=== PATIENT | male | born 1950 | race Caucasian/White ===

== ENCOUNTER 2018-10-23 19:45 | Inpatient (IN) | payer MEDICARE ==
[~2018-10-23] VITALS: Ht 188 cm; Wt 133.7 kg
[2018-10-23] MEDS ORDERED: CA CHLORIDE 10% 10 ML SYRINGE ONE (19:56)
[2018-10-23] MEDS ORDERED: EPINEPHrine 0.1 MG/ML SYG ONE ×2 (20:08→20:09)
[2018-10-23] MEDS ORDERED: SODIUM CHLORIDE 0.9% 1L BAG IV* STA (20:15)
[2018-10-23] MEDS ORDERED: VANCOMYCIN 1 GM (PMX) 250 ML IVPB STA (20:15)
[2018-10-23] MEDS ORDERED: AMIODARONE 900 MG in DEXTROSE 5% 482 ML IV STA (20:15)
[2018-10-23] MEDS ORDERED: CEFEPIME 2GM/50 ML (PMX) 50 ML IVPB STA (20:15)
[2018-10-23] MEDS ORDERED: VECURONIUM 100 MG in DEXTROSE 5% 100 ML IV ONE (20:18)
[2018-10-23] MEDS ORDERED: SODIUM CHLORIDE 0.9% 500 ML BAG IV* STA (20:18)
[2018-10-23] MEDS ORDERED: MIDAZOLAM (DRIP) 50 mg/50 mL 50 ML IV ONE (20:30)
[2018-10-23] MEDS ORDERED: VASOPRESSIN 100 UNIT in SOD CHLORIDE 0.9% 95 ML IV ONE (20:30)
[2018-10-23] MEDS ORDERED: NORepinephrine 8MG/250 ML (PMX 250 ML IV ONE (20:30)
[2018-10-23] MEDS ORDERED: FENTAnyl (DRIP) 1000 mcg/100mL 100 ML IV ONE (20:30)
[2018-10-23] MEDS ORDERED: DOPamine-D5W 1.6 MG/ML 250 ML IV ONE (20:30)
[2018-10-23] MEDS ORDERED: HYDROCORTISONE 100 MG INJ IV ONE (20:30)
[2018-10-23] MEDS ORDERED: ASPI-817 PO (20:54)
[2018-10-23] MEDS ORDERED: ACYC800T PO (20:54)
[2018-10-23] MEDS ORDERED: MULTI PO (20:55)
[2018-10-23] MEDS ORDERED: GARL1TAB2 PO (20:55)
[2018-10-23] MEDS ORDERED: CYAN-23 PO (20:56)
[2018-10-23] MEDS ORDERED: AMLO-147 PO (20:59)
--- NOTE | 2018-10-23 21:04 | ERD ---
ER Documentation Chief Complaint Chief Complaint BIB RA39 s/p cardiac arrest w/ ROSC HPI 68-year-old gentleman fairly recent diagnosis of West Nile virus status post resolution who presents to the emergency room with cardiac arrest. EMS reports the patient had a V. fib cardiac arrest in the field. Initially there was some concern for possible choking. The patient had bystander CPR. Further history provided reveals that the patient's was having dinner with him and he had sudden arrest. The patient was unable to be intubated in the field. ACLS and chest compressions were being done upon arrival. Total downtime in the field approximately 10 minutes. ROS Critical patient unable to obtain Medications Home Meds Reported Medications Amlodipine Besylate* (Amlodipine Besylate*) 10 Mg Tablet, 10 MG PO DAILY, #30 TAB 10/23/18 Cyanocobalamin (Vitamin B-12) (Vitamin B-12) Unknown Strength Capsule, 1 CAP PO DAILY, CAP 10/23/18 Garlic (Garlic) 1 Each Tablet, 1 EACH PO DAILY, TAB 10/23/18 Multivitamins* (Theragran*) 1 Tab Tab, 1 TAB PO DAILY, TAB 10/23/18 Acyclovir* (Acyclovir*) 800 Mg Tablet, 800 MG PO DAILY, TAB 10/23/18 Aspirin* (Aspirin* EC) 81 Mg Tablet.dr, 81 MG PO DAILY, TAB 10/23/18 Allergies Allergies: Coded Allergies: No Known Allergy (Unverified , 10/23/18) PMhx/Soc Medical and Surgical Hx: Unable to obtain Hx Cardiac Disorders: Yes (htn) Hx Miscellaneous Medical Probl: Yes (west nile virus) Smoking Status: Unknown if ever smoked FmHx Critical patient unable to obtain Physical Exam Physical Exam General: Unresponsive, cyanotic Head: Normocephalic, atraumatic Eyes: Limited exam ENT: Moist mucous membranes Neck: Supple, no lymphadenopathy Respiratory: No spontaneous respiratory activity Cardiovascular: No spontaneous cardiac activity Abdominal: Soft, non-protuberant, no pulsatile mass : Deferred MSK: No spontaneous motor activity Neurologic: No spontaneous neurologic activity Skin: No evidence of trauma Result Diagram: 10/23/18201110/23/182011 Results 24 hrs Laboratory Tests Test 10/23/18 20:12 10/23/18 20:28 White Blood Count 6.9 10^3/ul Red Blood Count 4.53 10^6/ul Hemoglobin 13.6 g/dl Hematocrit 43.0 % Mean Corpuscular Volume 94.9 fl Mean Corpuscular Hemoglobin 30.0 pg Mean Corpuscular Hemoglobin Concent 31.6 g/dl Red Cell Distribution Width 12.8 % Platelet Count 195 10^3/UL Mean Platelet Volume 10.0 fl Immature Granulocytes % 4.800 % Neutrophils % % Lymphocytes % % Monocytes % % Eosinophils % % Basophils % % Nucleated Red Blood Cells % 1.0 /100WBC Immature Granulocytes # 0.330 10^3/ul Neutrophils # 10^3/ul Lymphocytes # 10^3/ul Monocytes # 10^3/ul Eosinophils # 10^3/ul Basophils # 10^3/ul Nucleated Red Blood Cells # 10^3/ul Prothrombin Time 16.2 Sec Prothrombin Time Ratio 1.3 INR International Normalized Ratio 1.29 Activated Partial Thromboplast Time 35.9 Sec Sodium Level 139 mmol/L Potassium Level 3.1 mmol/L Chloride Level 98 mmol/L Carbon Dioxide Level 18 mmol/L Anion Gap 23 Blood Urea Nitrogen 24 mg/dl Creatinine 1.22 mg/dl Est Glomerular Filtrat Rate mL/min 59 mL/min Glucose Level 468 mg/dl Lactic Acid Level 17.4 mmol/L Calcium Level 10.4 mg/dl Phosphorus Level 10.5 mg/dl Magnesium Level 3.4 mg/dl Total Bilirubin 0.3 mg/dl Direct Bilirubin 0.00 mg/dl Indirect Bilirubin 0.3 mg/dl Aspartate Amino Transf (AST/SGOT) 193 IU/L Alanine Aminotransferase (ALT/SGPT) 239 IU/L Alkaline Phosphatase 87 IU/L Troponin I 0.061 ng/ml Total Protein 6.2 g/dl Albumin 3.6 g/dl Globulin 2.60 g/dl Albumin/Globulin Ratio 1.38 Lipase 70 U/L Ethyl Alcohol Level < 10.0 mg/dl Urine Color YELLOW Urine Clarity CLEAR Urine pH 6.0 Urine Specific [place] 1.018 Urine Ketones NEGATIVE mg/dL Urine Nitrite NEGATIVE mg/dL Urine Bilirubin NEGATIVE mg/dL Urine Urobilinogen NEGATIVE mg/dL Urine Leukocyte Esterase NEGATIVE Kathy/ul Urine Hemoglobin NEGATIVE mg/dL Urine Glucose NEGATIVE mg/dL Urine Total Protein NEGATIVE mg/dl Current Medications Medications Dose Sig/Adolfo Start Time Status Last (Trade) Ordered Route PRN Stop Time Admin Dose Reason Admin Sodium 3,600 ml BOLUS OVER 2 3/25/19 DC 10/23/18 Chloride HOURS STAT 20:15 20:04 (NS) IV* 10/23/18 20:18 Cefepime HCl 50 ml @ ONCE STAT 10/23/18 DC 10/23/18 100 mls/hr IVPB 20:15 20:44 10/23/18 20:44 Vancomycin 250 ml @ ONCE STAT 10/23/18 HCl 125 mls/hr IVPB 20:15 10/23/18 22:14 250 ml @ PER PROTOCOL 10/23/18 10/23/18 Norepinephrin 7.5 mls/hr ONCE IV 20:30 20:16 e 10/25/18 05:49 Dopamine 250 ml @ PER PROTOCOL 10/23/18 HCl/ 22.5 mls/hr ONCE IV 20:30 Dextrose 10/24/18 07:36 Vasopressin 100 ml @ PER PROTOCOL 10/23/18 100 2.4 mls/hr ONCE IV 20:30 unit/Sodium 10/25/18 14:09 Chloride Amiodarone 500 ml @ 0 ONCE STAT 10/23/18 DC HCl 900 mls/hr IV 20:15 mg/Dextrose 10/23/18 20:18 Midazolam 50 ml @ 3 PER PROTOCOL 10/23/18 HCl mls/hr ONCE IV 20:30 10/24/18 13:09 Fentanyl 100 ml @ PER PROTOCOL 10/23/18 2.5 mls/hr ONCE IV 20:30 10/25/18 12:29 Sodium 500 ml ONCE STAT 10/23/18 DC 10/23/18 Chloride IV* 20:18 20:04 (NS) 10/23/18 20:21 Vecuronium 100 ml @ [id number] 10/23/18 [place] 100 7.2 mls/hr ONCE IV 20:18 mg/ Dextrose 10/24/18 10:11 100 mg ONCE ONCE 10/23/18 DC 10/23/18 Hydrocortison IV 20:30 20:43 e 10/23/18 20:31 (Solu-Cortef) Procedures/MDM EKG, MONITORS, & DIAGNOSTIC IMAGING: EKG: I reviewed and interpreted a 12-lead EKG. Rhythm: Normal sinus rhythm ST Changes: Deep ST depressions in the precordial leads T waves: No contiguous T wave inversions Impression: Concern for active ischemia versus posterior CT Chest x-ray: I reviewed and interpreted a 1 view of the chest Mediastinum: Abnormal, consider positioning Cardiac silhouette: cardiomegaly Airspace: Interstitial process bilaterally, ET tube in good position Bones: No evidence of fracture CT brain: Formal read pending. PROCEDURES: Intubation Note: Indication: Airway protection Consent: This was an emergent situation, implied consent was observed RSI Medications: None required Tube size: 7-1/2 Secured at: 25 of the mouth Procedure: Endotracheal intubation was performed. The patient was preoxygenated with supplemental oxygen, the room was set up with emergency airway equipment including [id number], suction, and adjunct airways. Direct visualization of the cords was performed with direct laryngoscopy using [video laryngoscope] , insertion of the endotracheal tube through the cords was visualized. Bilateral breath sounds were auscultated, color change was observed. The tube was then secured in a postintubation chest x-ray was ordered. The patient tolerated the procedure well there were no complications. Central Line Note: Consent: [Critical patient, unable to obtain informed consent] Indication: Critically ill patient requiring specialized vascular access for fluid or pressor management Location: Right femoral vein Indication: Critical patient, coding patient Procedure: Sterile procedure was observed throughout insertion of the central line. The insertion site was prepped with sterile solution. Landmarks identified. insertion of a needle into the vein was obtained with return of dark, nonpulsatile blood. The wire was then threaded through the needle without complication. small skin incision was made, the needle was removed intact, dilation of the vein was performed and insertion of a triple lumen catheter was completed. The catheter was then sutured to the skin. All 3 ports jaswinder back and flushed without difficulty. A sterile dressing was applied. The patient tolerated the procedure well there were no complications. LAB INTERPRETATION: I reviewed the laboratory testing and it shows no leukocytosis, hyperglycemia though the patient received dextrose during code. Troponin pending. Lactic acid elevation. MEDICAL DECISION MAKING: The patient arrives with cardiac arrest. The initial report was possible choking episode. However, further history provided by the was that the patient is sudden arrest. This is consistent with ventricular fibrillation cardiac arrest with return of spontaneous circulation. ER COURSE: * Upon arrival the patient was undergoing chest compressions. I continued ACLS per protocol. The patient was placed on the rn cardiac and defibrillator * The patient was given multiple rounds of medications that included epinephrine, calcium, bicarbonate, amiodarone, magnesium. Please see nursing documentation. The patient continued to be in and out of PEA arrest and a systole. * The patient was intubated. * We had temporary return of spontaneous circulation and a central line was placed. * Patient again lost pulses despite dose of atropine. ACLS was continued. Mitali ent was given again dosing of epinephrine and other medications including bicarbonate. Return of spontaneous circulation occurred. * Sedation was continue with fentanyl and Versed. Targeted temperature management was initiated. * Broad-spectrum antibiotics provided. Blood cultures taken. * Given that the provided the history of V. fib arrest and EKG showing ST depressions, on-call interventionalist was notified. Dr. Monaco and I discussed the case. We discussed resuscitation features. The patient had a witnessed arrest with initial V. fib rhythm. The patient had bystander CPR. Total minutes of return to spontaneous circulation were less than 30. The patient had ongoing CPR. Age is less than 85. No history of end-stage renal disease. Given the very good possibility of cardiac etiology we both felt that activation of the Figure Skater was appropriate. * Cardiac Figure Skater activated at 8:40 PM * The patient's was updated multiple times and allowed to come to the bedside. * Patient was taken to CT for CT brain with no evidence of obvious intracranial hemorrhage. Formal read pending. CONSULTATION: [employer] Operations Specialist: Dr. Monaco the bedside DISPOSITION PLAN: Accepting care team and consultations: I discussed the current laboratory data, diagnostic imaging and emergency care provided. Admitting team: Dr. Jacques Admitting team indication: Insurance directed Critical Care Note: Total time: 50 minutes Indication/Organ System Threat: Cardiac arrest with return of spontaneous cir culation I spent the above amount of critical care time with the patient, not including billable procedures. This included chart review, consultations, repeat bedside evaluations, and titration of appropriate medications to prevent cardiopulmonary or respiratory collapse. Departure Diagnosis: Primary Impression: Cardiac arrest Additional Impressions: Ventricular fibrillation Acute respiratory failure Respiratory failure complication: hypoxia Qualified Codes: J96.01 - Acute respiratory failure with hypoxia Hyperglycemia Shock liver High anion gap metabolic acidosis Condition: Critical ILSSY SMITH MD Oct 23, 2018 21:04
[2018-10-23] MEDS ORDERED: LIDOCAINE 1% (MDV) 20 ML INJ ONE (21:17)
[2018-10-23] MEDS ORDERED: VERAPAMIL 5 MG INJ ONE (21:17)
[2018-10-23] MEDS ORDERED: IOHEXOL 350MG/ML 50 ML BTL ONE (21:17)
[2018-10-23] MEDS ORDERED: MIDAZOLAM 1 MG/ML 2 ML INJ ONE (21:17)
[2018-10-23] MEDS ORDERED: FENTAnyl 50 MCG/ML VIAL ONE (21:17)
[2018-10-23] MEDS ORDERED: IODIXANOL LOCM 100 ML BTL ONE (21:17)
[2018-10-23] MEDS ORDERED: NITROGLYCERIN (IC) 100 MCG/ML INJ ONE (21:17)
--- NOTE | 2018-10-23 21:17 | CONS ---
Assessment/Plan Assessment/Plan Hospital Course (Demo Recall) Ventricular fibrillation cardiac arrest V. fib Inferolateral ST elevation [place] Status post emergent PCI of left circumflex artery Multivessel coronary artery disease with 90% right coronary artery stenosis Severe lactic acidosis Severe hyperglycemia Respiratory failure this was intubation underwent Electrolyte abnormality and severe metabolic acidosis encephalopathy likely anoxic brain injury History of hypertension currently in shock Recommendations: Aspirin and Brilinta needs to be continued given PCI We will keep an angiogram in the next 12 hours if a no active bleeding is noted Intra-aortic balloon pump will be continued We have been so for able to wean off the vasopressin completely and currently only on low-dose of dopamine. Levophed is almost off as well. Blood pressure remained stable with supportive balloon pump Vent support will be continued. Hypothermia to be started ICU care will be done Magnesium potassium to be replaced Prognosis is guarded at best More than 48 minutes of critical care time was for management treatment is critically patient excluding any procedures Thank you for his referral. We will continue to follow along with you DRU PONCE MD [facility] Consultation Date/Type/Reason Admit Date/Time Date of Consultation: Oct 23, 2018 Type of Consult Cardiology Reason for Consultation VF cardiac arrest Requesting Provider: LISSY SMITH MD Date/Time of Note DATE: 10/23/18 TIME: 21:16 Hx of Present Illness Emergent Interventional cardiology consultation note/ Critical care note Chief complaint: syncope Reason for consult: VF arrest History of present illness: Thank you for this referral. History was obtained from the patient will discussion with the ER physician multiple staff. This is an unfortunate 68-year-old gentleman with history of West Nile virus which apparently has recovered from, hypertension who was having dinner and suddenly passed out. Paramedics was called CPR by bystanders was done. Initial rhythm was reportedly V. fib and patient was shocked. Patient was emergency room was intubated. Patient has been unresponsive though. Initial EKG post showed slight ST elevation in inferolateral leads consistent with a STEMI. Code STEMI was activated and patient was seen by myself in the emergency room. He was noted to be unresponsive with pupils fixed and dilated. Patient was also hypotensive on vasopressin, dopamine, Levophed drip. Discussed with and ER physician decided to take the patient for emergent cardiac cath. Risks and alternative procedure discussed with the patient and in detail risks include but limited to high risk of infection vascular complication bleeding complication TX stroke arrhythmia I said that S are discussed with her. Cardiac cath was done patient was noted to 100% occlusion of his left circumflex artery which was successfully stented using a 2.75 x 24 mm Synergy drug-eluting stent. Intra-artery balloon was also placed for pressures support. Patient is to be transferred to intensive care unit Allergies: No known drug allergies Medications Norvasc aspirin Family history: No history of early coronary artery disease Social history: Non-smoker and lives with his Past medical history: Hypertension West Nile virus infection obesity Review of system: Patient denies all others except for above-mentioned Past Medical History Home Meds Reported Medications Amlodipine Besylate* (Amlodipine Besylate*) 10 Mg Tablet, 10 MG PO DAILY, #30 TAB 10/23/18 Cyanocobalamin (Vitamin B-12) (Vitamin B-12) Unknown Strength Capsule, 1 CAP PO DAILY, CAP 10/23/18 Garlic (Garlic) 1 Each Tablet, 1 EACH PO DAILY, TAB 10/23/18 Multivitamins* (Theragran*) 1 Tab Tab, 1 TAB PO DAILY, TAB 10/23/18 Acyclovir* (Acyclovir*) 800 Mg Tablet, 800 MG PO DAILY, TAB 10/23/18 Aspirin* (Aspirin* EC) 81 Mg Tablet.dr, 81 MG PO DAILY, TAB 10/23/18 Medications Current Medications Vancomycin HCl 250 ml @ 125 mls/hr ONCE STAT IVPB Last administered on 10/23/18at 21:00; Admin Dose 125 MLS/HR; Start 10/23/18 at 20:15; Stop 10/23/18 at 22:14 Norepinephrine 250 ml @ 7.5 mls/hr PER PROTOCOL ONCE IV Last administered on 10/23/18at 20:16; Admin Dose 7.5 MLS/HR; Start 10/23/18 at 20:30; Stop 10/25/18 at 05:49 Dopamine HCl/ Dextrose 250 ml @ 22.5 mls/hr PER PROTOCOL ONCE IV ; Start 10/23/18 at 20:30; Stop 10/24/18 at 07:36 Vasopressin 100 unit/Sodium Chloride 100 ml @ 2.4 mls/hr PER PROTOCOL ONCE IV Last administered on 10/23/18at 21:13; Admin Dose 2.4 MLS/HR; Start 10/23/18 at 20:30; Stop 10/25/18 at 14:09 Midazolam HCl 50 ml @ 3 mls/hr PER PROTOCOL ONCE IV ; Start 10/23/18 at 20:30; Stop 10/24/18 at 13:09 Fentanyl 100 ml @ 2.5 mls/hr PER PROTOCOL ONCE IV ; Start 10/23/18 at 20:30; Stop 10/25/18 at 12:29 Vecuronium [place] 100 mg/ Dextrose 100 ml @ 7.2 mls/hr [id number] ONCE IV ; Start 10/23/18 at 20:18; Stop 10/24/18 at 10:11 Allergies: Coded Allergies: No Known Allergy (Unverified , 10/23/18) Social History Smoking Status: Unknown if ever smoked Exam/Review of Systems Exam Exam General: Obese gentleman status post intubation on the vent nonverbal HEENT: NC/AT. pupils are extend dilated NECK: no stridor. CV: RRR. systolic murmur; no gallop or rubs. PULM: no wheezing +rhonchi. GI: SOFT, NT, ND, no rebound or guarding Extremity: trace B/L LE edema. no clubbing. neuro: No response to verbal stimuli Psych: calm rectal: deferred : normal male EKG was personally showed normal sinus rhythm with ST elevation inferolaterally consistent with inferolateral ST elevation TX with reciprocal changes anteriorly Head CT done in the emergency room shows: No mass effect or acute intracranial bleed. Mild intracranial vascular calcification.. Chest x-ray done in the ER shows: 1. Endotracheal tube in place. 2. Atelectasis at the right lung base. 3. Mild cardiomegaly. 4. Exam limited by low lung volumes and multiple overlying external appearing wires Multiple ABG that was reviewed personally Labs Result Diagram: 10/23/18201110/23/182011 Results 24hrs Laboratory Tests Test 10/23/18 20:12 10/23/18 20:15 10/23/18 20:28 White Blood Count 6.9 Red Blood Count 4.53 L Hemoglobin 13.6 L Hematocrit 43.0 Mean Corpuscular Volume 94.9 Mean Corpuscular Hemoglobin 30.0 Mean Corpuscular 31.6 L Hemoglobin Concent Red Cell Distribution Width 12.8 Platelet Count 195 Mean Platelet Volume 10.0 Immature Granulocytes % 4.800 H Neutrophils % Lymphocytes % Monocytes % Eosinophils % Basophils % Nucleated Red Blood Cells % 1.0 H Immature Granulocytes # 0.330 H Neutrophils # Lymphocytes # Monocytes # Eosinophils # Basophils # Nucleated Red Blood Cells # Prothrombin Time 16.2 H Prothrombin Time Ratio 1.3 INR International 1.29 Normalized Ratio Activated 35.9 H Partial Thromboplast Time Sodium Level 139 Potassium Level 3.1 L Chloride Level 98 Carbon Dioxide Level 18 L Anion Gap 23 H Blood Urea Nitrogen 24 H Creatinine 1.22 Est Glomerular Filtrat 59 L Rate mL/min Glucose Level 468 *H Lactic Acid Level 17.4 *H Calcium Level 10.4 H Phosphorus Level 10.5 H Magnesium Level 3.4 H Total Bilirubin 0.3 Direct Bilirubin 0.00 Indirect Bilirubin 0.3 Aspartate Amino 193 H Transf (AST/SGOT) Alanine 239 H Aminotransferase (ALT/SGPT) Alkaline Phosphatase 87 Troponin I 0.061 Total Protein 6.2 Albumin 3.6 Globulin 2.60 Albumin/Globulin Ratio 1.38 Lipase 70 Ethyl Alcohol Level < 10.0 H Blood Gas Specimen Source Blood arterial Arterial Blood Date Drawn 10/23/2018 9:00:31 PM Arterial Blood pH 7.064 *L (Temp corrected) Arterial Blood pCO2 66.6 H (Temp correct) Arterial Blood pO2 81.1 (Temp corrected) Arterial Blood HCO3 18.6 L Arterial Blood Base Excess -12.7 L Arterial Blood 89.6 L Oxygen Saturation Nicolas Test ACCEPTAB Arterial Blood Gas Right Radial Puncture Site Arterial 0.3 Blood Carboxyhemoglobin Arterial Blood Methemoglobin 0.4 Blood Gas A-a O2 565.3 H Differential Oxyhemoglobin Percent 89.0 L Blood Gas Temperature 37.0 Blood Gas Respiration Rate 15.0 Blood Gas Actual 15 Respiration Rate Blood Gas Modality VENT - AC FiO2 100.0 Blood Gas Tidal Volume 550.0 Blood Gas Low PEEP Setting 5.0 Blood Gas Critical Value Ashley SMITH MD Read Back Blood Gas Notified Whom UP Blood Gas Notified Time 10/23/2018 9:11:27 PM Urine Color YELLOW Urine Clarity CLEAR Urine pH 6.0 Urine Specific [place] 1.018 Urine Ketones NEGATIVE Urine Nitrite NEGATIVE Urine Bilirubin NEGATIVE Urine Urobilinogen NEGATIVE Urine Leukocyte Esterase NEGATIVE Urine Hemoglobin NEGATIVE Urine Glucose NEGATIVE Urine Total Protein NEGATIVE Medications Medications Current Medications Vancomycin HCl 250 ml @ 125 mls/hr ONCE STAT IVPB Last administered on 10/23/18at 21:00; Admin Dose 125 MLS/HR; Start 10/23/18 at 20:15; Stop 10/23/18 at 22:14 Norepinephrine 250 ml @ 7.5 mls/hr PER PROTOCOL ONCE IV Last administered on 10/23/18at 20:16; Admin Dose 7.5 MLS/HR; Start 10/23/18 at 20:30; Stop 10/25/18 at 05:49 Dopamine HCl/ Dextrose 250 ml @ 22.5 mls/hr PER PROTOCOL ONCE IV ; Start 10/23/18 at 20:30; Stop 10/24/18 at 07:36 Vasopressin 100 unit/Sodium Chloride 100 ml @ 2.4 mls/hr PER PROTOCOL ONCE IV Last administered on 10/23/18at 21:13; Admin Dose 2.4 MLS/HR; Start 10/23/18 at 20:30; Stop 10/25/18 at 14:09 Midazolam HCl 50 ml @ 3 mls/hr PER PROTOCOL ONCE IV ; Start 10/23/18 at 20:30; Stop 10/24/18 at 13:09 Fentanyl 100 ml @ 2.5 mls/hr PER PROTOCOL ONCE IV ; Start 10/23/18 at 20:30; Stop 10/25/18 at 12:29 Vecuronium [place] 100 mg/ Dextrose 100 ml @ 7.2 mls/hr [id number] ONCE IV ; Start 10/23/18 at 20:18; Stop 10/24/18 at 10:11 DRU PONCE MD Oct 23, 2018 21:17
[2018-10-23] MEDS ORDERED: ASPIRIN 325 MG TAB ONE ×2 (21:25→22:43)
[2018-10-23] MEDS ORDERED: NA BICARBONATE 8.4% 50 ML SYG ONE (21:45)
[2018-10-23] MEDS ORDERED: TICAGRELOR 90 MG TABLET ONE (22:19)
[2018-10-23] MEDS ORDERED: EPTIFIBATIDE 10 ML ONE (22:44)
[2018-10-23] MEDS ORDERED: EPTIFIBATIDE 100 ML IV ONE (22:44)
[2018-10-23] MEDS ORDERED: EPTIFIBATIDE 100 ML IV SCH (22:51)
[2018-10-23] MEDS: SOD CHLORIDE 0.9% 1,000 ML IV SCH (22:51)
[2018-10-23] MEDS ORDERED: TICAGRELOR 90 MG TABLET PO ONE (23:00)
[2018-10-23] MEDS ORDERED: ASPIRIN 300 MG SUPP PR ONE (23:00)
--- NOTE | 2018-10-23 23:43 | OPR ---
Date/Time of Note Date/Time of Note DATE: 10/23/18 TIME: 23:33 Operative Report Procedure Date: Oct 23, 2018 Preoperative Diagnosis VF cardiac arrest Postoperative Diagnosis same Operation/Procedure Performed PCI LCX. IABP Surgeon see signature line [place] Strip Gauger MAURILIO Anesthesia Type: general, other Estimated Blood Loss: minimal Transfusion none Specimen none Grafts/Implants none Complications none Procedure Description Bacteriologist Medical: Dru Monaco MD Indication: 68-year-old gentleman who presented with V. fib cardiac arrest. EKG is also shown inferolateral ST elevations Procure performed: #1 Emergent left heart catheterization and selective right and left coronary angiogram #2 Right and left femoral angiogram 3. Intra-aortic balloon pump placement under direct fluoroscopy 4. Thrombectomy of the distal left circumflex artery 5. Successful PTCA and stenting of distal left circumflex artery using a 2.75 x 24 mm Synergy drug-eluting stent Findings: 1. Left main: is normal and birfurcates to LAD & LCX. 2. LAD: has 20 % stenosis at proximal LAD, and 20 % stenosis at mid LAD. 3. Left circumflex artery: is large but nondominant. it has 100 % occluded distally. Successful PCI of this lesion no significant residual stenosis left. 4. RCA: is large and dominant. it has 40 % stenosis proximally and 80-90% stenosis at the mid RCA. MALENA-3 flow was noted to 5. LV: 141/30 aortic pressure by pull back: 148/60 Procedure in detail: Written informed consent with obtained after risks benefits and alternatives discussed with the patient's in detail. risks including but not limited to risk of infection vascular complications, bleeding complications, OH stroke arrhythmia renal failure at even were discussed with the patient's in detail. Patient was brought into the cardiac director of labor relations and placed in supine position. Right and left groin area was prepped and draped in regular sterile fashion and then he was in anesthetized using 1% lidocaine. Right femoral artery was cannulated and using modified seldinger technique a 6 Irish sheath was placed in the femoral artery. Femoral angiogram was performed. Left femoral artery was cannulated using modified tension technique a 5 Irish sheath placed left femoral artery.Femoral angiogram was performed I changed the right femoral sheath to an 8 Irish sheath and left femoral sheath to a 6 Irish sheath. Intra-aortic balloon pump was advanced to the right femoral sheath placed into the descending aorta and started for support. JL4 guiding catheter was advanced to engage the left main coronary artery felicia ographic view was obtained. JR4 catheter was advanced and engaged into the right coronary artery and angiographic view was obtained. At this time we decided to perform PCI of the circumflex artery. A Voda 3-/2 guiding catheter was advanced to engage the left main coronary artery. BMW wire was used and could not cross into the distal left circumflex artery. Continuous Improvement Specialist wire was used and advanced and the support of the balloon was able to cross the lesion and placed distal to the lesion. I used a 2.5 x 8 mm balloon which was placed across the lesion and predilated the vessel. Then a Pronto was used thrombectomy was done. Then it 2.5 x 15 mm balloon was used and inflated the lesion. Then I used a 2.75 x 24 mm Synergy drug-eluting stent which was placed across the lesion and deployed at 14 Joaquín. Final angiographic view was obtained which showed MALENA-3 flow no evidence of dissection and no significant residual stenosis at the site of the stent. Then a pigtail was advanced to engage the left ventricle hemodynamics as recorded by pullback aortic pressure was measured. Intra-aortic balloon pump was sutured in. At this point was noted at the pressures were not recording well at the balloon pump. Different setting was changed however it could not be recording well. Decided to change intra-aortic balloon pump. It was deflated and removed. Another new balloon pump was put under direct fluoroscopy. A good waveform was noted Patient tolerated the procedure well with no complication. Patient is to be transferred to ICU contrast used: 120 cc Visipaque Conclusions: Successful PTCA thrombectomy stenting of the distal left circumflex artery from 100% occlusion to no significant residual stenosis using a 2.75 x 24 mm Synergy drug-eluting stent. Placement of intra-aortic balloon pump Recommendations: Aggressive medical therapy. dual antiplatlet therapy with aspirin and Brilinta ICU care Integrilin drip over the next 12 hours stable. DRU MONACO MD [facility] DRU MONACO MD Oct 23, 2018 23:43
[2018-10-24] VITALS (102 sets, daily range): BP systolic 68–178; BP diastolic 40–94; PULSE 58–97; RESP 13–29
[2018-10-24] MEDS ORDERED: AMIODARONE 900 MG in DEXTROSE 5% 482 ML IV SCH (00:08)
[2018-10-24] MEDS ORDERED: IODIXANOL LOCM 100 ML BTL ONE ×2 (00:13)
[2018-10-24] MEDS ORDERED: IPRATROPIUM (HFA) 12.9 GM INHALER INH PRN (00:30)
[2018-10-24] MEDS ORDERED: ALBUTEROL HFA 8 GM INHALER INH PRN (00:30)
[2018-10-24] MEDS ORDERED: INSULIN HUMAN REGULAR 100 UNIT in SOD CHLORIDE 0.9% 99 ML IV SCH ×2 (00:30→02:30)
[2018-10-24] MEDS ORDERED: ONDANSETRON 4 MG INJ IV PRN (00:30)
[2018-10-24] MEDS ORDERED: ACCU-CHEK XX SCH ×2 (00:30→02:30)
[2018-10-24] MEDS ORDERED: ACETAMINOPHEN 650MG/20.3ML CUP PO PRN (00:30)
[2018-10-24] MEDS ORDERED: DEXTROSE 50% 50 ML SYRINGE IV PRN ×6 (00:30→02:30)
[2018-10-24] MEDS ORDERED: LORAZEPAM 2 MG INJ IV ONE (01:00)
[2018-10-24] MEDS: POTASSIUM CHLORIDE 50 ML IVPB SCH ×4 (01:03→17:06)
[2018-10-24] MEDS: ACCU-CHEK XX SCH ×24 (01:16→23:06)
[2018-10-24] MEDS ORDERED: DIAZEPAM 5 MG/ML SYG IV ONE (02:00)
[2018-10-24] MEDS: PROPOFOL 100 ML IV SCH ×6 (02:00→20:56)
[2018-10-24] MEDS: OCULAR LUBRICANT 3.5 GM OPH OINT BOTH EYES SCH ×4 (02:00→18:07)
[2018-10-24] MEDS: ACETAMINOPHEN 650MG/20.3ML CUP NGT SCH ×4 (02:00→21:52)
[2018-10-24] MEDS ORDERED: LEVETIRACETAM 1000 MG (PMX) 100 ML IVPB ONE (02:00)
[2018-10-24] MEDS ORDERED: MEPERIDINE 25 MG INJ IM PRN (02:00)
[2018-10-24] MEDS ORDERED: D5W ONE (02:54)
[2018-10-24] MEDS ORDERED: MAGNESIUM SULFATE ONE (02:54)
[2018-10-24] MEDS ORDERED: MAGNESIUM SULFATE 3 GM in DEXTROSE 5% 100 ML IV ONE (03:13)
[2018-10-24] MEDS ORDERED: MEPERIDINE 25 MG INJ IV PRN (03:30)
[2018-10-24] MEDS: VASOPRESSIN 60 UNIT in DEXTROSE 5% 57 ML IV SCH ×3 (04:00→16:06)
[2018-10-24] MEDS: INSULIN HUMAN REGULAR 100 UNIT in SOD CHLORIDE 0.9% 99 ML IV SCH ×3 (04:13→20:14)
[2018-10-24] MEDS: NORepinephrine 32 MG in DEXTROSE 5% 218 ML IV SCH (04:46)
[2018-10-24] MEDS: SOD CHLORIDE 0.9% 1,000 ML IV SCH (05:50)
--- NOTE | 2018-10-24 06:05 | HP ---
Date/Time of Note Date/Time of Note DATE: 10/24/18 TIME: 05:56 Assessment/Plan VTE Prophylaxis Pharmacological prophylaxis: heparin Lines/Catheters IV Catheter Type (from Nrsg): A Line Urinary Cath still in place: Yes Reason Cath still needed: terminal illness/intractable pain Assessment/Plan Assessment/Plan 1. V-fib cardiac arrest: s/p ROSC. Secondary to STEMI Patient is status post intra-aortic balloon pump placement under direct fluoroscopy, thrombectomy of the distal left circumflex artery and successful PTCA and stenting of distal left circumflex artery. -Currently on Brilinta, aspirin, statin -Management per cardiology -Follow-up 2D echo result -Trend troponin -Hypothermia protocol 2. Hypoxic and hypercapnic respiratory failure, secondary to above: Status post intubation -Continue vent support -ABG -Pulmonary to manage 3. STEMI: See #1 4. Hyperglycemia: A1c 5.3 -Insulin drip 5. Hypokalemia: Replete 6. Seizure -Currently on Versed -Status post Ativan, Valium and Keppra -Pupils are dilated and fixed -Neurology consult -Head CT without acute findings. Will order MRI of the brain when more stable Result Diagram: 10/23/18211410/23/182114 Results 24hrs Laboratory Tests Test 10/23/18 20:12 10/23/18 20:15 10/23/18 20:28 10/23/18 21:15 White Blood 6.9 20.9 #H Count Red Blood Count 4.53 L 5.23 Hemoglobin 13.6 L 15.6 Hematocrit 43.0 45.7 Mean 94.9 87.4 Corpuscular Volume Mean 30.0 29.8 Corpuscular Hemoglobin Mean 31.6 L 34.1 Corpuscular Hemoglobin Conc ent Red Cell 12.8 12.7 Distribution Width Platelet Count 195 319 # Mean Platelet 10.0 9.5 Volume Immature 4.800 H 1.600 H Granulocytes % Neutrophils % 81.0 H Segmented 3 L Neutrophils % (Manual) Band 5 H Neutrophils % (Manual) Lymphocytes % 11.3 L Lymphocytes % 77 H (Manual) Monocytes % 5.4 Monocytes % 7 (Manual) Eosinophils % 0.4 Eosinophils % 3 (Manual) Basophils % 0.3 Basophils % 1 (Manual) Metamyelocytes 1 H % (manual) Myelocytes % 1 H (Manual) Plasma Cells % 2 (manual) Nucleated Red 1.0 H 0.0 Blood Cells % Immature 0.330 H 0.340 H Granulocytes # Neutrophils # 17.0 H Neutrophils # 0.2 L (Manual) Band 0.3 Neutrophils # Lymphocytes 5.3 H (Manual) Lymphocytes # 2.4 Monocytes # 1.1 H Monocytes # 0.4 (Manual) Eosinophils # 0.1 Basophils # 0.1 Basophils # 0.0 (Manual) Metamyelocytes 0.0 # Myelocytes # 0.0 Plasma Cells # 0.1 H (manual) Nucleated Red 0.0 Blood Cells # Platelet NORMAL Estimate Poikilocytosis 1+ Prothrombin 16.2 H Time Prothrombin 1.3 Time Ratio INR 1.29 International Normalized Rati o Activated 35.9 H Partial Thrombo plast Time Sodium Level 139 142 Potassium Level 3.1 L 3.2 L Chloride Level 98 99 Carbon Dioxide 18 L 23 Level Anion Gap 23 H 20 H Blood Urea 24 H 30 H Nitrogen Creatinine 1.22 1.36 H Est Glomerular 59 L 52 L Filtrat Rate mL/min Glucose Level 468 *H 380 H Lactic Acid 17.4 *H Level Calcium Level 10.4 H 8.9 Phosphorus 10.5 H Level Magnesium Level 3.4 H 2.5 Total Bilirubin 0.3 Direct 0.00 Bilirubin Indirect 0.3 Bilirubin Aspartate Amino 193 H Transf (AST/SGO T) Alanine 239 H Aminotransferas e (ALT/SGPT) Alkaline 87 Phosphatase Troponin I 0.061 11.200 *H Total Protein 6.2 Albumin 3.6 Globulin 2.60 Albumin/Globuli 1.38 n Ratio Lipase 70 Ethyl Alcohol < 10.0 H Level Blood Gas Blood arterial Specimen Source Arterial Blood 10/23/2018 9:00: Date Drawn 31 PM Arterial Blood 7.064 *L pH (Temp corrected ) Arterial Blood 66.6 H pCO2 (Temp correct) Arterial Blood 81.1 pO2 (Temp corrected ) Arterial Blood 18.6 L HCO3 Arterial Blood -12.7 L Base Excess Arterial Blood 89.6 L Oxygen Saturati on Nicolas Test ACCEPTAB Arterial Blood Right Radial Gas Puncture Site Arterial 0.3 Blood Carboxyhe moglobin Arterial Blood 0.4 Methemoglobin Blood Gas A-a 565.3 H O2 Differential Oxyhemoglobin 89.0 L Percent Blood Gas 37.0 Temperature Blood Gas 15.0 Respiration Rate Blood Gas 15 Actual Respiration Rat e Blood Gas VENT - AC Modality FiO2 100.0 Blood Gas Tidal 550.0 Volume Blood Gas Low 5.0 PEEP Setting Blood Gas Ashley SMITH MD Critical Value Read Back Blood Gas UP Notified Whom Blood Gas 10/23/2018 9:11: Notified Time 27 PM Urine Color YELLOW Urine Clarity CLEAR Urine pH 6.0 Urine Specific 1.018 [place] Urine Ketones NEGATIVE Urine Nitrite NEGATIVE Urine Bilirubin NEGATIVE Urine NEGATIVE Urobilinogen Urine Leukocyte NEGATIVE Esterase Urine NEGATIVE Hemoglobin Urine Glucose NEGATIVE Urine Total NEGATIVE Protein Urine Opiates Negative Screen Urine Negative Barbiturates Urine Negative Amphetamines Screen Urine Negative Benzodiazepines Screen Urine Cocaine Negative Screen Urine Negative Cannabinoids Test 10/23/18 22:36 10/23/18 23:15 10/24/18 00:29 10/24/18 00:42 Blood Gas Blood arterial Specimen Source Arterial Blood 10/23/2018 10:35 Date Drawn :32 PM Arterial Blood 7.198 *L pH (Temp corrected ) Arterial Blood 60.9 H pCO2 (Temp correct) Arterial Blood 83.7 pO2 (Temp corrected ) Arterial Blood 23.2 HCO3 Arterial Blood -6.1 L Base Excess Arterial Blood 93.5 L Oxygen Saturati on Nicolas Test N/A Arterial Blood A-Line Gas Puncture Site Arterial 0.3 Blood Carboxyhe moglobin Arterial Blood 0.4 Methemoglobin Blood Gas A-a 568.4 H O2 Differential Oxyhemoglobin 92.8 L Percent Blood Gas 37.0 Temperature Blood Gas 20.0 Respiration Rate Blood Gas 20 Actual Respiration Rat e Blood Gas VENT - AC Modality FiO2 100.0 Blood Gas Tidal 550.0 Volume Blood Gas Low 5.0 PEEP Setting Blood Gas Emiliano SINGH MD Critical Value Read Back Blood Gas UP Notified Whom Blood Gas 10/23/2018 10:40 Notified Time :47 PM Lactic Acid 7.8 *H 11.4 *H Level Hemoglobin A1c 5.3 Bedside Glucose 373 H Test 10/24/18 04:03 10/24/18 04:55 10/24/18 05:00 10/24/18 05:02 Bedside Glucose 329 H 353 H White Blood Pending Count Red Blood Count Pending Hemoglobin Pending Hematocrit Pending Mean Pending Corpuscular Volume Mean Pending Corpuscular Hemoglobin Mean Pending Corpuscular Hemoglobin Conc ent Red Cell Pending Distribution Width Platelet Count Pending Mean Platelet Pending Volume Blood Gas Blood Specimen arterial Source Arterial Blood 10/24/2018 5:10 Date Drawn :08 AM Arterial Blood 7.344 L pH (Temp corrected ) Arterial Blood 24.3 L pCO2 (Temp correct) Arterial Blood 419.1 H pO2 (Temp corrected ) Arterial Blood 13.6 L HCO3 Arterial Blood -11.4 L Base Excess Arterial Blood 99.4 H Oxygen Saturati on Nicolas Test N/A Arterial Blood A-Line Gas Puncture Site Arterial 0.3 Blood Carboxyhe moglobin Arterial Blood 0.4 Methemoglobin Blood Gas A-a 278.9 H O2 Differential Oxyhemoglobin 98.7 Percent Blood Gas 33.0 Temperature Blood Gas 20.0 Respiration Rate Blood Gas 28 Actual Respiration Rat e Blood Gas VENT - AC Modality FiO2 100.0 Blood Gas Tidal 550.0 Volume Blood Gas Low 5.0 PEEP Setting Blood Gas C Critical Value ANTHONY Woodward Read Back N Blood Gas Notified Whom Blood Gas 10/24/2018 5:17 Notified Time :16 AM HPI/ROS Admit Date/Time Admit Date/Time Hx of Present Illness This is a 68-year-old male with a history of hypertension who was brought to the ER after he had a cardiac arrest. Reportedly, patient was having dinner when he collapsed. CPR was initiated prior to EMS arrival. When EMS arrived, he was found to be in V-fib. EKG shows STEMI. When he initially presented to ER, he was hypoxic with a documented O2 sat of 66%. Initial troponin 17. Blood glucose in the 400s range. A1c 5.3. Patient was intubated and was taken to the OR emergently. ABG on 100% FiO2 showed a pH of 7.06, PCO2 66, PO2 81, bicarb almost 19. He is now status post Intra-aortic balloon pump placement under direct fluoroscopy, thrombectomy of the distal left circumflex artery and successful PTCA and stenting of distal left circumflex artery using a 2.75 x 24 mm Synergy drug-eluting stent. See cardiology report for more info. Once patient was admitted to ICU, he has been noted to be having seizures. He is on Versed and so far has been given Ativan, Valium and Keppra. PMH/Family/Social Past Medical History Medications Current Medications Dopamine HCl/ Dextrose 250 ml @ 22.5 mls/hr PER PROTOCOL ONCE IV Last administered on 10/23/18at 20:12; Admin Dose 45 MLS/HR; Start 10/23/18 at 20:30; Stop 10/24/18 at 07:36 Vasopressin 100 unit/Sodium Chloride 100 ml @ 2.4 mls/hr PER PROTOCOL ONCE IV Last administered on 10/23/18at 21:13; Admin Dose 2.4 MLS/HR; Start 10/23/18 at 20:30; Stop 10/25/18 at 14:09 Midazolam HCl 50 ml @ 3 mls/hr PER PROTOCOL ONCE IV Last administered on 10/24/18at 00:45; Admin Dose 10 MLS/HR; Start 10/23/18 at 20:30; Stop 10/24/18 at 13:09 Fentanyl 100 ml @ 2.5 mls/hr PER PROTOCOL ONCE IV Last administered on 10/24/18at 00:46; Admin Dose 10 MLS/HR; Start 10/23/18 at 20:30; Stop 10/25/18 at 12:29 Vecuronium Lindrith 100 mg/ Dextrose 100 ml @ 7.2 mls/hr [id number] ONCE IV ; Start 10/23/18 at 20:18; Stop 10/24/18 at 10:11 Miscellaneous Information (* Miscellaneous Pharmacy Order) Hold all Metformin ... ONCE XX ; Start 10/23/18 at 23:00; Stop 10/25/18 at 22:59 Ticagrelor (Brilinta) 90 mg BID PO ; Start 10/24/18 at 09:00 Eptifibatide 100 ml @ 7.2 mls/hr [id number] IV Last administered on 10/23/18at 22:51; Admin Dose 7.2 MLS/HR; Start 10/23/18 at 22:51; Stop 10/24/18 at 10:50 Atorvastatin Calcium (Lipitor) 40 mg DAILY@21 PO ; Start 10/24/18 at 21:00 Sodium Chloride 1,000 ml @ 100 mls/hr Q10H IV Last administered on 10/24/18at 05:50; Admin Dose 100 MLS/HR; Start 10/23/18 at 22:51; Stop 10/24/18 at 18:50 Aspirin (Aspirin) 81 mg DAILY PO ; Start 10/24/18 at 09:00 Amiodarone HCl 900 mg/Dextrose 500 ml @ 0 mls/hr Q0M IV ; Start 10/24/18 at 00:08 Ondansetron HCl (Zofran Inj) 4 mg Q6H PRN IV NAUSEA AND/OR VOMITING; Start 10/24/18 at 00:30 Albuterol (Ventolin Hfa) 4 puff Q2H RESP THERAPY PRN INH SHORTNESS OF BREATH; Start 10/24/18 at 00:30 Ipratropium Lindrith (Atrovent Hfa) 4 puff Q2H RESP THERAPY PRN INH SHORTNESS OF BREATH; Start 10/24/18 at 00:30 Acetaminophen (Tylenol Liquid) 650 mg Q6H PRN PO PAIN LEVEL 1-3 OR FEVER; Start 10/24/18 at 00:30 Pantoprazole (Protonix Iv) 40 mg DAILY@06 IV ; Start 10/24/18 at 06:00 Miscellaneous Information (* Miscellaneous Pharmacy Order) Treatment of Hypoglycemia: 1.BG 51... Per protocol XX ; Start 10/24/18 at 00:30 Propofol 100 ml @ 3.6 mls/hr PER PROTOCOL IV Last administered on 10/24/18at 02:00; Admin Dose 18 MLS/HR; Start 10/24/18 at 00:30 Diagnostic Test (Pha) (Accu-Chek) 1 ea Q1H XX Last administered on 10/24/18at 05:49; Admin Dose 1 EA; Start 10/24/18 at 00:30 Insulin Human Regular 100 unit/ Sodium Chloride 100 ml @ 0 mls/hr PER PROTOCOL IV Last administered on 10/24/18at 04:13; Admin Dose 4 MLS/HR; Start 10/24/18 at 00:30 Miscellaneous Information (* Miscellaneous Pharmacy Order) Treatment of Hypoglycemia: 1.BG 51... Per protocol XX ; Start 10/24/18 at 00:30 Dextrose (D50w Syringe) 25 ml Q15M PRN IV .DECREASED GLUCOSE; Start 10/24/18 at 00:30 Dextrose (D50w Syringe) 50 ml Q15M PRN IV .DECREASED GLUCOSE; Start 10/24/18 at 00:30 Eye Lubricant (Akwa Oint) 1 applic Q6 BOTH EYES ; Start 10/24/18 at 02:00 Eye Lubricant (Artificial Tears Oph) 2 drop Q6H PRN BOTH EYES DRY EYES; Start 10/24/18 at 02:00 Acetaminophen (Tylenol Liquid) 650 mg Q8 NGT ; Start 10/24/18 at 02:00 Norepinephrine 32 mg/Dextrose 250 ml @ 0.47 mls/hr TITRATE IV Last administered on 10/24/18at 04:46; Admin Dose 7.03 MLS/HR; Start 10/24/18 at 02:30 Vasopressin 60 unit/Dextrose 60 ml @ 0 mls/hr Q12H IV Last administered on 10/24/18at 04:00; Admin Dose 2.4 MLS/HR; Start 10/24/18 at 02:30 Magnesium Sulfate 3 gm/Dextrose 106 ml @ 35.333 mls/ hr ONCE ONCE IV Last administered on 10/24/18at 03:28; Admin Dose 35.333 MLS/HR; Start 10/24/18 at 03:13; Stop 10/24/18 at 06:12 Meperidine HCl (Demerol) 12.5 mg Q2 PRN IV SHIVERING; Start 10/24/18 at 03:30 Dopamine HCl/ Dextrose 250 ml @ 9 mls/hr TITRATE IV ; Start 10/24/18 at 04:30 Coded Allergies: No Known Allergy (Unverified , 10/23/18) Social History Smoking Status: Unknown if ever smoked Exam/Review of Systems Vital Signs Vitals Vital Signs Date Temp Pulse Resp B/P (MAP) Pulse Ox O2 O2 Flow FiO2 Time Delivery Rate 10/24/18 91.7 71 19 117/56 100 05:00 (76) 10/24/18 100 04:00 10/23/18 Mechanical 21:15 Ventilator Intake and Output 10/23/18 10/23/18 10/24/18 1515:00 23:00 07:00 IntakeIntake Total 4 ml BalanceBalance 4 ml Exam Exam Past Surgical History Past Surgical Hx: other (see hpi) Family History Significant Family History: other Social History Smoking Status: Unknown if ever smoked Drug Use: other Exam Constitutional: unresponsive Eyes: no rective to light Neck: supple Respiratory: normal air movement Cardiovascular: rrr Gastrointestinal: soft Extremities: normal pulses CHANG WILKS MD Oct 24, 2018 06:05
[2018-10-24] MEDS: ARTIFICIAL TEARS 15 ML OPH BOTH EYES PRN (06:19)
[2018-10-24] MEDS: PANTOPRAZOLE 40 MG INJ IV SCH (06:20)
[2018-10-24] MEDS ORDERED: POTASSIUM CHLORIDE 150 ML ONE (06:44)
[2018-10-24] MEDS ORDERED: NA BICARBONATE 8.4% 50 ML SYG ONE (07:26)
[2018-10-24] MEDS ORDERED: NA BICARBONATE 8.4% 50 ML SYG IV ONE (07:30)
[2018-10-24] MEDS: POTASSIUM CHLORIDE 50 ML IVPB PRN ×5 (07:41→20:36)
--- NOTE | 2018-10-24 08:43 | RADRPT ---
Echocardiogram Report Patient Name: ELANA HUYNHPatient ID: [id number] : 1950 (68y 9m)Study Date: 10/24/2018 7:06:30 AM Gender: MAccession #: [id number] Tech: Shawn Cabral RDCS Location: [id number] Ref.Physician: DRU MONACO Height(Cm): BSA: Weight(Kg): Quality: Technically Difficult StudyAccount #: Procedures: Echocardiographic Report: Transthoracic echocardiogram with complete 2D, M-Mode, and doppler examination. Indications: Myocardial Infarction. Measurements: 2D/M Mode Doppler Measurement Value Normal Range Measurement Value Normal Range LVIDd 2D 4.1 [ 4.2 - 5.8 ] cm AV Peak Emil 1.6 [ 100.0 - 170.0 ] cm/sec LVIDs 2D 2.6 [ 2.5 - 4.0 ] cm AV Peak PG 10.0 [ 2.0 - 9.0 ] mmHg LVPWd 2D 1.6 [ 0.6 - 1.0 ] cm LVOT Peak Emil 1.2 [ 70.0 - 110.0 ] cm/sec IVSd 2D 1.6 [ 0.6 - 1.0 ] cm LVOT Peak PG 5.0 [ 2.0 - 6.0 ] mmHg AoR Diam 2D 3.2 [ 2.6 - 3.4 ] cm MV E Peak Emil 0.7 [ 60.0 - 130.0 ] cm/sec EDV 2D 74.7 [ 62.0 - 150.0 ] ml MV A Peak Emil 0.8 [ 100.0 - 120.0 ] cm/sec ESV 2D 25.1 [ 21.0 - 61.0 ] ml MV E/A 0.9 [ 0.8 - 1.5 ] ratio EF 2D 66.4 [ 52.0 - 72.0 ] percent MV Decel Time 317 [ 104 - 258 ] msec LA Dimen 2D 2.9 [ 3.0 - 4.0 ] cm Lat E` Emil 0.1 [ 10.0 - 15.0 ] cm/sec Lateral E/E` 11.6 [ 1.0 - 2.0 ] ratio MV E/A 0.9 [ 0.8 - 1.5 ] ratio Findings: Left Ventricle: Normal left ventricular systolic function. Normal left ventricular cavity size. Moderate concentric left ventricular hypertrophy. Ejection fraction is visually estimated at 65 %. Tissue Doppler/Mitral Doppler indices are consistent with impaired relaxation (Stage I diastolic dysfunction). Right Ventricle: Normal right ventricular size. Normal right ventricular systolic function. Left Atrium: The left atrium is normal in size. Right Atrium: The right atrium is normal in size. Mitral Valve: Normal appearance and function of the mitral valve with trace physiologic regurgitation. Aortic Valve: Normal appearance of the aortic valve. No significant aortic stenosis or insufficiency. Tricuspid Valve: Normal appearance of the tricuspid valve. Unable to obtain RVSP due to minimal presence of tricuspid regurgitation. Pulmonic Valve: Normal pulmonic valve appearance. Pericardium: Normal pericardium with no significant pericardial effusion. Aorta: Normal aortic root. IVC: Normal IVC with respiratory collapse, however patient on ventilator. Conclusions: Normal left ventricular systolic function. Normal left ventricular cavity size. Moderate concentric left ventricular hypertrophy. Ejection fraction is visually estimated at 65 %. Tissue Doppler/Mitral Doppler indices are consistent with impaired relaxation (Stage I diastolic dysfunction). Normal appearance and function of the mitral valve with trace physiologic regurgitation. Normal appearance of the aortic valve. No significant aortic stenosis or insufficiency. Normal appearance of the tricuspid valve. Unable to obtain RVSP due to minimal presence of tricuspid regurgitation. Normal IVC with respiratory collapse, however patient on ventilator. Normal pericardium with no significant pericardial effusion. Electronically Signed By: Dru Monaco 2018-10-24 08:42:50 PDT
--- NOTE | 2018-10-24 09:27 | CONS ---
Consult Date/Type/Reason Admit Date/Time Oct 23, 2018 at 20:58 Initial Consult Date 10/23/18 Type of Consultation: CV Requesting Provider: LISSY SMITH MD Date/Time of Note DATE: 10/24/18 TIME: 09:23 Subjective Interventional cardiology follow-up progress note/critical care note Subjective: Discussed multiple staff and physicians. Discussed with Dr. Martinez Telemetry was reviewed. Patient with frequent PVCs but no more V. tach Patient remained intubated and on the vent currently on multiple pressors in the ICU on hypothermia protocol Slight amount of oozing noted on the right femoral sheath Objective: General: Obese gentleman status post intubation on the vent nonverbal HEENT: NC/AT. pupils are extend dilated NECK: no stridor. CV: RRR. systolic murmur; no gallop or rubs. PULM: no wheezing +rhonchi. GI: SOFT, NT, ND, no rebound or guarding Extremity: trace B/L LE edema. no clubbing. neuro: No response to verbal stimuli Psych: calm rectal: deferred : normal male Right femoral intra-aortic balloon pump in place Left femoral arterial sheath in place EKG was personally showed normal sinus rhythm with ST elevation inferolaterally consistent with inferolateral ST elevation DE with reciprocal changes anteriorly Head CT done in the emergency room shows: No mass effect or acute intracranial bleed. Mild intracranial vascular calcification.. Chest x-ray done in the ER shows: 1. Endotracheal tube in place. 2. Atelectasis at the right lung base. 3. Mild cardiomegaly. 4. Exam limited by low lung volumes and multiple overlying external appearing wires Multiple ABG that was reviewed personally Echocardiogram done October 24, 2018 was personally reviewed which shows Normal left ventricular systolic function. Normal left ventricular cavity size. Moderate concentric left ventricular hypertrophy. Ejection fraction is visually estimated at 65 %. Tissue Doppler/Mitral Doppler indices are consistent with impaired relaxation (Stage I diastolic dysfunction). Normal appearance and function of the mitral valve with trace physiologic regurgitation. Normal appearance of the aortic valve. No significant aortic stenosis or insufficiency. Normal appearance of the tricuspid valve. Unable to obtain RVSP due to minimal presence of tricuspid regurgitation. Normal IVC with respiratory collapse, however patient on ventilator. Normal pericardium with no significant pericardial effusion. Objective Vitals Vital Signs Date Temp Pulse Resp B/P (MAP) Pulse Ox O2 O2 Flow FiO2 Time Delivery Rate 10/24/18 92.0 07:05 10/24/18 78 18 103/51 100 Mechanical 07:00 (68) Ventilator 10/24/18 60 05:30 Intake and Output 10/23/18 10/23/18 10/24/18 1515:00 23:00 07:00 IntakeIntake Total 2459.132 ml OutputOutput Total 1050 ml BalanceBalance 1409.132 ml Results/Medications Result Diagram: 10/24/18 0455 10/24/18 0455 Results 24 hrs Laboratory Tests Test 10/23/18 20:12 10/23/18 20:15 10/23/18 20:28 10/23/18 21:15 White Blood 6.9 20.9 #H Count Red Blood Count 4.53 L 5.23 Hemoglobin 13.6 L 15.6 Hematocrit 43.0 45.7 Mean 94.9 87.4 Corpuscular Volume Mean 30.0 29.8 Corpuscular Hemoglobin Mean 31.6 L 34.1 Corpuscular Hemoglobin Conc ent Red Cell 12.8 12.7 Distribution Width Platelet Count 195 319 # Mean Platelet 10.0 9.5 Volume Immature 4.800 H 1.600 H Granulocytes % Neutrophils % 81.0 H Segmented 3 L Neutrophils % (Manual) Band 5 H Neutrophils % (Manual) Lymphocytes % 11.3 L Lymphocytes % 77 H (Manual) Monocytes % 5.4 Monocytes % 7 (Manual) Eosinophils % 0.4 Eosinophils % 3 (Manual) Basophils % 0.3 Basophils % 1 (Manual) Metamyelocytes 1 H % (manual) Myelocytes % 1 H (Manual) Plasma Cells % 2 (manual) Nucleated Red 1.0 H 0.0 Blood Cells % Immature 0.330 H 0.340 H Granulocytes # Neutrophils # 17.0 H Neutrophils # 0.2 L (Manual) Band 0.3 Neutrophils # Lymphocytes 5.3 H (Manual) Lymphocytes # 2.4 Monocytes # 1.1 H Monocytes # 0.4 (Manual) Eosinophils # 0.1 Basophils # 0.1 Basophils # 0.0 (Manual) Metamyelocytes 0.0 # Myelocytes # 0.0 Plasma Cells # 0.1 H (manual) Nucleated Red 0.0 Blood Cells # Platelet NORMAL Estimate Poikilocytosis 1+ Prothrombin 16.2 H Time Prothrombin 1.3 Time Ratio INR 1.29 International Normalized Rati o Activated 35.9 H Partial Thrombo plast Time Sodium Level 139 142 Potassium Level 3.1 L 3.2 L Chloride Level 98 99 Carbon Dioxide 18 L 23 Level Anion Gap 23 H 20 H Blood Urea 24 H 30 H Nitrogen Creatinine 1.22 1.36 H Est Glomerular 59 L 52 L Filtrat Rate mL/min Glucose Level 468 *H 380 H Lactic Acid 17.4 *H Level Calcium Level 10.4 H 8.9 Phosphorus 10.5 H Level Magnesium Level 3.4 H 2.5 Total Bilirubin 0.3 Direct 0.00 Bilirubin Indirect 0.3 Bilirubin Aspartate Amino 193 H Transf (AST/SGO T) Alanine 239 H Aminotransferas e (ALT/SGPT) Alkaline 87 Phosphatase Troponin I 0.061 11.200 *H Total Protein 6.2 Albumin 3.6 Globulin 2.60 Albumin/Globuli 1.38 n Ratio Lipase 70 Ethyl Alcohol < 10.0 H Level Blood Gas Blood arterial Specimen Source Arterial Blood 10/23/2018 9:00: Date Drawn 31 PM Arterial Blood 7.064 *L pH (Temp corrected ) Arterial Blood 66.6 H pCO2 (Temp correct) Arterial Blood 81.1 pO2 (Temp corrected ) Arterial Blood 18.6 L HCO3 Arterial Blood -12.7 L Base Excess Arterial Blood 89.6 L Oxygen Saturati on Nicolas Test ACCEPTAB Arterial Blood Right Radial Gas Puncture Site Arterial 0.3 Blood Carboxyhe moglobin Arterial Blood 0.4 Methemoglobin Blood Gas A-a 565.3 H O2 Differential Oxyhemoglobin 89.0 L Percent Blood Gas 37.0 Temperature Blood Gas 15.0 Respiration Rate Blood Gas 15 Actual Respiration Rat e Blood Gas VENT - AC Modality FiO2 100.0 Blood Gas Tidal 550.0 Volume Blood Gas Low 5.0 PEEP Setting Blood Gas N SARAH SIMONS Critical Value Read Back Blood Gas UP Notified Whom Blood Gas 10/23/2018 9:11: Notified Time 27 PM Urine Color YELLOW Urine Clarity CLEAR Urine pH 6.0 Urine Specific 1.018 [place] Urine Ketones NEGATIVE Urine Nitrite NEGATIVE Urine Bilirubin NEGATIVE Urine NEGATIVE Urobilinogen Urine Leukocyte NEGATIVE Esterase Urine NEGATIVE Hemoglobin Urine Glucose NEGATIVE Urine Total NEGATIVE Protein Urine Opiates Negative Screen Urine Negative Barbiturates Urine Negative Amphetamines Screen Urine Negative Benzodiazepines Screen Urine Cocaine Negative Screen Urine Negative Cannabinoids Test 10/23/18 22:36 10/23/18 23:15 10/24/18 00:29 10/24/18 00:42 Blood Gas Blood arterial Specimen Source Arterial Blood 10/23/2018 10:35 Date Drawn :32 PM Arterial Blood 7.198 *L pH (Temp corrected ) Arterial Blood 60.9 H pCO2 (Temp correct) Arterial Blood 83.7 pO2 (Temp corrected ) Arterial Blood 23.2 HCO3 Arterial Blood -6.1 L Base Excess Arterial Blood 93.5 L Oxygen Saturati on Nicolas Test N/A Arterial Blood A-Line Gas Puncture Site Arterial 0.3 Blood Carboxyhe moglobin Arterial Blood 0.4 Methemoglobin Blood Gas A-a 568.4 H O2 Differential Oxyhemoglobin 92.8 L Percent Blood Gas 37.0 Temperature Blood Gas 20.0 Respiration Rate Blood Gas 20 Actual Respiration Rat e Blood Gas VENT - AC Modality FiO2 100.0 Blood Gas Tidal 550.0 Volume Blood Gas Low 5.0 PEEP Setting Blood Gas Emiliano SINGH MD Critical Value Read Back Blood Gas UP Notified Whom Blood Gas 10/23/2018 10:40 Notified Time :47 PM Lactic Acid 7.8 *H 11.4 *H Level Hemoglobin A1c 5.3 Bedside Glucose 373 H Test 10/24/18 04:03 10/24/18 04:55 10/24/18 04:56 10/24/18 05:00 Bedside Glucose 329 H White Blood 28.9 #H Count Red Blood Count 4.93 Hemoglobin 15.0 Hematocrit 42.8 Mean 86.8 Corpuscular Volume Mean 30.4 Corpuscular Hemoglobin Mean 35.0 Corpuscular Hemoglobin Conc ent Red Cell 12.9 Distribution Width Platelet Count 330 Mean Platelet 9.6 Volume Immature 0.800 H Granulocytes % Neutrophils % Segmented 67 Neutrophils % (Manual) Band 14 H Neutrophils % (Manual) Lymphocytes % Lymphocytes % 8 L (Manual) Reactive 3 H Lymphocytes % (Manual) Monocytes % Monocytes % 6 (Manual) Eosinophils % Eosinophils % 1 (Manual) Basophils % Myelocytes % 1 H (Manual) Nucleated Red 0.0 Blood Cells % Immature 0.220 H Granulocytes # Neutrophils # Neutrophils # 20.5 H (Manual) Band 4.0 H Neutrophils # Lymphocytes 2.3 (Manual) Lymphocytes # Reactive 0.8 H Lymphocytes # Monocytes # Monocytes # 1.7 H (Manual) Eosinophils # Basophils # Myelocytes # 0.2 H Nucleated Red Blood Cells # Platelet NORMAL Estimate Poikilocytosis 3+ Anisocytosis 2+ Microcytosis 1+ Macrocytosis 1+ Prothrombin 15.0 H Time Prothrombin 1.2 Time Ratio INR 1.17 International Normalized Rati o Activated 29.8 Partial Thrombo plast Time Sodium Level 143 Potassium Level 2.4 *L Chloride Level 106 Carbon Dioxide 14 L Level Anion Gap 23 H Blood Urea 31 H Nitrogen Creatinine 1.87 H Est Glomerular 36 L Filtrat Rate mL/min Glucose Level 321 H Lactic Acid 13.4 *H Level Calcium Level 8.8 Phosphorus 1.3 #L Level Magnesium Level 2.4 Total Bilirubin 0.6 Direct 0.00 Bilirubin Indirect 0.6 Bilirubin Aspartate Amino 552 #H Transf (AST/SGO T) Alanine 353 H Aminotransferas e (ALT/SGPT) Alkaline 92 Phosphatase B-Type 199 H Natriuretic Peptide Total Protein 6.6 Albumin 3.8 Globulin 2.80 Albumin/Globuli 1.35 n Ratio Thyroid 2.800 Stimulating Hormone (TSH) Creatine Kinase Creatine Kinase 9.5 Index Creatinine 566.00 H Kinase MB (Mass) Troponin I 125.000 *H Triglycerides 291 H Level Cholesterol 173 Level LDL 76 Cholesterol, Calculated HDL Cholesterol 39 Cholesterol/HDL 4.4 Ratio Blood Gas Blood Specimen arterial Source Arterial Blood 10/24/2018 5:10 Date Drawn :08 AM Arterial Blood 7.344 L pH (Temp corrected ) Arterial Blood 24.3 L pCO2 (Temp correct) Arterial Blood 419.1 H pO2 (Temp corrected ) Arterial Blood 13.6 L HCO3 Arterial Blood -11.4 L Base Excess Arterial Blood 99.4 H Oxygen Saturati on Nicolas Test N/A Arterial Blood A-Line Gas Puncture Site Arterial 0.3 Blood Carboxyhe moglobin Arterial Blood 0.4 Methemoglobin Blood Gas A-a 278.9 H O2 Differential Oxyhemoglobin 98.7 Percent Blood Gas 33.0 Temperature Blood Gas 20.0 Respiration Rate Blood Gas 28 Actual Respiration Rat e Blood Gas VENT - AC Modality FiO2 100.0 Blood Gas Tidal 550.0 Volume Blood Gas Low 5.0 PEEP Setting Blood Gas C Critical Value ANTHONY Woodward Read Back N Blood Gas Notified Whom Blood Gas 10/24/2018 5:17 Notified Time :16 AM Test 10/24/18 05:02 10/24/18 06:01 10/24/18 08:26 10/24/18 09:12 Bedside Glucose 353 H 325 H 267 H 280 H Home Meds Reported Medications Amlodipine Besylate* (Amlodipine Besylate*) 10 Mg Tablet, 10 MG PO DAILY, #30 TAB 10/23/18 Cyanocobalamin (Vitamin B-12) (Vitamin B-12) Unknown Strength Capsule, 1 CAP PO DAILY, CAP 10/23/18 Garlic (Garlic) 1 Each Tablet, 1 EACH PO DAILY, TAB 10/23/18 Multivitamins* (Theragran*) 1 Tab Tab, 1 TAB PO DAILY, TAB 10/23/18 Acyclovir* (Acyclovir*) 800 Mg Tablet, 800 MG PO DAILY, TAB 10/23/18 Aspirin* (Aspirin* EC) 81 Mg Tablet.dr, 81 MG PO DAILY, TAB 10/23/18 Medications Current Medications Vasopressin 100 unit/Sodium Chloride 100 ml @ 2.4 mls/hr PER PROTOCOL ONCE IV Last administered on 10/23/18at 21:13; Admin Dose 2.4 MLS/HR; Start 10/23/18 at 20:30; Stop 10/25/18 at 14:09 Midazolam HCl 50 ml @ 3 mls/hr PER PROTOCOL ONCE IV Last administered on 10/24/18at 00:45; Admin Dose 10 MLS/HR; Start 10/23/18 at 20:30; Stop 10/24/18 at 13:09 Fentanyl 100 ml @ 2.5 mls/hr PER PROTOCOL ONCE IV Last administered on 10/24/18at 00:46; Admin Dose 10 MLS/HR; Start 10/23/18 at 20:30; Stop 10/25/18 at 12:29 Vecuronium [place] 100 mg/ Dextrose 100 ml @ 7.2 mls/hr [id number] ONCE IV ; Start 10/23/18 at 20:18; Stop 10/24/18 at 10:11 Miscellaneous Information (* Miscellaneous Pharmacy Order) Hold all Metformin ... ONCE XX ; Start 10/23/18 at 23:00; Stop 10/25/18 at 22:59 Ticagrelor (Brilinta) 90 mg BID PO ; Start 10/24/18 at 09:00 Eptifibatide 100 ml @ 7.2 mls/hr [id number] IV Last administered on 10/23/18at 22:51; Admin Dose 7.2 MLS/HR; Start 10/23/18 at 22:51; Stop 10/24/18 at 10:50 Atorvastatin Calcium (Lipitor) 40 mg DAILY@21 PO ; Start 10/24/18 at 21:00 Sodium Chloride 1,000 ml @ 100 mls/hr Q10H IV Last administered on 10/24/18at 05:50; Admin Dose 100 MLS/HR; Start 10/23/18 at 22:51; Stop 10/24/18 at 18:50 Aspirin (Aspirin) 81 mg DAILY PO ; Start 10/24/18 at 09:00 Amiodarone HCl 900 mg/Dextrose 500 ml @ 0 mls/hr Q0M IV ; Start 10/24/18 at 00:08 Ondansetron HCl (Zofran Inj) 4 mg Q6H PRN IV NAUSEA AND/OR VOMITING; Start 10/24/18 at 00:30 Albuterol (Ventolin Hfa) 4 puff Q2H RESP THERAPY PRN INH SHORTNESS OF BREATH; Start 10/24/18 at 00:30 Ipratropium [place] (Atrovent Hfa) 4 puff Q2H RESP THERAPY PRN INH SHORTNESS OF BREATH; Start 10/24/18 at 00:30 Acetaminophen (Tylenol Liquid) 650 mg Q6H PRN PO PAIN LEVEL 1-3 OR FEVER; Start 10/24/18 at 00:30 Pantoprazole (Protonix Iv) 40 mg DAILY@06 IV Last administered on 10/24/18at 06:20; Admin Dose 40 MG; Start 10/24/18 at 06:00 Miscellaneous Information (* Miscellaneous Pharmacy Order) Treatment of Hypoglycemia: 1.BG 51... Per protocol XX ; Start 10/24/18 at 00:30 Propofol 100 ml @ 3.6 mls/hr PER PROTOCOL IV Last administered on 10/24/18at 07:40; Admin Dose 32.4 MLS/HR; Start 10/24/18 at 00:30 Diagnostic Test (Pha) (Accu-Chek) 1 ea Q1H XX Last administered on 10/24/18at 08:51; Admin Dose 1 EA; Start 10/24/18 at 00:30 Insulin Human Regular 100 unit/ Sodium Chloride 100 ml @ 0 mls/hr PER PROTOCOL IV Last administered on 10/24/18at 04:13; Admin Dose 4 MLS/HR; Start 10/24/18 at 00:30 Miscellaneous Information (* Miscellaneous Pharmacy Order) Treatment of Hypoglycemia: 1.BG 51... Per protocol XX ; Start 10/24/18 at 00:30 Dextrose (D50w Syringe) 25 ml Q15M PRN IV .DECREASED GLUCOSE; Start 10/24/18 at 00:30 Dextrose (D50w Syringe) 50 ml Q15M PRN IV .DECREASED GLUCOSE; Start 10/24/18 at 00:30 Eye Lubricant (Akwa Oint) 1 applic Q6 BOTH EYES Last administered on 10/24/18at 06:20; Admin Dose 1 APPLIC; Start 10/24/18 at 02:00 Eye Lubricant (Artificial Tears Oph) 2 drop Q6H PRN BOTH EYES DRY EYES Last administered on 10/24/18at 06:19; Admin Dose 2 DROP; Start 10/24/18 at 02:00 Acetaminophen (Tylenol Liquid) 650 mg Q8 NGT Last administered on 10/24/18at 06:20; Admin Dose 650 MG; Start 10/24/18 at 02:00 Norepinephrine 32 mg/Dextrose 250 ml @ 0.47 mls/hr TITRATE IV Last administered on 10/24/18at 04:46; Admin Dose 7.03 MLS/HR; Start 10/24/18 at 02:30 Vasopressin 60 unit/Dextrose 60 ml @ 0 mls/hr Q12H IV Last administered on 10/24/18at 04:00; Admin Dose 2.4 MLS/HR; Start 10/24/18 at 02:30 Meperidine HCl (Demerol) 12.5 mg Q2 PRN IV SHIVERING; Start 10/24/18 at 03:30 Dopamine HCl/ Dextrose 250 ml @ 9 mls/hr TITRATE IV ; Start 10/24/18 at 04:30 Potassium Chloride 50 ml @ 50 mls/hr K PROTOCOL PRN IVPB PENDING LAB VALUE Last administered on 10/24/18at 08:50; Admin Dose 50 MLS/HR; Start 10/24/18 at 07:00 Influenza Virus Vaccine Quadrival (Fluzone) 0.5 ml ONCE ONCE IM* ; Start 10/28/18 at 10:00; Stop 10/28/18 at 10:01 Assessment/Plan Hospital Course (Demo Recall) Ventricular fibrillation cardiac arrest V. fib Inferolateral ST elevation DE: Fortunately ejection fraction has remained stable Status post emergent PCI of left circumflex artery Multivessel coronary artery disease with 90% right coronary artery stenosis Severe lactic acidosis Severe hyperglycemia and possible DKA Respiratory failure s/p intubation underwent Electrolyte abnormality and severe metabolic acidosis encephalopathy, likely anoxic brain injury History of hypertension currently in shock Likely sepsis Recommendations: Aspirin and Brilinta needs to be continued given PCI done on October 23 stop integrillin after 12 hour of infusion Intra-aortic balloon pump will be continued to remove it tomorrow if remains stable Continue with multiple pressors and titrate down as needed Vent support will be continued. Hypothermia to be pleaded Magnesium potassium to be replaced as needed Prognosis is guarded at best More than 38 minutes of critical care time was for management treatment is critically patient excluding any procedures Thank you for his referral. We will continue to follow along with you DRU PONCE MD [facility] DRU PONCE MD Oct 24, 2018 09:27
[2018-10-24] MEDS: TICAGRELOR 90 MG TABLET PO SCH ×2 (10:15→21:19)
[2018-10-24] MEDS: ASPIRIN 81 MG TAB PO SCH (10:15)
[2018-10-24] MEDS: DOPamine-D5W 1.6 MG/ML 250 ML IV SCH ×2 (10:16→21:01)
[2018-10-24] MEDS: FENTAnyl (DRIP) 1000 mcg/100mL 100 ML IV SCH ×2 (10:47→21:44)
[2018-10-24] MEDS: MIDAZOLAM (DRIP) 50 mg/50 mL 50 ML IV SCH ×3 (10:47→21:59)
--- NOTE | 2018-10-24 10:50 | PN ---
Date/Time of Note Date/Time of Note DATE: 10/24/18 TIME: 10:00 Assessment/Plan VTE Prophylaxis SCD applied (from Nsg): Yes Pharmacological prophylaxis: other Pharm contraindication: other Lines/Catheters IV Catheter Type (from Nrsg): A Line Urinary Cath still in place: Yes Reason Cath still needed: other (indicate) Assessment/Plan Hospital Course S: remains in ICU on hypothermia protocol Objective : GENERAL: Intubated and comfortably sedated / paralyzed HEENT: Intubated, Vent settings noted LUNGS: diffusely diminished and coarse BS HEART: S1, S2. ?m ABDOMEN: Soft, obese Normoactive bowel sounds. GENITOURINARY: Normal male external genitalia, East to bedside drainage EXTREMITIES: Mild 1+ nonpitting edema bilaterally, also some hand edema bilaterally NEUROLOGIC: The patient is currently sedated. SKIN: Otherwise, unremarkable. assessment and plan: 1. V-fib cardiac arrest: s/p ROSC. Secondary to STEMI -Patient is status post successful PTCA thrombectomy stenting of the distal left circumflex artery from 100% occlusion to no significant residual stenosis using a 2.75 x 24 mm Synergy drug-eluting stent. Placement of intra-aortic balloon pump -Currently on Brilinta, aspirin, statin -Management per cardiology -Follow-up 2D echo result -Trend troponin -Continue / complete Hypothermia protocol 2. Hypoxic and hypercapnic respiratory failure, secondary to above: Status post intubation -Continue vent support -Pulmonary managing, appreciate input 3. STEMI: See #1 4. Hyperglycemia: A1c 5.3 -Insulin drip 5. Hypokalemia: Replete 6. Seizure -Currently on Versed -Status post Ativan, Valium and Keppra -Neurology consult -Head CT without acute findings. Will order MRI of the brain when more stable 7. SIRS with bandemia and systemic Shock (Cardiogenic) -pancultures -patient high risk for aspiration PNA, abx ? -continue pressor support / balloon pump 8. Constipation noted on CT -no management for now 9. Hypertriglyceridemia -continue statin Dispo: -continue hypothermia protocol, continue antiepileptics -close monitoring, serial labs, micromanagement -CC care tiome >40mins Prognosis : poor / guarded, will update family Result Diagram: 10/24/18 0455 10/24/18 0455 Results 24hrs Laboratory Tests Test 10/23/18 20:12 10/23/18 20:15 10/23/18 20:28 10/23/18 21:15 White Blood 6.9 20.9 #H Count Red Blood Count 4.53 L 5.23 Hemoglobin 13.6 L 15.6 Hematocrit 43.0 45.7 Mean 94.9 87.4 Corpuscular Volume Mean 30.0 29.8 Corpuscular Hemoglobin Mean 31.6 L 34.1 Corpuscular Hemoglobin Conc ent Red Cell 12.8 12.7 Distribution Width Platelet Count 195 319 # Mean Platelet 10.0 9.5 Volume Immature 4.800 H 1.600 H Granulocytes % Neutrophils % 81.0 H Segmented 3 L Neutrophils % (Manual) Band 5 H Neutrophils % (Manual) Lymphocytes % 11.3 L Lymphocytes % 77 H (Manual) Monocytes % 5.4 Monocytes % 7 (Manual) Eosinophils % 0.4 Eosinophils % 3 (Manual) Basophils % 0.3 Basophils % 1 (Manual) Metamyelocytes 1 H % (manual) Myelocytes % 1 H (Manual) Plasma Cells % 2 (manual) Nucleated Red 1.0 H 0.0 Blood Cells % Immature 0.330 H 0.340 H Granulocytes # Neutrophils # 17.0 H Neutrophils # 0.2 L (Manual) Band 0.3 Neutrophils # Lymphocytes 5.3 H (Manual) Lymphocytes # 2.4 Monocytes # 1.1 H Monocytes # 0.4 (Manual) Eosinophils # 0.1 Basophils # 0.1 Basophils # 0.0 (Manual) Metamyelocytes 0.0 # Myelocytes # 0.0 Plasma Cells # 0.1 H (manual) Nucleated Red 0.0 Blood Cells # Platelet NORMAL Estimate Poikilocytosis 1+ Prothrombin 16.2 H Time Prothrombin 1.3 Time Ratio INR 1.29 International Normalized Rati o Activated 35.9 H Partial Thrombo plast Time Sodium Level 139 142 Potassium Level 3.1 L 3.2 L Chloride Level 98 99 Carbon Dioxide 18 L 23 Level Anion Gap 23 H 20 H Blood Urea 24 H 30 H Nitrogen Creatinine 1.22 1.36 H Est Glomerular 59 L 52 L Filtrat Rate mL/min Glucose Level 468 *H 380 H Lactic Acid 17.4 *H Level Calcium Level 10.4 H 8.9 Phosphorus 10.5 H Level Magnesium Level 3.4 H 2.5 Total Bilirubin 0.3 Direct 0.00 Bilirubin Indirect 0.3 Bilirubin Aspartate Amino 193 H Transf (AST/SGO T) Alanine 239 H Aminotransferas e (ALT/SGPT) Alkaline 87 Phosphatase Troponin I 0.061 11.200 *H Total Protein 6.2 Albumin 3.6 Globulin 2.60 Albumin/Globuli 1.38 n Ratio Lipase 70 Ethyl Alcohol < 10.0 H Level Blood Gas Blood arterial Specimen Source Arterial Blood 10/23/2018 9:00: Date Drawn 31 PM Arterial Blood 7.064 *L pH (Temp corrected ) Arterial Blood 66.6 H pCO2 (Temp correct) Arterial Blood 81.1 pO2 (Temp corrected ) Arterial Blood 18.6 L HCO3 Arterial Blood -12.7 L Base Excess Arterial Blood 89.6 L Oxygen Saturati on Nicolas Test ACCEPTAB Arterial Blood Right Radial Gas Puncture Site Arterial 0.3 Blood Carboxyhe moglobin Arterial Blood 0.4 Methemoglobin Blood Gas A-a 565.3 H O2 Differential Oxyhemoglobin 89.0 L Percent Blood Gas 37.0 Temperature Blood Gas 15.0 Respiration Rate Blood Gas 15 Actual Respiration Rat e Blood Gas VENT - AC Modality FiO2 100.0 Blood Gas Tidal 550.0 Volume Blood Gas Low 5.0 PEEP Setting Blood Gas N SARAH SIMONS Critical Value Read Back Blood Gas UP Notified Whom Blood Gas 10/23/2018 9:11: Notified Time 27 PM Urine Color YELLOW Urine Clarity CLEAR Urine pH 6.0 Urine Specific 1.018 [place] Urine Ketones NEGATIVE Urine Nitrite NEGATIVE Urine Bilirubin NEGATIVE Urine NEGATIVE Urobilinogen Urine Leukocyte NEGATIVE Esterase Urine NEGATIVE Hemoglobin Urine Glucose NEGATIVE Urine Total NEGATIVE Protein Urine Opiates Negative Screen Urine Negative Barbiturates Urine Negative Amphetamines Screen Urine Negative Benzodiazepines Screen Urine Cocaine Negative Screen Urine Negative Cannabinoids Test 10/23/18 22:36 10/23/18 23:15 10/24/18 00:29 10/24/18 00:42 Blood Gas Blood arterial Specimen Source Arterial Blood 10/23/2018 10:35 Date Drawn :32 PM Arterial Blood 7.198 *L pH (Temp corrected ) Arterial Blood 60.9 H pCO2 (Temp correct) Arterial Blood 83.7 pO2 (Temp corrected ) Arterial Blood 23.2 HCO3 Arterial Blood -6.1 L Base Excess Arterial Blood 93.5 L Oxygen Saturati on Nicolas Test N/A Arterial Blood A-Line Gas Puncture Site Arterial 0.3 Blood Carboxyhe moglobin Arterial Blood 0.4 Methemoglobin Blood Gas A-a 568.4 H O2 Differential Oxyhemoglobin 92.8 L Percent Blood Gas 37.0 Temperature Blood Gas 20.0 Respiration Rate Blood Gas 20 Actual Respiration Rat e Blood Gas VENT - AC Modality FiO2 100.0 Blood Gas Tidal 550.0 Volume Blood Gas Low 5.0 PEEP Setting Blood Gas Emiliano SINGH MD Critical Value Read Back Blood Gas UP Notified Whom Blood Gas 10/23/2018 10:40 Notified Time :47 PM Lactic Acid 7.8 *H 11.4 *H Level Hemoglobin A1c 5.3 Bedside Glucose 373 H Test 10/24/18 04:03 10/24/18 04:55 10/24/18 04:56 10/24/18 05:00 Bedside Glucose 329 H White Blood 28.9 #H Count Red Blood Count 4.93 Hemoglobin 15.0 Hematocrit 42.8 Mean 86.8 Corpuscular Volume Mean 30.4 Corpuscular Hemoglobin Mean 35.0 Corpuscular Hemoglobin Conc ent Red Cell 12.9 Distribution Width Platelet Count 330 Mean Platelet 9.6 Volume Immature 0.800 H Granulocytes % Neutrophils % Segmented 67 Neutrophils % (Manual) Band 14 H Neutrophils % (Manual) Lymphocytes % Lymphocytes % 8 L (Manual) Reactive 3 H Lymphocytes % (Manual) Monocytes % Monocytes % 6 (Manual) Eosinophils % Eosinophils % 1 (Manual) Basophils % Myelocytes % 1 H (Manual) Nucleated Red 0.0 Blood Cells % Immature 0.220 H Granulocytes # Neutrophils # Neutrophils # 20.5 H (Manual) Band 4.0 H Neutrophils # Lymphocytes 2.3 (Manual) Lymphocytes # Reactive 0.8 H Lymphocytes # Monocytes # Monocytes # 1.7 H (Manual) Eosinophils # Basophils # Myelocytes # 0.2 H Nucleated Red Blood Cells # Platelet NORMAL Estimate Poikilocytosis 3+ Anisocytosis 2+ Microcytosis 1+ Macrocytosis 1+ Prothrombin 15.0 H Time Prothrombin 1.2 Time Ratio INR 1.17 International Normalized Rati o Activated 29.8 Partial Thrombo plast Time Sodium Level 143 Potassium Level 2.4 *L Chloride Level 106 Carbon Dioxide 14 L Level Anion Gap 23 H Blood Urea 31 H Nitrogen Creatinine 1.87 H Est Glomerular 36 L Filtrat Rate mL/min Glucose Level 321 H Lactic Acid 13.4 *H Level Calcium Level 8.8 Phosphorus 1.3 #L Level Magnesium Level 2.4 Total Bilirubin 0.6 Direct 0.00 Bilirubin Indirect 0.6 Bilirubin Aspartate Amino 552 #H Transf (AST/SGO T) Alanine 353 H Aminotransferas e (ALT/SGPT) Alkaline 92 Phosphatase B-Type 199 H Natriuretic Peptide Total Protein 6.6 Albumin 3.8 Globulin 2.80 Albumin/Globuli 1.35 n Ratio Thyroid 2.800 Stimulating Hormone (TSH) Creatine Kinase Creatine Kinase 9.5 Index Creatinine 566.00 H Kinase MB (Mass) Troponin I 125.000 *H Triglycerides 291 H Level Cholesterol 173 Level LDL 76 Cholesterol, Calculated HDL Cholesterol 39 Cholesterol/HDL 4.4 Ratio Blood Gas Blood Specimen arterial Source Arterial Blood 10/24/2018 5:10 Date Drawn :08 AM Arterial Blood 7.344 L pH (Temp corrected ) Arterial Blood 24.3 L pCO2 (Temp correct) Arterial Blood 419.1 H pO2 (Temp corrected ) Arterial Blood 13.6 L HCO3 Arterial Blood -11.4 L Base Excess Arterial Blood 99.4 H Oxygen Saturati on Nicolas Test N/A Arterial Blood A-Line Gas Puncture Site Arterial 0.3 Blood Carboxyhe moglobin Arterial Blood 0.4 Methemoglobin Blood Gas A-a 278.9 H O2 Differential Oxyhemoglobin 98.7 Percent Blood Gas 33.0 Temperature Blood Gas 20.0 Respiration Rate Blood Gas 28 Actual Respiration Rat e Blood Gas VENT - AC Modality FiO2 100.0 Blood Gas Tidal 550.0 Volume Blood Gas Low 5.0 PEEP Setting Blood Gas C Critical Value ANTHONY Woodward Read Back N Blood Gas Notified Whom Blood Gas 10/24/2018 5:17 Notified Time :16 AM Test 10/24/18 05:02 10/24/18 06:01 10/24/18 08:26 10/24/18 09:12 Bedside Glucose 353 H 325 H 267 H 280 H Test 10/24/18 09:24 Lab Scanned LAB Report Exam/Review of Systems Exam Vitals Vital Signs Date Temp Pulse Resp B/P (MAP) Pulse Ox O2 O2 Flow FiO2 Time Delivery Rate 10/24/18 77 16 108/60 100 09:30 (76) 10/24/18 90.6 09:00 10/24/18 Mechanical 07:00 Ventilator 10/24/18 60 05:30 Intake and Output 10/23/18 10/23/18 10/24/18 1515:00 23:00 07:00 IntakeIntake Total 2459.132 ml OutputOutput Total 1050 ml BalanceBalance 1409.132 ml Results Results 24hrs Laboratory Tests Test 10/23/18 20:12 10/23/18 20:15 10/23/18 20:28 10/23/18 21:15 White Blood 6.9 20.9 #H Count Red Blood Count 4.53 L 5.23 Hemoglobin 13.6 L 15.6 Hematocrit 43.0 45.7 Mean 94.9 87.4 Corpuscular Volume Mean 30.0 29.8 Corpuscular Hemoglobin Mean 31.6 L 34.1 Corpuscular Hemoglobin Conc ent Red Cell 12.8 12.7 Distribution Width Platelet Count 195 319 # Mean Platelet 10.0 9.5 Volume Immature 4.800 H 1.600 H Granulocytes % Neutrophils % 81.0 H Segmented 3 L Neutrophils % (Manual) Band 5 H Neutrophils % (Manual) Lymphocytes % 11.3 L Lymphocytes % 77 H (Manual) Monocytes % 5.4 Monocytes % 7 (Manual) Eosinophils % 0.4 Eosinophils % 3 (Manual) Basophils % 0.3 Basophils % 1 (Manual) Metamyelocytes 1 H % (manual) Myelocytes % 1 H (Manual) Plasma Cells % 2 (manual) Nucleated Red 1.0 H 0.0 Blood Cells % Immature 0.330 H 0.340 H Granulocytes # Neutrophils # 17.0 H Neutrophils # 0.2 L (Manual) Band 0.3 Neutrophils # Lymphocytes 5.3 H (Manual) Lymphocytes # 2.4 Monocytes # 1.1 H Monocytes # 0.4 (Manual) Eosinophils # 0.1 Basophils # 0.1 Basophils # 0.0 (Manual) Metamyelocytes 0.0 # Myelocytes # 0.0 Plasma Cells # 0.1 H (manual) Nucleated Red 0.0 Blood Cells # Platelet NORMAL Estimate Poikilocytosis 1+ Prothrombin 16.2 H Time Prothrombin 1.3 Time Ratio INR 1.29 International Normalized Rati o Activated 35.9 H Partial Thrombo plast Time Sodium Level 139 142 Potassium Level 3.1 L 3.2 L Chloride Level 98 99 Carbon Dioxide 18 L 23 Level Anion Gap 23 H 20 H Blood Urea 24 H 30 H Nitrogen Creatinine 1.22 1.36 H Est Glomerular 59 L 52 L Filtrat Rate mL/min Glucose Level 468 *H 380 H Lactic Acid 17.4 *H Level Calcium Level 10.4 H 8.9 Phosphorus 10.5 H Level Magnesium Level 3.4 H 2.5 Total Bilirubin 0.3 Direct 0.00 Bilirubin Indirect 0.3 Bilirubin Aspartate Amino 193 H Transf (AST/SGO T) Alanine 239 H Aminotransferas e (ALT/SGPT) Alkaline 87 Phosphatase Troponin I 0.061 11.200 *H Total Protein 6.2 Albumin 3.6 Globulin 2.60 Albumin/Globuli 1.38 n Ratio Lipase 70 Ethyl Alcohol < 10.0 H Level Blood Gas Blood arterial Specimen Source Arterial Blood 10/23/2018 9:00: Date Drawn 31 PM Arterial Blood 7.064 *L pH (Temp corrected ) Arterial Blood 66.6 H pCO2 (Temp correct) Arterial Blood 81.1 pO2 (Temp corrected ) Arterial Blood 18.6 L HCO3 Arterial Blood -12.7 L Base Excess Arterial Blood 89.6 L Oxygen Saturati on Nicolas Test ACCEPTAB Arterial Blood Right Radial Gas Puncture Site Arterial 0.3 Blood Carboxyhe moglobin Arterial Blood 0.4 Methemoglobin Blood Gas A-a 565.3 H O2 Differential Oxyhemoglobin 89.0 L Percent Blood Gas 37.0 Temperature Blood Gas 15.0 Respiration Rate Blood Gas 15 Actual Respiration Rat e Blood Gas VENT - AC Modality FiO2 100.0 Blood Gas Tidal 550.0 Volume Blood Gas Low 5.0 PEEP Setting Blood Gas N SARAH SIMONS Critical Value Read Back Blood Gas UP Notified Whom Blood Gas 10/23/2018 9:11: Notified Time 27 PM Urine Color YELLOW Urine Clarity CLEAR Urine pH 6.0 Urine Specific 1.018 [place] Urine Ketones NEGATIVE Urine Nitrite NEGATIVE Urine Bilirubin NEGATIVE Urine NEGATIVE Urobilinogen Urine Leukocyte NEGATIVE Esterase Urine NEGATIVE Hemoglobin Urine Glucose NEGATIVE Urine Total NEGATIVE Protein Urine Opiates Negative Screen Urine Negative Barbiturates Urine Negative Amphetamines Screen Urine Negative Benzodiazepines Screen Urine Cocaine Negative Screen Urine Negative Cannabinoids Test 10/23/18 22:36 10/23/18 23:15 10/24/18 00:29 10/24/18 00:42 Blood Gas Blood arterial Specimen Source Arterial Blood 10/23/2018 10:35 Date Drawn :32 PM Arterial Blood 7.198 *L pH (Temp corrected ) Arterial Blood 60.9 H pCO2 (Temp correct) Arterial Blood 83.7 pO2 (Temp corrected ) Arterial Blood 23.2 HCO3 Arterial Blood -6.1 L Base Excess Arterial Blood 93.5 L Oxygen Saturati on Nicolas Test N/A Arterial Blood A-Line Gas Puncture Site Arterial 0.3 Blood Carboxyhe moglobin Arterial Blood 0.4 Methemoglobin Blood Gas A-a 568.4 H O2 Differential Oxyhemoglobin 92.8 L Percent Blood Gas 37.0 Temperature Blood Gas 20.0 Respiration Rate Blood Gas 20 Actual Respiration Rat e Blood Gas VENT - AC Modality FiO2 100.0 Blood Gas Tidal 550.0 Volume Blood Gas Low 5.0 PEEP Setting Blood Gas Emiliano SINGH MD Critical Value Read Back Blood Gas UP Notified Whom Blood Gas 10/23/2018 10:40 Notified Time :47 PM Lactic Acid 7.8 *H 11.4 *H Level Hemoglobin A1c 5.3 Bedside Glucose 373 H Test 10/24/18 04:03 10/24/18 04:55 10/24/18 04:56 10/24/18 05:00 Bedside Glucose 329 H White Blood 28.9 #H Count Red Blood Count 4.93 Hemoglobin 15.0 Hematocrit 42.8 Mean 86.8 Corpuscular Volume Mean 30.4 Corpuscular Hemoglobin Mean 35.0 Corpuscular Hemoglobin Conc ent Red Cell 12.9 Distribution Width Platelet Count 330 Mean Platelet 9.6 Volume Immature 0.800 H Granulocytes % Neutrophils % Segmented 67 Neutrophils % (Manual) Band 14 H Neutrophils % (Manual) Lymphocytes % Lymphocytes % 8 L (Manual) Reactive 3 H Lymphocytes % (Manual) Monocytes % Monocytes % 6 (Manual) Eosinophils % Eosinophils % 1 (Manual) Basophils % Myelocytes % 1 H (Manual) Nucleated Red 0.0 Blood Cells % Immature 0.220 H Granulocytes # Neutrophils # Neutrophils # 20.5 H (Manual) Band 4.0 H Neutrophils # Lymphocytes 2.3 (Manual) Lymphocytes # Reactive 0.8 H Lymphocytes # Monocytes # Monocytes # 1.7 H (Manual) Eosinophils # Basophils # Myelocytes # 0.2 H Nucleated Red Blood Cells # Platelet NORMAL Estimate Poikilocytosis 3+ Anisocytosis 2+ Microcytosis 1+ Macrocytosis 1+ Prothrombin 15.0 H Time Prothrombin 1.2 Time Ratio INR 1.17 International Normalized Rati o Activated 29.8 Partial Thrombo plast Time Sodium Level 143 Potassium Level 2.4 *L Chloride Level 106 Carbon Dioxide 14 L Level Anion Gap 23 H Blood Urea 31 H Nitrogen Creatinine 1.87 H Est Glomerular 36 L Filtrat Rate mL/min Glucose Level 321 H Lactic Acid 13.4 *H Level Calcium Level 8.8 Phosphorus 1.3 #L Level Magnesium Level 2.4 Total Bilirubin 0.6 Direct 0.00 Bilirubin Indirect 0.6 Bilirubin Aspartate Amino 552 #H Transf (AST/SGO T) Alanine 353 H Aminotransferas e (ALT/SGPT) Alkaline 92 Phosphatase B-Type 199 H Natriuretic Peptide Total Protein 6.6 Albumin 3.8 Globulin 2.80 Albumin/Globuli 1.35 n Ratio Thyroid 2.800 Stimulating Hormone (TSH) Creatine Kinase Creatine Kinase 9.5 Index Creatinine 566.00 H Kinase MB (Mass) Troponin I 125.000 *H Triglycerides 291 H Level Cholesterol 173 Level LDL 76 Cholesterol, Calculated HDL Cholesterol 39 Cholesterol/HDL 4.4 Ratio Blood Gas Blood Specimen arterial Source Arterial Blood 10/24/2018 5:10 Date Drawn :08 AM Arterial Blood 7.344 L pH (Temp corrected ) Arterial Blood 24.3 L pCO2 (Temp correct) Arterial Blood 419.1 H pO2 (Temp corrected ) Arterial Blood 13.6 L HCO3 Arterial Blood -11.4 L Base Excess Arterial Blood 99.4 H Oxygen Saturati on Nicolas Test N/A Arterial Blood A-Line Gas Puncture Site Arterial 0.3 Blood Carboxyhe moglobin Arterial Blood 0.4 Methemoglobin Blood Gas A-a 278.9 H O2 Differential Oxyhemoglobin 98.7 Percent Blood Gas 33.0 Temperature Blood Gas 20.0 Respiration Rate Blood Gas 28 Actual Respiration Rat e Blood Gas VENT - AC Modality FiO2 100.0 Blood Gas Tidal 550.0 Volume Blood Gas Low 5.0 PEEP Setting Blood Gas C Critical Value ANTHONY Woodward Read Back N Blood Gas Notified Whom Blood Gas 10/24/2018 5:17 Notified Time :16 AM Test 10/24/18 05:02 10/24/18 06:01 10/24/18 08:26 10/24/18 09:12 Bedside Glucose 353 H 325 H 267 H 280 H Test 10/24/18 09:24 Lab Scanned LAB Report Imaging Imaging PROCEDURE: XR Chest. CLINICAL INDICATION: Endotracheal tube placement. TECHNIQUE: AP view of the chest. COMPARISON: Chest x-ray 10/23/2018 FINDINGS: The endotracheal tube is 5.1 cm above the mary jo. The feeding tube is coursing below left hemidiaphragm with its tip not visualized. There is an intra-aortic balloon pump in the proximal descending thoracic aorta. The heart is enlarged. There is pulmonary vascular congestion. There is no pneumothorax. IMPRESSION: Tubes and lines as described above. Mild pulmonary vascular congestion. RPTAT: HAP Admit-r Pal, Physician Date Time Electronically viewed and signed by Admit-r Pal, Physician on 10/24/2018 02:47 AP/ CC: DRU PONCE MD [id number] Medications Medication Current Medications Vasopressin 100 unit/Sodium Chloride 100 ml @ 2.4 mls/hr PER PROTOCOL ONCE IV Last administered on 10/23/18at 21:13; Admin Dose 2.4 MLS/HR; Start 10/23/18 at 20:30; Stop 10/25/18 at 14:09 Midazolam HCl 50 ml @ 3 mls/hr PER PROTOCOL ONCE IV Last administered on 10/24/18at 00:45; Admin Dose 10 MLS/HR; Start 10/23/18 at 20:30; Stop 10/24/18 at 13:09 Fentanyl 100 ml @ 2.5 mls/hr PER PROTOCOL ONCE IV Last administered on 10/24/18at 00:46; Admin Dose 10 MLS/HR; Start 10/23/18 at 20:30; Stop 10/25/18 at 12:29 Vecuronium [place] 100 mg/ Dextrose 100 ml @ 7.2 mls/hr [id number] ONCE IV ; Start 10/23/18 at 20:18; Stop 10/24/18 at 10:11 Miscellaneous Information (* Miscellaneous Pharmacy Order) Hold all Metformin ... ONCE XX ; Start 10/23/18 at 23:00; Stop 10/25/18 at 22:59 Ticagrelor (Brilinta) 90 mg BID PO ; Start 10/24/18 at 09:00 Eptifibatide 100 ml @ 7.2 mls/hr [id number] IV Last administered on 10/23/18at 22:51; Admin Dose 7.2 MLS/HR; Start 10/23/18 at 22:51; Stop 10/24/18 at 10:50 Atorvastatin Calcium (Lipitor) 40 mg DAILY@21 PO ; Start 10/24/18 at 21:00 Sodium Chloride 1,000 ml @ 100 mls/hr Q10H IV Last administered on 10/24/18at 05:50; Admin Dose 100 MLS/HR; Start 10/23/18 at 22:51; Stop 10/24/18 at 18:50 Aspirin (Aspirin) 81 mg DAILY PO ; Start 10/24/18 at 09:00 Amiodarone HCl 900 mg/Dextrose 500 ml @ 0 mls/hr Q0M IV ; Start 10/24/18 at 00:08 Ondansetron HCl (Zofran Inj) 4 mg Q6H PRN IV NAUSEA AND/OR VOMITING; Start 10/24/18 at 00:30 Albuterol (Ventolin Hfa) 4 puff Q2H RESP THERAPY PRN INH SHORTNESS OF BREATH; Start 10/24/18 at 00:30 Ipratropium [place] (Atrovent Hfa) 4 puff Q2H RESP THERAPY PRN INH SHORTNESS OF BREATH; Start 10/24/18 at 00:30 Acetaminophen (Tylenol Liquid) 650 mg Q6H PRN PO PAIN LEVEL 1-3 OR FEVER; Start 10/24/18 at 00:30 Pantoprazole (Protonix Iv) 40 mg DAILY@06 IV Last administered on 10/24/18at 06:20; Admin Dose 40 MG; Start 10/24/18 at 06:00 Miscellaneous Information (* Miscellaneous Pharmacy Order) Treatment of Hypo glycemia: 1.BG 51... Per protocol XX ; Start 10/24/18 at 00:30 Propofol 100 ml @ 3.6 mls/hr PER PROTOCOL IV Last administered on 10/24/18at 07:40; Admin Dose 32.4 MLS/HR; Start 10/24/18 at 00:30 Diagnostic Test (Pha) (Accu-Chek) 1 ea Q1H XX Last administered on 10/24/18at 09:53; Admin Dose 1 EA; Start 10/24/18 at 00:30 Insulin Human Regular 100 unit/ Sodium Chloride 100 ml @ 0 mls/hr PER PROTOCOL IV Last administered on 10/24/18at 04:13; Admin Dose 4 MLS/HR; Start 10/24/18 at 00:30 Miscellaneous Information (* Miscellaneous Pharmacy Order) Treatment of Hypoglycemia: 1.BG 51... Per protocol XX ; Start 10/24/18 at 00:30 Dextrose (D50w Syringe) 25 ml Q15M PRN IV .DECREASED GLUCOSE; Start 10/24/18 at 00:30 Dextrose (D50w Syringe) 50 ml Q15M PRN IV .DECREASED GLUCOSE; Start 10/24/18 at 00:30 Eye Lubricant (Akwa Oint) 1 applic Q6 BOTH EYES Last administered on 10/24/18at 06:20; Admin Dose 1 APPLIC; Start 10/24/18 at 02:00 Eye Lubricant (Artificial Tears Oph) 2 drop Q6H PRN BOTH EYES DRY EYES Last administered on 10/24/18at 06:19; Admin Dose 2 DROP; Start 10/24/18 at 02:00 Acetaminophen (Tylenol Liquid) 650 mg Q8 NGT Last administered on 10/24/18at 06:20; Admin Dose 650 MG; Start 10/24/18 at 02:00 Norepinephrine 32 mg/Dextrose 250 ml @ 0.47 mls/hr TITRATE IV Last administered on 10/24/18at 04:46; Admin Dose 7.03 MLS/HR; Start 10/24/18 at 02:30 Vasopressin 60 unit/Dextrose 60 ml @ 0 mls/hr Q12H IV Last administered on 10/24/18at 04:00; Admin Dose 2.4 MLS/HR; Start 10/24/18 at 02:30 Meperidine HCl (Demerol) 12.5 mg Q2 PRN IV SHIVERING; Start 10/24/18 at 03:30 Dopamine HCl/ Dextrose 250 ml @ 9 mls/hr TITRATE IV ; Start 10/24/18 at 04:30 Potassium Chloride 50 ml @ 50 mls/hr K PROTOCOL PRN IVPB PENDING LAB VALUE Last administered on 10/24/18at 08:50; Admin Dose 50 MLS/HR; Start 10/24/18 at 07:00 Influenza Virus Vaccine Quadrival (Fluzone) 0.5 ml ONCE ONCE IM* ; Start 10/28/18 at 10:00; Stop 10/28/18 at 10:01 Fentanyl 100 ml @ 2.5 mls/hr TITRATE IV ; Start 10/24/18 at 10:00; Status UNV Midazolam HCl 50 ml @ 1 mls/hr TITRATE IV ; Start 10/24/18 at 10:00; Status UNV Sodium Bicarbonate 100 meq/Dextrose/ Sodium Chloride 1,100 ml @ 100 mls/hr Q11H IV ; Start 10/24/18 at 10:00; Status UNV MICHOACANO JUAREZ Oct 24, 2018 10:10
[2018-10-24] MEDS ORDERED: SODIUM BICARBONATE (IV ADD) 100 MEQ in DEXTROSE 5%-0.45% NACL 1,000 ML IV SCH (11:00)
--- NOTE | 2018-10-24 11:31 | CONS ---
Assessment/Plan Assessment/Plan Hospital Course 68 yo M with multiple comorbidities who is admitted to the [facility] ICU for management following vfib arrest. STEMI noted, now s/p L circ thrombectomy and stent.. On hypothermia protocol as of .. He was noted to have generalized convulsions (no prior Hx of seizures noted)... for which neurology is consulted. New seizures suggest some degree of acute cerebral injury... CTH brain is unrevealing. P: Add EEG to evaluate for subclinical seizures OK to cont Keppra for now pending the above (max dose 500 mg bid) Ativan IV PRN seizure > 5 min or for cluster MRI brain without contrast for further characterization when medically able Other medical management per primary Will follow clinically Consultation Date/Type/Reason Admit Date/Time Oct 23, 2018 at 20:58 Type of Consult Neurology Reason for Consultation seizure, coma Requesting Provider: LISSY SMITH MD Date/Time of Note DATE: 10/24/18 TIME: 11:31 Hx of Present Illness The pt is currently unable to contribute a hx. It is additionally elsewhere noted: Hx of Present Illness This is a 68-year-old male with a history of hypertension who was brought to the ER after he had a cardiac arrest. Reportedly, patient was having dinner when he collapsed. CPR was initiated prior to EMS arrival. When EMS arrived, he was found to be in V-fib. EKG shows STEMI. When he initially presented to ER, he was hypoxic with a documented O2 sat of 66%. Initial troponin 17. Blood g lucose in the 400s range. A1c 5.3. Patient was intubated and was taken to the OR emergently. ABG on 100% FiO2 showed a pH of 7.06, PCO2 66, PO2 81, bicarb almost 19. He is now status post Intra-aortic balloon pump placement under direct fluoroscopy, thrombectomy of the distal left circumflex artery and successful PTCA and stenting of distal left circumflex artery using a 2.75 x 24 mm Synergy drug-eluting stent. See cardiology report for more info. Once patient was admitted to ICU, he has been noted to be having seizures. He is on Versed and so far has been given Ativan, Valium and Keppra. Subjective hx not possible: pt non-verbal, pt critical, pt critical status Exam/Review of Systems Exam Vitals Vital Signs Date Temp Pulse Resp B/P (MAP) Pulse Ox O2 O2 Flow FiO2 Time Delivery Rate 10/24/18 77 16 108/60 100 09:30 (76) 10/24/18 90.6 09:00 10/24/18 Mechanical 07:00 Ventilator 10/24/18 60 05:30 Intake and Output 10/23/18 10/23/18 10/24/18 1515:00 23:00 07:00 IntakeIntake Total 2459.132 ml OutputOutput Total 1050 ml BalanceBalance 1409.132 ml Exam PE: Gen Appearance: No Apparent Distress HEENT: Intubated Cardiovascular: Regular rate; on IABP, multiple pressors Abdomen: Soft Extremities: Dry NE: The patient was sedated and nonverbal. Cranial nerve examination was limited by mental status. Pupils were equal and unreactive to light. There was no afferent pupillary defect. Funduscopic examination was limited. Face was grossly symmetric, w/ out present corneal and cough reflexes. Tone was normal. Muscle bulk was normal. I did not see fasciculations. The patient did not withdrew to noxious stimulation x 4. Coordination and gait testing was limited by mental status. Arm and leg reflexes were symmetric. Fuller's sign was absent. Plantar responses were mute. Results Result Diagram: 10/24/185 10/24/185 Results 24hrs Laboratory Tests Test 10/23/18 20:12 10/23/18 20:15 10/23/18 20:28 10/23/18 21:15 White Blood 6.9 20.9 #H Count Red Blood Count 4.53 L 5.23 Hemoglobin 13.6 L 15.6 Hematocrit 43.0 45.7 Mean Corpuscular 94.9 87.4 Volume Mean Corpuscular 30.0 29.8 Hemoglobin Mean Corpuscular 31.6 L 34.1 Hemoglobin Anyi nt Red Cell 12.8 12.7 Distribution Width Platelet Count 195 319 # Mean Platelet 10.0 9.5 Volume Immature 4.800 H 1.600 H Granulocytes % Neutrophils % 81.0 H Segmented 3 L Neutrophils % (Manual) Band Neutrophils 5 H % (Manual) Lymphocytes % 11.3 L Lymphocytes % 77 H (Manual) Monocytes % 5.4 Monocytes % 7 (Manual) Eosinophils % 0.4 Eosinophils % 3 (Manual) Basophils % 0.3 Basophils % 1 (Manual) Metamyelocytes % 1 H (manual) Myelocytes % 1 H (Manual) Plasma Cells % 2 (manual) Nucleated Red 1.0 H 0.0 Blood Cells % Immature 0.330 H 0.340 H Granulocytes # Neutrophils # 17.0 H Neutrophils # 0.2 L (Manual) Band Neutrophils 0.3 # Lymphocytes 5.3 H (Manual) Lymphocytes # 2.4 Monocytes # 1.1 H Monocytes # 0.4 (Manual) Eosinophils # 0.1 Basophils # 0.1 Basophils # 0.0 (Manual) Metamyelocytes # 0.0 Myelocytes # 0.0 Plasma Cells # 0.1 H (manual) Nucleated Red 0.0 Blood Cells # Platelet NORMAL Estimate Poikilocytosis 1+ Prothrombin Time 16.2 H Prothrombin Time 1.3 Ratio INR 1.29 International Normalized Ratio Activated 35.9 H Partial Thrombop last Time Sodium Level 139 142 Potassium Level 3.1 L 3.2 L Chloride Level 98 99 Carbon Dioxide 18 L 23 Level Anion Gap 23 H 20 H Blood Urea 24 H 30 H Nitrogen Creatinine 1.22 1.36 H Est Glomerular 59 L 52 L Filtrat Rate mL/min Glucose Level 468 *H 380 H Lactic Acid 17.4 *H Level Calcium Level 10.4 H 8.9 Phosphorus Level 10.5 H Magnesium Level 3.4 H 2.5 Total Bilirubin 0.3 Direct Bilirubin 0.00 Indirect 0.3 Bilirubin Aspartate Amino 193 H Transf (AST/SGOT ) Alanine 239 H Aminotransferase (ALT/SGPT) Alkaline 87 Phosphatase Troponin I 0.061 11.200 *H Total Protein 6.2 Albumin 3.6 Globulin 2.60 Albumin/Globulin 1.38 Ratio Lipase 70 Ethyl Alcohol < 10.0 H Level Blood Gas Blood arterial Specimen Source Arterial Blood 10/23/2018 9:00: Date Drawn 31 PM Arterial Blood 7.064 *L pH (Temp corrected) Arterial Blood 66.6 H pCO2 (Temp correct) Arterial Blood 81.1 pO2 (Temp corrected) Arterial Blood 18.6 L HCO3 Arterial Blood -12.7 L Base Excess Arterial Blood 89.6 L Oxygen Saturatio n Nicolas Test ACCEPTAB Arterial Blood Right Radial Gas Puncture Site Arterial 0.3 Blood Carboxyhem oglobin Arterial Blood 0.4 Methemoglobin Blood Gas A-a O2 565.3 H Differential Oxyhemoglobin 89.0 L Percent Blood Gas 37.0 Temperature Blood Gas 15.0 Respiration Rate Blood Gas Actual 15 Respiration Rate Blood Gas VENT - AC Modality FiO2 100.0 Blood Gas Tidal 550.0 Volume Blood Gas Low 5.0 PEEP Setting Blood Gas Ashley SMITH MD Critical Value Read Back Blood Gas UP Notified Whom Blood Gas 10/23/2018 9:11: Notified Time 27 PM Urine Color YELLOW Urine Clarity CLEAR Urine pH 6.0 Urine Specific 1.018 [place] Urine Ketones NEGATIVE Urine Nitrite NEGATIVE Urine Bilirubin NEGATIVE Urine NEGATIVE Urobilinogen Urine Leukocyte NEGATIVE Esterase Urine Hemoglobin NEGATIVE Urine Glucose NEGATIVE Urine Total NEGATIVE Protein Urine Opiates Negative Screen Urine Negative Barbiturates Urine Negative Amphetamines Screen Urine Negative Benzodiazepines Screen Urine Cocaine Negative Screen Urine Negative Cannabinoids Test 10/23/18 22:36 10/23/18 23:15 10/24/18 00:29 10/24/18 00:42 Blood Gas Blood arterial Specimen Source Arterial Blood 10/23/2018 10:35 Date Drawn :32 PM Arterial Blood 7.198 *L pH (Temp corrected) Arterial Blood 60.9 H pCO2 (Temp correct) Arterial Blood 83.7 pO2 (Temp corrected) Arterial Blood 23.2 HCO3 Arterial Blood -6.1 L Base Excess Arterial Blood 93.5 L Oxygen Saturatio n Nicolas Test N/A Arterial Blood A-Line Gas Puncture Site Arterial 0.3 Blood Carboxyhem oglobin Arterial Blood 0.4 Methemoglobin Blood Gas A-a O2 568.4 H Differential Oxyhemoglobin 92.8 L Percent Blood Gas 37.0 Temperature Blood Gas 20.0 Respiration Rate Blood Gas Actual 20 Respiration Rate Blood Gas VENT - AC Modality FiO2 100.0 Blood Gas Tidal 550.0 Volume Blood Gas Low 5.0 PEEP Setting Blood Gas Emiliano SINGH MD Critical Value Read Back Blood Gas UP Notified Whom Blood Gas 10/23/2018 10:40 Notified Time :47 PM Lactic Acid 7.8 *H 11.4 *H Level Hemoglobin A1c 5.3 Bedside Glucose 373 H Test 10/24/18 04:03 10/24/18 04:53 10/24/18 04:55 10/24/18 04:56 Bedside Glucose 329 H Fibrinogen 249.0 Amylase Level 1036 H Lipase 112 White Blood 28.9 #H Count Red Blood Count 4.93 Hemoglobin 15.0 Hematocrit 42.8 Mean Corpuscular 86.8 Volume Mean Corpuscular 30.4 Hemoglobin Mean Corpuscular 35.0 Hemoglobin Anyi nt Red Cell 12.9 Distribution Width Platelet Count 330 Mean Platelet 9.6 Volume Immature 0.800 H Granulocytes % Neutrophils % Segmented 67 Neutrophils % (Manual) Band Neutrophils 14 H % (Manual) Lymphocytes % Lymphocytes % 8 L (Manual) Reactive 3 H Lymphocytes % (Manual) Monocytes % Monocytes % 6 (Manual) Eosinophils % Eosinophils % 1 (Manual) Basophils % Myelocytes % 1 H (Manual) Nucleated Red 0.0 Blood Cells % Immature 0.220 H Granulocytes # Neutrophils # Neutrophils # 20.5 H (Manual) Band Neutrophils 4.0 H # Lymphocytes 2.3 (Manual) Lymphocytes # Reactive 0.8 H Lymphocytes # Monocytes # Monocytes # 1.7 H (Manual) Eosinophils # Basophils # Myelocytes # 0.2 H Nucleated Red Blood Cells # Platelet NORMAL Estimate Poikilocytosis 3+ Anisocytosis 2+ Microcytosis 1+ Macrocytosis 1+ Prothrombin Time 15.0 H Prothrombin Time 1.2 Ratio INR 1.17 International Normalized Ratio Activated 29.8 Partial Thrombop last Time Sodium Level 143 Potassium Level 2.4 *L Chloride Level 106 Carbon Dioxide 14 L Level Anion Gap 23 H Blood Urea 31 H Nitrogen Creatinine 1.87 H Est Glomerular 36 L Filtrat Rate mL/min Glucose Level 321 H Lactic Acid 13.4 *H Level Calcium Level 8.8 Phosphorus Level 1.3 #L Magnesium Level 2.4 Total Bilirubin 0.6 Direct Bilirubin 0.00 Indirect 0.6 Bilirubin Aspartate Amino 552 #H Transf (AST/SGOT ) Alanine 353 H Aminotransferase (ALT/SGPT) Alkaline 92 Phosphatase B-Type 199 H Natriuretic Peptide Total Protein 6.6 Albumin 3.8 Globulin 2.80 Albumin/Globulin 1.35 Ratio Thyroid 2.800 Stimulating Hormone (TSH) Creatine Kinase Creatine Kinase 9.5 Index Creatinine 566.00 H Kinase MB (Mass) Troponin I 125.000 *H Triglycerides 291 H Level Cholesterol 173 Level LDL Cholesterol, 76 Calculated HDL Cholesterol 39 Cholesterol/HDL 4.4 Ratio Test 10/24/18 05:00 10/24/18 05:02 10/24/18 06:01 10/24/18 08:26 Blood Gas Blood arterial Specimen Source Arterial Blood 10/24/2018 5:10: Date Drawn 08 AM Arterial Blood 7.344 L pH (Temp corrected) Arterial Blood 24.3 L pCO2 (Temp correct) Arterial Blood 419.1 H pO2 (Temp corrected) Arterial Blood 13.6 L HCO3 Arterial Blood -11.4 L Base Excess Arterial Blood 99.4 H Oxygen Saturatio n Nicolas Test N/A Arterial Blood A-Line Gas Puncture Site Arterial 0.3 Blood Carboxyhem oglobin Arterial Blood 0.4 Methemoglobin Blood Gas A-a O2 278.9 H Differential Oxyhemoglobin 98.7 Percent Blood Gas 33.0 Temperature Blood Gas 20.0 Respiration Rate Blood Gas Actual 28 Respiration Rate Blood Gas VENT - AC Modality FiO2 100.0 Blood Gas Tidal 550.0 Volume Blood Gas Low 5.0 PEEP Setting Blood Gas C Critical Value ANTHONY HA Read Back Blood Gas Notified Whom Blood Gas 10/24/2018 5:17: Notified Time 16 AM Bedside Glucose 353 H 325 H 267 H Test 10/24/18 09:12 10/24/18 09:24 10/24/18 10:20 10/24/18 11:06 Bedside Glucose 280 H 244 H 254 H Lab Scanned LAB Report Medications Medication Current Medications Vasopressin 100 unit/Sodium Chloride 100 ml @ 2.4 mls/hr PER PROTOCOL ONCE IV Last administered on 10/23/18at 21:13; Admin Dose 2.4 MLS/HR; Start 10/23/18 at 20:30; Stop 10/25/18 at 14:09 Miscellaneous Information (* Miscellaneous Pharmacy Order) Hold all Metformin ... ONCE XX ; Start 10/23/18 at 23:00; Stop 10/25/18 at 22:59 Ticagrelor (Brilinta) 90 mg BID PO Last administered on 10/24/18at 10:15; Admin Dose 90 MG; Start 10/24/18 at 09:00 Atorvastatin Calcium (Lipitor) 40 mg DAILY@21 PO ; Start 10/24/18 at 21:00 Sodium Chloride 1,000 ml @ 100 mls/hr Q10H IV Last administered on 10/24/18at 05:50; Admin Dose 100 MLS/HR; Start 10/23/18 at 22:51; Stop 10/24/18 at 18:50 Aspirin (Aspirin) 81 mg DAILY PO Last administered on 10/24/18at 10:15; Admin Dose 81 MG; Start 10/24/18 at 09:00 Amiodarone HCl 900 mg/Dextrose 500 ml @ 0 mls/hr Q0M IV ; Start 10/24/18 at 00:08 Ondansetron HCl (Zofran Inj) 4 mg Q6H PRN IV NAUSEA AND/OR VOMITING; Start 10/24/18 at 00:30 Albuterol (Ventolin Hfa) 4 puff Q2H RESP THERAPY PRN INH SHORTNESS OF BREATH; Start 10/24/18 at 00:30 Ipratropium [place] (Atrovent Hfa) 4 puff Q2H RESP THERAPY PRN INH SHORTNESS OF BREATH; Start 10/24/18 at 00:30 Acetaminophen (Tylenol Liquid) 650 mg Q6H PRN PO PAIN LEVEL 1-3 OR FEVER; Start 10/24/18 at 00:30 Pantoprazole (Protonix Iv) 40 mg DAILY@06 IV Last administered on 10/24/18at 06:20; Admin Dose 40 MG; Start 10/24/18 at 06:00 Miscellaneous Information (* Miscellaneous Pharmacy Order) Treatment of Hypoglycemia: 1.BG 51... Per protocol XX ; Start 10/24/18 at 00:30 Propofol 100 ml @ 3.6 mls/hr PER PROTOCOL IV Last administered on 10/24/18at 10:48; Admin Dose 32.4 MLS/HR; Start 10/24/18 at 00:30 Diagnostic Test (Pha) (Accu-Chek) 1 ea Q1H XX Last administered on 10/24/18at 10:27; Admin Dose 1 EA; Start 10/24/18 at 00:30 Insulin Human Regular 100 unit/ Sodium Chloride 100 ml @ 0 mls/hr PER PROTOCOL IV Last administered on 10/24/18at 10:55; Admin Dose 16 MLS/HR; Start 10/24/18 at 00:30 Miscellaneous Information (* Miscellaneous Pharmacy Order) Treatment of Hypoglycemia: 1.BG 51... Per protocol XX ; Start 10/24/18 at 00:30 Dextrose (D50w Syringe) 25 ml Q15M PRN IV .DECREASED GLUCOSE; Start 10/24/18 at 00:30 Dextrose (D50w Syringe) 50 ml Q15M PRN IV .DECREASED GLUCOSE; Start 10/24/18 at 00:30 Eye Lubricant (Akwa Oint) 1 applic Q6 BOTH EYES Last administered on 10/24/18 06:20; Admin Dose 1 APPLIC; Start 10/24/18 at 02:00 Eye Lubricant (Artificial Tears Oph) 2 drop Q6H PRN BOTH EYES DRY EYES Last administered on 10/24/18 06:19; Admin Dose 2 DROP; Start 10/24/18 at 02:00 Acetaminophen (Tylenol Liquid) 650 mg Q8 NGT Last administered on 10/24/18 06:20; Admin Dose 650 MG; Start 10/24/18 at 02:00 Norepinephrine 32 mg/Dextrose 250 ml @ 0.47 mls/hr TITRATE IV Last administered on 10/24/18 04:46; Admin Dose 7.03 MLS/HR; Start 10/24/18 at 02:30 Vasopressin 60 unit/Dextrose 60 ml @ 0 mls/hr Q12H IV Last administered on 10/24/18 04:00; Admin Dose 2.4 MLS/HR; Start 10/24/18 at 02:30 Meperidine HCl (Demerol) 12.5 mg Q2 PRN IV SHIVERING; Start 10/24/18 at 03:30 Dopamine HCl/ Dextrose 250 ml @ 9 mls/hr TITRATE IV Last administered on 10/24/18 10:16; Admin Dose 36 MLS/HR; Start 10/24/18 at 04:30 Potassium Chloride 50 ml @ 50 mls/hr K PROTOCOL PRN IVPB PENDING LAB VALUE Last administered on 10/24/18 08:50; Admin Dose 50 MLS/HR; Start 10/24/18 at 07:00 Influenza Virus Vaccine Quadrival (Fluzone) 0.5 ml ONCE ONCE IM* ; Start 10/28/18 at 10:00; Stop 10/28/18 at 10:01 Fentanyl 100 ml @ 2.5 mls/hr TITRATE IV Last administered on 10/24/18 10:47; Admin Dose 10 MLS/HR; Start 10/24/18 at 10:00 Midazolam HCl 50 ml @ 1 mls/hr TITRATE IV Last administered on 10/24/18 10:47; Admin Dose 10 MLS/HR; Start 10/24/18 at 10:00 Sodium Bicarbonate 100 meq/Dextrose/ Sodium Chloride 1,100 ml @ 100 mls/hr Q11H IV ; Start 10/24/18 at 11:00 Past Medical History reviewed Home Meds Reported Medications Amlodipine Besylate* (Amlodipine Besylate*) 10 Mg Tablet, 10 MG PO DAILY, #30 TAB 10/23/18 Cyanocobalamin (Vitamin B-12) (Vitamin B-12) Unknown Strength Capsule, 1 CAP PO DAILY, CAP 10/23/18 Garlic (Garlic) 1 Each Tablet, 1 EACH PO DAILY, TAB 10/23/18 Multivitamins* (Theragran*) 1 Tab Tab, 1 TAB PO DAILY, TAB 10/23/18 Acyclovir* (Acyclovir*) 800 Mg Tablet, 800 MG PO DAILY, TAB 10/23/18 Aspirin* (Aspirin* EC) 81 Mg Tablet.dr, 81 MG PO DAILY, TAB 10/23/18 Medications Current Medications Vasopressin 100 unit/Sodium Chloride 100 ml @ 2.4 mls/hr PER PROTOCOL ONCE IV Last administered on 10/23/18at 21:13; Admin Dose 2.4 MLS/HR; Start 10/23/18 at 20:30; Stop 10/25/18 at 14:09 Miscellaneous Information (* Miscellaneous Pharmacy Order) Hold all Metformin ... ONCE XX ; Start 10/23/18 at 23:00; Stop 10/25/18 at 22:59 Ticagrelor (Brilinta) 90 mg BID PO Last administered on 10/24/18at 10:15; Admin Dose 90 MG; Start 10/24/18 at 09:00 Atorvastatin Calcium (Lipitor) 40 mg DAILY@21 PO ; Start 10/24/18 at 21:00 Sodium Chloride 1,000 ml @ 100 mls/hr Q10H IV Last administered on 10/24/18at 05:50; Admin Dose 100 MLS/HR; Start 10/23/18 at 22:51; Stop 10/24/18 at 18:50 Aspirin (Aspirin) 81 mg DAILY PO Last administered on 10/24/18at 10:15; Admin Dose 81 MG; Start 10/24/18 at 09:00 Amiodarone HCl 900 mg/Dextrose 500 ml @ 0 mls/hr Q0M IV ; Start 10/24/18 at 00:08 Ondansetron HCl (Zofran Inj) 4 mg Q6H PRN IV NAUSEA AND/OR VOMITING; Start 10/24/18 at 00:30 Albuterol (Ventolin Hfa) 4 puff Q2H RESP THERAPY PRN INH SHORTNESS OF BREATH; Start 10/24/18 at 00:30 Ipratropium [place] (Atrovent Hfa) 4 puff Q2H RESP THERAPY PRN INH SHORTNESS OF BREATH; Start 10/24/18 at 00:30 Acetaminophen (Tylenol Liquid) 650 mg Q6H PRN PO PAIN LEVEL 1-3 OR FEVER; Start 10/24/18 at 00:30 Pantoprazole (Protonix Iv) 40 mg DAILY@06 IV Last administered on 10/24/18at 06:20; Admin Dose 40 MG; Start 10/24/18 at 06:00 Miscellaneous Information (* Miscellaneous Pharmacy Order) Treatment of Hypoglycemia: 1.BG 51... Per protocol XX ; Start 10/24/18 at 00:30 Propofol 100 ml @ 3.6 mls/hr PER PROTOCOL IV Last administered on 10/24/18at 10:48; Admin Dose 32.4 MLS/HR; Start 10/24/18 at 00:30 Diagnostic Test (Pha) (Accu-Chek) 1 ea Q1H XX Last administered on 10/24/18at 10:27; Admin Dose 1 EA; Start 10/24/18 at 00:30 Insulin Human Regular 100 unit/ Sodium Chloride 100 ml @ 0 mls/hr PER PROTOCOL IV Last administered on 10/24/18at 10:55; Admin Dose 16 MLS/HR; Start 10/24/18 at 00:30 Miscellaneous Information (* Miscellaneous Pharmacy Order) Treatment of Hypoglycemia: 1.BG 51... Per protocol XX ; Start 10/24/18 at 00:30 Dextrose (D50w Syringe) 25 ml Q15M PRN IV .DECREASED GLUCOSE; Start 10/24/18 at 00:30 Dextrose (D50w Syringe) 50 ml Q15M PRN IV .DECREASED GLUCOSE; Start 10/24/18 at 00:30 Eye Lubricant (Akwa Oint) 1 applic Q6 BOTH EYES Last administered on 10/24/18at 06:20; Admin Dose 1 APPLIC; Start 10/24/18 at 02:00 Eye Lubricant (Artificial Tears Oph) 2 drop Q6H PRN BOTH EYES DRY EYES Last administered on 10/24/18at 06:19; Admin Dose 2 DROP; Start 10/24/18 at 02:00 Acetaminophen (Tylenol Liquid) 650 mg Q8 NGT Last administered on 10/24/18at 06:20; Admin Dose 650 MG; Start 10/24/18 at 02:00 Norepinephrine 32 mg/Dextrose 250 ml @ 0.47 mls/hr TITRATE IV Last administered on 10/24/18at 04:46; Admin Dose 7.03 MLS/HR; Start 10/24/18 at 02:30 Vasopressin 60 unit/Dextrose 60 ml @ 0 mls/hr Q12H IV Last administered on 10/24/18at 04:00; Admin Dose 2.4 MLS/HR; Start 10/24/18 at 02:30 Meperidine HCl (Demerol) 12.5 mg Q2 PRN IV SHIVERING; Start 10/24/18 at 03:30 Dopamine HCl/ Dextrose 250 ml @ 9 mls/hr TITRATE IV Last administered on 10/24/18at 10:16; Admin Dose 36 MLS/HR; Start 10/24/18 at 04:30 Potassium Chloride 50 ml @ 50 mls/hr K PROTOCOL PRN IVPB PENDING LAB VALUE Last administered on 10/24/18at 08:50; Admin Dose 50 MLS/HR; Start 10/24/18 at 07:00 Influenza Virus Vaccine Quadrival (Fluzone) 0.5 ml ONCE ONCE IM* ; Start 10/28/18 at 10:00; Stop 10/28/18 at 10:01 Fentanyl 100 ml @ 2.5 mls/hr TITRATE IV Last administered on 10/24/18at 10:47; Admin Dose 10 MLS/HR; Start 10/24/18 at 10:00 Midazolam HCl 50 ml @ 1 mls/hr TITRATE IV Last administered on 10/24/18at 10:47; Admin Dose 10 MLS/HR; Start 10/24/18 at 10:00 Sodium Bicarbonate 100 meq/Dextrose/ Sodium Chloride 1,100 ml @ 100 mls/hr Q11H IV ; Start 10/24/18 at 11:00 Allergies: Coded Allergies: No Known Allergy (Unverified , 10/23/18) Past Surgical History reviewed Social History reviewed Smoking Status: Unknown if ever smoked ИРИНА LANCASTER NP Oct 24, 2018 11:31 JACKY LEWIS Oct 24, 2018 13:58
--- NOTE | 2018-10-24 11:33 | CONS ---
DATE OF ADMISSION: 10/23/2018 DATE OF CONSULTATION: 10/24/2018 TYPE OF CONSULTATION: Pulmonary. REASON FOR CONSULTATION: Ventilator management and critical care management. Thank you, Dr. Jacques, for this consultation. HISTORY OF PRESENT ILLNESS: This is a 68-year-old gentleman with history of hypertension, brought to the Emergency Room following cardiopulmonary arrest. Per chart, patient collapsed at home during me al, received CPR by his and on arrival of EMS was found to be in ventricular fibrillation. Rece ived ACLS protocol, was brought to the Emergency Room where further cardiopulmonary arrest was noted. The patient taken to clinical lab scientist emergently and initial evaluation, the patient had fixed pupils per c ardiology, prior to cardiac catheterization. Was found to have distal circumflex lesion requiring PT CA and then subsequent initiation of intraaortic balloon pump and multiple vasopressors. Upon arriva l to the Emergency Room, the patient had persistent seizures requiring initiation of sedation and ant iepileptic medication. Since that time, he continues mechanical ventilation with mild metabolic acid osis, multiple vasopressors. PAST MEDICAL HISTORY: As above. MEDICATIONS: Per chart. ALLERGIES: NONE. SOCIAL HISTORY: Nonsmoker, no alcohol, no history of drug use. FAMILY HISTORY: Noncontributory. SYSTEMS REVIEW: A 12-point review of systems currently unable to perform. PHYSICAL EXAMINATION: GENERAL: Well-nourished, well-developed gentleman, intubated on mechanical ventilation, currently se dated but no paralytic on hypothermia protocol. VITAL SIGNS: T-max is 90.6. Pulse is 77, blood pressure 108/60 on multiple vasopressors and intraao rtic balloon pump, 1:1. HEENT: Pupils are fixed and dilated. CARDIAC: S1, S2, no added sounds or murmurs. CHEST: Diminished air entry bilaterally. ABDOMEN: Soft, nontender. No guarding or rebound. EXTREMITIES: No cyanosis, clubbing or edema. NEUROLOGIC: Generalized weakness. LABORATORY DATA: White count 28.9, hemoglobin 15, platelets of 330, BUN 31, creatinine 1.87. Lactic acid was 13.4. Troponin 125. Most recent ABG: pH 7.34, pCO2 of 24, pO2 of 419. U-tox unremarkabl e. INR 1.17. DIAGNOSTIC DATA: Chest x-ray was reviewed, showed mild vascular congestion. IMPRESSION AND PLAN: 1. Cardiopulmonary arrest. 2. Possible aspiration pneumonia. 3. Cardiogenic and septic shock. 4. Likely significant anoxic brain injury given clinical exam and post-cardiac catheterization seizu res. 5. Acute renal injury, probable acute tubular necrosis. 6. Likely early shock liver. The patient will require: 1. Continued vasopressors. 2. Broad-spectrum antibiotics. 3. Bicarbonate drip for metabolic acidosis. 4. Continue post-stent Brilinta and aspirin. 5. Sedation as needed. 6. Hypothermia protocol. 7. Deep vein thrombosis and gastrointestinal prophylaxis. Overall prognosis is extremely poor. Dictated By: BRANDON HOLGUIN MD SV/NTS Conf#: [id number] DID#: [id number] CC: CHANG JACQUES MD;*End*
[2018-10-24] MEDS ORDERED: LORAZEPAM 2 MG INJ IV PRN (14:00)
[2018-10-24] MEDS ORDERED: SODIUM BICARBONATE (IV ADD) 100 MEQ in SOD CHLORIDE 0.45% 1,000 ML IV SCH (14:00)
[2018-10-24] MEDS: LEVETIRACETAM 500 MG (PMX) 100 ML IVPB SCH ×2 (16:07→20:56)
[2018-10-24] MEDS: SODIUM BICARBONATE (IV ADD) 100 MEQ in SOD CHLORIDE 0.45% 900 ML IV SCH (18:34)
[2018-10-24] MEDS: ATORVASTATIN 40 MG TAB PO SCH (21:05)
[2018-10-24] MEDS ORDERED: PHENYLephrine 40 MG in DEXTROSE 5% 246 ML IV SCH (23:30)
[2018-10-25] VITALS (104 sets, daily range): BP systolic 79–147; BP diastolic 50–82; PULSE 64–90; RESP 0–26; Ht 188 cm; Wt 133.7 kg
[2018-10-25] MEDS ORDERED: MAGNESIUM SULFATE 3 GM in DEXTROSE 5% 100 ML IVPB ONE ×2
[2018-10-25] MEDS: ACCU-CHEK XX SCH ×23 (00:06→22:30)
[2018-10-25] MEDS: OCULAR LUBRICANT 3.5 GM OPH OINT BOTH EYES SCH ×4 (00:08→18:42)
[2018-10-25] MEDS: NORepinephrine 32 MG in DEXTROSE 5% 218 ML IV SCH (02:24)
[2018-10-25] MEDS: VASOPRESSIN 60 UNIT in DEXTROSE 5% 57 ML IV SCH ×2 (02:30→14:30)
[2018-10-25] MEDS: MIDAZOLAM (DRIP) 50 mg/50 mL 50 ML IV SCH ×4 (03:11→20:48)
[2018-10-25] MEDS: SODIUM BICARBONATE (IV ADD) 100 MEQ in SOD CHLORIDE 0.45% 900 ML IV SCH ×3 (04:00→16:16)
[2018-10-25] MEDS ORDERED: SOD CHLORIDE 0.9% 1,000 ML IV ONE (05:30)
[2018-10-25] MEDS: PANTOPRAZOLE 40 MG INJ IV SCH (05:34)
[2018-10-25] MEDS: ACETAMINOPHEN 650MG/20.3ML CUP NGT SCH ×3 (05:55→21:08)
[2018-10-25] MEDS: FENTAnyl (DRIP) 1000 mcg/100mL 100 ML IV SCH ×2 (06:46→18:02)
--- NOTE | 2018-10-25 07:14 | EEG ---
EEG NOTE Report Details DATE OF TEST: 10/24/18 HISTORY: The patient is a 68-year-old M who presents with seizure and altered mental status s/p cardiac arrest. This EEG is requested to evaluate for subclinical seizures. SEDATION: None. CONDITIONS OF RECORDING: This EEG was recorded digitally on the [employer] Goomeo machine, using the International 10-20 System of electrodes plus anterior temporals and [place]. STATES SAMPLED: Comatose. FINDINGS: The background is grossly symmetric, with low voltage activity and electromyographic artifact throughout. The normal [id number] frequency-amplitude gradient was absent. Photic stimulation does not elicit any definite driving responses or epileptiform discharges. Hyperventilation was not performed. No asymmetries, focal abnormalities or epileptiform discharges were seen. IMPRESSION: Abnormal electroencephalogram due to: diffuse slowing. COMMENT: The slowing of the background indicates diffuse cortical dysfunction of nonspe cific etiology. JACKY LEWIS Oct 25, 2018 07:14
--- NOTE | 2018-10-25 07:54 | CONS ---
Consult Date/Type/Reason Admit Date/Time Oct 23, 2018 at 20:58 Initial Consult Date 10/23/18 Type of Consultation: CV Requesting Provider: LISSY SMITH MD Date/Time of Note DATE: 10/25/18 TIME: 07:48 Subjective Interventional cardiology follow-up progress note/critical care note Subjective: Discussed multiple staff and physicians. Telemetry was reviewed. Patient with frequent PVCs and only very short runs of nonsustained V. tach Patient remained intubated and on the vent currently on multiple pressors in the ICU on hypothermia protocol (rewarming now) no more bleeding right femoral sheath Objective: General: Obese gentleman status post intubation on the vent nonverbal HEENT: NC/AT. pupils are extend dilated NECK: no stridor. CV: RRR. systolic murmur; no gallop or rubs. PULM: no wheezing +rhonchi. GI: SOFT, NT, ND, no rebound or guarding Extremity: trace B/L LE edema. no clubbing. neuro: No response to verbal stimuli Psych: calm rectal: deferred : normal male Right femoral intra-aortic balloon pump in place Left femoral arterial sheath removed and no hematoma EKG was personally showed normal sinus rhythm with ST elevation inferolaterally consistent with inferolateral ST elevation MA with reciprocal changes anteriorly Head CT done in the emergency room shows: No mass effect or acute intracranial bleed. Mild intracranial vascular calcification.. Chest x-ray done in the ER shows: 1. Endotracheal tube in place. 2. Atelectasis at the right lung base. 3. Mild cardiomegaly. 4. Exam limited by low lung volumes and multiple overlying external appearing wires Multiple ABG that was reviewed personally Echocardiogram done October 24, 2018 was personally reviewed which shows Normal left ventricular systolic function. Normal left ventricular cavity size. Moderate concentric left ventricular hypertrophy. Ejection fraction is visually estimated at 65 %. Tissue Doppler/Mitral Doppler indices are consistent with impaired relaxation (Stage I diastolic dysfunction). Normal appearance and function of the mitral valve with trace physiologic regurgitation. Normal appearance of the aortic valve. No significant aortic stenosis or insufficiency. Normal appearance of the tricuspid valve. Unable to obtain RVSP due to minimal presence of tricuspid regurgitation. Normal IVC with respiratory collapse, however patient on ventilator. Normal pericardium with no significant pericardial effusion. Objective Vitals Vital Signs Date Temp Pulse Resp B/P (MAP) Pulse Ox O2 O2 Flow FiO2 Time Delivery Rate 10/25/18 92.0 67 18 113/65 93 07:00 (81) 10/25/18 Mechanical 06:30 Ventilator 10/25/18 50 04:45 Intake and Output 10/24/18 10/24/18 10/25/18 1515:00 23:00 07:00 IntakeIntake Total 1732.40 ml 2226.18 ml 2248.80 ml OutputOutput Total 298 ml 156 ml 90 ml BalanceBalance 1434.40 ml 2070.18 ml 2158.80 ml Results/Medications Result Diagram: 10/25/18 0445 10/25/18 0445 Results 24 hrs Laboratory Tests Test 10/24/18 08:26 10/24/18 09:12 10/24/18 09:24 10/24/18 10:20 Bedside Glucose 267 H 280 H 244 H Lab Scanned LAB Report Test 10/24/18 11:06 10/24/18 11:49 10/24/18 11:51 10/24/18 12:00 Bedside Glucose 254 H 265 H White Blood 30.1 H Count Red Blood Count 4.98 Hemoglobin 14.9 Hematocrit 43.1 Mean Corpuscular 86.5 Volume Mean Corpuscular 29.9 Hemoglobin Mean Corpuscular 34.6 Hemoglobin Anyi nt Red Cell 12.7 Distribution Width Platelet Count 288 Mean Platelet 9.5 Volume Immature 1.500 H Granulocytes % Neutrophils % 85.7 H Lymphocytes % 5.5 L Monocytes % 6.9 Eosinophils % 0.0 Basophils % 0.4 Nucleated Red 0.0 Blood Cells % Immature 0.440 H Granulocytes # Neutrophils # 25.8 H Lymphocytes # 1.7 Monocytes # 2.1 H Eosinophils # 0.0 Basophils # 0.1 Nucleated Red 0.0 Blood Cells # Prothrombin Time 14.7 Prothrombin Time 1.1 Ratio INR 1.14 International Normalized Ratio Activated 28.6 Partial Thrombop last Time Sodium Level 142 Potassium Level 2.4 *L Chloride Level 103 Carbon Dioxide 19 L Level Anion Gap 20 H Blood Urea 34 H Nitrogen Creatinine 2.21 H Est Glomerular 30 L Filtrat Rate mL/min Glucose Level 245 H Lactic Acid 10.7 *H Level Calcium Level 9.1 Phosphorus Level 0.6 L Magnesium Level 2.6 H Total Bilirubin 0.6 Direct Bilirubin 0.00 Indirect 0.6 Bilirubin Aspartate Amino 510 H Transf (AST/SGOT ) Alanine 330 H Aminotransferase (ALT/SGPT) Alkaline 76 Phosphatase Ammonia < 9 L Troponin I 100.000 *H Total Protein 6.8 Albumin 3.8 Globulin 3.00 Albumin/Globulin 1.26 Ratio Blood Gas Blood arterial Specimen Source Arterial Blood 10/24/2018 11:25 Date Drawn :55 AM Arterial Blood 7.363 pH (Temp corrected) Arterial Blood 29.7 L pCO2 (Temp correct) Arterial Blood 90.0 pO2 (Temp corrected) Arterial Blood 17.3 L HCO3 Arterial Blood -8.0 L Base Excess Arterial Blood 97.7 Oxygen Saturatio n Nicolas Test N/A Arterial Blood A-Line Gas Puncture Site Arterial 0.3 Blood Carboxyhem oglobin Arterial Blood 0.4 Methemoglobin Blood Gas A-a O2 237.7 H Differential Oxyhemoglobin 97.0 Percent Blood Gas 33.0 Temperature Blood Gas 18.0 Respiration Rate Blood Gas Actual 27 Respiration Rate Blood Gas VENT - AC Modality FiO2 50.0 Blood Gas Tidal 550.0 Volume Blood Gas Low 5.0 PEEP Setting Blood Gas TM Notified Whom Blood Gas 10/24/2018 11:46 Notified Time :32 AM Test 10/24/18 13:10 10/24/18 14:30 10/24/18 15:18 10/24/18 15:56 Bedside Glucose 236 H 226 H 234 H 199 Test 10/24/18 17:15 10/24/18 17:51 10/24/18 18:00 10/24/18 18:18 Bedside Glucose 193 220 Blood Gas Blood arterial Specimen Source Arterial Blood 10/24/2018 6:10: Date Drawn 50 PM Arterial Blood 7.306 L pH (Temp corrected) Arterial Blood 39.0 pCO2 (Temp correct) Arterial Blood 72.6 L pO2 (Temp corrected) Arterial Blood 19.0 L HCO3 Arterial Blood -6.7 L Base Excess Arterial Blood 93.5 L Oxygen Saturatio n Nicolas Test N/A Arterial Blood A-Line Gas Puncture Site Arterial 0.3 Blood Carboxyhem oglobin Arterial Blood 0.2 Methemoglobin Blood Gas A-a O2 167.8 H Differential Oxyhemoglobin 93.0 Percent Blood Gas 37.0 Temperature Blood Gas 18.0 Respiration Rate Blood Gas Actual 26 Respiration Rate Blood Gas VENT - AC Modality FiO2 40.0 Blood Gas 0.90 Inspiratory Time Blood Gas Tidal 550.0 Volume Blood Gas Low 5.0 PEEP Setting Blood Gas [facility] Notified Whom Blood Gas 10/24/2018 6:19: Notified Time 00 PM White Blood 30.6 H Count Red Blood Count 4.83 Hemoglobin 14.6 Hematocrit 40.8 L Mean Corpuscular 84.5 Volume Mean Corpuscular 30.2 Hemoglobin Mean Corpuscular 35.8 Hemoglobin Anyi nt Red Cell 12.6 Distribution Width Platelet Count 253 Mean Platelet 9.3 Volume Immature 1.400 H Granulocytes % Neutrophils % 82.6 H Lymphocytes % 8.6 L Monocytes % 7.0 Eosinophils % 0.1 Basophils % 0.3 Nucleated Red 0.0 Blood Cells % Immature 0.420 H Granulocytes # Neutrophils # 25.3 H Lymphocytes # 2.6 Monocytes # 2.2 H Eosinophils # 0.0 Basophils # 0.1 Nucleated Red 0.0 Blood Cells # Prothrombin Time 14.4 Prothrombin Time 1.1 Ratio INR 1.11 International Normalized Ratio Activated 30.2 Partial Thrombop last Time Sodium Level 141 Potassium Level 3.0 L Chloride Level 106 Carbon Dioxide 20 L Level Anion Gap 15 H Blood Urea 36 H Nitrogen Creatinine 2.37 H Est Glomerular 27 L Filtrat Rate mL/min Glucose Level 206 Lactic Acid 6.4 *H Level Calcium Level 8.8 Phosphorus Level 1.5 L Magnesium Level 2.4 Total Bilirubin 0.4 Direct Bilirubin 0.00 Indirect 0.4 Bilirubin Aspartate Amino 446 H Transf (AST/SGOT ) Alanine 297 H Aminotransferase (ALT/SGPT) Alkaline 71 Phosphatase Troponin I 61.700 *H Total Protein 6.2 Albumin 3.4 Globulin 2.80 Albumin/Globulin 1.21 Ratio Test 10/24/18 18:58 10/24/18 20:05 10/24/18 21:10 10/24/18 21:15 Bedside Glucose 189 178 164 Fibrinogen 421.0 # Amylase Level 1580 #H Lipase 2528 H Test 10/24/18 22:02 10/24/18 23:06 10/25/18 00:00 10/25/18 00:06 Bedside Glucose 153 131 116 Blood Gas Blood arterial Specimen Source Arterial Blood 10/24/2018 11:49 Date Drawn :00 PM Arterial Blood 7.358 pH (Temp corrected) Arterial Blood 41.3 pCO2 (Temp correct) Arterial Blood 64.7 L pO2 (Temp corrected) Arterial Blood 22.7 HCO3 Arterial Blood -2.6 Base Excess Arterial Blood 92.8 L Oxygen Saturatio n Nicolas Test N/A Arterial Blood A-Line Gas Puncture Site Arterial 0 Blood Carboxyhem oglobin Arterial Blood 0.3 Methemoglobin Blood Gas A-a O2 173.0 H Differential Oxyhemoglobin 92.5 L Percent Blood Gas 37.0 Temperature Blood Gas 18.0 Respiration Rate Blood Gas Actual 21 Respiration Rate Blood Gas VENT - AC Modality FiO2 40.0 Blood Gas Tidal 550.0 Volume Blood Gas Low 5.0 PEEP Setting Blood Gas 22.0 Inspiratory Pressure Blood Gas Notified Whom Blood Gas 10/25/2018 12:03 Notified Time :00 AM Test 10/25/18 00:16 10/25/18 01:03 10/25/18 02:00 10/25/18 02:59 White Blood 30.3 H Count Red Blood Count 4.92 Hemoglobin 14.8 Hematocrit 41.5 L Mean Corpuscular 84.3 Volume Mean Corpuscular 30.1 Hemoglobin Mean Corpuscular 35.7 Hemoglobin Anyi nt Red Cell 12.8 Distribution Width Platelet Count 232 Mean Platelet 9.7 Volume Immature 1.900 H Granulocytes % Neutrophils % 80.6 H Lymphocytes % 8.7 L Monocytes % 8.4 Eosinophils % 0.3 Basophils % 0.1 Nucleated Red 0.0 Blood Cells % Immature 0.580 H Granulocytes # Neutrophils # 24.4 H Lymphocytes # 2.7 Monocytes # 2.6 H Eosinophils # 0.1 Basophils # 0.0 Nucleated Red 0.0 Blood Cells # Prothrombin Time 13.4 Prothrombin Time 1.0 Ratio INR 1.01 International Normalized Ratio Activated 31.7 Partial Thrombop last Time Sodium Level 142 Potassium Level 3.2 L Chloride Level 103 Carbon Dioxide 23 Level Anion Gap 16 H Blood Urea 38 H Nitrogen Creatinine 2.56 H Est Glomerular 25 L Filtrat Rate mL/min Glucose Level 111 # Lactic Acid 4.9 *H Level Calcium Level 9.0 Phosphorus Level 2.9 Magnesium Level 2.3 Total Bilirubin 0.5 Direct Bilirubin 0.00 Indirect 0.5 Bilirubin Aspartate Amino 420 H Transf (AST/SGOT ) Alanine 279 H Aminotransferase (ALT/SGPT) Alkaline 74 Phosphatase Troponin I 68.900 *H Total Protein 6.3 Albumin 3.4 Globulin 2.90 Albumin/Globulin 1.17 Ratio Bedside Glucose 105 112 107 Test 10/25/18 04:00 10/25/18 04:45 10/25/18 05:00 10/25/18 06:00 Bedside Glucose 109 106 White Blood 26.3 H Count Red Blood Count 4.85 Hemoglobin 14.7 Hematocrit 40.6 L Mean Corpuscular 83.7 Volume Mean Corpuscular 30.3 Hemoglobin Mean Corpuscular 36.2 Hemoglobin Anyi nt Red Cell 12.7 Distribution Width Platelet Count 208 Mean Platelet 9.5 Volume Immature 1.000 H Granulocytes % Neutrophils % 81.8 H Lymphocytes % 9.7 L Monocytes % 6.6 Eosinophils % 0.5 Basophils % 0.4 Nucleated Red 0.0 Blood Cells % Immature 0.270 H Granulocytes # Neutrophils # 21.5 H Lymphocytes # 2.6 Monocytes # 1.8 H Eosinophils # 0.1 Basophils # 0.1 Nucleated Red 0.0 Blood Cells # Prothrombin Time 14.1 Prothrombin Time 1.1 Ratio INR 1.08 International Normalized Ratio Activated 31.5 Partial Thrombop last Time Fibrinogen 414.0 Sodium Level 143 Potassium Level 3.6 Chloride Level 102 Carbon Dioxide 25 Level Anion Gap 16 H Blood Urea 39 H Nitrogen Creatinine 2.72 H Est Glomerular 23 L Filtrat Rate mL/min Glucose Level 110 Lactic Acid 3.6 *H Level Calcium Level 8.6 Phosphorus Level 5.5 #H Magnesium Level 2.3 Total Bilirubin 0.5 Direct Bilirubin 0.00 Indirect 0.5 Bilirubin Aspartate Amino 351 H Transf (AST/SGOT ) Alanine 255 H Aminotransferase (ALT/SGPT) Alkaline 74 Phosphatase Troponin I 60.700 *H Total Protein 5.9 L Albumin 3.2 L Globulin 2.70 Albumin/Globulin 1.18 Ratio Amylase Level 1573 H Lipase 2915 H Blood Gas Blood arterial Specimen Source Arterial Blood 10/25/2018 4:50: Date Drawn 13 AM Arterial Blood 7.376 pH (Temp corrected) Arterial Blood 38.1 pCO2 (Temp correct) Arterial Blood 77.8 L pO2 (Temp corrected) Arterial Blood 21.8 L HCO3 Arterial Blood -2.9 Base Excess Arterial Blood 95.0 Oxygen Saturatio n Nicolas Test N/A Arterial Blood A-Line Gas Puncture Site Arterial 0.3 Blood Carboxyhem oglobin Arterial Blood 0.2 Methemoglobin Blood Gas A-a O2 235.8 H Differential Oxyhemoglobin 94.5 Percent Blood Gas 37.0 Temperature Blood Gas 18.0 Respiration Rate Blood Gas Actual 18 Respiration Rate Blood Gas VENT - AC Modality FiO2 50.0 Blood Gas Tidal 550.0 Volume Blood Gas Low 5.0 PEEP Setting Blood Gas 20.0 Inspiratory Pressure Blood Gas KM Notified Whom Blood Gas 10/25/2018 5:03: Notified Time 20 AM Test 10/25/18 06:03 10/25/18 06:59 Bedside Glucose 123 116 Home Meds Reported Medications Amlodipine Besylate* (Amlodipine Besylate*) 10 Mg Tablet, 10 MG PO DAILY, #30 TAB 10/23/18 Cyanocobalamin (Vitamin B-12) (Vitamin B-12) Unknown Strength Capsule, 1 CAP PO DAILY, CAP 10/23/18 Garlic (Garlic) 1 Each Tablet, 1 EACH PO DAILY, TAB 10/23/18 Multivitamins* (Theragran*) 1 Tab Tab, 1 TAB PO DAILY, TAB 10/23/18 Acyclovir* (Acyclovir*) 800 Mg Tablet, 800 MG PO DAILY, TAB 10/23/18 Aspirin* (Aspirin* EC) 81 Mg Tablet.dr, 81 MG PO DAILY, TAB 10/23/18 Medications Current Medications Vasopressin 100 unit/Sodium Chloride 100 ml @ 2.4 mls/hr PER PROTOCOL ONCE IV Last administered on 10/23/18at 21:13; Admin Dose 2.4 MLS/HR; Start 10/23/18 at 20:30; Stop 10/25/18 at 14:09 Miscellaneous Information (* Miscellaneous Pharmacy Order) Hold all Metformin ... ONCE XX ; Start 10/23/18 at 23:00; Stop 10/25/18 at 22:59 Ticagrelor (Brilinta) 90 mg BID PO Last administered on 10/24/18at 21:19; Admin Dose 90 MG; Start 10/24/18 at 09:00 Atorvastatin Calcium (Lipitor) 40 mg DAILY@21 PO Last administered on 10/24/18at 21:05; Admin Dose 40 MG; Start 10/24/18 at 21:00 Aspirin (Aspirin) 81 mg DAILY PO Last administered on 10/24/18at 10:15; Admin Dose 81 MG; Start 10/24/18 at 09:00 Amiodarone HCl 900 mg/Dextrose 500 ml @ 0 mls/hr Q0M IV ; Start 10/24/18 at 00:08 Ondansetron HCl (Zofran Inj) 4 mg Q6H PRN IV NAUSEA AND/OR VOMITING; Start 10/24/18 at 00:30 Albuterol (Ventolin Hfa) 4 puff Q2H RESP THERAPY PRN INH SHORTNESS OF BREATH; Start 10/24/18 at 00:30 Ipratropium [place] (Atrovent Hfa) 4 puff Q2H RESP THERAPY PRN INH SHORTNESS OF BREATH; Start 10/24/18 at 00:30 Acetaminophen (Tylenol Liquid) 650 mg Q6H PRN PO PAIN LEVEL 1-3 OR FEVER; Start 10/24/18 at 00:30 Pantoprazole (Protonix Iv) 40 mg DAILY@06 IV Last administered on 10/25/18at 05:34; Admin Dose 40 MG; Start 10/24/18 at 06:00 Miscellaneous Information (* Miscellaneous Pharmacy Order) Treatment of Hypoglycemia: 1.BG 51... Per protocol XX ; Start 10/24/18 at 00:30 Propofol 100 ml @ 3.6 mls/hr PER PROTOCOL IV Last administered on 10/24/18at 20:56; Admin Dose 18 MLS/HR; Start 10/24/18 at 00:30 Diagnostic Test (Pha) (Accu-Chek) 1 ea Q1H XX Last administered on 10/25/18at 06:59; Admin Dose 1 EA; Start 10/24/18 at 00:30 Insulin Human Regular 100 unit/ Sodium Chloride 100 ml @ 0 mls/hr PER PROTOCOL IV Last administered on 10/24/18at 20:14; Admin Dose 7 MLS/HR; Start 10/24/18 at 00:30 Miscellaneous Information (* Miscellaneous Pharmacy Order) Treatment of Hypoglycemia: 1.BG 51... Per protocol XX ; Start 10/24/18 at 00:30 Dextrose (D50w Syringe) 25 ml Q15M PRN IV .DECREASED GLUCOSE; Start 10/24/18 at 00:30 Dextrose (D50w Syringe) 50 ml Q15M PRN IV .DECREASED GLUCOSE; Start 10/24/18 at 00:30 Eye Lubricant (Akwa Oint) 1 applic Q6 BOTH EYES Last administered on 10/25/18at 05:35; Admin Dose 1 APPLIC; Start 10/24/18 at 02:00 Eye Lubricant (Artificial Tears Oph) 2 drop Q6H PRN BOTH EYES DRY EYES Last administered on 10/24/18 06:19; Admin Dose 2 DROP; Start 10/24/18 at 02:00 Acetaminophen (Tylenol Liquid) 650 mg Q8 NGT Last administered on 10/24/18 21:52; Admin Dose 650 MG; Start 10/24/18 at 02:00 Norepinephrine 32 mg/Dextrose 250 ml @ 0.47 mls/hr TITRATE IV Last administered on 10/25/18 02:24; Admin Dose 14.06 MLS/HR; Start 10/24/18 at 02:30 Vasopressin 60 unit/Dextrose 60 ml @ 0 mls/hr Q12H IV Last administered on 10/24/18 16:06; Admin Dose 2.4 MLS/HR; Start 10/24/18 at 02:30 Meperidine HCl (Demerol) 12.5 mg Q2 PRN IV SHIVERING; Start 10/24/18 at 03:30 Dopamine HCl/ Dextrose 250 ml @ 9 mls/hr TITRATE IV Last administered on 10/24/18 21:01; Admin Dose 22.5 MLS/HR; Start 10/24/18 at 04:30 Potassium Chloride 50 ml @ 50 mls/hr K PROTOCOL PRN IVPB PENDING LAB VALUE Last administered on 10/24/18 20:36; Admin Dose 50 MLS/HR; Start 10/24/18 at 07:00 Influenza Virus Vaccine Quadrival (Fluzone) 0.5 ml ONCE ONCE IM* ; Start 10/28/18 at 10:00; Stop 10/28/18 at 10:01 Fentanyl 100 ml @ 2.5 mls/hr TITRATE IV Last administered on 10/25/18 06:46; Admin Dose 10 MLS/HR; Start 10/24/18 at 10:00 Midazolam HCl 50 ml @ 1 mls/hr TITRATE IV Last administered on 10/25/18 03:11; Admin Dose 10 MLS/HR; Start 10/24/18 at 10:00 Levetiracetam 100 ml @ 400 mls/hr Q12 IVPB Last administered on 10/24/18 20: 56; Admin Dose 400 MLS/HR; Start 10/24/18 at 14:00 Lorazepam (Ativan) 1 mg Q2H PRN IV seizures; Start 10/24/18 at 14:00 Sodium Bicarbonate 100 meq/Sodium Chloride 1,000 ml @ 100 mls/hr Q10H IV Last administered on 10/25/18at 05:25; Admin Dose 100 MLS/HR; Start 10/24/18 at 18:00 Phenylephrine HCl 40 mg/Dextrose 250 ml @ 37.5 mls/hr TITRATE IV Last administered on 10/25/18at 00:06; Admin Dose 3.75 MLS/HR; Start 10/24/18 at 23:30 Assessment/Plan Hospital Course (Demo Recall) Ventricular fibrillation cardiac arrest V. 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 Continue with pressors and titrate down as needed Vent support will be continued. Hypothermia to be completed Magnesium potassium to be replaced as needed WILL ASK DR CHANDLER for RENAL consult Prognosis is guarded at best More than 32 minutes of critical care time was for management treatment is critically patient excluding any procedures Thank you for his referral. We will continue to follow along with you DRU PONCE MD [facility] DRU PONCE MD Oct 25, 2018 07:54
[2018-10-25] MEDS: ASPIRIN 81 MG TAB PO SCH (08:43)
[2018-10-25] MEDS: LEVETIRACETAM 500 MG (PMX) 100 ML IVPB SCH ×2 (08:43→20:52)
[2018-10-25] MEDS: TICAGRELOR 90 MG TABLET PO SCH ×2 (08:45→20:46)
--- NOTE | 2018-10-25 09:11 | CONS ---
Assessment/Plan Assessment/Plan Assessment/Plan (Daily) Status post V. fib cardiac arrest Status post placement of intra-aortic balloon Hypoxic respiratory failure Status post STEMI Seizures now controlled on iron Versed and Keppra but she did a wonderful job Multivessel coronary artery disease Transaminitis shock liver When patient's arise I will introduced myself but will not overemphasize any findings related to his neurological examination. Will continue to follow while in the intensive care unit especially his neurological findings as workup is being done. Consultation Date/Type/Reason Admit Date/Time Oct 23, 2018 at 20:58 Date/Time of Note DATE: 10/25/18 TIME: 09:08 Hx of Present Illness Dictating a palliative care consultation early in patient's hospital course, I appreciate the consultation during patient's acute admission to the intensive care unit. All information is taken from patient's medical records he is intubated and his is not at the bedside yet. According to history from medical records patient was brought into the emergency room after cardiac arrest CPR was started by his who is a nurse EMS called patient found to be in V. fib in the emergency room he was intubated secondary to hypoxia blood sugar was noted to be 400. Patient was urgently taken to the [facility] and intra-aortic balloon was placed thrombectomy was done of his distal left circumflex artery and a successful PTCA was done with stenting of the distal left circumflex artery. Noted in medical records once he was admitted to the intensive care unit he began to have seizures. Patient was thereafter placed on Ativan and Keppra. I am asked to see patient early as he displays physical findings consistent with possible anoxic injury. Cannot obtain patient is intubated and sedated Past Medical History Medical History: other (Unknown at this time) Home Meds Reported Medications Amlodipine Besylate* (Amlodipine Besylate*) 10 Mg Tablet, 10 MG PO DAILY, #30 TAB 10/23/18 Cyanocobalamin (Vitamin B-12) (Vitamin B-12) Unknown Strength Capsule, 1 CAP PO DAILY, CAP 10/23/18 Garlic (Garlic) 1 Each Tablet, 1 EACH PO DAILY, TAB 10/23/18 Multivitamins* (Theragran*) 1 Tab Tab, 1 TAB PO DAILY, TAB 10/23/18 Acyclovir* (Acyclovir*) 800 Mg Tablet, 800 MG PO DAILY, TAB 10/23/18 Aspirin* (Aspirin* EC) 81 Mg Tablet.dr, 81 MG PO DAILY, TAB 10/23/18 Medications Current Medications Miscellaneous Information (* Miscellaneous Pharmacy Order) Hold all Metformin ... ONCE XX ; Start 10/23/18 at 23:00; Stop 10/25/18 at 22:59 Ticagrelor (Brilinta) 90 mg BID PO Last administered on 10/25/18at 08:45; Admin Dose 90 MG; Start 10/24/18 at 09:00 Atorvastatin Calcium (Lipitor) 40 mg DAILY@21 PO Last administered on 10/24/18at 21:05; Admin Dose 40 MG; Start 10/24/18 at 21:00 Aspirin (Aspirin) 81 mg DAILY PO Last administered on 10/25/18at 08:43; Admin Dose 81 MG; Start 10/24/18 at 09:00 Amiodarone HCl 900 mg/Dextrose 500 ml @ 0 mls/hr Q0M IV ; Start 10/24/18 at 00 :08 Ondansetron HCl (Zofran Inj) 4 mg Q6H PRN IV NAUSEA AND/OR VOMITING; Start 10/24/18 at 00:30 Albuterol (Ventolin Hfa) 4 puff Q2H RESP THERAPY PRN INH SHORTNESS OF BREATH; Start 10/24/18 at 00:30 Ipratropium Maple (Atrovent Hfa) 4 puff Q2H RESP THERAPY PRN INH SHORTNESS OF BREATH; Start 10/24/18 at 00:30 Acetaminophen (Tylenol Liquid) 650 mg Q6H PRN PO PAIN LEVEL 1-3 OR FEVER; Start 10/24/18 at 00:30 Pantoprazole (Protonix Iv) 40 mg DAILY@06 IV Last administered on 10/25/18at 05:34; Admin Dose 40 MG; Start 10/24/18 at 06:00 Miscellaneous Information (* Miscellaneous Pharmacy Order) Treatment of Hypoglycemia: 1.BG 51... Per protocol XX ; Start 10/24/18 at 00:30 Propofol 100 ml @ 3.6 mls/hr PER PROTOCOL IV Last administered on 10/24/18at 20:56; Admin Dose 18 MLS/HR; Start 10/24/18 at 00:30 Diagnostic Test (Pha) (Accu-Chek) 1 ea Q1H XX Last administered on 10/25/18 08:37; Admin Dose 1 EA; Start 10/24/18 at 00:30 Insulin Human Regular 100 unit/ Sodium Chloride 100 ml @ 0 mls/hr PER PROTOCOL IV Last administered on 10/24/18at 20:14; Admin Dose 7 MLS/HR; Start 10/24/18 at 00:30 Miscellaneous Information (* Miscellaneous Pharmacy Order) Treatment of Hypoglycemia: 1.BG 51... Per protocol XX ; Start 10/24/18 at 00:30 Dextrose (D50w Syringe) 25 ml Q15M PRN IV .DECREASED GLUCOSE; Start 10/24/18 at 00:30 Dextrose (D50w Syringe) 50 ml Q15M PRN IV .DECREASED GLUCOSE; Start 10/24/18 at 00:30 Eye Lubricant (Akwa Oint) 1 applic Q6 BOTH EYES Last administered on 10/25/18 05:35; Admin Dose 1 APPLIC; Start 10/24/18 at 02:00 Eye Lubricant (Artificial Tears Oph) 2 drop Q6H PRN BOTH EYES DRY EYES Last administered on 10/24/18 06:19; Admin Dose 2 DROP; Start 10/24/18 at 02:00 Acetaminophen (Tylenol Liquid) 650 mg Q8 NGT Last administered on 10/24/18 21:52; Admin Dose 650 MG; Start 10/24/18 at 02:00 Norepinephrine 32 mg/Dextrose 250 ml @ 0.47 mls/hr TITRATE IV Last admin istered on 10/25/18 02:24; Admin Dose 14.06 MLS/HR; Start 10/24/18 at 02:30 Vasopressin 60 unit/Dextrose 60 ml @ 0 mls/hr Q12H IV Last administered on 10/24/18 16:06; Admin Dose 2.4 MLS/HR; Start 10/24/18 at 02:30 Meperidine HCl (Demerol) 12.5 mg Q2 PRN IV SHIVERING; Start 10/24/18 at 03:30 Dopamine HCl/ Dextrose 250 ml @ 9 mls/hr TITRATE IV Last administered on 10/24/18 21:01; Admin Dose 22.5 MLS/HR; Start 10/24/18 at 04:30 Potassium Chloride 50 ml @ 50 mls/hr K PROTOCOL PRN IVPB PENDING LAB VALUE Last administered on 10/24/18at 20:36; Admin Dose 50 MLS/HR; Start 10/24/18 at 07:00 Influenza Virus Vaccine Quadrival (Fluzone) 0.5 ml ONCE ONCE IM* ; Start 10/28/18 at 10:00; Stop 10/28/18 at 10:01 Fentanyl 100 ml @ 2.5 mls/hr TITRATE IV Last administered on 10/25/18at 06:46; Admin Dose 10 MLS/HR; Start 10/24/18 at 10:00 Midazolam HCl 50 ml @ 1 mls/hr TITRATE IV Last administered on 10/25/18at 03:11; Admin Dose 10 MLS/HR; Start 10/24/18 at 10:00 Levetiracetam 100 ml @ 400 mls/hr Q12 IVPB Last administered on 10/25/18at 08:43; Admin Dose 400 MLS/HR; Start 10/24/18 at 14:00 Lorazepam (Ativan) 1 mg Q2H PRN IV seizures; Start 10/24/18 at 14:00 Sodium Bicarbonate 100 meq/Sodium Chloride 1,000 ml @ 100 mls/hr Q10H IV Last administered on 10/25/18at 05:25; Admin Dose 100 MLS/HR; Start 10/24/18 at 18:00 Phenylephrine HCl 40 mg/Dextrose 250 ml @ 37.5 mls/hr TITRATE IV Last admini stered on 10/25/18at 00:06; Admin Dose 3.75 MLS/HR; Start 10/24/18 at 23:30 Allergies: Coded Allergies: No Known Allergy (Unverified , 10/23/18) Past Surgical History Past Surgical Hx: other (Unknown) Family History Significant Family History: other (Unknown) Social History Smoking Status: Unknown if ever smoked Exam/Review of Systems Exam Vitals Vital Signs Date Temp Pulse Resp B/P (MAP) Pulse Ox O2 O2 Flow FiO2 Time Delivery Rate 10/25/18 92.0 67 18 113/65 93 07:00 (81) 10/25/18 Mechanical 06:30 Ventilator 10/25/18 50 04:45 Intake and Output 10/24/18 10/24/18 10/25/18 1515:00 23:00 07:00 IntakeIntake Total 1732.40 ml 2226.18 ml 2248.80 ml OutputOutput Total 298 ml 156 ml 90 ml BalanceBalance 1434.40 ml 2070.18 ml 2158.80 ml Constitutional: other (Sedated and intubated, obese) ENMT: nl external ears & nose, nl lips & teeth, nl nasal mucosa & septum Neck: supple, non-tender Respiratory: clear to auscultation, normal air movement Cardiovascular: regular rate and rhythm, nl pulses; No bruits, No diastolic murmur, No edema, No gallop, No irregular rhythm, No jugular venous distention (JVD), No murmurs/extra sounds, No rub, No systolic murmur, No S3, No S4, No other Gastrointestinal: No soft, No nl liver, spleen, No non-tender, No ascites, No bowel sounds, No distended, No firm, No hepatomegaly, No mass, No rebound or guarding, No splenomegaly, No surgical scars, No tender, No other Neurological: other (Sedated intubated no pupillary light reflex bilateral pupils measuring 6-7 mm no corneals, no doll's eyes no gag patient is occasionally overbreathing the ventilator. No spontaneous movements) Results Result Diagram: 10/25/18 0445 10/25/18 0445 Results 24hrs Laboratory Tests Test 10/24/18 09:12 10/24/18 09:24 10/24/18 10:20 10/24/18 11:06 Bedside Glucose 280 H 244 H 254 H Lab Scanned LAB Report Test 10/24/18 11:49 10/24/18 11:51 10/24/18 12:00 10/24/18 13:10 Bedside Glucose 265 H 236 H White Blood 30.1 H Count Red Blood Count 4.98 Hemoglobin 14.9 Hematocrit 43.1 Mean Corpuscular 86.5 Volume Mean Corpuscular 29.9 Hemoglobin Mean Corpuscular 34.6 Hemoglobin Anyi nt Red Cell 12.7 Distribution Width Platelet Count 288 Mean Platelet 9.5 Volume Immature 1.500 H Granulocytes % Neutrophils % 85.7 H Lymphocytes % 5.5 L Monocytes % 6.9 Eosinophils % 0.0 Basophils % 0.4 Nucleated Red 0.0 Blood Cells % Immature 0.440 H Granulocytes # Neutrophils # 25.8 H Lymphocytes # 1.7 Monocytes # 2.1 H Eosinophils # 0.0 Basophils # 0.1 Nucleated Red 0.0 Blood Cells # Prothrombin Time 14.7 Prothrombin Time 1.1 Ratio INR 1.14 International Normalized Ratio Activated 28.6 Partial Thrombop last Time Sodium Level 142 Potassium Level 2.4 *L Chloride Level 103 Carbon Dioxide 19 L Level Anion Gap 20 H Blood Urea 34 H Nitrogen Creatinine 2.21 H Est Glomerular 30 L Filtrat Rate mL/min Glucose Level 245 H Lactic Acid 10.7 *H Level Calcium Level 9.1 Phosphorus Level 0.6 L Magnesium Level 2.6 H Total Bilirubin 0.6 Direct Bilirubin 0.00 Indirect 0.6 Bilirubin Aspartate Amino 510 H Transf (AST/SGOT ) Alanine 330 H Aminotransferase (ALT/SGPT) Alkaline 76 Phosphatase Ammonia < 9 L Troponin I 100.000 *H Total Protein 6.8 Albumin 3.8 Globulin 3.00 Albumin/Globulin 1.26 Ratio Blood Gas Blood arterial Specimen Source Arterial Blood 10/24/2018 11:25 Date Drawn :55 AM Arterial Blood 7.363 pH (Temp corrected) Arterial Blood 29.7 L pCO2 (Temp correct) Arterial Blood 90.0 pO2 (Temp corrected) Arterial Blood 17.3 L HCO3 Arterial Blood -8.0 L Base Excess Arterial Blood 97.7 Oxygen Saturatio n Nicolas Test N/A Arterial Blood A-Line Gas Puncture Site Arterial 0.3 Blood Carboxyhem oglobin Arterial Blood 0.4 Methemoglobin Blood Gas A-a O2 237.7 H Differential Oxyhemoglobin 97.0 Percent Blood Gas 33.0 Temperature Blood Gas 18.0 Respiration Rate Blood Gas Actual 27 Respiration Rate Blood Gas VENT - AC Modality FiO2 50.0 Blood Gas Tidal 550.0 Volume Blood Gas Low 5.0 PEEP Setting Blood Gas TM Notified Whom Blood Gas 10/24/2018 11:46 Notified Time :32 AM Test 10/24/18 14:30 10/24/18 15:18 10/24/18 15:56 10/24/18 17:15 Bedside Glucose 226 H 234 H 199 193 Test 10/24/18 17:51 10/24/18 18:00 10/24/18 18:18 10/24/18 18:58 Bedside Glucose 220 189 Blood Gas Blood arterial Specimen Source Arterial Blood 10/24/2018 6:10: Date Drawn 50 PM Arterial Blood 7.306 L pH (Temp corrected) Arterial Blood 39.0 pCO2 (Temp correct) Arterial Blood 72.6 L pO2 (Temp corrected) Arterial Blood 19.0 L HCO3 Arterial Blood -6.7 L Base Excess Arterial Blood 93.5 L Oxygen Saturatio n Nicolas Test N/A Arterial Blood A-Line Gas Puncture Site Arterial 0.3 Blood Carboxyhem oglobin Arterial Blood 0.2 Methemoglobin Blood Gas A-a O2 167.8 H Differential Oxyhemoglobin 93.0 Percent Blood Gas 37.0 Temperature Blood Gas 18.0 Respiration Rate Blood Gas Actual 26 Respiration Rate Blood Gas VENT - AC Modality FiO2 40.0 Blood Gas 0.90 Inspiratory Time Blood Gas Tidal 550.0 Volume Blood Gas Low 5.0 PEEP Setting Blood Gas Shawn [facility] Notified Whom Blood Gas 10/24/2018 6:19: Notified Time 00 PM White Blood 30.6 H Count Red Blood Count 4.83 Hemoglobin 14.6 Hematocrit 40.8 L Mean Corpuscular 84.5 Volume Mean Corpuscular 30.2 Hemoglobin Mean Corpuscular 35.8 Hemoglobin Anyi nt Red Cell 12.6 Distribution Width Platelet Count 253 Mean Platelet 9.3 Volume Immature 1.400 H Granulocytes % Neutrophils % 82.6 H Lymphocytes % 8.6 L Monocytes % 7.0 Eosinophils % 0.1 Basophils % 0.3 Nucleated Red 0.0 Blood Cells % Immature 0.420 H Granulocytes # Neutrophils # 25.3 H Lymphocytes # 2.6 Monocytes # 2.2 H Eosinophils # 0.0 Basophils # 0.1 Nucleated Red 0.0 Blood Cells # Prothrombin Time 14.4 Prothrombin Time 1.1 Ratio INR 1.11 International Normalized Ratio Activated 30.2 Partial Thrombop last Time Sodium Level 141 Potassium Level 3.0 L Chloride Level 106 Carbon Dioxide 20 L Level Anion Gap 15 H Blood Urea 36 H Nitrogen Creatinine 2.37 H Est Glomerular 27 L Filtrat Rate mL/min Glucose Level 206 Lactic Acid 6.4 *H Level Calcium Level 8.8 Phosphorus Level 1.5 L Magnesium Level 2.4 Total Bilirubin 0.4 Direct Bilirubin 0.00 Indirect 0.4 Bilirubin Aspartate Amino 446 H Transf (AST/SGOT ) Alanine 297 H Aminotransferase (ALT/SGPT) Alkaline 71 Phosphatase Troponin I 61.700 *H Total Protein 6.2 Albumin 3.4 Globulin 2.80 Albumin/Globulin 1.21 Ratio Test 10/24/18 20:05 10/24/18 21:10 10/24/18 21:15 10/24/18 22:02 Bedside Glucose 178 164 153 Fibrinogen 421.0 # Amylase Level 1580 #H Lipase 2528 H Test 10/24/18 23:06 10/25/18 00:00 10/25/18 00:06 10/25/18 00:16 Bedside Glucose 131 116 Blood Gas Blood arterial Specimen Source Arterial Blood 10/24/2018 11:49 Date Drawn :00 PM Arterial Blood 7.358 pH (Temp corrected) Arterial Blood 41.3 pCO2 (Temp correct) Arterial Blood 64.7 L pO2 (Temp corrected) Arterial Blood 22.7 HCO3 Arterial Blood -2.6 Base Excess Arterial Blood 92.8 L Oxygen Saturatio n Nicolas Test N/A Arterial Blood A-Line Gas Puncture Site Arterial 0 Blood Carboxyhem oglobin Arterial Blood 0.3 Methemoglobin Blood Gas A-a O2 173.0 H Differential Oxyhemoglobin 92.5 L Percent Blood Gas 37.0 Temperature Blood Gas 18.0 Respiration Rate Blood Gas Actual 21 Respiration Rate Blood Gas VENT - AC Modality FiO2 40.0 Blood Gas Tidal 550.0 Volume Blood Gas Low 5.0 PEEP Setting Blood Gas 22.0 Inspiratory Pressure Blood Gas KM Notified Whom Blood Gas 10/25/2018 12:03 Notified Time :00 AM White Blood 30.3 H Count Red Blood Count 4.92 Hemoglobin 14.8 Hematocrit 41.5 L Mean Corpuscular 84.3 Volume Mean Corpuscular 30.1 Hemoglobin Mean Corpuscular 35.7 Hemoglobin Anyi nt Red Cell 12.8 Distribution Width Platelet Count 232 Mean Platelet 9.7 Volume Immature 1.900 H Granulocytes % Neutrophils % 80.6 H Lymphocytes % 8.7 L Monocytes % 8.4 Eosinophils % 0.3 Basophils % 0.1 Nucleated Red 0.0 Blood Cells % Immature 0.580 H Granulocytes # Neutrophils # 24.4 H Lymphocytes # 2.7 Monocytes # 2.6 H Eosinophils # 0.1 Basophils # 0.0 Nucleated Red 0.0 Blood Cells # Prothrombin Time 13.4 Prothrombin Time 1.0 Ratio INR 1.01 International Normalized Ratio Activated 31.7 Partial Thrombop last Time Sodium Level 142 Potassium Level 3.2 L Chloride Level 103 Carbon Dioxide 23 Level Anion Gap 16 H Blood Urea 38 H Nitrogen Creatinine 2.56 H Est Glomerular 25 L Filtrat Rate mL/min Glucose Level 111 # Lactic Acid 4.9 *H Level Calcium Level 9.0 Phosphorus Level 2.9 Magnesium Level 2.3 Total Bilirubin 0.5 Direct Bilirubin 0.00 Indirect 0.5 Bilirubin Aspartate Amino 420 H Transf (AST/SGOT ) Alanine 279 H Aminotransferase (ALT/SGPT) Alkaline 74 Phosphatase Troponin I 68.900 *H Total Protein 6.3 Albumin 3.4 Globulin 2.90 Albumin/Globulin 1.17 Ratio Test 10/25/18 01:03 10/25/18 02:00 10/25/18 02:59 10/25/18 04:00 Bedside Glucose 105 112 107 109 Test 10/25/18 04:45 10/25/18 05:00 10/25/18 06:00 10/25/18 06:03 White Blood 26.3 H Count Red Blood Count 4.85 Hemoglobin 14.7 Hematocrit 40.6 L Mean Corpuscular 83.7 Volume Mean Corpuscular 30.3 Hemoglobin Mean Corpuscular 36.2 Hemoglobin Anyi nt Red Cell 12.7 Distribution Width Platelet Count 208 Mean Platelet 9.5 Volume Immature 1.000 H Granulocytes % Neutrophils % 81.8 H Lymphocytes % 9.7 L Monocytes % 6.6 Eosinophils % 0.5 Basophils % 0.4 Nucleated Red 0.0 Blood Cells % Immature 0.270 H Granulocytes # Neutrophils # 21.5 H Lymphocytes # 2.6 Monocytes # 1.8 H Eosinophils # 0.1 Basophils # 0.1 Nucleated Red 0.0 Blood Cells # Prothrombin Time 14.1 Prothrombin Time 1.1 Ratio INR 1.08 International Normalized Ratio Activated 31.5 Partial Thrombop last Time Fibrinogen 414.0 Sodium Level 143 Potassium Level 3.6 Chloride Level 102 Carbon Dioxide 25 Level Anion Gap 16 H Blood Urea 39 H Nitrogen Creatinine 2.72 H Est Glomerular 23 L Filtrat Rate mL/min Glucose Level 110 Lactic Acid 3.6 *H Level Calcium Level 8.6 Phosphorus Level 5.5 #H Magnesium Level 2.3 Total Bilirubin 0.5 Direct Bilirubin 0.00 Indirect 0.5 Bilirubin Aspartate Amino 351 H Transf (AST/SGOT ) Alanine 255 H Aminotransferase (ALT/SGPT) Alkaline 74 Phosphatase Troponin I 60.700 *H Total Protein 5.9 L Albumin 3.2 L Globulin 2.70 Albumin/Globulin 1.18 Ratio Amylase Level 1573 H Lipase 2915 H Bedside Glucose 106 123 Blood Gas Blood arterial Specimen Source Arterial Blood 10/25/2018 4:50: Date Drawn 13 AM Arterial Blood 7.376 pH (Temp corrected) Arterial Blood 38.1 pCO2 (Temp correct) Arterial Blood 77.8 L pO2 (Temp corrected) Arterial Blood 21.8 L HCO3 Arterial Blood -2.9 Base Excess Arterial Blood 95.0 Oxygen Saturatio n Nicolas Test N/A Arterial Blood A-Line Gas Puncture Site Arterial 0.3 Blood Carboxyhem oglobin Arterial Blood 0.2 Methemoglobin Blood Gas A-a O2 235.8 H Differential Oxyhemoglobin 94.5 Percent Blood Gas 37.0 Temperature Blood Gas 18.0 Respiration Rate Blood Gas Actual 18 Respiration Rate Blood Gas VENT - AC Modality FiO2 50.0 Blood Gas Tidal 550.0 Volume Blood Gas Low 5.0 PEEP Setting Blood Gas 20.0 Inspiratory Pressure Blood Gas KM Notified Whom Blood Gas 10/25/2018 5:03: Notified Time 20 AM Test 10/25/18 06:59 10/25/18 08:26 Bedside Glucose 116 106 Medications Medication Current Medications Miscellaneous Information (* Miscellaneous Pharmacy Order) Hold all Metformin ... ONCE XX ; Start 10/23/18 at 23:00; Stop 10/25/18 at 22:59 Ticagrelor (Brilinta) 90 mg BID PO Last administered on 10/25/18at 08:45; Admin Dose 90 MG; Start 10/24/18 at 09:00 Atorvastatin Calcium (Lipitor) 40 mg DAILY@21 PO Last administered on 10/24/18at 21:05; Admin Dose 40 MG; Start 10/24/18 at 21:00 Aspirin (Aspirin) 81 mg DAILY PO Last administered on 10/25/18at 08:43; Admin Dose 81 MG; Start 10/24/18 at 09:00 Amiodarone HCl 900 mg/Dextrose 500 ml @ 0 mls/hr Q0M IV ; Start 10/24/18 at 00:08 Ondansetron HCl (Zofran Inj) 4 mg Q6H PRN IV NAUSEA AND/OR VOMITING; Start 10/24/18 at 00:30 Albuterol (Ventolin Hfa) 4 puff Q2H RESP THERAPY PRN INH SHORTNESS OF BREATH; Start 10/24/18 at 00:30 Ipratropium Maple (Atrovent Hfa) 4 puff Q2H RESP THERAPY PRN INH SHORTNESS OF BREATH; Start 10/24/18 at 00:30 Acetaminophen (Tylenol Liquid) 650 mg Q6H PRN PO PAIN LEVEL 1-3 OR FEVER; Start 10/24/18 at 00:30 Pantoprazole (Protonix Iv) 40 mg DAILY@06 IV Last administered on 10/25/18at 05:34; Admin Dose 40 MG; Start 10/24/18 at 06:00 Miscellaneous Information (* Miscellaneous Pharmacy Order) Treatment of Hypoglycemia: 1.BG 51... Per protocol XX ; Start 10/24/18 at 00:30 Propofol 100 ml @ 3.6 mls/hr PER PROTOCOL IV Last administered on 10/24/18at 20:56; Admin Dose 18 MLS/HR; Start 10/24/18 at 00:30 Diagnostic Test (Pha) (Accu-Chek) 1 ea Q1H XX Last administered on 10/25/18 08:37; Admin Dose 1 EA; Start 10/24/18 at 00:30 Insulin Human Regular 100 unit/ Sodium Chloride 100 ml @ 0 mls/hr PER PROTOCOL IV Last administered on 10/24/18at 20:14; Admin Dose 7 MLS/HR; Start 10/24/18 at 00:30 Miscellaneous Information (* Miscellaneous Pharmacy Order) Treatment of Hypoglycemia: 1.BG 51... Per protocol XX ; Start 10/24/18 at 00:30 Dextrose (D50w Syringe) 25 ml Q15M PRN IV .DECREASED GLUCOSE; Start 10/24/18 at 00:30 Dextrose (D50w Syringe) 50 ml Q15M PRN IV .DECREASED GLUCOSE; Start 10/24/18 at 00:30 Eye Lubricant (Akwa Oint) 1 applic Q6 BOTH EYES Last administered on 10/25/18 05:35; Admin Dose 1 APPLIC; Start 10/24/18 at 02:00 Eye Lubricant (Artificial Tears Oph) 2 drop Q6H PRN BOTH EYES DRY EYES Last administered on 10/24/18 06:19; Admin Dose 2 DROP; Start 10/24/18 at 02:00 Acetaminophen (Tylenol Liquid) 650 mg Q8 NGT Last administered on 10/24/18at 21:52; Admin Dose 650 MG; Start 10/24/18 at 02:00 Norepinephrine 32 mg/Dextrose 250 ml @ 0.47 mls/hr TITRATE IV Last administered on 10/25/18 02:24; Admin Dose 14.06 MLS/HR; Start 10/24/18 at 02:30 Vasopressin 60 unit/Dextrose 60 ml @ 0 mls/hr Q12H IV Last administered on 10/24/18 16:06; Admin Dose 2.4 MLS/HR; Start 10/24/18 at 02:30 Meperidine HCl (Demerol) 12.5 mg Q2 PRN IV SHIVERING; Start 10/24/18 at 03:30 Dopamine HCl/ Dextrose 250 ml @ 9 mls/hr TITRATE IV Last administered on 10/24/18at 21:01; Admin Dose 22.5 MLS/HR; Start 10/24/18 at 04:30 Potassium Chloride 50 ml @ 50 mls/hr K PROTOCOL PRN IVPB PENDING LAB VALUE Last administered on 10/24/18at 20:36; Admin Dose 50 MLS/HR; Start 10/24/18 at 07:00 Influenza Virus Vaccine Quadrival (Fluzone) 0.5 ml ONCE ONCE IM* ; Start 10/28/18 at 10:00; Stop 10/28/18 at 10:01 Fentanyl 100 ml @ 2.5 mls/hr TITRATE IV Last administered on 10/25/18 06:46; Admin Dose 10 MLS/HR; Start 10/24/18 at 10:00 Midazolam HCl 50 ml @ 1 mls/hr TITRATE IV Last administered on 10/25/18 03:11; Admin Dose 10 MLS/HR; Start 10/24/18 at 10:00 Levetiracetam 100 ml @ 400 mls/hr Q12 IVPB Last administered on 10/25/18at 08:43; Admin Dose 400 MLS/HR; Start 10/24/18 at 14:00 Lorazepam (Ativan) 1 mg Q2H PRN IV seizures; Start 10/24/18 at 14:00 Sodium Bicarbonate 100 meq/Sodium Chloride 1,000 ml @ 100 mls/hr Q10H IV Last administered on 10/25/18 05:25; Admin Dose 100 MLS/HR; Start 10/24/18 at 18:00 Phenylephrine HCl 40 mg/Dextrose 250 ml @ 37.5 mls/hr TITRATE IV Last administered on 3/27/19at 00:06; Admin Dose 3.75 MLS/HR; Start 10/24/18 at 23:30 MARGARETH HODGES Oct 25, 2018 09:11
--- NOTE | 2018-10-25 09:27 | CONS ---
Assessment/Plan Assessment/Plan Assessment/Plan (Daily) Ventilator setting; AC of 18, tidal volume 550, PEEP of 5, 50% FiO2. Patient is currently on Versed 10 mg/h, fentanyl 100 mics per hour, Levophed 24 mics per minute, dopamine 4 mics per kilogram per minute, insulin drip 0.6 units/h, sodium bicarbonate 75 mL/h. Assessment recommendations; 1. Patient admitted with cardiac arrest due to acute LA status post emergent stenting of left circumflex lesion. 2. Severe persistent hypotension, on multiple pressor agents. 3. Likely underlying baseline renal insufficiency with acute worsening. Patient however maintaining adequate urine output. 4. Possibly aspiration pneumonia 5. History of diabetes. Continue current supportive care. Mental status to be assessed once the patient is rewarmed. Meanwhile add Zosyn 2.25 g every 8 hours. Obtain follow-up chest x-ray 24 hours. Prognosis very guarded. 35 minutes of critical care time was spent evaluating the patient. Consultation Date/Type/Reason Admit Date/Time Oct 23, 2018 at 20:58 Initial Consult Date 10/23/18 Type of Consult Pulmonary/critical care Reason for Consultation Patient's condition remains critical. Currently on rewarming phase of hypothermia protocol. Patient remains hypotensive on multiple respirations. General exam; elderly male, appears overweight, orally intubated, sedated, currently in no distress. Requesting Provider: LISSY SMITH MD Date/Time of Note DATE: 10/25/18 TIME: 09:24 Exam/Review of Systems Exam Vitals Vital Signs Date Temp Pulse Resp B/P (MAP) Pulse Ox O2 O2 Flow FiO2 Time Delivery Rate 10/25/18 92.0 67 18 113/65 93 07:00 (81) 10/25/18 Mechanical 06:30 Ventilator 10/25/18 50 04:45 Intake and Output 10/24/18 10/24/18 10/25/18 1515:00 23:00 07:00 IntakeIntake Total 1732.40 ml 2226.18 ml 2248.80 ml OutputOutput Total 298 ml 156 ml 90 ml BalanceBalance 1434.40 ml 2070.18 ml 2158.80 ml Exam H EENT exam; supple neck, no JVD. No lymphadenopathy. Midline trachea. No thyromegaly. Orally intubated. Patient has fair dentition. Pupils are midsize and nonreactive to light. Chest exam; diminished but clear breath sounds. S1-S2 audible, no murmurs. Regular rhythm. Abdomen exam; soft, protuberant. Bowel sounds are sluggish. Organomegaly difficult to assess. Extremity exam; trace generalized edema. Pulses 1+. 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 Results Result Diagram: 10/25/18 0445 10/25/18 0445 Results 24hrs Laboratory Tests Test 10/24/18 10:20 10/24/18 11:06 10/24/18 11:49 10/24/18 11:51 Bedside Glucose 244 H 254 H 265 H White Blood 30.1 H Count Red Blood Count 4.98 Hemoglobin 14.9 Hematocrit 43.1 Mean Corpuscular 86.5 Volume Mean Corpuscular 29.9 Hemoglobin Mean Corpuscular 34.6 Hemoglobin Anyi nt Red Cell 12.7 Distribution Width Platelet Count 288 Mean Platelet 9.5 Volume Immature 1.500 H Granulocytes % Neutrophils % 85.7 H Lymphocytes % 5.5 L Monocytes % 6.9 Eosinophils % 0.0 Basophils % 0.4 Nucleated Red 0.0 Blood Cells % Immature 0.440 H Granulocytes # Neutrophils # 25.8 H Lymphocytes # 1.7 Monocytes # 2.1 H Eosinophils # 0.0 Basophils # 0.1 Nucleated Red 0.0 Blood Cells # Prothrombin Time 14.7 Prothrombin Time 1.1 Ratio INR 1.14 International Normalized Ratio Activated 28.6 Partial Thrombop last Time Sodium Level 142 Potassium Level 2.4 *L Chloride Level 103 Carbon Dioxide 19 L Level Anion Gap 20 H Blood Urea 34 H Nitrogen Creatinine 2.21 H Est Glomerular 30 L Filtrat Rate mL/min Glucose Level 245 H Lactic Acid 10.7 *H Level Calcium Level 9.1 Phosphorus Level 0.6 L Magnesium Level 2.6 H Total Bilirubin 0.6 Direct Bilirubin 0.00 Indirect 0.6 Bilirubin Aspartate Amino 510 H Transf (AST/SGOT ) Alanine 330 H Aminotransferase (ALT/SGPT) Alkaline 76 Phosphatase Ammonia < 9 L Troponin I 100.000 *H Total Protein 6.8 Albumin 3.8 Globulin 3.00 Albumin/Globulin 1.26 Ratio Test 10/24/18 12:00 10/24/18 13:10 10/24/18 14:30 10/24/18 15:18 Blood Gas Blood arterial Specimen Source Arterial Blood 10/24/2018 11:25 Date Drawn :55 AM Arterial Blood 7.363 pH (Temp corrected) Arterial Blood 29.7 L pCO2 (Temp correct) Arterial Blood 90.0 pO2 (Temp corrected) Arterial Blood 17.3 L HCO3 Arterial Blood -8.0 L Base Excess Arterial Blood 97.7 Oxygen Saturatio n Nicolas Test N/A Arterial Blood A-Line Gas Puncture Site Arterial 0.3 Blood Carboxyhem oglobin Arterial Blood 0.4 Methemoglobin Blood Gas A-a O2 237.7 H Differential Oxyhemoglobin 97.0 Percent Blood Gas 33.0 Temperature Blood Gas 18.0 Respiration Rate Blood Gas Actual 27 Respiration Rate Blood Gas VENT - AC Modality FiO2 50.0 Blood Gas Tidal 550.0 Volume Blood Gas Low 5.0 PEEP Setting Blood Gas TM Notified Whom Blood Gas 10/24/2018 11:46 Notified Time :32 AM Bedside Glucose 236 H 226 H 234 H Test 10/24/18 15:56 10/24/18 17:15 10/24/18 17:51 10/24/18 18:00 Bedside Glucose 199 193 220 Blood Gas Blood arterial Specimen Source Arterial Blood 10/24/2018 6:10: Date Drawn 50 PM Arterial Blood 7.306 L pH (Temp corrected) Arterial Blood 39.0 pCO2 (Temp correct) Arterial Blood 72.6 L pO2 (Temp corrected) Arterial Blood 19.0 L HCO3 Arterial Blood -6.7 L Base Excess Arterial Blood 93.5 L Oxygen Saturatio n Nicolas Test N/A Arterial Blood A-Line Gas Puncture Site Arterial 0.3 Blood Carboxyhem oglobin Arterial Blood 0.2 Methemoglobin Blood Gas A-a O2 167.8 H Differential Oxyhemoglobin 93.0 Percent Blood Gas 37.0 Temperature Blood Gas 18.0 Respiration Rate Blood Gas Actual 26 Respiration Rate Blood Gas VENT - AC Modality FiO2 40.0 Blood Gas 0.90 Inspiratory Time Blood Gas Tidal 550.0 Volume Blood Gas Low 5.0 PEEP Setting Blood Gas 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 Blood Gas 10/24/2018 6:19: Notified Time 00 PM Test 10/24/18 18:18 10/24/18 18:58 10/24/18 20:05 10/24/18 21:10 White Blood 30.6 H Count Red Blood Count 4.83 Hemoglobin 14.6 Hematocrit 40.8 L Mean Corpuscular 84.5 Volume Mean Corpuscular 30.2 Hemoglobin Mean Corpuscular 35.8 Hemoglobin Anyi nt Red Cell 12.6 Distribution Width Platelet Count 253 Mean Platelet 9.3 Volume Immature 1.400 H Granulocytes % Neutrophils % 82.6 H Lymphocytes % 8.6 L Monocytes % 7.0 Eosinophils % 0.1 Basophils % 0.3 Nucleated Red 0.0 Blood Cells % Immature 0.420 H Granulocytes # Neutrophils # 25.3 H Lymphocytes # 2.6 Monocytes # 2.2 H Eosinophils # 0.0 Basophils # 0.1 Nucleated Red 0.0 Blood Cells # Prothrombin Time 14.4 Prothrombin Time 1.1 Ratio INR 1.11 International Normalized Ratio Activated 30.2 Partial Thrombop last Time Sodium Level 141 Potassium Level 3.0 L Chloride Level 106 Carbon Dioxide 20 L Level Anion Gap 15 H Blood Urea 36 H Nitrogen Creatinine 2.37 H Est Glomerular 27 L Filtrat Rate mL/min Glucose Level 206 Lactic Acid 6.4 *H Level Calcium Level 8.8 Phosphorus Level 1.5 L Magnesium Level 2.4 Total Bilirubin 0.4 Direct Bilirubin 0.00 Indirect 0.4 Bilirubin Aspartate Amino 446 H Transf (AST/SGOT ) Alanine 297 H Aminotransferase (ALT/SGPT) Alkaline 71 Phosphatase Troponin I 61.700 *H Total Protein 6.2 Albumin 3.4 Globulin 2.80 Albumin/Globulin 1.21 Ratio Bedside Glucose 189 178 164 Test 10/24/18 21:15 10/24/18 22:02 10/24/18 23:06 10/25/18 00:00 Fibrinogen 421.0 # Amylase Level 1580 #H Lipase 2528 H Bedside Glucose 153 131 Blood Gas Blood arterial Specimen Source Arterial Blood 10/24/2018 11:49 Date Drawn :00 PM Arterial Blood 7.358 pH (Temp corrected) Arterial Blood 41.3 pCO2 (Temp correct) Arterial Blood 64.7 L pO2 (Temp corrected) Arterial Blood 22.7 HCO3 Arterial Blood -2.6 Base Excess Arterial Blood 92.8 L Oxygen Saturatio n Nicolas Test N/A Arterial Blood A-Line Gas Puncture Site Arterial 0 Blood Carboxyhem oglobin Arterial Blood 0.3 Methemoglobin Blood Gas A-a O2 173.0 H Differential Oxyhemoglobin 92.5 L Percent Blood Gas 37.0 Temperature Blood Gas 18.0 Respiration Rate Blood Gas Actual 21 Respiration Rate Blood Gas VENT - AC Modality FiO2 40.0 Blood Gas Tidal 550.0 Volume Blood Gas Low 5.0 PEEP Setting Blood Gas 22.0 Inspiratory Pressure Blood Gas KM Notified Whom Blood Gas 10/25/2018 12:03 Notified Time :00 AM Test 10/25/18 00:06 10/25/18 00:16 10/25/18 01:03 10/25/18 02:00 Bedside Glucose 116 105 112 White Blood 30.3 H Count Red Blood Count 4.92 Hemoglobin 14.8 Hematocrit 41.5 L Mean Corpuscular 84.3 Volume Mean Corpuscular 30.1 Hemoglobin Mean Corpuscular 35.7 Hemoglobin Anyi nt Red Cell 12.8 Distribution Width Platelet Count 232 Mean Platelet 9.7 Volume Immature 1.900 H Granulocytes % Neutrophils % 80.6 H Lymphocytes % 8.7 L Monocytes % 8.4 Eosinophils % 0.3 Basophils % 0.1 Nucleated Red 0.0 Blood Cells % Immature 0.580 H Granulocytes # Neutrophils # 24.4 H Lymphocytes # 2.7 Monocytes # 2.6 H Eosinophils # 0.1 Basophils # 0.0 Nucleated Red 0.0 Blood Cells # Prothrombin Time 13.4 Prothrombin Time 1.0 Ratio INR 1.01 International Normalized Ratio Activated 31.7 Partial Thrombop last Time Sodium Level 142 Potassium Level 3.2 L Chloride Level 103 Carbon Dioxide 23 Level Anion Gap 16 H Blood Urea 38 H Nitrogen Creatinine 2.56 H Est Glomerular 25 L Filtrat Rate mL/min Glucose Level 111 # Lactic Acid 4.9 *H Level Calcium Level 9.0 Phosphorus Level 2.9 Magnesium Level 2.3 Total Bilirubin 0.5 Direct Bilirubin 0.00 Indirect 0.5 Bilirubin Aspartate Amino 420 H Transf (AST/SGOT ) Alanine 279 H Aminotransferase (ALT/SGPT) Alkaline 74 Phosphatase Troponin I 68.900 *H Total Protein 6.3 Albumin 3.4 Globulin 2.90 Albumin/Globulin 1.17 Ratio Test 10/25/18 02:59 10/25/18 04:00 10/25/18 04:45 10/25/18 05:00 Bedside Glucose 107 109 106 White Blood 26.3 H Count Red Blood Count 4.85 Hemoglobin 14.7 Hematocrit 40.6 L Mean Corpuscular 83.7 Volume Mean Corpuscular 30.3 Hemoglobin Mean Corpuscular 36.2 Hemoglobin Anyi nt Red Cell 12.7 Distribution Width Platelet Count 208 Mean Platelet 9.5 Volume Immature 1.000 H Granulocytes % Neutrophils % 81.8 H Lymphocytes % 9.7 L Monocytes % 6.6 Eosinophils % 0.5 Basophils % 0.4 Nucleated Red 0.0 Blood Cells % Immature 0.270 H Granulocytes # Neutrophils # 21.5 H Lymphocytes # 2.6 Monocytes # 1.8 H Eosinophils # 0.1 Basophils # 0.1 Nucleated Red 0.0 Blood Cells # Prothrombin Time 14.1 Prothrombin Time 1.1 Ratio INR 1.08 International Normalized Ratio Activated 31.5 Partial Thrombop last Time Fibrinogen 414.0 Sodium Level 143 Potassium Level 3.6 Chloride Level 102 Carbon Dioxide 25 Level Anion Gap 16 H Blood Urea 39 H Nitrogen Creatinine 2.72 H Est Glomerular 23 L Filtrat Rate mL/min Glucose Level 110 Lactic Acid 3.6 *H Level Calcium Level 8.6 Phosphorus Level 5.5 #H Magnesium Level 2.3 Total Bilirubin 0.5 Direct Bilirubin 0.00 Indirect 0.5 Bilirubin Aspartate Amino 351 H Transf (AST/SGOT ) Alanine 255 H Aminotransferase (ALT/SGPT) Alkaline 74 Phosphatase Troponin I 60.700 *H Total Protein 5.9 L Albumin 3.2 L Globulin 2.70 Albumin/Globulin 1.18 Ratio Amylase Level 1573 H Lipase 2915 H Test 10/25/18 06:00 10/25/18 06:03 10/25/18 06:59 10/25/18 08:26 Blood Gas Blood arterial Specimen Source Arterial Blood 10/25/2018 4:50: Date Drawn 13 AM Arterial Blood 7.376 pH (Temp corrected) Arterial Blood 38.1 pCO2 (Temp correct) Arterial Blood 77.8 L pO2 (Temp corrected) Arterial Blood 21.8 L HCO3 Arterial Blood -2.9 Base Excess Arterial Blood 95.0 Oxygen Saturatio n Nicolas Test N/A Arterial Blood A-Line Gas Puncture Site Arterial 0.3 Blood Carboxyhem oglobin Arterial Blood 0.2 Methemoglobin Blood Gas A-a O2 235.8 H Differential Oxyhemoglobin 94.5 Percent Blood Gas 37.0 Temperature Blood Gas 18.0 Respiration Rate Blood Gas Actual 18 Respiration Rate Blood Gas VENT - AC Modality FiO2 50.0 Blood Gas Tidal 550.0 Volume Blood Gas Low 5.0 PEEP Setting Blood Gas 20.0 Inspiratory Pressure Blood Gas KM Notified Whom Blood Gas 10/25/2018 5:03: Notified Time 20 AM Bedside Glucose 123 116 106 Test 10/25/18 09:17 Bedside Glucose 116 Medications Medication Current Medications Miscellaneous Information (* Miscellaneous Pharmacy Order) Hold all Metformin ... ONCE XX ; Start 10/23/18 at 23:00; Stop 10/25/18 at 22:59 Ticagrelor (Brilinta) 90 mg BID PO Last administered on 10/25/18at 08:45; Admin Dose 90 MG; Start 10/24/18 at 09:00 Atorvastatin Calcium (Lipitor) 40 mg DAILY@21 PO Last administered on 10/24/18at 21:05; Admin Dose 40 MG; Start 10/24/18 at 21:00 Aspirin (Aspirin) 81 mg DAILY PO Last administered on 10/25/18at 08:43; Admin Dose 81 MG; Start 10/24/18 at 09:00 Amiodarone HCl 900 mg/Dextrose 500 ml @ 0 mls/hr Q0M IV ; Start 10/24/18 at 00:08 Ondansetron HCl (Zofran Inj) 4 mg Q6H PRN IV NAUSEA AND/OR VOMITING; Start 10/24/18 at 00:30 Albuterol (Ventolin Hfa) 4 puff Q2H RESP THERAPY PRN INH SHORTNESS OF BREATH; Start 10/24/18 at 00:30 Ipratropium [place] (Atrovent Hfa) 4 puff Q2H RESP THERAPY PRN INH SHORTNESS OF BREATH; Start 10/24/18 at 00:30 Acetaminophen (Tylenol Liquid) 650 mg Q6H PRN PO PAIN LEVEL 1-3 OR FEVER; Start 10/24/18 at 00:30 Pantoprazole (Protonix Iv) 40 mg DAILY@06 IV Last administered on 10/25/18at 05:34; Admin Dose 40 MG; Start 10/24/18 at 06:00 Miscellaneous Information (* Miscellaneous Pharmacy Order) Treatment of Hypog lycemia: 1.BG 51... Per protocol XX ; Start 10/24/18 at 00:30 Propofol 100 ml @ 3.6 mls/hr PER PROTOCOL IV Last administered on 10/24/18at 20:56; Admin Dose 18 MLS/HR; Start 10/24/18 at 00:30 Diagnostic Test (Pha) (Accu-Chek) 1 ea Q1H XX Last administered on 10/25/18at 09:15; Admin Dose 1 EA; Start 10/24/18 at 00:30 Insulin Human Regular 100 unit/ Sodium Chloride 100 ml @ 0 mls/hr PER PROTOCOL IV Last administered on 10/24/18 20:14; Admin Dose 7 MLS/HR; Start 10/24/18 at 00:30 Miscellaneous Information (* Miscellaneous Pharmacy Order) Treatment of Hypoglycemia: 1.BG 51... Per protocol XX ; Start 10/24/18 at 00:30 Dextrose (D50w Syringe) 25 ml Q15M PRN IV .DECREASED GLUCOSE; Start 10/24/18 at 00:30 Dextrose (D50w Syringe) 50 ml Q15M PRN IV .DECREASED GLUCOSE; Start 10/24/18 at 00:30 Eye Lubricant (Akwa Oint) 1 applic Q6 BOTH EYES Last administered on 10/25/18 05:35; Admin Dose 1 APPLIC; Start 10/24/18 at 02:00 Eye Lubricant (Artificial Tears Oph) 2 drop Q6H PRN BOTH EYES DRY EYES Last administered on 10/24/18 06:19; Admin Dose 2 DROP; Start 10/24/18 at 02:00 Acetaminophen (Tylenol Liquid) 650 mg Q8 NGT Last administered on 10/24/18 21:52; Admin Dose 650 MG; Start 10/24/18 at 02:00 Norepinephrine 32 mg/Dextrose 250 ml @ 0.47 mls/hr TITRATE IV Last administered on 10/25/18 02:24; Admin Dose 14.06 MLS/HR; Start 10/24/18 at 02:30 Vasopressin 60 unit/Dextrose 60 ml @ 0 mls/hr Q12H IV Last administered on 10/24/18 16:06; Admin Dose 2.4 MLS/HR; Start 10/24/18 at 02:30 Meperidine HCl (Demerol) 12.5 mg Q2 PRN IV SHIVERING; Start 10/24/18 at 03:30 Dopamine HCl/ Dextrose 250 ml @ 9 mls/hr TITRATE IV Last administered on 10/24/18 21:01; Admin Dose 22.5 MLS/HR; Start 10/24/18 at 04:30 Potassium Chloride 50 ml @ 50 mls/hr K PROTOCOL PRN IVPB PENDING LAB VALUE Last administered on 3/26/19at 20:36; Admin Dose 50 MLS/HR; Start 10/24/18 at 07:00 Influenza Virus Vaccine Quadrival (Fluzone) 0.5 ml ONCE ONCE IM* ; Start 10/28/18 at 10:00; Stop 10/28/18 at 10:01 Fentanyl 100 ml @ 2.5 mls/hr TITRATE IV Last administered on 10/25/18at 06:46; Admin Dose 10 MLS/HR; Start 10/24/18 at 10:00 Midazolam HCl 50 ml @ 1 mls/hr TITRATE IV Last administered on 10/25/18 09:05; Admin Dose 10 MLS/HR; Start 10/24/18 at 10:00 Levetiracetam 100 ml @ 400 mls/hr Q12 IVPB Last administered on 10/25/18at 08:43; Admin Dose 400 MLS/HR; Start 10/24/18 at 14:00 Lorazepam (Ativan) 1 mg Q2H PRN IV seizures; Start 10/24/18 at 14:00 Sodium Bicarbonate 100 meq/Sodium Chloride 1,000 ml @ 100 mls/hr Q10H IV Last administered on 10/25/18 05:25; Admin Dose 100 MLS/HR; Start 10/24/18 at 18:00 Phenylephrine HCl 40 mg/Dextrose 250 ml @ 37.5 mls/hr TITRATE IV Last administered on 10/25/18 00:06; Admin Dose 3.75 MLS/HR; Start 10/24/18 at 23:30 FREDERICK BOUDREAUX 27, 2019 09:27
[2018-10-25] MEDS: PIPER-TAZO 2.25 GM (PMX) 50 ML IVPB SCH ×3 (10:12→21:07)
[2018-10-25] MEDS: DOPamine-D5W 1.6 MG/ML 250 ML IV SCH (11:35)
--- NOTE | 2018-10-25 11:38 | CONS ---
Assessment/Plan Assessment/Plan Hospital Course 68 yo M with multiple comorbidities who [facility] for management following vfib arrest. STEMI noted, now s/p L circ thrombectomy and stent.. On hypothermia protocol as of .. He was noted to have generalized convulsions (no prior Hx of seizures noted)... for which neurology is consulted. New seizures suggest some degree of acute cerebral injury... CTH brain is unrevealing. EEG is without epileptiform activity. P: OK to cont Keppra for now (max dose 500 mg bid) Ativan IV PRN seizure > 5 min or for cluster MRI brain without contrast for further characterization when medically able Other medical management per primary Will follow clinically Consultation Date/Type/Reason Admit Date/Time Oct 23, 2018 at 20:58 Type of Consult Neurology Reason for Consultation seizure Requesting Provider: LISSY SMITH MD Date/Time of Note DATE: 10/25/18 TIME: 11:38 24 HR Interval Summary Free Text/Dictation Continues critical care. S/p IABP. Started rewarming at ~0400. On multiple pressors/sedation Subjective hx not possible: pt non-verbal, pt critical, pt critical status Exam Vital Signs Vitals Vital Signs Date Temp Pulse Resp B/P (MAP) Pulse Ox O2 O2 Flow FiO2 Time Delivery Rate 10/25/18 71 18 95 50 11:00 10/25/18 93.7 115/68 10:00 (84) 10/25/18 Mechanical 09:30 Ventilator Intake and Output 10/24/18 10/24/18 10/25/18 1414:59 22:59 06:59 IntakeIntake Total 1728.043 ml 2323.88 ml 2260.74 ml OutputOutput Total 316 ml 163 ml 114 ml BalanceBalance 1412.043 ml 2160.88 ml 2146.74 ml Exam PE: Gen Appearance: No Apparent Distress HEENT: Intubated; has epistaxis Cardiovascular: Regular rate; multiple pressors Abdomen: Soft Extremities: Dry NE: The patient was comatose Cranial nerve examination was limited by mental status. Pupils were equal and unreactive to light. There was no afferent pupillary defect. Funduscopic examination was limited. Face was grossly symmetric, w/ out present corneal and cough reflexes. Tone was normal. Muscle bulk was normal. I did not see fasciculations. The patient did not withdrew to noxious stimulation x 4. Coordination and gait testing was limited by mental status. Arm and leg reflexes were symmetric. Fuller's sign was absent. Plantar responses were mute. ИРИНА LANCASTER NP Oct 25, 2018 11:38 JACKY LEWIS Oct 25, 2018 13:37
[2018-10-25] MEDS: ARTIFICIAL TEARS 15 ML OPH BOTH EYES PRN ×2 (12:12→23:59)
--- NOTE | 2018-10-25 16:14 | CONS ---
DATE OF ADMISSION: 10/23/2018 DATE OF CONSULTATION: 10/25/2018 TYPE OF CONSULTATION: Nephrology. REASON FOR CONSULTATION: Acute kidney injury. PHYSICIAN REQUESTING CONSULT: Jesus Monaco MD and Michoacano Juarez MD HISTORY OF PRESENT ILLNESS: This is a 68-year-old male with a past medical history of hypertension, was brought into [facility] Emergency Room after a cardiac arrest. The patient recalled carl t he was having dinner when he collapsed. The patient had CPR initiated prior to EMS arrival. When EMS arrived, the patient was found to be in V-fib. EKG showed ST elevated NV. The patient was broug ht into the emergency room. He was hypoxemic. The patient had initial troponin in 10/15/2018 in the emergency room. The patient was taken to OR emergently. He was intubated. He had intraaortic ball oon pump placement. The patient underwent cardiac catheterization with successful PCI to left circum flex artery with drug-eluting stent. The patient was then subsequently admitted to intensive care un it. While in intensive care unit, the patient was initially on pressor support and IV fluids. The p atient was initiated on hypothermic protocol. In terms of patient's renal history, per family, the patient had no prior history of acute kidney inj ury. On admission, the patient has creatinine of 1.22 mg/dL which is increased to 2.97 mg/dL. The p atient had marginal urinary output. There were no reports of any hemoptysis, hematemesis or hematoch ezia. PAST MEDICAL HISTORY: As stated above, history of hypertension. PAST SURGICAL HISTORY: Reviewed. ALLERGIES: NO KNOWN DRUG ALLERGIES. FAMILY HISTORY: No family history of kidney disease. SOCIAL HISTORY: Does not drink, smoke or do drugs. MEDICATIONS: Have been reviewed. REVIEW OF SYSTEMS: Unable to do review of systems as the patient is obtunded. Pertinent positives a s obtained by reviewing medical records, speaking to hospital staff, stated in HPI, otherwise negativ e. PHYSICAL EXAMINATION: VITAL SIGNS: Blood pressure is 122/72, respiration 19, pulse 72, temperature 94.8. HEENT: Head is normocephalic. Pupils are reactive to light. NECK: Supple. HEART: Regular rate. LUNGS: Show diminished breath sounds at the base. ABDOMEN: Soft, obese, nontender to palpation. EXTREMITIES: Negative for clubbing, cyanosis. Trace edema. DERMATOLOGIC: No rashes. MUSCULOSKELETAL: No joint effusion. NEUROLOGIC: Limited exam. The patient is obtunded, sedated. LABORATORY DATA: Show sodium 140, potassium 4.3, BUN 39, creatinine 2.97. White count 20.6, hemoglo bin 13.8, platelet count is 179. The patient's lactic acid is 3.1. Calcium 7.8, phosphorus 6.9. T, ALT were reviewed. The patient's ABG was reviewed. Urinalysis was reviewed. IMAGING STUDIES: Reviewed. MICROBIOLOGY: Cultures have been reviewed. ASSESSMENT AND PLAN: This is a 68-year-old male who presents with: 1. Oligouric acute kidney injury with previously baseline normal creatinine. Etiology of acute kidn ey injury is likely secondary to acute tubular necrosis due to ischemic hypoperfusion, shock. The isiah rainey's initial urinalysis reviewed was bland. The patient's urinary output has been declining in th e last 24 hours. Plan at this point is to continue current medical management. We will continue pre ssor support to maintain MAP of 65. Continue supportive care, renally dose all meds, avoid nephrotox ins. There is no immediate need for renal replacement therapy at this time; however if patient's rosario al function should continue to decline and urinary output should decline, we would consider initiatin g renal replacement therapy. 2. Volume overload. The patient has lower extremity edema, pulmonary vascular congestion and is not ed to be positive approximately 10 liters since admission. At this point, we will continue to monito r. We would consider diuretic therapy if the patient could wean off pressor support. We will attemp t to minimize IV fluids if possible. 3. Cardiac arrest secondary to ST elevated myocardial infarction. The patient is status post PCI. Continue current medical management. Follow up with cardiology for recommendations. 4. Shock. Etiology is presumed to be cardiogenic, questionable sepsis. At this point, we would con tinue medical management. Continue present support. Continue volume expansion. We will consider em piric antibiotics. We will follow up cultures closely. 5. Lactic acidosis. Etiology is secondary to shock. Continue to monitor closely. 6. Ventilator-dependent respiratory failure. Vent settings and ABG was reviewed. Continue to monit or. Follow up with pulmonary. 7. Dysphagia. Continue to monitor. 8. Cardiac arrest. The patient is completing hypothermic protocol. As stated above, the patient is status post PCI to left circumflex. Continue medical management. Follow up with cardiology. 9. Acute encephalopathy. Etiology is toxic metabolic, possible anoxic injury. Continue to monitor. Follow up with neurology. 10. Mineral bone disorder. Monitor calcium and phosphatase levels. 11. Transaminitis, likely secondary to shock. Continue to monitor. 12. Gastrointestinal and deep venous thrombosis prophylaxis. Thank you, Dr. Juarez, for this interesting consult. It will be a pleasure to follow patient with you t hroughout the hospital course. Please note I spent over 30 minutes of critical care time with this patient. Dictated By: NADIA CHANDLER DO NR/NTS Conf#: [id number] DID#: [id number] CC: MICHOACANO JUAREZ MD; CHANG WILKS MD; BRANDON HOLGUIN MD;*EndCC*
[2018-10-25] MEDS: ATORVASTATIN 40 MG TAB PO SCH (20:45)
[2018-10-26] VITALS (104 sets, daily range): BP systolic 75–173; BP diastolic 52–94; PULSE 73–92; RESP 13–21
[2018-10-26] MEDS: ACCU-CHEK XX SCH ×15 (00:01→14:27)
[2018-10-26] MEDS: OCULAR LUBRICANT 3.5 GM OPH OINT BOTH EYES SCH ×4 (00:01→17:38)
[2018-10-26] MEDS: SODIUM BICARBONATE (IV ADD) 100 MEQ in SOD CHLORIDE 0.45% 900 ML IV SCH (02:15)
[2018-10-26] MEDS: VASOPRESSIN 60 UNIT in DEXTROSE 5% 57 ML IV SCH ×2 (02:30→14:28)
[2018-10-26] MEDS: DOPamine-D5W 1.6 MG/ML 250 ML IV SCH ×2 (02:35→20:57)
[2018-10-26] MEDS: ACETAMINOPHEN 650MG/20.3ML CUP NGT SCH ×2 (06:07→14:36)
[2018-10-26] MEDS: PIPER-TAZO 2.25 GM (PMX) 50 ML IVPB SCH ×3 (06:07→22:14)
--- NOTE | 2018-10-26 07:58 | CONS ---
Consult Date/Type/Reason Admit Date/Time Oct 23, 2018 at 20:58 Initial Consult Date 10/23/18 Type of Consultation: CV Requesting Provider: LISSY SMITH MD Date/Time of Note DATE: 10/26/18 TIME: 07:54 Subjective Interventional cardiology follow-up progress note/critical care note Subjective: Discussed multiple staff and physicians. Telemetry was reviewed. Patient with occasinoal PVCs Patient with episode of hypoxemia and has required more oxygen supplement Patient remained intubated and on the vent currently on multiple pressors in the ICU on hypothermia protocol (rewarming now) no bleeding Intra-aortic balloon pump has been removed on October 25, 2018 Objective: General: Obese gentleman status post intubation on the vent nonverbal HEENT: NC/AT. pupils are extend dilated NECK: no stridor. CV: RRR. systolic murmur; no gallop or rubs. PULM: no wheezing +rhonchi. GI: SOFT, NT, ND, no rebound or guarding Extremity: trace B/L LE edema. no clubbing. neuro: No response to verbal stimuli Psych: calm rectal: deferred : normal male Right femoral no bleeding or hematoma bruit noted Left femoral arterial sheath removed and no hematoma EKG emergency room was personally showed normal sinus rhythm with ST elevation inferolaterally consistent with inferolateral ST elevation PR with reciprocal changes anteriorly Head CT done in the emergency room shows: No mass effect or acute intracranial bleed. Mild intracranial vascular calcification.. Chest x-ray done in the ER shows: 1. Endotracheal tube in place. 2. Atelectasis at the right lung base. 3. Mild cardiomegaly. 4. Exam limited by low lung volumes and multiple overlying external appearing wires . Chest x-ray done October 25, 2018 shows:Cardiomegaly. No significant change in mild central pulmonary vascular congestion. Multiple ABG that was reviewed personally Echocardiogram done October 24, 2018 was personally reviewed which shows Normal left ventricular systolic function. Normal left ventricular cavity size. Moderate concentric left ventricular hypertrophy. Ejection fraction is visually estimated at 65 %. Tissue Doppler/Mitral Doppler indices are consistent with impaired relaxation (Stage I diastolic dysfunction). Normal appearance and function of the mitral valve with trace physiologic regurgitation. Normal appearance of the aortic valve. No significant aortic stenosis or insufficiency. Normal appearance of the tricuspid valve. Unable to obtain RVSP due to minimal presence of tricuspid regurgitation. Normal IVC with respiratory collapse, however patient on ventilator. Normal pericardium with no significant pericardial effusion. Objective Vitals Vital Signs Date Temp Pulse Resp B/P (MAP) Pulse Ox O2 O2 Flow FiO2 Time Delivery Rate 10/26/18 84 18 116/66 95 07:15 (83) 10/26/18 100 04:50 10/26/18 98.1 04:00 10/26/18 Mechanical 01:00 Ventilator Intake and Output 10/25/18 10/25/18 10/26/18 1414:59 22:59 06:59 IntakeIntake Total 1300.10 ml 1216.69 ml 1139.82 ml OutputOutput Total 71 ml 102 ml 135 ml BalanceBalance 1229.10 ml 1114.69 ml 1004.82 ml Results/Medications Result Diagram: 10/26/18 0423 10/26/18 0434 Results 24 hrs Laboratory Tests Test 10/25/18 08:26 10/25/18 09:17 10/25/18 10:06 10/25/18 11:05 Bedside Glucose 106 116 123 119 Test 10/25/18 12:00 10/25/18 12:19 10/25/18 12:22 10/25/18 13:02 Blood Gas Blood arterial Specimen Source Arterial Blood 10/25/2018 12:15 Date Drawn :00 PM Arterial Blood 7.414 pH (Temp corrected ) Arterial Blood 35.8 pCO2 (Temp correct) Arterial Blood 51.4 *L pO2 (Temp corrected ) Arterial Blood 22.9 HCO3 Arterial Blood -1.9 Base Excess Arterial Blood 90.6 L Oxygen Saturati on Nicolas Test N/A Arterial Blood A-Line Gas Puncture Site Arterial 0.3 Blood Carboxyhe moglobin Arterial Blood 0.2 Methemoglobin Blood Gas A-a 267.6 H O2 Differential Oxyhemoglobin 90.1 L Percent Blood Gas 34.8 Temperature Blood Gas 18.0 Respiration Rate Blood Gas 18 Actual Respiration Rat e Blood Gas VENT - AC Modality FiO2 50.0 Blood Gas Tidal 550.0 Volume Blood Gas Low 5.0 PEEP Setting Blood Gas MGN RN Critical Value Read Back Blood Gas TM Notified Whom Blood Gas 10/25/2018 12:29 Notified Time :00 PM Bedside Glucose 120 118 White Blood 20.6 #H Count Red Blood Count 4.62 L Hemoglobin 13.8 L Hematocrit 38.6 L Mean 83.5 Corpuscular Volume Mean 29.9 Corpuscular Hemoglobin Mean 35.8 Corpuscular Hemoglobin Conc ent Red Cell 13.3 Distribution Width Platelet Count 179 Mean Platelet 9.8 Volume Immature 0.700 H Granulocytes % Neutrophils % 87.7 H Lymphocytes % 6.5 L Monocytes % 4.8 Eosinophils % 0.2 Basophils % 0.1 Nucleated Red 0.0 Blood Cells % Immature 0.150 H Granulocytes # Neutrophils # 18.0 H Lymphocytes # 1.3 Monocytes # 1.0 H Eosinophils # 0.1 Basophils # 0.0 Nucleated Red 0.0 Blood Cells # Prothrombin 14.8 Time Prothrombin 1.2 Time Ratio INR 1.15 International Normalized Rati o Activated 31.5 Partial Thrombo plast Time Sodium Level 140 Potassium Level 4.3 Chloride Level 105 Carbon Dioxide 24 Level Anion Gap 11 Blood Urea 39 H Nitrogen Creatinine 2.97 H Est Glomerular 21 L Filtrat Rate mL/min Glucose Level 117 Lactic Acid 3.1 *H Level Calcium Level 7.8 L Phosphorus 6.9 H Level Magnesium Level 2.0 Total Bilirubin 0.6 Direct 0.00 Bilirubin Indirect 0.6 Bilirubin Aspartate Amino 276 H Transf (AST/SGO T) Alanine 220 H Aminotransferas e (ALT/SGPT) Alkaline 68 Phosphatase Troponin I 47.900 *H Total Protein 5.4 L Albumin 2.8 L Globulin 2.60 Albumin/Globuli 1.07 n Ratio Test 10/25/18 15:05 10/25/18 17:50 10/25/18 20:08 10/25/18 21:49 Bedside Glucose 126 122 126 119 White Blood 17.8 H Count Red Blood Count 4.37 L Hemoglobin 13.2 L Hematocrit 37.5 L Mean 85.8 Corpuscular Volume Mean 30.2 Corpuscular Hemoglobin Mean 35.2 Corpuscular Hemoglobin Conc ent Red Cell 13.5 Distribution Width Platelet Count 174 Mean Platelet 9.8 Volume Immature 1.200 H Granulocytes % Neutrophils % 86.8 H Lymphocytes % 6.0 L Monocytes % 5.5 Eosinophils % 0.2 Basophils % 0.3 Nucleated Red 0.0 Blood Cells % Immature 0.210 H Granulocytes # Neutrophils # 15.5 H Lymphocytes # 1.1 Monocytes # 1.0 H Eosinophils # 0.0 Basophils # 0.1 Nucleated Red 0.0 Blood Cells # Prothrombin 15.2 H Time Prothrombin 1.2 Time Ratio INR 1.19 International Normalized Rati o Activated 30.3 Partial Thrombo plast Time Sodium Level 140 Potassium Level 5.0 Chloride Level 103 Carbon Dioxide 25 Level Anion Gap 12 Blood Urea 41 H Nitrogen Creatinine 3.22 H Est Glomerular 19 L Filtrat Rate mL/min Glucose Level 110 Lactic Acid 3.1 *H Level Calcium Level 7.6 L Phosphorus 7.1 H Level Magnesium Level 2.1 Total Bilirubin 0.5 Direct 0.00 Bilirubin Indirect 0.5 Bilirubin Aspartate Amino 251 H Transf (AST/SGO T) Alanine 209 H Aminotransferas e (ALT/SGPT) Alkaline 70 Phosphatase Troponin I 43.600 *H Total Protein 4.9 L Albumin 2.6 L Globulin 2.30 Albumin/Globuli 1.13 n Ratio Test 10/25/18 23:56 10/26/18 00:29 10/26/18 01:32 10/26/18 02:01 Bedside Glucose 120 120 Magnesium Level 2.0 Blood Gas Blood Specimen arterial Source Arterial Blood 10/26/2018 1:55 Date Drawn :33 AM Arterial Blood 7.391 pH (Temp corrected ) Arterial Blood 45.5 H pCO2 (Temp correct) Arterial Blood 61.1 L pO2 (Temp corrected ) Arterial Blood 27.0 H HCO3 Arterial Blood 1.6 Base Excess Arterial Blood 90.6 L Oxygen Saturati on Nicolas Test ACCEPTAB Arterial Blood Right Gas Brachial Puncture Site Arterial 0.3 Blood Carboxyhe moglobin Arterial Blood 0.3 Methemoglobin Blood Gas A-a 606.4 H O2 Differential Oxyhemoglobin 90.1 L Percent Blood Gas 37.0 Temperature Blood Gas 18.0 Respiration Rate Blood Gas 18 Actual Respiration Rat e Blood Gas VENT - AC Modality FiO2 100.0 Blood Gas Tidal 550.0 Volume Blood Gas Low 5.0 PEEP Setting Blood Gas 23.0 Inspiratory Pressure Blood 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 Notified Whom Blood Gas 10/26/2018 2:05 Notified Time :52 AM Test 10/26/18 04:05 10/26/18 04:23 10/26/18 04:30 10/26/18 04:34 Bedside Glucose 114 White Blood 19.2 H Count Red Blood Count 3.89 L Hemoglobin 11.8 L Hematocrit 34.9 L Mean 89.7 Corpuscular Volume Mean 30.3 Corpuscular Hemoglobin Mean 33.8 Corpuscular Hemoglobin Conc ent Red Cell 14.1 Distribution Width Platelet Count 168 Mean Platelet 10.5 H Volume Immature 1.400 H Granulocytes % Neutrophils % 83.6 H Lymphocytes % 7.4 L Monocytes % 7.1 Eosinophils % 0.2 Basophils % 0.3 Nucleated Red 0.0 Blood Cells % Immature 0.260 H Granulocytes # Neutrophils # 16.1 H Lymphocytes # 1.4 Monocytes # 1.4 H Eosinophils # 0.0 Basophils # 0.1 Nucleated Red 0.0 Blood Cells # Urine Color YELLOW Urine Clarity CLOUDY A Urine pH 5.0 Urine Specific 1.017 [place] Urine Ketones NEGATIVE Urine Nitrite NEGATIVE Urine Bilirubin NEGATIVE Urine NEGATIVE Urobilinogen Urine Leukocyte 2+ H Esterase Urine 104 H Microscopic RBC Urine 31 H Microscopic WBC Urine Bacteria FEW A Urine 3+ H Hemoglobin Urine Random 63.77 Creatinine Urine Random < 13 L Sodium Urine Glucose NEGATIVE Urine Total 66.0 H Protein Sodium Level 142 Potassium Level 4.9 Chloride Level 99 Carbon Dioxide 29 Level Anion Gap 14 H Blood Urea 47 H Nitrogen Creatinine 3.76 H Est Glomerular 16 L Filtrat Rate mL/min Glucose Level 100 Calcium Level 7.0 L Magnesium Level 2.1 Test 10/26/18 06:10 10/26/18 07:00 Bedside Glucose 122 Blood Gas Blood arterial Specimen Source Arterial Blood 10/26/2018 7:19: Date Drawn 51 AM Arterial Blood 7.398 pH (Temp corrected ) Arterial Blood 44.0 pCO2 (Temp correct) Arterial Blood 71.2 L pO2 (Temp corrected ) Arterial Blood 26.5 H HCO3 Arterial Blood 1.3 Base Excess Arterial Blood 93.9 L Oxygen Saturati on Nicolas Test ACCEPTAB Arterial Blood Right Radial Gas Puncture Site Arterial 0.6 Blood Carboxyhe moglobin Arterial Blood 0.3 Methemoglobin Blood Gas A-a 597.8 H O2 Differential Oxyhemoglobin 93.1 Percent Blood Gas 37.0 Temperature Blood Gas 18.0 Respiration Rate Blood Gas 18 Actual Respiration Rat e Blood Gas VENT - AC Modality FiO2 100.0 Blood Gas Tidal 550.0 Volume Blood Gas Low 5.0 PEEP Setting Blood Gas TM Notified Whom Blood Gas 10/26/2018 7:51: Notified Time 47 AM Home Meds Reported Medications Amlodipine Besylate* (Amlodipine Besylate*) 10 Mg Tablet, 10 MG PO DAILY, #30 TAB 10/23/18 Cyanocobalamin (Vitamin B-12) (Vitamin B-12) Unknown Strength Capsule, 1 CAP PO DAILY, CAP 10/23/18 Garlic (Garlic) 1 Each Tablet, 1 EACH PO DAILY, TAB 10/23/18 Multivitamins* (Theragran*) 1 Tab Tab, 1 TAB PO DAILY, TAB 10/23/18 Acyclovir* (Acyclovir*) 800 Mg Tablet, 800 MG PO DAILY, TAB 10/23/18 Aspirin* (Aspirin* EC) 81 Mg Tablet.dr, 81 MG PO DAILY, TAB 10/23/18 Medications Current Medications Ticagrelor (Brilinta) 90 mg BID PO Last administered on 10/25/18at 20:46; Admin Dose 90 MG; Start 10/24/18 at 09:00 Atorvastatin Calcium (Lipitor) 40 mg DAILY@21 PO Last administered on 10/25/18at 20:45; Admin Dose 40 MG; Start 10/24/18 at 21:00 Aspirin (Aspirin) 81 mg DAILY PO Last administered on 10/25/18at 08:43; Admin Dose 81 MG; Start 10/24/18 at 09:00 Amiodarone HCl 900 mg/Dextrose 500 ml @ 0 mls/hr Q0M IV ; Start 10/24/18 at 00:08 Ondansetron HCl (Zofran Inj) 4 mg Q6H PRN IV NAUSEA AND/OR VOMITING; Start 10/24/18 at 00:30 Albuterol (Ventolin Hfa) 4 puff Q2H RESP THERAPY PRN INH SHORTNESS OF BREATH; Start 10/24/18 at 00:30 Ipratropium M[place] (Atrovent Hfa) 4 puff Q2H RESP THERAPY PRN INH SHORTNESS OF BREATH; Start 10/24/18 at 00:30 Acetaminophen (Tylenol Liquid) 650 mg Q6H PRN PO PAIN LEVEL 1-3 OR FEVER; Start 10/24/18 at 00:30 Miscellaneous Information (* Miscellaneous Pharmacy Order) Treatment of Hypoglycemia: 1.BG 51... Per protocol XX ; Start 10/24/18 at 00:30 Propofol 100 ml @ 3.6 mls/hr PER PROTOCOL IV Last administered on 10/24/18at 20:56; Admin Dose 18 MLS/HR; Start 10/24/18 at 00:30 Diagnostic Test (Pha) (Accu-Chek) 1 ea Q1H XX Last administered on 10/26/18 07:41; Admin Dose 1 EA; Start 10/24/18 at 00:30 Insulin Human Regular 100 unit/ Sodium Chloride 100 ml @ 0 mls/hr PER PROTOCOL IV Last administered on 10/24/18 20:14; Admin Dose 7 MLS/HR; Start 10/24/18 at 00:30 Miscellaneous Information (* Miscellaneous Pharmacy Order) Treatment of Hy poglycemia: 1.BG 51... Per protocol XX ; Start 10/24/18 at 00:30 Dextrose (D50w Syringe) 25 ml Q15M PRN IV .DECREASED GLUCOSE; Start 10/24/18 at 00:30 Dextrose (D50w Syringe) 50 ml Q15M PRN IV .DECREASED GLUCOSE; Start 10/24/18 at 00:30 Eye Lubricant (Akwa Oint) 1 applic Q6 BOTH EYES Last administered on 10/26/18 06:07; Admin Dose 1 APPLIC; Start 10/24/18 at 02:00 Eye Lubricant (Artificial Tears Oph) 2 drop Q6H PRN BOTH EYES DRY EYES Last administered on 10/25/18 23:59; Admin Dose 2 DROP; Start 10/24/18 at 02:00 Acetaminophen (Tylenol Liquid) 650 mg Q8 NGT Last administered on 10/26/18 06:07; Admin Dose 650 MG; Start 10/24/18 at 02:00 Norepinephrine 32 mg/Dextrose 250 ml @ 0.47 mls/hr TITRATE IV Last administered on 10/25/18 02:24; Admin Dose 14.06 MLS/HR; Start 10/24/18 at 02:3 0 Vasopressin 60 unit/Dextrose 60 ml @ 0 mls/hr Q12H IV Last administered on 10/24/18 16:06; Admin Dose 2.4 MLS/HR; Start 10/24/18 at 02:30 Meperidine HCl (Demerol) 12.5 mg Q2 PRN IV SHIVERING; Start 10/24/18 at 03:30 Dopamine HCl/ Dextrose 250 ml @ 9 mls/hr TITRATE IV Last administered on 02:35; Admin Dose 13.5 MLS/HR; Start 10/24/18 at 04:30 Potassium Chloride 50 ml @ 50 mls/hr K PROTOCOL PRN IVPB PENDING LAB VALUE Last administered on 10/24/18at 20:36; Admin Dose 50 MLS/HR; Start 10/24/18 at 07:00 Influenza Virus Vaccine Quadrival (Fluzone) 0.5 ml ONCE ONCE IM* ; Start 10/28/18 at 10:00; Stop 10/28/18 at 10:01 Fentanyl 100 ml @ 2.5 mls/hr TITRATE IV Last administered on 10/25/18at 18:02; Admin Dose 10 MLS/HR; Start 10/24/18 at 10:00 Midazolam HCl 50 ml @ 1 mls/hr TITRATE IV Last administered on 10/25/18at 20:48; Admin Dose 10 MLS/HR; Start 10/24/18 at 10:00 Levetiracetam 100 ml @ 400 mls/hr Q12 IVPB Last administered on 10/25/18at 20:52; Admin Dose 400 MLS/HR; Start 10/24/18 at 14:00 Lorazepam (Ativan) 1 mg Q2H PRN IV seizures; Start 10/24/18 at 14:00 Sodium Bicarbonate 100 meq/Sodium Chloride 1,000 ml @ 100 mls/hr Q10H IV Last administered on 10/26/18at 02:15; Admin Dose 100 MLS/HR; Start 10/24/18 at 18:00 Phenylephrine HCl 40 mg/Dextrose 250 ml @ 37.5 mls/hr TITRATE IV Last administered on 10/25/18at 00:06; Admin Dose 3.75 MLS/HR; Start 10/24/18 at 23:30 Piperacillin Sod/ Tazobactam Sod 50 ml @ 100 mls/hr Q8 IVPB Last administered on 10/26/18at 06:07; Admin Dose 100 MLS/HR; Start 10/25/18 at 09:30 Famotidine (Pepcid Iv) 20 mg DAILY IV ; Start 10/26/18 at 09:00 Assessment/Plan Hospital Course (Demo Recall) Ventricular fibrillation cardiac arrest V. 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 Continue with pressors and titrate down as tolerated Vent support will be continued. Hypothermia to be completed Magnesium potassium to be replaced as needed DR CHANDLER input for RENAL consult is greatly appreciated. Diuretics will be deferred to renal recommendation Prognosis is guarded at best More than 33 minutes of critical care time was for management treatment is critically patient excluding any procedures Thank you for his referral. We will continue to follow along with you DRU PONCE MD [facility] DRU PONCE MD Oct 26, 2018 07:58
[2018-10-26] MEDS: ASPIRIN 81 MG TAB PO SCH (08:26)
[2018-10-26] MEDS: FAMOTIDINE 20 MG INJ IV SCH (08:26)
[2018-10-26] MEDS: LEVETIRACETAM 500 MG (PMX) 100 ML IVPB SCH ×2 (08:27→20:56)
[2018-10-26] MEDS: TICAGRELOR 90 MG TABLET PO SCH ×2 (08:31→20:58)
--- NOTE | 2018-10-26 08:57 | PN ---
DATE: 10/26/2018 SUBJECTIVE: The patient remains critically ill, remains on pressor support. The patient's urinary o utput remains marginal, although mildly improved overnight. No reports of hemoptysis, hematemesis or hematochezia. OBJECTIVE: VITAL SIGNS: Blood pressure is 116/66, pulse 84, respirations 18, temperature is 98.6. HEENT: Head is normocephalic. NECK: Supple. HEART: Regular rate. LUNGS: Show diminished breath sounds at the base. ABDOMEN: Soft, nontender to palpation without rebound or guarding. EXTREMITIES: Negative for clubbing, cyanosis. Trace edema. DERMATOLOGIC: No rashes. MUSCULOSKELETAL: No joint effusion. NEUROLOGIC: No change in exam. MEDICATIONS: Reviewed. IMAGING STUDIES: Chest x-ray was reviewed showed evidence of mild central pulmonary congestion. Britton al ultrasound shows questionable bilateral hydronephrosis, increased echogenicity suggesting medical renal disease. Limited study due to body habitus. LABORATORY DATA: The patient's BMP and CBC were reviewed. BUN 47, creatinine 0.76. White count 19. 2, hemoglobin 11.8. The patient's ABG was reviewed. ASSESSMENT AND PLAN: 1. Oliguric acute kidney injury with previously normal baseline creatinine. Etiology of acute kidne y injury is secondary to acute tubular necrosis due to ischemic hypoperfusion, shock. The patient re adali in injury phase of acute tubular necrosis as renal function continues to decline. Urinary outp ut has marginally improved over the last 12 hours. At this point, we will continue current treatment plan. Continue pressor support to maintain MAP of 65. Continue IV hydration. Continue antibiotic therapy. Otherwise, continue supportive care, renally dose all medicines and avoid nephrotoxins. No immediate need for renal replacement therapy at this time. We will monitor renal function closely. 2. Volume overload. The patient has noted lower extremity edema and pulmonary vascular congestion. At this point, we will continue to monitor closely. If the patient's hemodynamics improved we will give the patient diuretic therapy. Attempt to minimize IV fluids if possible. 3. Cardiac arrest secondary to ST elevated myocardial infarction. The patient is status post percut aneous coronary intervention. Continue medical management. Follow up with Cardiology for recommenda tions. 4. Shock, etiology is cardiogenic, questionable sepsis. The patient has elevated white count. A ch est x-ray suggests questionable infiltrate. Continue medical management. Continue pressor support. Continue antibiotic therapy, continue gentle volume expansion. Monitor closely. 5. Lactic acidosis secondary to shock. Continue to monitor. 6. Ventilator-dependent respiratory failure. Vent settings and ABG was reviewed. Continue to monit or. Follow up with pulmonary. 7. Dysphagia. Continue to monitor. 8. Cardiac arrest secondary to myocardial infarction. The patient is status post hypothermic protoc ol, status post PCI to left circumflex. Continue medical management. Follow up with Cardiology. 9. Acute encephalopathy, etiology is toxic metabolic, possible anoxic injury. Continue to monitor. Follow up with neurology. 10. Mineral bone disorder, monitor calcium and phosphorus levels. 11. Transaminitis, likely due to shock. Continue to monitor LFTs. 12. Gastrointestinal and deep vein thrombosis prophylaxis. Please note I spent over 30 minutes of critical care time with this patient. Dictated By: NADIA CHANDLER DO NR/NTS Conf#: [id number] DID#: [id number] CC: CHANG WILKS MD; MICHOACANO JUAREZ MD; BRANDON HOLGUIN MD;*EndCC*
[2018-10-26] MEDS: SOD CHLORIDE 0.9% 1,000 ML IV SCH ×2 (09:56→21:25)
--- NOTE | 2018-10-26 10:22 | CONS ---
Consult Date/Type/Reason Admit Date/Time Oct 23, 2018 at 20:58 Initial Consult Date 10/23/18 Type of Consult Pulmonary Requesting Provider: LISSY SMITH MD Date/Time of Note DATE: 10/26/18 TIME: 10:19 Subjective Remains unresponsive on mechanical ventilation still requiring vasopressor support. Objective Vital Signs Date Temp Pulse Resp B/P (MAP) Pulse Ox O2 O2 Flow FiO2 Time Delivery Rate 10/26/18 85 08:00 10/26/18 18 116/66 95 07:15 (83) 10/26/18 100 04:50 10/26/18 98.1 04:00 10/26/18 Mechanical 01:00 Ventilator Intake and Output 10/25/18 10/25/18 10/26/18 1515:00 23:00 07:00 IntakeIntake Total 1239.94 ml 1259.00 ml 1005.51 ml OutputOutput Total 63 ml 112 ml 125 ml BalanceBalance 1176.94 ml 1147.00 ml 880.51 ml Exam PHYSICAL EXAMINATION: GENERAL: Well-nourished, well-developed gentleman, intubated on mechanical ventilation, VITAL SIGNS: HEENT: Pupils are fixed and dilated. No gag reflex CARDIAC: S1, S2, no added sounds or murmurs. CHEST: Diminished air entry bilaterally. ABDOMEN: Soft, nontender. No guarding or rebound. EXTREMITIES: No cyanosis, clubbing or edema. NEUROLOGIC: Generalized weakness. Vent Setting Ventilator Support Mode: AC Fraction of Inspired Oxygen pe: 100 Positive End Expiratory Pressu: 5.0 Results/Medications Result Diagram: 10/26/18 0423 10/26/18 0434 Results 24 hrs Laboratory Tests Test 10/25/18 11:05 10/25/18 12:00 10/25/18 12:19 10/25/18 12:22 Bedside Glucose 119 120 Blood Gas Blood arterial Specimen Source Arterial Blood 10/25/2018 12:15 Date Drawn :00 PM Arterial Blood 7.414 pH (Temp corrected ) Arterial Blood 35.8 pCO2 (Temp correct) Arterial Blood 51.4 *L pO2 (Temp corrected ) Arterial Blood 22.9 HCO3 Arterial Blood -1.9 Base Excess Arterial Blood 90.6 L Oxygen Saturati on Nicolas Test N/A Arterial Blood A-Line Gas Puncture Site Arterial 0.3 Blood Carboxyhe moglobin Arterial Blood 0.2 Methemoglobin Blood Gas A-a 267.6 H O2 Differential Oxyhemoglobin 90.1 L Percent Blood Gas 34.8 Temperature Blood Gas 18.0 Respiration Rate Blood Gas 18 Actual Respiration Rat e Blood Gas VENT - AC Modality FiO2 50.0 Blood Gas Tidal 550.0 Volume Blood Gas Low 5.0 PEEP Setting Blood Gas MGN RN Critical Value Read Back Blood Gas TM Notified Whom Blood Gas 10/25/2018 12:29 Notified Time :00 PM White Blood 20.6 #H Count Red Blood Count 4.62 L Hemoglobin 13.8 L Hematocrit 38.6 L Mean 83.5 Corpuscular Volume Mean 29.9 Corpuscular Hemoglobin Mean 35.8 Corpuscular Hemoglobin Conc ent Red Cell 13.3 Distribution Width Platelet Count 179 Mean Platelet 9.8 Volume Immature 0.700 H Granulocytes % Neutrophils % 87.7 H Lymphocytes % 6.5 L Monocytes % 4.8 Eosinophils % 0.2 Basophils % 0.1 Nucleated Red 0.0 Blood Cells % Immature 0.150 H Granulocytes # Neutrophils # 18.0 H Lymphocytes # 1.3 Monocytes # 1.0 H Eosinophils # 0.1 Basophils # 0.0 Nucleated Red 0.0 Blood Cells # Prothrombin 14.8 Time Prothrombin 1.2 Time Ratio INR 1.15 International Normalized Rati o Activated 31.5 Partial Thrombo plast Time Sodium Level 140 Potassium Level 4.3 Chloride Level 105 Carbon Dioxide 24 Level Anion Gap 11 Blood Urea 39 H Nitrogen Creatinine 2.97 H Est Glomerular 21 L Filtrat Rate mL/min Glucose Level 117 Lactic Acid 3.1 *H Level Calcium Level 7.8 L Phosphorus 6.9 H Level Magnesium Level 2.0 Total Bilirubin 0.6 Direct 0.00 Bilirubin Indirect 0.6 Bilirubin Aspartate Amino 276 H Transf (AST/SGO T) Alanine 220 H Aminotransferas e (ALT/SGPT) Alkaline 68 Phosphatase Troponin I 47.900 *H Total Protein 5.4 L Albumin 2.8 L Globulin 2.60 Albumin/Globuli 1.07 n Ratio Test 10/25/18 13:02 10/25/18 15:05 10/25/18 17:50 10/25/18 20:08 Bedside Glucose 118 126 122 126 White Blood 17.8 H Count Red Blood Count 4.37 L Hemoglobin 13.2 L Hematocrit 37.5 L Mean 85.8 Corpuscular Volume Mean 30.2 Corpuscular Hemoglobin Mean 35.2 Corpuscular Hemoglobin Conc ent Red Cell 13.5 Distribution Width Platelet Count 174 Mean Platelet 9.8 Volume Immature 1.200 H Granulocytes % Neutrophils % 86.8 H Lymphocytes % 6.0 L Monocytes % 5.5 Eosinophils % 0.2 Basophils % 0.3 Nucleated Red 0.0 Blood Cells % Immature 0.210 H Granulocytes # Neutrophils # 15.5 H Lymphocytes # 1.1 Monocytes # 1.0 H Eosinophils # 0.0 Basophils # 0.1 Nucleated Red 0.0 Blood Cells # Prothrombin 15.2 H Time Prothrombin 1.2 Time Ratio INR 1.19 International Normalized Rati o Activated 30.3 Partial Thrombo plast Time Sodium Level 140 Potassium Level 5.0 Chloride Level 103 Carbon Dioxide 25 Level Anion Gap 12 Blood Urea 41 H Nitrogen Creatinine 3.22 H Est Glomerular 19 L Filtrat Rate mL/min Glucose Level 110 Lactic Acid 3.1 *H Level Calcium Level 7.6 L Phosphorus 7.1 H Level Magnesium Level 2.1 Total Bilirubin 0.5 Direct 0.00 Bilirubin Indirect 0.5 Bilirubin Aspartate Amino 251 H Transf (AST/SGO T) Alanine 209 H Aminotransferas e (ALT/SGPT) Alkaline 70 Phosphatase Troponin I 43.600 *H Total Protein 4.9 L Albumin 2.6 L Globulin 2.30 Albumin/Globuli 1.13 n Ratio Test 10/25/18 21:49 10/25/18 23:56 10/26/18 00:29 10/26/18 01:32 Bedside Glucose 119 120 Magnesium Level 2.0 Blood Gas Blood Specimen arterial Source Arterial Blood 10/26/2018 1:55 Date Drawn :33 AM Arterial Blood 7.391 pH (Temp corrected ) Arterial Blood 45.5 H pCO2 (Temp correct) Arterial Blood 61.1 L pO2 (Temp corrected ) Arterial Blood 27.0 H HCO3 Arterial Blood 1.6 Base Excess Arterial Blood 90.6 L Oxygen Saturati on Nicolas Test ACCEPTAB Arterial Blood Right Gas Brachial Puncture Site Arterial 0.3 Blood Carboxyhe moglobin Arterial Blood 0.3 Methemoglobin Blood Gas A-a 606.4 H O2 Differential Oxyhemoglobin 90.1 L Percent Blood Gas 37.0 Temperature Blood Gas 18.0 Respiration Rate Blood Gas 18 Actual Respiration Rat e Blood Gas VENT - AC Modality FiO2 100.0 Blood Gas Tidal 550.0 Volume Blood Gas Low 5.0 PEEP Setting Blood Gas 23.0 Inspiratory Pressure Blood Gas d ali shipping clerk Notified Whom Blood Gas 10/26/2018 2:05 Notified Time :52 AM Test 10/26/18 02:01 10/26/18 04:05 10/26/18 04:23 10/26/18 04:30 Bedside Glucose 120 114 White Blood 19.2 H Count Red Blood Count 3.89 L Hemoglobin 11.8 L Hematocrit 34.9 L Mean 89.7 Corpuscular Volume Mean 30.3 Corpuscular Hemoglobin Mean 33.8 Corpuscular Hemoglobin Conc ent Red Cell 14.1 Distribution Width Platelet Count 168 Mean Platelet 10.5 H Volume Immature 1.400 H Granulocytes % Neutrophils % 83.6 H Segmented 74 Neutrophils % (Manual) Band 14 H Neutrophils % (Manual) Lymphocytes % 7.4 L Lymphocytes % 7 L (Manual) Reactive 2 H Lymphocytes % (Manual) Monocytes % 7.1 Monocytes % 2 (Manual) Eosinophils % 0.2 Basophils % 0.3 Basophils % 1 (Manual) Nucleated Red 0.0 Blood Cells % Immature 0.260 H Granulocytes # Neutrophils # 16.1 H Neutrophils # 14.7 H (Manual) Band 2.6 H Neutrophils # Lymphocytes 1.3 (Manual) Lymphocytes # 1.4 Reactive 0.3 H Lymphocytes # Monocytes # 1.4 H Monocytes # 0.3 (Manual) Eosinophils # 0.0 Basophils # 0.1 Basophils # 0.1 H (Manual) Nucleated Red 0.0 Blood Cells # Platelet NORMAL Estimate Giant Platelets 1 H Anisocytosis 2+ Microcytosis 2+ Ovalocytes 1+ Urine Color YELLOW Urine Clarity CLOUDY A Urine pH 5.0 Urine Specific 1.017 [place] Urine Ketones NEGATIVE Urine Nitrite NEGATIVE Urine Bilirubin NEGATIVE Urine NEGATIVE Urobilinogen Urine Leukocyte 2+ H Esterase Urine 104 H Microscopic RBC Urine 31 H Microscopic WBC Urine Bacteria FEW A Urine 3+ H Hemoglobin Urine Random 63.77 Creatinine Urine Random < 13 L Sodium Urine Glucose NEGATIVE Urine Total 66.0 H Protein Test 10/26/18 04:34 10/26/18 06:10 10/26/18 07:00 10/26/18 08:25 Sodium Level 142 Potassium Level 4.9 Chloride Level 99 Carbon Dioxide 29 Level Anion Gap 14 H Blood Urea 47 H Nitrogen Creatinine 3.76 H Est Glomerular 16 L Filtrat Rate mL/min Glucose Level 100 Calcium Level 7.0 L Magnesium Level 2.1 Bedside Glucose 122 132 Blood Gas Blood arterial Specimen Source Arterial Blood 10/26/2018 7:19: Date Drawn 51 AM Arterial Blood 7.398 pH (Temp corrected ) Arterial Blood 44.0 pCO2 (Temp correct) Arterial Blood 71.2 L pO2 (Temp corrected ) Arterial Blood 26.5 H HCO3 Arterial Blood 1.3 Base Excess Arterial Blood 93.9 L Oxygen Saturati on Nicolas Test ACCEPTAB Arterial Blood Right Radial Gas Puncture Site Arterial 0.6 Blood Carboxyhe moglobin Arterial Blood 0.3 Methemoglobin Blood Gas A-a 597.8 H O2 Differential Oxyhemoglobin 93.1 Percent Blood Gas 37.0 Temperature Blood Gas 18.0 Respiration Rate Blood Gas 18 Actual Respiration Rat e Blood Gas VENT - AC Modality FiO2 100.0 Blood Gas Tidal 550.0 Volume Blood Gas Low 5.0 PEEP Setting Blood Gas TM Notified Whom Blood Gas 10/26/2018 7:51: Notified Time 47 AM Test 10/26/18 10:08 Bedside Glucose 107 Medications Current Medications Ticagrelor (Brilinta) 90 mg BID PO Last administered on 10/26/18at 08:31; Admin Dose 90 MG; Start 10/24/18 at 09:00 Atorvastatin Calcium (Lipitor) 40 mg DAILY@21 PO Last administered on 10/25/18at 20:45; Admin Dose 40 MG; Start 10/24/18 at 21:00 Aspirin (Aspirin) 81 mg DAILY PO Last administered on 10/26/18at 08:26; Admin Dose 81 MG; Start 10/24/18 at 09:00 Amiodarone HCl 900 mg/Dextrose 500 ml @ 0 mls/hr Q0M IV ; Start 10/24/18 at 00:08 Ondansetron HCl (Zofran Inj) 4 mg Q6H PRN IV NAUSEA AND/OR VOMITING; Start 10/24/18 at 00:30 Albuterol (Ventolin Hfa) 4 puff Q2H RESP THERAPY PRN INH SHORTNESS OF BREATH; Start 10/24/18 at 00:30 Ipratropium [place] (Atrovent Hfa) 4 puff Q2H RESP THERAPY PRN INH SHORTNESS OF BREATH; Start 10/24/18 at 00:30 Acetaminophen (Tylenol Liquid) 650 mg Q6H PRN PO PAIN LEVEL 1-3 OR FEVER; Start 10/24/18 at 00:30 Miscellaneous Information (* Miscellaneous Pharmacy Order) Treatment of Hypoglycemia: 1.BG 51... Per protocol XX ; Start 10/24/18 at 00:30 Propofol 100 ml @ 3.6 mls/hr PER PROTOCOL IV Last administered on 10/24/18 20:56; Admin Dose 18 MLS/HR; Start 10/24/18 at 00:30 Diagnostic Test (Pha) (Accu-Chek) 1 ea Q1H XX Last administered on 10/26/18 10:05; Admin Dose 1 EA; Start 10/24/18 at 00:30 Insulin Human Regular 100 unit/ Sodium Chloride 100 ml @ 0 mls/hr PER PROTOCOL IV Last administered on 10/24/18 20:14; Admin Dose 7 MLS/HR; Start 10/24/18 at 00:30 Miscellaneous Information (* Miscellaneous Pharmacy Order) Treatment of Hypoglycemia: 1.BG 51... Per protocol XX ; Start 10/24/18 at 00:30 Dextrose (D50w Syringe) 25 ml Q15M PRN IV .DECREASED GLUCOSE; Start 10/24/18 at 00:30 Dextrose (D50w Syringe) 50 ml Q15M PRN IV .DECREASED GLUCOSE; Start 10/24/18 at 00:30 Eye Lubricant (Akwa Oint) 1 applic Q6 BOTH EYES Last administered on 10/26/18 06:07; Admin Dose 1 APPLIC; Start 10/24/18 at 02:00 Eye Lubricant (Artificial Tears Oph) 2 drop Q6H PRN BOTH EYES DRY EYES Last administered on 10/25/18 23:59; Admin Dose 2 DROP; Start 10/24/18 at 02:00 Acetaminophen (Tylenol Liquid) 650 mg Q8 NGT Last administered on 10/26/18 06:07; Admin Dose 650 MG; Start 10/24/18 at 02:00 Norepinephrine 32 mg/Dextrose 250 ml @ 0.47 mls/hr TITRATE IV Last administered on 10/25/18 02:24; Admin Dose 14.06 MLS/HR; Start 10/24/18 at 02:30 Vasopressin 60 unit/Dextrose 60 ml @ 0 mls/hr Q12H IV Last administered on 10/24/18 16:06; Admin Dose 2.4 MLS/HR; Start 10/24/18 at 02:30 Meperidine HCl (Demerol) 12.5 mg Q2 PRN IV SHIVERING; Start 10/24/18 at 03:30 Dopamine HCl/ Dextrose 250 ml @ 9 mls/hr TITRATE IV Last administered on 10/26/18at 02:35; Admin Dose 13.5 MLS/HR; Start 10/24/18 at 04:30 Potassium Chloride 50 ml @ 50 mls/hr K PROTOCOL PRN IVPB PENDING LAB VALUE Last administered on 10/24/18at 20:36; Admin Dose 50 MLS/HR; Start 10/24/18 at 07:00 Influenza Virus Vaccine Quadrival (Fluzone) 0.5 ml ONCE ONCE IM* ; Start 10/28/18 at 10:00; Stop 10/28/18 at 10:01 Fentanyl 100 ml @ 2.5 mls/hr TITRATE IV Last administered on 10/25/18at 18:02; Admin Dose 10 MLS/HR; Start 10/24/18 at 10:00 Midazolam HCl 50 ml @ 1 mls/hr TITRATE IV Last administered on 10/25/18at 20:48; Admin Dose 10 MLS/HR; Start 10/24/18 at 10:00 Levetiracetam 100 ml @ 400 mls/hr Q12 IVPB Last administered on 10/26/18at 08:27; Admin Dose 400 MLS/HR; Start 10/24/18 at 14:00 Lorazepam (Ativan) 1 mg Q2H PRN IV seizures; Start 10/24/18 at 14:00 Phenylephrine HCl 40 mg/Dextrose 250 ml @ 37.5 mls/hr TITRATE IV Last administered on 10/25/18at 00:06; Admin Dose 3.75 MLS/HR; Start 10/24/18 at 23:30 Piperacillin Sod/ Tazobactam Sod 50 ml @ 100 mls/hr Q8 IVPB Last administered on 10/26/18at 06:07; Admin Dose 100 MLS/HR; Start 10/25/18 at 09:30 Famotidine (Pepcid Iv) 20 mg DAILY IV Last administered on 10/26/18 08:26; Admin Dose 20 MG; Start 10/26/18 at 09:00 Sodium Chloride 1,000 ml @ 75 mls/hr [id number] IV Last administered on 10/26/18at 09:56; Admin Dose 75 MLS/HR; Start 10/26/18 at 08:30 Assessment/Plan Hospital Course (Demo Recall) IMPRESSION AND PLAN: 1. Cardiopulmonary arrest. CPR performed by family multiple further cardiac arrest in ED. Clinical exam not concerning for possible brain 2. Possible aspiration pneumonia. 3. Cardiogenic and septic shock. 4. Acute renal injury, probable acute tubular necrosis. Recommendations 1. Continued vasopressors. 2. Broad-spectrum antibiotics. 3. Renal recommendations 4. Continue post-stent Brilinta and aspirin. 5. Currently off sedation monitor 6. Patient unstable for apnea testing consider bedside cold calorics and repeat EEG. Patient not stable for transfer to radiology for cerebral perfusion study. Long discussion with patient's at bedside. Explained clinical findings concerning for possible brain at least significant anoxic brain injury. Overall prognosis is extremely poor. Critical care time 40 minutes. BRANDON HOLGUIN MD, [facility] Oct 26, 2018 10:22
[2018-10-26] MEDS ORDERED: FUROSEMIDE 40 MG INJ IV ONE (11:00)
--- NOTE | 2018-10-26 12:11 | EN ---
Date/Time of Note Date/Time of Note DATE: 10/26/18 TIME: 12:00 Event Note Medicine Medicine Event Note Progress notes Date of evaluation: October 25, 2018 Time of evaluation: 8:30 AM Subjective: Rewarming in process, spoke extensively with nursing staff, as well as the patient's . Also spoke with nephrology. Objective: Vital signs: Core temperature 92.8/pulse 68 blood pressure 130/65/respirations 18 Patient remains ventilated with FiO2 50%, saturations 94% GENERAL: Intubated and comfortably sedated, heavyset HEENT: [place], Intubated, Vent settings noted LUNGS: diffusely diminished and coarse BS HEART: S1, S2. No murmur, gallops or rubs. ABDOMEN: Soft, obese Normoactive bowel sounds. GENITOURINARY: Normal male external genitalia, Gardner to bedside drainage, EXTREMITIES: Mild 1+ nonpitting edema bilaterally, also some hand edema bilaterally NEUROLOGIC: The patient is currently sedated. SKIN: Otherwise, unremarkable. Imaging Chest x-ray October 24, 2018 reviewed: Evidence of intra-aortic balloon pump cardiomegaly with mild pulmonary vascular congestion noted CT scan of the brain October 23, 2018: No mass-effect or acute intracranial bleed. Mild intracranial vascular calcification. Assessment and plan: 1. V-fib cardiac arrest: s/p ROSC. Secondary to STEMI -Patient is status post successful PTCA thrombectomy stenting of the distal left circumflex artery from 100% occlusion to no significant residual stenosis using a 2.75 x 24 mm Synergy drug-eluting stent and Placement of intra-aortic balloon pump which has been removed. post hypothermia protocol -Currently on Brilinta, aspirin, statin -Management per cardiology -Complete rewarming 2. Hypoxic and hypercapnic respiratory failure, secondary to above: Status post intubation -Continue vent support -Pulmonary managing, appreciate input 3. STEMI: See #1 4. Hyperglycemia: A1c 5.3 -Insulin drip 5. Hypokalemia: Replete 6. Seizure -Currently on Versed -Status post Ativan, Valium and Keppra -Neurology consult -Head CT without acute findings. Will order MRI of the brain when more stable 7. SIRS with bandemia and systemic Shock (Cardiogenic) -pancultures -patient high risk for aspiration PNA, abx ? -continue pressor support / balloon pump 8. Constipation noted on CT -no management for now 9. Hypertriglyceridemia -continue statin 10. Multivessel coronary artery disease with 90% right coronary artery stenosis 11. Vfib -on antiarrythmic 12. Severe metabolic acidosis with acute renal failure rule out underlying kidney disease -Nephro consult, appreciate input -f/u USS, continue gardner 13. Severe lactic acidosis likely secondary to hypoperfusion -improving 14. Acute transaminitis/shock liver -trend 15.Post cardiac arrest seizures -Neuro consult, EEG off hypothermia?, Keppra Disposition: -Complete rewarming, continue serial labs, continue antiepileptics -close monitoring, serial labs, micromanagement -CC care tiome >40mins Prognosis : poor / guarded, will update family MICHOACANO JUAREZ Oct 26, 2018 12:11
--- NOTE | 2018-10-26 12:36 | PN ---
Date/Time of Note Date/Time of Note DATE: 10/26/18 TIME: 12:11 Assessment/Plan VTE Prophylaxis Risk score (from Ns)>0 risk: 9 SCD applied (from Ns): Yes Pharmacological prophylaxis: heparin Lines/Catheters IV Catheter Type (from Nrsg): Peripheral IV Urinary Cath still in place: Yes Reason Cath still needed: other (indicate) Assessment/Plan Hospital Course S: Has completed rewarming from hypothermia protocol, remains on pressor support however and is being weaned off sedation. Also remains on insulin drip, amiodarone GTT has also been discontinued. Was reviewed alongside pulmonary, we spoke extensively with the patient's at bedside. Patient is not showing any kind of neurologic response yet. Patient however has had no further seizures, and is continued on Keppra for seizure prophylaxis. Objective : GENERAL: Intubated and comfortably sedated / paralyzed HEENT: Intubated, Vent settings noted, pupils are barely reactive, but not dilated, patient does not have gag reflex but LUNGS: diffusely diminished and coarse BS HEART: S1, S2. ?m ABDOMEN: Soft, obese Normoactive bowel sounds. GENITOURINARY: Normal male external genitalia, East to bedside drainage EXTREMITIES: Mild 1+ nonpitting edema bilaterally, also some hand edema bi laterally NEUROLOGIC: The patient is currently sedated. SKIN: Otherwise, unremarkable. assessment and plan: 1. V-fib cardiac arrest: s/p ROSC. Secondary to STEMI -Patient is status post successful PTCA thrombectomy stenting of the distal left circumflex artery from 100% occlusion to no significant residual stenosis using a 2.75 x 24 mm Synergy drug-eluting stent. s/p intra-aortic balloon pump, s/p hypothermia protocol -Currently on Brilinta, aspirin, statin -Management per cardiology -Echocardiogram showed preserved ejection fraction at 65% with stage I diastolic dysfunction without significant valvular abnormalities -Sinus off amiodarone gtt 2. Hypoxic and hypercapnic respiratory failure, secondary to above: Status post intubation -Continue vent support -Pulmonary managing, appreciate input 3. STEMI: See #1 4. Hyperglycemia: A1c 5.3 -Insulin drip for hyperglycemia on arrival, this is likely also exacerbated by the drips, -DC insulin drip for now, continue Accu-Cheks, if no need for supplemental insulin, DC Accu-Cheks. -Patient is not a known diabetic. 5. Post cardiac arrest Seizures -Head CT without acute findings. -No further seizures, on Keppra for prophylaxis< EEG showed slowing of the background indicates diffuse cortical dysfunction of nonspecific etiology. -Will order MRI of the brain when more stable 6. Acute renal failure with Severe metabolic acidosis -s/p bicarb drip, no hx of renal failure per -creatinine trending up however -Mild bilateral hydronephrosis and possible medical renal disease on ultras ound. Also probable debris noted in the bladder on ultrasound -Urine culture negative x 2 days 7. SIRS with bandemia and systemic Shock (Cardiogenic) -pancultures -patient high risk for aspiration PNA, abx ? -continue pressor support, wean as tolerated 8. Constipation noted on CT -no management for now 9. Hypertriglyceridemia -continue statin 10. Multivessel coronary artery disease with 90% right coronary artery stenosis -s/p successful PCI 12. Severe lactic acidosis likely secondary to hypoperfusion -trend levels to normal 13. Acute transaminitis/shock liver -hepatitis serology, trend levels Dispo: -Renal function is worsening, with reduced urinary output and evidence of pulmonary congestion on chest x-ray -Continue serial monitoring, IV fluids. Await kidney recovery -Patient not showing any significant neurologic response at this time, ho wever it may still be early in the course of his disease, patient also on antiepileptics. Continue close monitoring, continue ventilator support, prognosis looking grim at this time -Continue to wean pressors as tolerated, continue empiric Zosyn for possible aspiration -Continue Brilinta, statin and aspirin for coronary artery disease -Patient remains on fentanyl as well as midazolam for sedation as well. -Continue ICU close monitoring on micromanagement. -We will also continue serial x-rays and serial labs and supportive care as indicated. This plan has been communicated in detail to the patient's , questions have been answered, Care time greater than 1 hour Result Diagram: 10/26/18 0423 10/26/18 0434 Results 24hrs Laboratory Tests Test 10/25/18 12:19 10/25/18 12:22 10/25/18 13:02 10/25/18 15:05 Bedside Glucose 120 118 126 White Blood 20.6 #H Count Red Blood Count 4.62 L Hemoglobin 13.8 L Hematocrit 38.6 L Mean Corpuscular 83.5 Volume Mean Corpuscular 29.9 Hemoglobin Mean Corpuscular 35.8 Hemoglobin Anyi nt Red Cell 13.3 Distribution Width Platelet Count 179 Mean Platelet 9.8 Volume Immature 0.700 H Granulocytes % Neutrophils % 87.7 H Lymphocytes % 6.5 L Monocytes % 4.8 Eosinophils % 0.2 Basophils % 0.1 Nucleated Red 0.0 Blood Cells % Immature 0.150 H Granulocytes # Neutrophils # 18.0 H Lymphocytes # 1.3 Monocytes # 1.0 H Eosinophils # 0.1 Basophils # 0.0 Nucleated Red 0.0 Blood Cells # Prothrombin Time 14.8 Prothrombin Time 1.2 Ratio INR 1.15 International Normalized Ratio Activated 31.5 Partial Thrombop last Time Sodium Level 140 Potassium Level 4.3 Chloride Level 105 Carbon Dioxide 24 Level Anion Gap 11 Blood Urea 39 H Nitrogen Creatinine 2.97 H Est Glomerular 21 L Filtrat Rate mL/min Glucose Level 117 Lactic Acid 3.1 *H Level Calcium Level 7.8 L Phosphorus Level 6.9 H Magnesium Level 2.0 Total Bilirubin 0.6 Direct Bilirubin 0.00 Indirect 0.6 Bilirubin Aspartate Amino 276 H Transf (AST/SGOT ) Alanine 220 H Aminotransferase (ALT/SGPT) Alkaline 68 Phosphatase Troponin I 47.900 *H Total Protein 5.4 L Albumin 2.8 L Globulin 2.60 Albumin/Globulin 1.07 Ratio Test 10/25/18 17:50 10/25/18 20:08 10/25/18 21:49 10/25/18 23:56 White Blood 17.8 H Count Red Blood Count 4.37 L Hemoglobin 13.2 L Hematocrit 37.5 L Mean Corpuscular 85.8 Volume Mean Corpuscular 30.2 Hemoglobin Mean Corpuscular 35.2 Hemoglobin Anyi nt Red Cell 13.5 Distribution Width Platelet Count 174 Mean Platelet 9.8 Volume Immature 1.200 H Granulocytes % Neutrophils % 86.8 H Lymphocytes % 6.0 L Monocytes % 5.5 Eosinophils % 0.2 Basophils % 0.3 Nucleated Red 0.0 Blood Cells % Immature 0.210 H Granulocytes # Neutrophils # 15.5 H Lymphocytes # 1.1 Monocytes # 1.0 H Eosinophils # 0.0 Basophils # 0.1 Nucleated Red 0.0 Blood Cells # Prothrombin Time 15.2 H Prothrombin Time 1.2 Ratio INR 1.19 International Normalized Ratio Activated 30.3 Partial Thrombop last Time Sodium Level 140 Potassium Level 5.0 Chloride Level 103 Carbon Dioxide 25 Level Anion Gap 12 Blood Urea 41 H Nitrogen Creatinine 3.22 H Est Glomerular 19 L Filtrat Rate mL/min Glucose Level 110 Bedside Glucose 122 126 119 120 Lactic Acid 3.1 *H Level Calcium Level 7.6 L Phosphorus Level 7.1 H Magnesium Level 2.1 Total Bilirubin 0.5 Direct Bilirubin 0.00 Indirect 0.5 Bilirubin Aspartate Amino 251 H Transf (AST/SGOT ) Alanine 209 H Aminotransferase (ALT/SGPT) Alkaline 70 Phosphatase Troponin I 43.600 *H Total Protein 4.9 L Albumin 2.6 L Globulin 2.30 Albumin/Globulin 1.13 Ratio Test 10/26/18 00:29 10/26/18 01:32 10/26/18 02:01 10/26/18 04:05 Magnesium Level 2.0 Blood Gas Blood arterial Specimen Source Arterial Blood 10/26/2018 1:55: Date Drawn 33 AM Arterial Blood 7.391 pH (Temp corrected) Arterial Blood 45.5 H pCO2 (Temp correct) Arterial Blood 61.1 L pO2 (Temp corrected) Arterial Blood 27.0 H HCO3 Arterial Blood 1.6 Base Excess Arterial Blood 90.6 L Oxygen Saturatio n Nicolas Test ACCEPTAB Arterial Blood Right Brachial Gas Puncture Site Arterial 0.3 Blood Carboxyhem oglobin Arterial Blood 0.3 Methemoglobin Blood Gas A-a O2 606.4 H Differential Oxyhemoglobin 90.1 L Percent Blood Gas 37.0 Temperature Blood Gas 18.0 Respiration Rate Blood Gas Actual 18 Respiration Rate Blood Gas VENT - AC Modality FiO2 100.0 Blood Gas Tidal 550.0 Volume Blood Gas Low 5.0 PEEP Setting Blood Gas 23.0 Inspiratory Pressure Blood Gas [employer] Notified Whom Blood Gas 10/26/2018 2:05: Notified Time 52 AM Bedside Glucose 120 114 Test 10/26/18 04:23 10/26/18 04:30 10/26/18 04:34 10/26/18 06:10 White Blood 19.2 H Count Red Blood Count 3.89 L Hemoglobin 11.8 L Hematocrit 34.9 L Mean Corpuscular 89.7 Volume Mean Corpuscular 30.3 Hemoglobin Mean Corpuscular 33.8 Hemoglobin Anyi nt Red Cell 14.1 Distribution Width Platelet Count 168 Mean Platelet 10.5 H Volume Immature 1.400 H Granulocytes % Neutrophils % 83.6 H Segmented 74 Neutrophils % (Manual) Band Neutrophils 14 H % (Manual) Lymphocytes % 7.4 L Lymphocytes % 7 L (Manual) Reactive 2 H Lymphocytes % (Manual) Monocytes % 7.1 Monocytes % 2 (Manual) Eosinophils % 0.2 Basophils % 0.3 Basophils % 1 (Manual) Nucleated Red 0.0 Blood Cells % Immature 0.260 H Granulocytes # Neutrophils # 16.1 H Neutrophils # 14.7 H (Manual) Band Neutrophils 2.6 H # Lymphocytes 1.3 (Manual) Lymphocytes # 1.4 Reactive 0.3 H Lymphocytes # Monocytes # 1.4 H Monocytes # 0.3 (Manual) Eosinophils # 0.0 Basophils # 0.1 Basophils # 0.1 H (Manual) Nucleated Red 0.0 Blood Cells # Platelet NORMAL Estimate Giant Platelets 1 H Anisocytosis 2+ Microcytosis 2+ Ovalocytes 1+ Urine Color YELLOW Urine Clarity CLOUDY A Urine pH 5.0 Urine Specific 1.017 [place] Urine Ketones NEGATIVE Urine Nitrite NEGATIVE Urine Bilirubin NEGATIVE Urine NEGATIVE Urobilinogen Urine Leukocyte 2+ H Esterase Urine 104 H Microscopic RBC Urine 31 H Microscopic WBC Urine Bacteria FEW A Urine Hemoglobin 3+ H Urine Random 63.77 Creatinine Urine Random < 13 L Sodium Urine Glucose NEGATIVE Urine Total 66.0 H Protein Sodium Level 142 Potassium Level 4.9 Chloride Level 99 Carbon Dioxide 29 Level Anion Gap 14 H Blood Urea 47 H Nitrogen Creatinine 3.76 H Est Glomerular 16 L Filtrat Rate mL/min Glucose Level 100 Calcium Level 7.0 L Magnesium Level 2.1 Bedside Glucose 122 Test 10/26/18 07:00 10/26/18 08:25 10/26/18 10:08 Blood Gas Blood arterial Specimen Source Arterial Blood 10/26/2018 7:19: Date Drawn 51 AM Arterial Blood 7.398 pH (Temp corrected) Arterial Blood 44.0 pCO2 (Temp correct) Arterial Blood 71.2 L pO2 (Temp corrected) Arterial Blood 26.5 H HCO3 Arterial Blood 1.3 Base Excess Arterial Blood 93.9 L Oxygen Saturatio n Nicolas Test ACCEPTAB Arterial Blood Right Radial Gas Puncture Site Arterial 0.6 Blood Carboxyhem oglobin Arterial Blood 0.3 Methemoglobin Blood Gas A-a O2 597.8 H Differential Oxyhemoglobin 93.1 Percent Blood Gas 37.0 Temperature Blood Gas 18.0 Respiration Rate Blood Gas Actual 18 Respiration Rate Blood Gas VENT - AC Modality FiO2 100.0 Blood Gas Tidal 550.0 Volume Blood Gas Low 5.0 PEEP Setting Blood Gas TM Notified Whom Blood Gas 10/26/2018 7:51: Notified Time 47 AM Bedside Glucose 132 107 Exam/Review of Systems Exam Vitals Vital Signs Date Temp Pulse Resp B/P (MAP) Pulse Ox O2 O2 Flow FiO2 Time Delivery Rate 10/26/18 91 18 94 100 11:00 10/26/18 116/66 07:15 (83) 10/26/18 98.1 04:00 10/26/18 Mechanical 01:00 Ventilator Intake and Output 10/25/18 10/25/18 10/26/18 1515:00 23:00 07:00 IntakeIntake Total 1239.94 ml 1259.00 ml 1005.51 ml OutputOutput Total 63 ml 112 ml 125 ml BalanceBalance 1176.94 ml 1147.00 ml 880.51 ml Results Results 24hrs Laboratory Tests Test 10/25/18 12:19 10/25/18 12:22 10/25/18 13:02 10/25/18 15:05 Bedside Glucose 120 118 126 White Blood 20.6 #H Count Red Blood Count 4.62 L Hemoglobin 13.8 L Hematocrit 38.6 L Mean Corpuscular 83.5 Volume Mean Corpuscular 29.9 Hemoglobin Mean Corpuscular 35.8 Hemoglobin Anyi nt Red Cell 13.3 Distribution Width Platelet Count 179 Mean Platelet 9.8 Volume Immature 0.700 H Granulocytes % Neutrophils % 87.7 H Lymphocytes % 6.5 L Monocytes % 4.8 Eosinophils % 0.2 Basophils % 0.1 Nucleated Red 0.0 Blood Cells % Immature 0.150 H Granulocytes # Neutrophils # 18.0 H Lymphocytes # 1.3 Monocytes # 1.0 H Eosinophils # 0.1 Basophils # 0.0 Nucleated Red 0.0 Blood Cells # Prothrombin Time 14.8 Prothrombin Time 1.2 Ratio INR 1.15 International Normalized Ratio Activated 31.5 Partial Thrombop last Time Sodium Level 140 Potassium Level 4.3 Chloride Level 105 Carbon Dioxide 24 Level Anion Gap 11 Blood Urea 39 H Nitrogen Creatinine 2.97 H Est Glomerular 21 L Filtrat Rate mL/min Glucose Level 117 Lactic Acid 3.1 *H Level Calcium Level 7.8 L Phosphorus Level 6.9 H Magnesium Level 2.0 Total Bilirubin 0.6 Direct Bilirubin 0.00 Indirect 0.6 Bilirubin Aspartate Amino 276 H Transf (AST/SGOT ) Alanine 220 H Aminotransferase (ALT/SGPT) Alkaline 68 Phosphatase Troponin I 47.900 *H Total Protein 5.4 L Albumin 2.8 L Globulin 2.60 Albumin/Globulin 1.07 Ratio Test 10/25/18 17:50 10/25/18 20:08 10/25/18 21:49 10/25/18 23:56 White Blood 17.8 H Count Red Blood Count 4.37 L Hemoglobin 13.2 L Hematocrit 37.5 L Mean Corpuscular 85.8 Volume Mean Corpuscular 30.2 Hemoglobin Mean Corpuscular 35.2 Hemoglobin Anyi nt Red Cell 13.5 Distribution Width Platelet Count 174 Mean Platelet 9.8 Volume Immature 1.200 H Granulocytes % Neutrophils % 86.8 H Lymphocytes % 6.0 L Monocytes % 5.5 Eosinophils % 0.2 Basophils % 0.3 Nucleated Red 0.0 Blood Cells % Immature 0.210 H Granulocytes # Neutrophils # 15.5 H Lymphocytes # 1.1 Monocytes # 1.0 H Eosinophils # 0.0 Basophils # 0.1 Nucleated Red 0.0 Blood Cells # Prothrombin Time 15.2 H Prothrombin Time 1.2 Ratio INR 1.19 International Normalized Ratio Activated 30.3 Partial Thrombop last Time Sodium Level 140 Potassium Level 5.0 Chloride Level 103 Carbon Dioxide 25 Level Anion Gap 12 Blood Urea 41 H Nitrogen Creatinine 3.22 H Est Glomerular 19 L Filtrat Rate mL/min Glucose Level 110 Bedside Glucose 122 126 119 120 Lactic Acid 3.1 *H Level Calcium Level 7.6 L Phosphorus Level 7.1 H Magnesium Level 2.1 Total Bilirubin 0.5 Direct Bilirubin 0.00 Indirect 0.5 Bilirubin Aspartate Amino 251 H Transf (AST/SGOT ) Alanine 209 H Aminotransferase (ALT/SGPT) Alkaline 70 Phosphatase Troponin I 43.600 *H Total Protein 4.9 L Albumin 2.6 L Globulin 2.30 Albumin/Globulin 1.13 Ratio Test 10/26/18 00:29 10/26/18 01:32 10/26/18 02:01 10/26/18 04:05 Magnesium Level 2.0 Blood Gas Blood arterial Specimen Source Arterial Blood 10/26/2018 1:55: Date Drawn 33 AM Arterial Blood 7.391 pH (Temp corrected) Arterial Blood 45.5 H pCO2 (Temp correct) Arterial Blood 61.1 L pO2 (Temp corrected) Arterial Blood 27.0 H HCO3 Arterial Blood 1.6 Base Excess Arterial Blood 90.6 L Oxygen Saturatio n Nicolas Test ACCEPTAB Arterial Blood Right Brachial Gas Puncture Site Arterial 0.3 Blood Carboxyhem oglobin Arterial Blood 0.3 Methemoglobin Blood Gas A-a O2 606.4 H Differential Oxyhemoglobin 90.1 L Percent Blood Gas 37.0 Temperature Blood Gas 18.0 Respiration Rate Blood Gas Actual 18 Respiration Rate Blood Gas VENT - AC Modality FiO2 100.0 Blood Gas Tidal 550.0 Volume Blood Gas Low 5.0 PEEP Setting Blood Gas 23.0 Inspiratory Pressure Blood Gas [employer] Notified Whom Blood Gas 10/26/2018 2:05: Notified Time 52 AM Bedside Glucose 120 114 Test 10/26/18 04:23 10/26/18 04:30 10/26/18 04:34 10/26/18 06:10 White Blood 19.2 H Count Red Blood Count 3.89 L Hemoglobin 11.8 L Hematocrit 34.9 L Mean Corpuscular 89.7 Volume Mean Corpuscular 30.3 Hemoglobin Mean Corpuscular 33.8 Hemoglobin Anyi nt Red Cell 14.1 Distribution Width Platelet Count 168 Mean Platelet 10.5 H Volume Immature 1.400 H Granulocytes % Neutrophils % 83.6 H Segmented 74 Neutrophils % (Manual) Band Neutrophils 14 H % (Manual) Lymphocytes % 7.4 L Lymphocytes % 7 L (Manual) Reactive 2 H Lymphocytes % (Manual) Monocytes % 7.1 Monocytes % 2 (Manual) Eosinophils % 0.2 Basophils % 0.3 Basophils % 1 (Manual) Nucleated Red 0.0 Blood Cells % Immature 0.260 H Granulocytes # Neutrophils # 16.1 H Neutrophils # 14.7 H (Manual) Band Neutrophils 2.6 H # Lymphocytes 1.3 (Manual) Lymphocytes # 1.4 Reactive 0.3 H Lymphocytes # Monocytes # 1.4 H Monocytes # 0.3 (Manual) Eosinophils # 0.0 Basophils # 0.1 Basophils # 0.1 H (Manual) Nucleated Red 0.0 Blood Cells # Platelet NORMAL Estimate Giant Platelets 1 H Anisocytosis 2+ Microcytosis 2+ Ovalocytes 1+ Urine Color YELLOW Urine Clarity CLOUDY A Urine pH 5.0 Urine Specific 1.017 [place] Urine Ketones NEGATIVE Urine Nitrite NEGATIVE Urine Bilirubin NEGATIVE Urine NEGATIVE Urobilinogen Urine Leukocyte 2+ H Esterase Urine 104 H Microscopic RBC Urine 31 H Microscopic WBC Urine Bacteria FEW A Urine Hemoglobin 3+ H Urine Random 63.77 Creatinine Urine Random < 13 L Sodium Urine Glucose NEGATIVE Urine Total 66.0 H Protein Sodium Level 142 Potassium Level 4.9 Chloride Level 99 Carbon Dioxide 29 Level Anion Gap 14 H Blood Urea 47 H Nitrogen Creatinine 3.76 H Est Glomerular 16 L Filtrat Rate mL/min Glucose Level 100 Calcium Level 7.0 L Magnesium Level 2.1 Bedside Glucose 122 Test 10/26/18 07:00 10/26/18 08:25 10/26/18 10:08 Blood Gas Blood arterial Specimen Source Arterial Blood 10/26/2018 7:19: Date Drawn 51 AM Arterial Blood 7.398 pH (Temp corrected) Arterial Blood 44.0 pCO2 (Temp correct) Arterial Blood 71.2 L pO2 (Temp corrected) Arterial Blood 26.5 H HCO3 Arterial Blood 1.3 Base Excess Arterial Blood 93.9 L Oxygen Saturatio n Nicolas Test ACCEPTAB Arterial Blood Right Radial Gas Puncture Site Arterial 0.6 Blood Carboxyhem oglobin Arterial Blood 0.3 Methemoglobin Blood Gas A-a O2 597.8 H Differential Oxyhemoglobin 93.1 Percent Blood Gas 37.0 Temperature Blood Gas 18.0 Respiration Rate Blood Gas Actual 18 Respiration Rate Blood Gas VENT - AC Modality FiO2 100.0 Blood Gas Tidal 550.0 Volume Blood Gas Low 5.0 PEEP Setting Blood Gas TM Notified Whom Blood Gas 10/26/2018 7:51: Notified Time 47 AM Bedside Glucose 132 107 Medications Medication Current Medications Ticagrelor (Brilinta) 90 mg BID PO Last administered on 10/26/18at 08:31; Admin Dose 90 MG; Start 10/24/18 at 09:00 Atorvastatin Calcium (Lipitor) 40 mg DAILY@21 PO Last administered on 10/25/18at 20:45; Admin Dose 40 MG; Start 10/24/18 at 21:00 Aspirin (Aspirin) 81 mg DAILY PO Last administered on 10/26/18at 08:26; Admin Dose 81 MG; Start 10/24/18 at 09:00 Amiodarone HCl 900 mg/Dextrose 500 ml @ 0 mls/hr Q0M IV ; Start 10/24/18 at 00:08 Ondansetron HCl (Zofran Inj) 4 mg Q6H PRN IV NAUSEA AND/OR VOMITING; Start 10/24/18 at 00:30 Albuterol (Ventolin Hfa) 4 puff Q2H RESP THERAPY PRN INH SHORTNESS OF BREATH; Start 10/24/18 at 00:30 Ipratropium [place] (Atrovent Hfa) 4 puff Q2H RESP THERAPY PRN INH SHORTNESS OF BREATH; Start 10/24/18 at 00:30 Acetaminophen (Tylenol Liquid) 650 mg Q6H PRN PO PAIN LEVEL 1-3 OR FEVER; Start 10/24/18 at 00:30 Miscellaneous Information (* Miscellaneous Pharmacy Order) Treatment of Hypoglycemia: 1.BG 51... Per protocol XX ; Start 10/24/18 at 00:30 Propofol 100 ml @ 3.6 mls/hr PER PROTOCOL IV Last administered on 10/24/18 20:56; Admin Dose 18 MLS/HR; Start 10/24/18 at 00:30 Diagnostic Test (Pha) (Accu-Chek) 1 ea Q1H XX Last administered on 10/26/18 10:05; Admin Dose 1 EA; Start 10/24/18 at 00:30 Insulin Human Regular 100 unit/ Sodium Chloride 100 ml @ 0 mls/hr PER PROTOCOL IV Last administered on 10/24/18 20:14; Admin Dose 7 MLS/HR; Start 10/24/18 at 00:30 Miscellaneous Information (* Miscellaneous Pharmacy Order) Treatment of Hypoglycemia: 1.BG 51... Per protocol XX ; Start 10/24/18 at 00:30 Dextrose (D50w Syringe) 25 ml Q15M PRN IV .DECREASED GLUCOSE; Start 10/24/18 at 00:30 Dextrose (D50w Syringe) 50 ml Q15M PRN IV .DECREASED GLUCOSE; Start 10/24/18 at 00:30 Eye Lubricant ([place]wa Oint) 1 applic Q6 BOTH EYES Last administered on 10/26/18 06:07; Admin Dose 1 APPLIC; Start 10/24/18 at 02:00 Eye Lubricant (Artificial Tears Oph) 2 drop Q6H PRN BOTH EYES DRY EYES Last administered on 10/25/18 23:59; Admin Dose 2 DROP; Start 10/24/18 at 02:00 Acetaminophen (Tylenol Liquid) 650 mg Q8 NGT Last administered on 10/26/18 06:07; Admin Dose 650 MG; Start 10/24/18 at 02:00 Norepinephrine 32 mg/Dextrose 250 ml @ 0.47 mls/hr TITRATE IV Last administered on 10/25/18at 02:24; Admin Dose 14.06 MLS/HR; Start 10/24/18 at 02:30 Vasopressin 60 unit/Dextrose 60 ml @ 0 mls/hr Q12H IV Last administered on 10/24/18at 16:06; Admin Dose 2.4 MLS/HR; Start 10/24/18 at 02:30 Meperidine HCl (Demerol) 12.5 mg Q2 PRN IV SHIVERING; Start 10/24/18 at 03:30 Dopamine HCl/ Dextrose 250 ml @ 9 mls/hr TITRATE IV Last administered on 10/26/18at 02:35; Admin Dose 13.5 MLS/HR; Start 10/24/18 at 04:30 Potassium Chloride 50 ml @ 50 mls/hr K PROTOCOL PRN IVPB PENDING LAB VALUE Last administered on 10/24/18at 20:36; Admin Dose 50 MLS/HR; Start 10/24/18 at 07:00 Influenza Virus Vaccine Quadrival (Fluzone) 0.5 ml ONCE ONCE IM* ; Start 10/28/18 at 10:00; Stop 10/28/18 at 10:01 Fentanyl 100 ml @ 2.5 mls/hr TITRATE IV Last administered on 10/25/18at 18:02; Admin Dose 10 MLS/HR; Start 10/24/18 at 10:00 Midazolam HCl 50 ml @ 1 mls/hr TITRATE IV Last administered on 10/25/18at 20:48; Admin Dose 10 MLS/HR; Start 10/24/18 at 10:00 Levetiracetam 100 ml @ 400 mls/hr Q12 IVPB Last administered on 10/26/18at 08:27; Admin Dose 400 MLS/HR; Start 10/24/18 at 14:00 Lorazepam (Ativan) 1 mg Q2H PRN IV seizures; Start 10/24/18 at 14:00 Phenylephrine HCl 40 mg/Dextrose 250 ml @ 37.5 mls/hr TITRATE IV Last administered on 10/25/18at 00:06; Admin Dose 3.75 MLS/HR; Start 10/24/18 at 23:30 Piperacillin Sod/ Tazobactam Sod 50 ml @ 100 mls/hr Q8 IVPB Last administered on 10/26/18at 06:07; Admin Dose 100 MLS/HR; Start 10/25/18 at 09:30 Famotidine (Pepcid Iv) 20 mg DAILY IV Last administered on 10/26/18at 08:26; Admin Dose 20 MG; Start 10/26/18 at 09:00 Sodium Chloride 1,000 ml @ 75 mls/hr [id number] IV Last administered on 10/26/18at 09:56; Admin Dose 75 MLS/HR; Start 10/26/18 at 08:30 Calcium Gluconate 1 gm/Dextrose 110 ml @ 110 mls/hr ONCE ONCE IVPB ; Start 10/26/18 at 12:00; Stop 10/26/18 at 12:59; Status MICHOACANO FORMAN Oct 26, 2018 12:21
[2018-10-26] MEDS ORDERED: CALCIUM GLUCONATE 10% 1 GM in DEXTROSE 5% 100 ML IVPB ONE (13:00)
[2018-10-26] MEDS: INSULIN ASPART [NOVOLOG] 3 ML PEN SC SCH ×3 (13:00→17:00)
[2018-10-26] MEDS: NORepinephrine 32 MG in DEXTROSE 5% 218 ML IV SCH (16:00)
--- NOTE | 2018-10-26 16:09 | CONS ---
Assessment/Plan Assessment/Plan Hospital Course 68 yo M with multiple comorbidities who is admitted to the [facility] ICU for management following vfib arrest. STEMI noted, now s/p L circ thrombectomy and stent.. Now s/p targeted temperature Tx He was noted to have generalized convulsions (no prior Hx of seizures noted)... for which neurology is consulted. New seizures suggest some degree of acute cerebral injury... CTH brain is unrevealing. EEG is without epileptiform activity. 10/26: His neurologic examination is now concerning for brain . P: Repeat EEG to evaluate for electrocerebral inactivity OK to cont Keppra for now (max dose 500 mg bid) Ativan IV PRN seizure > 5 min or for cluster Other medical management per primary Will follow clinically Consultation Date/Type/Reason Admit Date/Time Oct 23, 2018 at 20:58 Type of Consult Neurology Reason for Consultation seizure Requesting Provider: LISSY SMITH MD Date/Time of Note DATE: 10/26/18 TIME: 16:03 24 HR Interval Summary Free Text/Dictation Continues critical care. Pt is off sedation and pressors. S/p TTM; rewarmed ~2100 on 10/25. Subjective hx not possible: pt non-verbal, pt critical Exam Vital Signs Vitals Vital Signs Date Temp Pulse Resp B/P (MAP) Pulse Ox O2 O2 Flow FiO2 Time Delivery Rate 10/26/18 98.4 15:45 10/26/18 86 18 100 100 12:50 10/26/18 125/69 Mechanical 12:00 (87) Ventilator Intake and Output 10/25/18 10/25/18 10/26/18 1515:00 23:00 07:00 IntakeIntake Total 1239.94 ml 1259.00 ml 1120.01 ml OutputOutput Total 63 ml 112 ml 175 ml BalanceBalance 1176.94 ml 1147.00 ml 945.01 ml Exam PE: Gen Appearance: No Apparent Distress HEENT: Intubated Cardiovascular: Regular rate Abdomen: Soft Extremities: Dry NE: The patient was comatose and nonverbal. Cranial nerve examination was limited by mental status. Pupils were equal and fixed. There was no afferent pupillary defect. Funduscopic examination was limited. Face was grossly symmetric, w/ out present corneal and cough reflexes. Tone was flaccid. Muscle bulk was normal. I did not see fasciculations. The patient did not withdraw to noxious stimulation. ИРИНА LANCASTER NP Oct 26, 2018 16:09 JACKY LEWIS Oct 26, 2018 22:02
--- NOTE | 2018-10-26 18:55 | RADRPT ---
Vent Rate: 86 bpm RR Interval: 0 msec MS Interval: 194 msec QRS Duration: 88 msec QT Interval: 436 msec QTC Interval: 521 msec P-R-T Brandon: 31 - -24 - 58 degrees Normal sinus rhythm Nonspecific ST and T wave abnormality Prolonged QT Abnormal ECG Electronically Signed By: Michael Wray
[2018-10-26] MEDS: ATORVASTATIN 40 MG TAB PO SCH (20:55)
[2018-10-26] MEDS: HEPARIN 5,000 UNIT/1 ML VIAL SC SCH (20:57)
--- NOTE | 2018-10-26 22:40 | EEG ---
EEG NOTE Report Details DATE OF TEST: 10/26/18 HISTORY: The patient is a 68-year-old M who presents in coma s/p cardiac arrest. This EEG is requested to evaluate for electrocerebral inactivity. SEDATION: None. CONDITIONS OF RECORDING: This EEG was recorded digitally on the [employer] machine, using the International 10-20 System of electrodes plus anterior temporals and [place]. STATES SAMPLED: Comatose. FINDINGS: The background is obscured by high frequency artifact anteriorly...though otherwise notable for low voltage activity. The normal [id number] frequency-amplitude gradient was absent. Photic stimulation does not elicit any definite driving responses or epileptiform discharges. Hyperventilation was not performed. No epileptiform discharges were seen. IMPRESSION: Limited electroencephalogram due to: high frequency artifact anteriorly. JACKY LEWIS Oct 26, 2018 22:40
[2018-10-27] VITALS (90 sets, daily range): BP systolic 110–149; BP diastolic 65–81; PULSE 64–85; RESP 13–27
[2018-10-27] MEDS: OCULAR LUBRICANT 3.5 GM OPH OINT BOTH EYES SCH ×5 (00:08→23:42)
[2018-10-27] MEDS: VASOPRESSIN 60 UNIT in DEXTROSE 5% 57 ML IV SCH (02:30)
[2018-10-27] MEDS: PIPER-TAZO 2.25 GM (PMX) 50 ML IVPB SCH ×3 (05:37→21:52)
--- NOTE | 2018-10-27 07:58 | CONS ---
Consult Date/Type/Reason Admit Date/Time Oct 23, 2018 at 20:58 Initial Consult Date 10/23/18 Type of Consultation: CV Requesting Provider: LISSY SMITH MD Date/Time of Note DATE: 10/27/18 TIME: 07:56 Subjective Interventional cardiology follow-up progress note/critical care note Subjective: Discussed multiple staff and physicians. Telemetry was reviewed. Pt remains in NSR Patient remained intubated and on the vent currently on multiple pressors in the ICU no bleeding Intra-aortic balloon pump has been removed on October 25, 2018 Objective: General: Obese gentleman status post intubation on the vent nonverbal HEENT: NC/AT. pupils are not reactive. no corneal reflex NECK: no stridor. CV: RRR. systolic murmur; no gallop or rubs. PULM: no wheezing +rhonchi. GI: SOFT, NT, ND, no rebound or guarding Extremity: trace B/L LE edema. no clubbing. neuro: No response to verbal stimuli Psych: calm rectal: deferred : normal male Right femoral no bleeding or hematoma bruit noted Left femoral arterial sheath removed and no hematoma EKG emergency room was personally showed normal sinus rhythm with ST elevation inferolaterally consistent with inferolateral ST elevation OH with reciprocal changes anteriorly Head CT done in the emergency room shows: No mass effect or acute intracranial bleed. Mild intracranial vascular calcifi cation.. Chest x-ray done in the ER shows: 1. Endotracheal tube in place. 2. Atelectasis at the right lung base. 3. Mild cardiomegaly. 4. Exam limited by low lung volumes and multiple overlying external appearing wires . Chest x-ray done October 25, 2018 shows:Cardiomegaly. No significant change in mild central pulmonary vascular congestion. Multiple ABG that was reviewed personally Echocardiogram done October 24, 2018 was personally reviewed which shows Normal left ventricular systolic function. Normal left ventricular cavity size. Moderate concentric left ventricular hypertrophy. Ejection fraction is visually estimated at 65 %. Tissue Doppler/Mitral Doppler indices are consistent with impaired relaxation (Stage I diastolic dysfunction). Normal appearance and function of the mitral valve with trace physiologic regurgitation. Normal appearance of the aortic valve. No significant aortic stenosis or insufficiency. Normal appearance of the tricuspid valve. Unable to obtain RVSP due to minimal presence of tricuspid regurgitation. Normal IVC with respiratory collapse, however patient on ventilator. Normal pericardium with no significant pericardial effusion. Objective Vitals Vital Signs Date Temp Pulse Resp B/P (MAP) Pulse Ox O2 O2 Flow FiO2 Time Delivery Rate 10/27/18 79 18 120/68 96 Mechanical 06:00 (85) Ventilator 10/27/18 80 05:55 10/27/18 97.9 04:00 Intake and Output 10/26/18 10/26/18 10/27/18 1515:00 23:00 07:00 IntakeIntake Total 759.5 ml 1039.0 ml 589.5 ml OutputOutput Total 515 ml 425 ml 360 ml BalanceBalance 244.5 ml 614.0 ml 229.5 ml Results/Medications Result Diagram: 10/27/18 0602 10/27/18 0500 Results 24 hrs Laboratory Tests Test 10/26/18 08:25 10/26/18 10:08 10/26/18 12:50 10/26/18 15:47 Bedside Glucose 132 107 115 111 Test 10/26/18 17:35 10/27/18 05:00 10/27/18 06:02 Bedside Glucose 110 Sodium Level 141 Potassium Level 4.9 Chloride Level 101 Carbon Dioxide Level 25 Anion Gap 15 H Blood Urea Nitrogen 65 H Creatinine 5.03 H Est Glomerular 12 L Filtrat Rate mL/min Glucose Level 87 Lactic Acid Level 1.9 Calcium Level 7.0 L Phosphorus Level 8.8 H Magnesium Level 2.1 Total Bilirubin 0.6 Direct Bilirubin 0.00 Indirect Bilirubin 0.6 Aspartate Amino 149 H Transf (AST/SGOT) Alanine 133 H Aminotransferase (AL T/SGPT) Alkaline Phosphatase 72 Creatine Kinase 400 H Creatine Kinase 7.6 Index Creatinine Kinase MB 30.40 H (Mass) Troponin I 31.400 *H Total Protein 5.7 L Albumin 2.8 L Globulin 2.90 Albumin/Globulin 0.96 Ratio White Blood Count 16.5 H Red Blood Count 3.51 L Hemoglobin 10.6 L Hematocrit 32.0 L Mean Corpuscular 91.2 Volume Mean Corpuscular 30.2 Hemoglobin Mean Corpuscular 33.1 Hemoglobin Concent Red Cell 14.2 Distribution Width Platelet Count 125 #L Mean Platelet Volume 9.9 Immature 0.700 H Granulocytes % Neutrophils % Segmented 58 Neutrophils % (Manual) Band Neutrophils % 24 H (Manual) Lymphocytes % Lymphocytes % 9 L (Manual) Reactive Lymphocytes 2 H % (Manual) Monocytes % Monocytes % (Manual) 5 Eosinophils % Eosinophils % 1 (Manual) Basophils % Basophils % (Manual) 1 Nucleated Red Blood 0.0 Cells % Immature 0.110 H Granulocytes # Neutrophils # Neutrophils # 10.2 H (Manual) Band Neutrophils # 3.9 H Lymphocytes (Manual) 1.4 Lymphocytes # Reactive Lymphocytes 0.3 H # Monocytes # Monocytes # (Manual) 0.8 Eosinophils # Basophils # Basophils # (Manual) 0.1 H Nucleated Red Blood Cells # Platelet Estimate DECREASED Polychromasia 3+ Anisocytosis 2+ Microcytosis 2+ Home Meds Reported Medications Amlodipine Besylate* (Amlodipine Besylate*) 10 Mg Tablet, 10 MG PO DAILY, #30 TAB 10/23/18 Cyanocobalamin (Vitamin B-12) (Vitamin B-12) Unknown Strength Capsule, 1 CAP PO DAILY, CAP 10/23/18 Garlic (Garlic) 1 Each Tablet, 1 EACH PO DAILY, TAB 10/23/18 Multivitamins* (Theragran*) 1 Tab Tab, 1 TAB PO DAILY, TAB 10/23/18 Acyclovir* (Acyclovir*) 800 Mg Tablet, 800 MG PO DAILY, TAB 10/23/18 Aspirin* (Aspirin* EC) 81 Mg Tablet.dr, 81 MG PO DAILY, TAB 10/23/18 Medications Current Medications Ticagrelor (Brilinta) 90 mg BID PO Last administered on 10/26/18at 20:58; Admin Dose 90 MG; Start 10/24/18 at 09:00 Atorvastatin Calcium (Lipitor) 40 mg DAILY@21 PO Last administered on 10/26/18at 20:55; Admin Dose 40 MG; Start 10/24/18 at 21:00 Aspirin (Aspirin) 81 mg DAILY PO Last administered on 10/26/18at 08:26; Admin Dose 81 MG; Start 10/24/18 at 09:00 Amiodarone HCl 900 mg/Dextrose 500 ml @ 0 mls/hr Q0M IV ; Start 10/24/18 at 00:08 Ondansetron HCl (Zofran Inj) 4 mg Q6H PRN IV NAUSEA AND/OR VOMITING; Start 10/24/18 at 00:30 Albuterol (Ventolin Hfa) 4 puff Q2H RESP THERAPY PRN INH SHORTNESS OF BREATH; Start 10/24/18 at 00:30 Ipratropium [place] (Atrovent Hfa) 4 puff Q2H RESP THERAPY PRN INH SHORTNESS OF BREATH; Start 10/24/18 at 00:30 Acetaminophen (Tylenol Liquid) 650 mg Q6H PRN PO PAIN LEVEL 1-3 OR FEVER; Start 10/24/18 at 00:30 Miscellaneous Information (* Miscellaneous Pharmacy Order) Treatment of Hypoglycemia: 1.BG 51... Per protocol XX ; Start 10/24/18 at 00:30 Propofol 100 ml @ 3.6 mls/hr PER PROTOCOL IV Last administered on 10/24/18at 20:56; Admin Dose 18 MLS/HR; Start 10/24/18 at 00:30 Insulin Human Regular 100 unit/ Sodium Chloride 100 ml @ 0 mls/hr PER PROTOCOL IV Last administered on 10/24/18 20:14; Admin Dose 7 MLS/HR; Start 10/24/18 at 00:30 Miscellaneous Information (* Miscellaneous Pharmacy Order) Treatment of Hypoglycemia: 1.BG 51... Per protocol XX ; Start 10/24/18 at 00:30 Dextrose (D50w Syringe) 25 ml Q15M PRN IV .DECREASED GLUCOSE; Start 10/24/18 at 00:30 Dextrose (D50w Syringe) 50 ml Q15M PRN IV .DECREASED GLUCOSE; Start 10/24/18 at 00:30 Eye Lubricant (Akwa Oint) 1 applic Q6 BOTH EYES Last administered on 10/27/18 05:37; Admin Dose 1 APPLIC; Start 10/24/18 at 02:00 Eye Lubricant (Artificial Tears Oph) 2 drop Q6H PRN BOTH EYES DRY EYES Last administered on 10/25/18at 23:59; Admin Dose 2 DROP; Start 10/24/18 at 02:00 Norepinephrine 32 mg/Dextrose 250 ml @ 0.47 mls/hr TITRATE IV Last administered on 10/26/18 16:00; Admin Dose 1.88 MLS/HR; Start 10/24/18 at 02:30 Vasopressin 60 unit/Dextrose 60 ml @ 0 mls/hr Q12H IV Last administered on 10/24/18 16:06; Admin Dose 2.4 MLS/HR; Start 10/24/18 at 02:30 Meperidine HCl (Demerol) 12.5 mg Q2 PRN IV SHIVERING; Start 10/24/18 at 03:30 Dopamine HCl/ Dextrose 250 ml @ 9 mls/hr TITRATE IV Last administered on 10/26/18 20:57; Admin Dose 13.5 MLS/HR; Start 10/24/18 at 04:30 Potassium Chloride 50 ml @ 50 mls/hr K PROTOCOL PRN IVPB PENDING LAB VALUE Last administered on 10/24/18 20:36; Admin Dose 50 MLS/HR; Start 10/24/18 at 07:00 Influenza Virus Vaccine Quadrival (Fluzone) 0.5 ml ONCE ONCE IM* ; Start 10/28/18 at 10:00; Stop 10/28/18 at 10:01 Fentanyl 100 ml @ 2.5 mls/hr TITRATE IV Last administered on 10/25/18 18:02; Admin Dose 10 MLS/HR; Start 10/24/18 at 10:00 Midazolam HCl 50 ml @ 1 mls/hr TITRATE IV Last administered on 10/25/18 20:48; Admin Dose 10 MLS/HR; Start 10/24/18 at 10:00 Levetiracetam 100 ml @ 400 mls/hr Q12 IVPB Last administered on 10/26/18 20:56; Admin Dose 400 MLS/HR; Start 10/24/18 at 14:00 Lorazepam (Ativan) 1 mg Q2H PRN IV seizures; Start 10/24/18 at 14:00 Phenylephrine HCl 40 mg/Dextrose 250 ml @ 37.5 mls/hr TITRATE IV Last administered on 10/25/18 00:06; Admin Dose 3.75 MLS/HR; Start 10/24/18 at 23:30 Piperacillin Sod/ Tazobactam Sod 50 ml @ 100 mls/hr Q8 IVPB Last administered on 10/27/18 05:37; Admin Dose 100 MLS/HR; Start 10/25/18 at 09:30 Famotidine (Pepcid Iv) 20 mg DAILY IV Last administered on 10/26/18 08:26; Admin Dose 20 MG; Start 10/26/18 at 09:00 Sodium Chloride 1,000 ml @ 40 mls/hr Q24H IV Last administered on 10/26/18 21:25; Admin Dose 75 MLS/HR; Start 10/26/18 at 08:30 Heparin Sodium (Porcine) (Heparin (5000 Units/1ml)) 5,000 unit BID SC Last administered on 10/26/18at 20:57; Admin Dose 5,000 UNIT; Start 10/26/18 at 21:00 Furosemide (Lasix) 40 mg BID DIURETICS IV ; Start 10/27/18 at 08:00 Assessment/Plan Hospital Course (Demo Recall) Ventricular fibrillation cardiac arrest V. 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 Continue with pressors and titrate down as tolerated Vent support will be continued. Hypothermia has been completed Magnesium potassium to be replaced as needed DR CHANDLER input for RENAL consult is greatly appreciated. Diuretics will be deferred to renal recommendation Prognosis is guarded Thank you for his referral. We will continue to follow along with you DRU PONCE MD [facility] DRU PONCE MD Oct 27, 2018 07:58
[2018-10-27] MEDS: FUROSEMIDE 40 MG INJ IV SCH ×2 (08:08→18:14)
[2018-10-27] MEDS: FAMOTIDINE 20 MG INJ IV SCH (08:09)
[2018-10-27] MEDS: ASPIRIN 81 MG TAB PO SCH (08:09)
[2018-10-27] MEDS: HEPARIN 5,000 UNIT/1 ML VIAL SC SCH ×2 (08:10→21:37)
[2018-10-27] MEDS: TICAGRELOR 90 MG TABLET PO SCH ×2 (08:10→21:37)
--- NOTE | 2018-10-27 08:55 | PN ---
DATE: 10/27/2018 SUBJECTIVE: The patient remains on full ventilatory support. The patient has had minimal neurologic al response. The patient was started on low dose dopamine overnight. No other events noted. No hem optysis, hematemesis or hematochezia. OBJECTIVE: VITAL SIGNS: Blood pressure is 120/68, respirations 18, pulse 79, temperature 98.6. The patient's I 's and O's reviewed. The patient had 2 liters in, 1.3 liters out. HEENT: Head is normocephalic. NECK: Supple. HEART: Tachycardic. LUNGS: Show diminished breath sounds at the base. ABDOMEN: Soft, nontender to palpation without rebound or guarding. EXTREMITIES: Negative for clubbing, cyanosis. Trace edema. DERMATOLOGIC: No rashes. MUSCULOSKELETAL: No joint effusion. NEUROLOGIC: No change in exam. LABORATORY DATA: Shows sodium 141, potassium 4.9, BUN 65, creatinine 5.03. White count 16.5, hemogl obin 10.6, platelet count is 125. The patient's imaging studies were reviewed. Cultures were review ed. MEDICATIONS: Reviewed. ASSESSMENT AND PLAN: 1. Nonoliguric acute kidney injury previously normal baseline creatinine. Etiology of acute kidney injury is secondary to acute tubular necrosis due to ischemic hypoperfusion, and shock. The patient remains in injury phase of acute tubular necrosis as creatinine continues to increase. Renal functio n is declining. The patient's urinary output has been improving after given a diuretic challenge. P boy at this point would be to continue diuretic therapy if the patient remains hemodynamically stable . If renal function should further decline and not stabilize the patient's volume status cannot be m anaged with diuretic therapy, we would initiate renal replacement therapy. Otherwise, continue suppo rtive care, renally dose all medicines and avoid nephrotoxins. 2. Volume overload. The patient has noted lower extremity edema, pulmonary vascular congestion. We will increase diuretic therapy, Lasix 40 mg IV q.12h. We will minimize IV fluids, monitor hemodynam ics closely. If there is no clinical response to diuretic therapy, we would consider renal replaceme nt therapy. 3. Cardiac arrest secondary to ST elevated myocardial infarction. The patient is status post percut aneous coronary intervention. Continue medical management. Follow up with Cardiology. 4. Shock, etiology is cardiogenic, questionable sepsis. The patient is being weaned off pressor sup port. Continue antibiotic therapy, monitor closely on diuretic therapy. 5. Lactic acidosis, secondary to shock, improved. 6. Ventilator-dependent respiratory failure. Vent settings and ABG was reviewed. Continue to monit or. 7. Dysphagia. Continue to monitor. 8. Cardiac arrest secondary to myocardial infarction. The patient is status post hypothermic protoc ol, status post percutaneous coronary intervention to the circumflex. Continue medical management. 9. Acute encephalopathy with likely anoxic injury. The patient has had minimal neurologic response. Follow up with neurology for recommendations. 10. Mineral bone disorder, monitor calcium and phosphorus levels. 11. Transaminitis secondary to shock. Continue to monitor. Continue LFTs. 12. Gastrointestinal and deep vein thrombosis prophylaxis. Please note I spent over 30 minutes of critical care time with this patient. Dictated By: NADIA CHANDLER DO NR/NTS Conf#: [id number] DID#: [id number] CC: MICHOACANO JUAREZ MD; BRANDON HOLGUIN MD; CHANG WILKS MD;*EndCC*
[2018-10-27] MEDS: LEVETIRACETAM 500 MG (PMX) 100 ML IVPB SCH ×2 (09:06→21:33)
--- NOTE | 2018-10-27 11:41 | CONS ---
Assessment/Plan Assessment/Plan Hospital Course 68 yo M with multiple comorbidities who is admitted to the [facility] ICU for management following vfib arrest. STEMI noted, now s/p L circ thrombectomy and stent.. Now s/p targeted temperature Tx He was noted to have generalized convulsions (no prior Hx of seizures noted)... for which neurology is consulted. New seizures suggest some degree of acute cerebral injury... CTH brain is unrevealing. EEG is without epileptiform activity. 10/26: His neurologic examination is now concerning for brain . Repeat EEG is inconclusive. P: Apnea test or cerebral perfusion scan to further evaluate for cerebral inactivity. Ok to continue Keppra for now Ativan IV PRN seizure > 5 min or for cluster Other medical management per primary Will follow clinically Consultation Date/Type/Reason Admit Date/Time Oct 23, 2018 at 20:58 Type of Consult Neurology Requesting Provider: LISSY SMITH MD Date/Time of Note DATE: 10/27/18 TIME: 11:41 24 HR Interval Summary Free Text/Dictation Continues critical care. S/p EEG. Exam Vital Signs Vitals Vital Signs Date Temp Pulse Resp B/P (MAP) Pulse Ox O2 O2 Flow FiO2 Time Delivery Rate 10/27/18 81 18 123/70 96 09:45 (87) 10/27/18 Mechanical 09:00 Ventilator 10/27/18 98.7 08:00 10/27/18 80 05:55 Intake and Output 10/26/18 10/26/18 10/27/18 1515:00 23:00 07:00 IntakeIntake Total 759.5 ml 1039.0 ml 589.5 ml OutputOutput Total 515 ml 425 ml 440 ml BalanceBalance 244.5 ml 614.0 ml 149.5 ml Exam PE: Gen Appearance: No Apparent Distress HEENT: Intubated Cardiovascular: Regular rate Abdomen: Soft Extremities: Dry NE: The patient was comatose and nonverbal. Cranial nerve examination was limited by mental status. Pupils were equal and fixed. There was no afferent pupillary defect. Funduscopic examination was limited. Face was grossly symmetric, w/ out present corneal and cough reflexes. Tone was flaccid. Muscle bulk was normal. I did not see fasciculations. The patient did not withdraw to noxious stimulation. ИРИНА LANCASTER NP Oct 27, 2018 11:41
--- NOTE | 2018-10-27 12:22 | CONS ---
Consult Date/Type/Reason Admit Date/Time Oct 23, 2018 at 20:58 Initial Consult Date 10/23/18 Type of Consult Pulmonary Requesting Provider: LISSY SMITH MD Date/Time of Note DATE: 10/27/18 TIME: 12:19 Subjective Patient remains unresponsive on mechanical ventilation. Pupils fixed and dilated. Respiratory rate did fluctuate with tracheal suctioning. EEG was equivocal for brain . Objective Vital Signs Date Temp Pulse Resp B/P (MAP) Pulse Ox O2 O2 Flow FiO2 Time Delivery Rate 10/27/18 81 18 123/70 96 09:45 (87) 10/27/18 Mechanical 09:00 Ventilator 10/27/18 98.7 08:00 10/27/18 80 05:55 Intake and Output 10/26/18 10/26/18 10/27/18 1515:00 23:00 07:00 IntakeIntake Total 759.5 ml 1039.0 ml 589.5 ml OutputOutput Total 515 ml 425 ml 440 ml BalanceBalance 244.5 ml 614.0 ml 149.5 ml Exam PHYSICAL EXAMINATION: GENERAL: Well-nourished, well-developed gentleman, intubated on mechanical ventilation, VITAL SIGNS: HEENT: Pupils are fixed and dilated. CARDIAC: S1, S2, no added sounds or murmurs. CHEST: Diminished air entry bilaterally. ABDOMEN: Soft, nontender. No guarding or rebound. EXTREMITIES: No cyanosis, clubbing or edema. NEUROLOGIC: Generalized weakness. Vent Setting Ventilator Support Mode: AC Fraction of Inspired Oxygen pe: 80 Positive End Expiratory Pressu: 5.0 Results/Medications Result Diagram: 10/27/18 0602 10/27/18 0500 Results 24 hrs Laboratory Tests Test 10/26/18 12:50 10/26/18 15:47 10/26/18 17:35 10/27/18 05:00 Bedside Glucose 115 111 110 Sodium Level 141 Potassium Level 4.9 Chloride Level 101 Carbon Dioxide 25 Level Anion Gap 15 H Blood Urea 65 H Nitrogen Creatinine 5.03 H Est Glomerular 12 L Filtrat Rate mL/min Glucose Level 87 Lactic Acid Level 1.9 Calcium Level 7.0 L Phosphorus Level 8.8 H Magnesium Level 2.1 Total Bilirubin 0.6 Direct Bilirubin 0.00 Indirect 0.6 Bilirubin Aspartate Amino 149 H Transf (AST/SGOT) Alanine 133 H Aminotransferase (ALT/SGPT) Alkaline 72 Phosphatase Creatine Kinase 400 H Creatine Kinase 7.6 Index Creatinine Kinase 30.40 H MB (Mass) Troponin I 31.400 *H Total Protein 5.7 L Albumin 2.8 L Globulin 2.90 Albumin/Globulin 0.96 Ratio Test 10/27/18 06:02 10/27/18 09:50 White Blood Count 16.5 H Red Blood Count 3.51 L Hemoglobin 10.6 L Hematocrit 32.0 L Mean Corpuscular 91.2 Volume Mean Corpuscular 30.2 Hemoglobin Mean Corpuscular 33.1 Hemoglobin Concen t Red Cell 14.2 Distribution Width Platelet Count 125 #L Mean Platelet 9.9 Volume Immature 0.700 H Granulocytes % Neutrophils % Segmented 58 Neutrophils % (Manual) Band Neutrophils 24 H % (Manual) Lymphocytes % Lymphocytes % 9 L (Manual) Reactive 2 H Lymphocytes % (Manual) Monocytes % Monocytes % 5 (Manual) Eosinophils % Eosinophils % 1 (Manual) Basophils % Basophils % 1 (Manual) Nucleated Red 0.0 Blood Cells % Immature 0.110 H Granulocytes # Neutrophils # Neutrophils # 10.2 H (Manual) Band Neutrophils 3.9 H # Lymphocytes 1.4 (Manual) Lymphocytes # Reactive 0.3 H Lymphocytes # Monocytes # Monocytes # 0.8 (Manual) Eosinophils # Basophils # Basophils # 0.1 H (Manual) Nucleated Red Blood Cells # Platelet Estimate DECREASED Polychromasia 3+ Anisocytosis 2+ Microcytosis 2+ Blood Gas Blood arterial Specimen Source Arterial Blood 10/27/2018 10:49: Date Drawn 26 AM Arterial Blood pH 7.348 L (Temp corrected) Arterial Blood 48.7 H pCO2 (Temp correct) Arterial Blood 64.7 L pO2 (Temp corrected) Arterial Blood 26.2 H HCO3 Arterial Blood 0.1 Base Excess Arterial Blood 91.0 L Oxygen Saturation Nicolas Test ACCEPTAB Arterial Blood Right Radial Gas Puncture Site Arterial 0.3 Blood Carboxyhemo globin Arterial Blood 0.4 Methemoglobin Blood Gas A-a O2 309.5 H Differential Oxyhemoglobin 90.4 L Percent Blood Gas 37.0 Temperature Blood Gas 18.0 Respiration Rate Blood Gas Actual 19 Respiration Rate Blood Gas VENT - AC Modality FiO2 60.0 Blood Gas Tidal 550.0 Volume Blood Gas Low 5.0 PEEP Setting Blood Gas TM Notified Whom Blood Gas 10/27/2018 11:10: Notified Time 17 AM Medications Current Medications Ticagrelor (Brilinta) 90 mg BID PO Last administered on 10/27/18 08:10; Admin Dose 90 MG; Start 10/24/18 at 09:00 Atorvastatin Calcium (Lipitor) 40 mg DAILY@21 PO Last administered on 10/26/18at 20:55; Admin Dose 40 MG; Start 10/24/18 at 21:00 Aspirin (Aspirin) 81 mg DAILY PO Last administered on 10/27/18 08:09; Admin Dose 81 MG; Start 10/24/18 at 09:00 Amiodarone HCl 900 mg/Dextrose 500 ml @ 0 mls/hr Q0M IV ; Start 10/24/18 at 00:08 Ondansetron HCl (Zofran Inj) 4 mg Q6H PRN IV NAUSEA AND/OR VOMITING; Start 10/24/18 at 00:30 Albuterol (Ventolin Hfa) 4 puff Q2H RESP THERAPY PRN INH SHORTNESS OF BREATH; Start 10/24/18 at 00:30 Ipratropium [place] (Atrovent Hfa) 4 puff Q2H RESP THERAPY PRN INH SHORTNESS OF BREATH; Start 10/24/18 at 00:30 Acetaminophen (Tylenol Liquid) 650 mg Q6H PRN PO PAIN LEVEL 1-3 OR FEVER; Start 10/24/18 at 00:30 Miscellaneous Information (* Miscellaneous Pharmacy Order) Treatment of Hypoglycemia: 1.BG 51... Per protocol XX ; Start 10/24/18 at 00:30 Propofol 100 ml @ 3.6 mls/hr PER PROTOCOL IV Last administered on 10/24/18at 20:56; Admin Dose 18 MLS/HR; Start 10/24/18 at 00:30 Insulin Human Regular 100 unit/ Sodium Chloride 100 ml @ 0 mls/hr PER PROTOCOL IV Last administered on 10/24/18at 20:14; Admin Dose 7 MLS/HR; Start 10/24/18 at 00:30 Miscellaneous Information (* Miscellaneous Pharmacy Order) Treatment of Hypoglycemia: 1.BG 51... Per protocol XX ; Start 10/24/18 at 00:30 Dextrose (D50w Syringe) 25 ml Q15M PRN IV .DECREASED GLUCOSE; Start 10/24/18 at 00:30 Dextrose (D50w Syringe) 50 ml Q15M PRN IV .DECREASED GLUCOSE; Start 10/24/18 at 00:30 Eye Lubricant (Akwa Oint) 1 applic Q6 BOTH EYES Last administered on 10/27/18 05:37; Admin Dose 1 APPLIC; Start 10/24/18 at 02:00 Eye Lubricant (Artificial Tears Oph) 2 drop Q6H PRN BOTH EYES DRY EYES Last administered on 10/25/18 23:59; Admin Dose 2 DROP; Start 10/24/18 at 02:00 Norepinephrine 32 mg/Dextrose 250 ml @ 0.47 mls/hr TITRATE IV Last administered on 10/26/18 16:00; Admin Dose 1.88 MLS/HR; Start 10/24/18 at 02:30 Vasopressin 60 unit/Dextrose 60 ml @ 0 mls/hr Q12H IV Last administered on 10/24/18 16:06; Admin Dose 2.4 MLS/HR; Start 10/24/18 at 02:30 Meperidine HCl (Demerol) 12.5 mg Q2 PRN IV SHIVERING; Start 10/24/18 at 03:30 Dopamine HCl/ Dextrose 250 ml @ 9 mls/hr TITRATE IV Last administered on 20:57; Admin Dose 13.5 MLS/HR; Start 10/24/18 at 04:30 Potassium Chloride 50 ml @ 50 mls/hr K PROTOCOL PRN IVPB PENDING LAB VALUE Last administered on 10/24/18 20:36; Admin Dose 50 MLS/HR; Start 10/24/18 at 07:00 Influenza Virus Vaccine Quadrival (Fluzone) 0.5 ml ONCE ONCE IM* ; Start 10/28/18 at 10:00; Stop 10/28/18 at 10:01 Fentanyl 100 ml @ 2.5 mls/hr TITRATE IV Last administered on 10/25/18 18:02; Admin Dose 10 MLS/HR; Start 10/24/18 at 10:00 Midazolam HCl 50 ml @ 1 mls/hr TITRATE IV Last administered on 10/25/18 20:48; Admin Dose 10 MLS/HR; Start 10/24/18 at 10:00 Levetiracetam 100 ml @ 400 mls/hr Q12 IVPB Last administered on 10/27/18 09:06; Admin Dose 400 MLS/HR; Start 10/24/18 at 14:00 Lorazepam (Ativan) 1 mg Q2H PRN IV seizures; Start 10/24/18 at 14:00 Phenylephrine HCl 40 mg/Dextrose 250 ml @ 37.5 mls/hr TITRATE IV Last administered on 10/25/18at 00:06; Admin Dose 3.75 MLS/HR; Start 10/24/18 at 23:30 Piperacillin Sod/ Tazobactam Sod 50 ml @ 100 mls/hr Q8 IVPB Last administered on 10/27/18at 05:37; Admin Dose 100 MLS/HR; Start 10/25/18 at 09:30 Famotidine (Pepcid Iv) 20 mg DAILY IV Last administered on 10/27/18at 08:09; Admin Dose 20 MG; Start 10/26/18 at 09:00 Sodium Chloride 1,000 ml @ 40 mls/hr Q24H IV Last administered on 10/26/18at 21:25; Admin Dose 75 MLS/HR; Start 10/26/18 at 08:30 Heparin Sodium (Porcine) (Heparin (5000 Units/1ml)) 5,000 unit BID SC Last administered on 10/27/18at 08:10; Admin Dose 5,000 UNIT; Start 10/26/18 at 21:00 Furosemide (Lasix) 40 mg BID DIURETICS IV Last administered on 10/27/18at 08:08; Admin Dose 40 MG; Start 10/27/18 at 08:00 Assessment/Plan Hospital Course (Demo Recall) IMPRESSION AND PLAN: 1. Cardiopulmonary arrest. CPR performed by family multiple further cardiac ar rest in ED. clinical exam concerning for brain versus severe anoxic brain injury. 2. Possible aspiration pneumonia. 3. Cardiogenic and septic shock. 4. Acute renal injury, probable acute tubular necrosis. Recommendations 1. Continued vasopressors. Decreasing vasopressor requirements 2. Broad-spectrum antibiotics. 3. Renal recommendations 4. Continue post-stent Brilinta and aspirin. 5. Currently off sedation monitor 6. Apnea study and cerebral perfusion test today. Long discussion with patient's at bedside with web content & social media manager and neurology. Explained patient's clinical condition extremely poor prognosis. Also discussed our attempts at diagnosing brain . We will continue with supportive care and attempt to establish neurological prognosis. Critical care time 40 minutes. BRANDON HOLGUIN MD, [facility] Oct 27, 2018 12:22
[2018-10-27] MEDS: SOD CHLORIDE 0.9% 1,000 ML IV SCH (14:18)
--- NOTE | 2018-10-27 14:22 | PN ---
Date/Time of Note Date/Time of Note DATE: 10/27/18 TIME: 14:19 Assessment/Plan VTE Prophylaxis Risk score (from Ns)>0 risk: 9 SCD applied (from Ns): Yes Pharmacological prophylaxis: heparin Lines/Catheters IV Catheter Type (from Nrsg): Peripheral IV Urinary Cath still in place: Yes Reason Cath still needed: other (indicate) Assessment/Plan Hospital Course Subjective: Remains intubated and sedated and on pressor support Objective : GENERAL: Intubated and comfortably sedated HEENT: Intubated, Vent settings noted, pupils are barely reactive, but not d ilated, patient does not have gag reflex but LUNGS: diffusely diminished and coarse BS HEART: S1, S2. ?m ABDOMEN: Soft, obese Normoactive bowel sounds. GENITOURINARY: Normal male external genitalia, [place] to bedside drainage EXTREMITIES: Mild 1+ nonpitting edema bilaterally, also some hand edema bilaterally NEUROLOGIC: The patient is currently sedated. SKIN: Otherwise, unremarkable. assessment and plan: 1. V-fib cardiac arrest: s/p ROSC. Secondary to STEMI -Patient is status post successful PTCA thrombectomy stenting of the distal left circumflex artery from 100% occlusion to no significant residual stenosis using a 2.75 x 24 mm Synergy drug-eluting stent. s/p intra-aortic balloon pump, s/p hypothermia protocol -Currently on Brilinta, aspirin, statin -Management per cardiology -Echocardiogram showed preserved ejection fraction at 65% with stage I diastolic dysfunction without significant valvular abnormalities -Sinus off amiodarone gtt 2. Hypoxic and hypercapnic respiratory failure, secondary to above: Status post intubation -Continue vent support -Pulmonary managing, appreciate input 3. STEMI: See #1 4. Hyperglycemia: A1c 5.3 -s/p insulin drip, resolved 5. Post cardiac arrest Seizures -Head CT without acute findings. -No further seizures, on Keppra for prophylaxis< EEG showed slowing of the background indicates diffuse cortical dysfunction of nonspecific etiology. -Will order MRI of the brain when more stable 6. Acute renal failure with Severe metabolic acidosis -s/p bicarb drip, no hx of renal failure per -creatinine trending up however -Mild bilateral hydronephrosis and possible medical renal disease on ultrasound. Also probable debris noted in the bladder on ultrasound -Urine culture negative x 2 days 7. SIRS with bandemia and systemic Shock (Cardiogenic) -pancultures -patient high risk for aspiration PNA, abx ? -continue pressor support, wean as tolerated 8. Constipation noted on CT -no management for now 9. Hypertriglyceridemia -continue statin 10. Multivessel coronary artery disease with 90% right coronary artery stenosis -s/p successful PCI 12. Severe lactic acidosis likely secondary to hypoperfusion -trend levels to normal 13. Acute transaminitis/shock liver -hepatitis serology, trend levels 14. Aute encephalopathy 2/ #1 with concern for brain Dispo: -Renal function is worsening, with reduced urinary output and evidence of p ulmonary congestion on chest x-ray -Continue serial monitoring, patient is now on diuretic challenge, may require renal replacement therapy -Patient not showing any significant neurologic response at this time, however it may still be early in the course of his disease, patient also on antiepileptics. Continue close monitoring, continue ventilator support, prognosis looking grim at this time neurology working up for brain , -Continue to wean pressors as tolerated, continue empiric Zosyn for possible aspiration -Continue Brilinta, statin and aspirin for coronary artery disease -Patient remains on fentanyl as well as midazolam for sedation as well. -Continue ICU close monitoring on micromanagement. -We will also continue serial x-rays and serial labs and supportive care as indicated. This plan has been communicated in detail to the patient's , questions have been answered, Care time greater than 1 hour Result Diagram: 10/27/18 0602 10/27/18 0500 Results 24hrs Laboratory Tests Test 10/26/18 15:47 10/26/18 17:35 10/27/18 05:00 10/27/18 06:02 Bedside Glucose 111 110 Sodium Level 141 Potassium Level 4.9 Chloride Level 101 Carbon Dioxide 25 Level Anion Gap 15 H Blood Urea 65 H Nitrogen Creatinine 5.03 H Est Glomerular 12 L Filtrat Rate mL/min Glucose Level 87 Lactic Acid 1.9 Level Calcium Level 7.0 L Phosphorus Level 8.8 H Magnesium Level 2.1 Total Bilirubin 0.6 Direct Bilirubin 0.00 Indirect 0.6 Bilirubin Aspartate Amino 149 H Transf (AST/SGOT ) Alanine 133 H Aminotransferase (ALT/SGPT) Alkaline 72 Phosphatase Creatine Kinase 400 H Creatine Kinase 7.6 Index Creatinine 30.40 H Kinase MB (Mass) Troponin I 31.400 *H Total Protein 5.7 L Albumin 2.8 L Globulin 2.90 Albumin/Globulin 0.96 Ratio White Blood 16.5 H Count Red Blood Count 3.51 L Hemoglobin 10.6 L Hematocrit 32.0 L Mean Corpuscular 91.2 Volume Mean Corpuscular 30.2 Hemoglobin Mean Corpuscular 33.1 Hemoglobin Anyi nt Red Cell 14.2 Distribution Width Platelet Count 125 #L Mean Platelet 9.9 Volume Immature 0.700 H Granulocytes % Neutrophils % Segmented 58 Neutrophils % (Manual) Band Neutrophils 24 H % (Manual) Lymphocytes % Lymphocytes % 9 L (Manual) Reactive 2 H Lymphocytes % (Manual) Monocytes % Monocytes % 5 (Manual) Eosinophils % Eosinophils % 1 (Manual) Basophils % Basophils % 1 (Manual) Nucleated Red 0.0 Blood Cells % Immature 0.110 H Granulocytes # Neutrophils # Neutrophils # 10.2 H (Manual) Band Neutrophils 3.9 H # Lymphocytes 1.4 (Manual) Lymphocytes # Reactive 0.3 H Lymphocytes # Monocytes # Monocytes # 0.8 (Manual) Eosinophils # Basophils # Basophils # 0.1 H (Manual) Nucleated Red Blood Cells # Platelet DECREASED Estimate Polychromasia 3+ Anisocytosis 2+ Microcytosis 2+ Test 10/27/18 09:50 10/27/18 13:00 Blood Gas Blood arterial Blood arterial Specimen Source Arterial Blood 10/27/2018 10:49 10/27/2018 1:00: Date Drawn :26 AM 14 PM Arterial Blood 7.348 L 7.379 pH (Temp corrected) Arterial Blood 48.7 H 44.7 pCO2 (Temp correct) Arterial Blood 64.7 L 68.5 L pO2 (Temp corrected) Arterial Blood 26.2 H 25.8 HCO3 Arterial Blood 0.1 0.4 Base Excess Arterial Blood 91.0 L 92.9 L Oxygen Saturatio n Nicolas Test ACCEPTAB ACCEPTAB Arterial Blood Right Radial Right Radial Gas Puncture Site Arterial 0.3 0.3 Blood Carboxyhem oglobin Arterial Blood 0.4 0.3 Methemoglobin Blood Gas A-a O2 309.5 H 455.0 H Differential Oxyhemoglobin 90.4 L 92.3 L Percent Blood Gas 37.0 37.0 Temperature Blood Gas 18.0 20.0 Respiration Rate Blood Gas Actual 19 220 Respiration Rate Blood Gas VENT - AC VENT - AC Modality FiO2 60.0 80.0 Blood Gas Tidal 550.0 550.0 Volume Blood Gas Low 5.0 5.0 PEEP Setting Blood Gas TM TM Notified Whom Blood Gas 10/27/2018 11:10 10/27/2018 1:08: Notified Time :17 AM 55 PM Exam/Review of Systems Exam Vitals Vital Signs Date Temp Pulse Resp B/P (MAP) Pulse Ox O2 O2 Flow FiO2 Time Delivery Rate 10/27/18 80 12:00 10/27/18 80 10:00 10/27/18 Bag Valve 10:00 Mask 10/27/18 18 123/70 96 09:45 (87) 10/27/18 98.7 08:00 Intake and Output 10/26/18 10/26/18 10/27/18 1414:59 22:59 06:59 IntakeIntake Total 799.0 ml 1025.5 ml 678.0 ml OutputOutput Total 500 ml 460 ml 390 ml BalanceBalance 299.0 ml 565.5 ml 288.0 ml Results Results 24hrs Laboratory Tests Test 10/26/18 15:47 10/26/18 17:35 10/27/18 05:00 10/27/18 06:02 Bedside Glucose 111 110 Sodium Level 141 Potassium Level 4.9 Chloride Level 101 Carbon Dioxide 25 Level Anion Gap 15 H Blood Urea 65 H Nitrogen Creatinine 5.03 H Est Glomerular 12 L Filtrat Rate mL/min Glucose Level 87 Lactic Acid 1.9 Level Calcium Level 7.0 L Phosphorus Level 8.8 H Magnesium Level 2.1 Total Bilirubin 0.6 Direct Bilirubin 0.00 Indirect 0.6 Bilirubin Aspartate Amino 149 H Transf (AST/SGOT ) Alanine 133 H Aminotransferase (ALT/SGPT) Alkaline 72 Phosphatase Creatine Kinase 400 H Creatine Kinase 7.6 Index Creatinine 30.40 H Kinase MB (Mass) Troponin I 31.400 *H Total Protein 5.7 L Albumin 2.8 L Globulin 2.90 Albumin/Globulin 0.96 Ratio White Blood 16.5 H Count Red Blood Count 3.51 L Hemoglobin 10.6 L Hematocrit 32.0 L Mean Corpuscular 91.2 Volume Mean Corpuscular 30.2 Hemoglobin Mean Corpuscular 33.1 Hemoglobin Anyi nt Red Cell 14.2 Distribution Width Platelet Count 125 #L Mean Platelet 9.9 Volume Immature 0.700 H Granulocytes % Neutrophils % Segmented 58 Neutrophils % (Manual) Band Neutrophils 24 H % (Manual) Lymphocytes % Lymphocytes % 9 L (Manual) Reactive 2 H Lymphocytes % (Manual) Monocytes % Monocytes % 5 (Manual) Eosinophils % Eosinophils % 1 (Manual) Basophils % Basophils % 1 (Manual) Nucleated Red 0.0 Blood Cells % Immature 0.110 H Granulocytes # Neutrophils # Neutrophils # 10.2 H (Manual) Band Neutrophils 3.9 H # Lymphocytes 1.4 (Manual) Lymphocytes # Reactive 0.3 H Lymphocytes # Monocytes # Monocytes # 0.8 (Manual) Eosinophils # Basophils # Basophils # 0.1 H (Manual) Nucleated Red Blood Cells # Platelet DECREASED Estimate Polychromasia 3+ Anisocytosis 2+ Microcytosis 2+ Test 10/27/18 09:50 10/27/18 13:00 Blood Gas Blood arterial Blood arterial Specimen Source Arterial Blood 10/27/2018 10:49 10/27/2018 1:00: Date Drawn :26 AM 14 PM Arterial Blood 7.348 L 7.379 pH (Temp corrected) Arterial Blood 48.7 H 44.7 pCO2 (Temp correct) Arterial Blood 64.7 L 68.5 L pO2 (Temp corrected) Arterial Blood 26.2 H 25.8 HCO3 Arterial Blood 0.1 0.4 Base Excess Arterial Blood 91.0 L 92.9 L Oxygen Saturatio n Nicolas Test ACCEPTAB ACCEPTAB Arterial Blood Right Radial Right Radial Gas Puncture Site Arterial 0.3 0.3 Blood Carboxyhem oglobin Arterial Blood 0.4 0.3 Methemoglobin Blood Gas A-a O2 309.5 H 455.0 H Differential Oxyhemoglobin 90.4 L 92.3 L Percent Blood Gas 37.0 37.0 Temperature Blood Gas 18.0 20.0 Respiration Rate Blood Gas Actual 19 220 Respiration Rate Blood Gas VENT - AC VENT - AC Modality FiO2 60.0 80.0 Blood Gas Tidal 550.0 550.0 Volume Blood Gas Low 5.0 5.0 PEEP Setting Blood Gas TM TM Notified Whom Blood Gas 10/27/2018 11:10 10/27/2018 1:08: Notified Time :17 AM 55 PM Medications Medication Current Medications Ticagrelor (Brilinta) 90 mg BID PO Last administered on 10/27/18at 08:10; Admin Dose 90 MG; Start 10/24/18 at 09:00 Atorvastatin Calcium (Lipitor) 40 mg DAILY@21 PO Last administered on 10/26/18at 20:55; Admin Dose 40 MG; Start 10/24/18 at 21:00 Aspirin (Aspirin) 81 mg DAILY PO Last administered on 10/27/18at 08:09; Admin Dose 81 MG; Start 10/24/18 at 09:00 Amiodarone HCl 900 mg/Dextrose 500 ml @ 0 mls/hr Q0M IV ; Start 10/24/18 at 00:08 Ondansetron HCl (Zofran Inj) 4 mg Q6H PRN IV NAUSEA AND/OR VOMITING; Start 10/24/18 at 00:30 Albuterol (Ventolin Hfa) 4 puff Q2H RESP THERAPY PRN INH SHORTNESS OF BREATH; Start 10/24/18 at 00:30 Ipratropium [place] (Atrovent Hfa) 4 puff Q2H RESP THERAPY PRN INH SHORTNESS OF BREATH; Start 10/24/18 at 00:30 Acetaminophen (Tylenol Liquid) 650 mg Q6H PRN PO PAIN LEVEL 1-3 OR FEVER; Start 10/24/18 at 00:30 Miscellaneous Information (* Miscellaneous Pharmacy Order) Treatment of Hypoglycemia: 1.BG 51... Per protocol XX ; Start 10/24/18 at 00:30 Propofol 100 ml @ 3.6 mls/hr PER PROTOCOL IV Last administered on 10/24/18at 20:56; Admin Dose 18 MLS/HR; Start 10/24/18 at 00:30 Insulin Human Regular 100 unit/ Sodium Chloride 100 ml @ 0 mls/hr PER PROTOCOL IV Last administered on 10/24/18at 20:14; Admin Dose 7 MLS/HR; Start 10/24/18 at 00:30 Miscellaneous Information (* Miscellaneous Pharmacy Order) Treatment of Hypoglycemia: 1.BG 51... Per protocol XX ; Start 10/24/18 at 00:30 Dextrose (D50w Syringe) 25 ml Q15M PRN IV .DECREASED GLUCOSE; Start 10/24/18 at 00:30 Dextrose (D50w Syringe) 50 ml Q15M PRN IV .DECREASED GLUCOSE; Start 10/24/18 at 00:30 Eye Lubricant (Akwa Oint) 1 applic Q6 BOTH EYES Last administered on 10/27/18at 13:05; Admin Dose 1 APPLIC; Start 10/24/18 at 02:00 Eye Lubricant (Artificial Tears Oph) 2 drop Q6H PRN BOTH EYES DRY EYES Last administered on 10/25/18 23:59; Admin Dose 2 DROP; Start 10/24/18 at 02:00 Norepinephrine 32 mg/Dextrose 250 ml @ 0.47 mls/hr TITRATE IV Last administered on 10/26/18 16:00; Admin Dose 1.88 MLS/HR; Start 10/24/18 at 02:30 Vasopressin 60 unit/Dextrose 60 ml @ 0 mls/hr Q12H IV Last administered on 10/24/18 16:06; Admin Dose 2.4 MLS/HR; Start 10/24/18 at 02:30 Meperidine HCl (Demerol) 12.5 mg Q2 PRN IV SHIVERING; Start 10/24/18 at 03:30 Dopamine HCl/ Dextrose 250 ml @ 9 mls/hr TITRATE IV Last administered on 10/26/18 20:57; Admin Dose 13.5 MLS/HR; Start 10/24/18 at 04:30 Potassium Chloride 50 ml @ 50 mls/hr K PROTOCOL PRN IVPB PENDING LAB VALUE Last administered on 10/24/18 20:36; Admin Dose 50 MLS/HR; Start 10/24/18 at 07:00 Influenza Virus Vaccine Quadrival (Fluzone) 0.5 ml ONCE ONCE IM* ; Start 10/28/18 at 10:00; Stop 10/28/18 at 10:01 Fentanyl 100 ml @ 2.5 mls/hr TITRATE IV Last administered on 10/25/18 18:02; Admin Dose 10 MLS/HR; Start 10/24/18 at 10:00 Midazolam HCl 50 ml @ 1 mls/hr TITRATE IV Last administered on 10/25/18 20:48; Admin Dose 10 MLS/HR; Start 10/24/18 at 10:00 Levetiracetam 100 ml @ 400 mls/hr Q12 IVPB Last administered on 10/27/18 09:06; Admin Dose 400 MLS/HR; Start 10/24/18 at 14:00 Lorazepam (Ativan) 1 mg Q2H PRN IV seizures; Start 10/24/18 at 14:00 Phenylephrine HCl 40 mg/Dextrose 250 ml @ 37.5 mls/hr TITRATE IV Last administered on 10/25/18 00:06; Admin Dose 3.75 MLS/HR; Start 10/24/18 at 23:30 Piperacillin Sod/ Tazobactam Sod 50 ml @ 100 mls/hr Q8 IVPB Last administered on 10/27/18 14:17; Admin Dose 100 MLS/HR; Start 10/25/18 at 09:30 Famotidine (Pepcid Iv) 20 mg DAILY IV Last administered on 10/27/18 08:09; Admin Dose 20 MG; Start 10/26/18 at 09:00 Sodium Chloride 1,000 ml @ 40 mls/hr Q24H IV Last administered on 10/27/18 14 :18; Admin Dose 40 MLS/HR; Start 10/26/18 at 08:30 Heparin Sodium (Porcine) (Heparin (5000 Units/1ml)) 5,000 unit BID SC Last administered on 10/27/18 08:10; Admin Dose 5,000 UNIT; Start 10/26/18 at 21:00 Furosemide (Lasix) 40 mg BID DIURETICS IV Last administered on 10/27/18 08:08; Admin Dose 40 MG; Start 10/27/18 at 08:00 MICHOACANO JUAREZ Oct 27, 2018 14:22
[2018-10-27] MEDS: ATORVASTATIN 40 MG TAB PO SCH (21:32)
[2018-10-27] MEDS: ARTIFICIAL TEARS 15 ML OPH BOTH EYES PRN (23:41)
[2018-10-28] VITALS (35 sets, daily range): BP systolic 112–135; BP diastolic 65–87; PULSE 65–74; RESP 20–21
[2018-10-28] MEDS: OCULAR LUBRICANT 3.5 GM OPH OINT BOTH EYES SCH ×3 (05:36→18:02)
[2018-10-28] MEDS: ARTIFICIAL TEARS 15 ML OPH BOTH EYES PRN (05:36)
[2018-10-28] MEDS: PIPER-TAZO 2.25 GM (PMX) 50 ML IVPB SCH ×3 (05:43→20:11)
[2018-10-28] MEDS: FUROSEMIDE 40 MG INJ IV SCH ×2 (06:01→18:05)
--- NOTE | 2018-10-28 07:22 | PN ---
Date/Time of Note Date/Time of Note DATE: 10/28/18 TIME: 07:17 Assessment/Plan VTE Prophylaxis Risk score (from Ns)>0 risk: 8 SCD applied (from Ns): Yes Pharmacological prophylaxis: other Lines/Catheters IV C[facility]ter Type (from [facility]): Peripheral IV Urinary Cath still in place: Yes Reason Cath still needed: urinary retention Assessment/Plan Hospital Course renal follow up SUBJECTIVE: The patient remains on full ventilatory support. The patient has had minimal neurological response. BP is supported by pressors. UOP is stable with lasix. cxr and vent settings were reviewed. has an OGT but no tube feeding yet. ARF is worse D/W ICU nurse. No other events noted. No fever, new rash, tachypnea, hemoptysis, hematemesis or hematochezia. OBJECTIVE: HEENT: Head is normocephalic. NECK: Supple. HEART: Tachycardic. LUNGS: Show diminished breath sounds at the base. ABDOMEN: Soft, nontender to palpation without rebound or guarding. EXTREMITIES: Negative for clubbing, cyanosis. Trace edema. DERMATOLOGIC: No rashes. MUSCULOSKELETAL: No joint effusion. NEUROLOGIC: No change in exam. MEDICATIONS: Reviewed. time of halfway: 42 min of cc time ASSESSMENT AND PLAN: 1. Nonoliguric acute kidney injury previously normal baseline creatinine. Etiology of acute kidney injury is secondary to acute tubular necrosis due to ischemic hypoperfusion, and shock. The patient remains in injury phase of acute tubular necrosis as creatinine continues to increase. Renal function is declining. The patient's urinary output has been improving after given a diuretic challenge. Plan at this point would be to continue diuretic therapy if the patient remains hemodynamically stable. If renal function should further decline and not stabilize the patient's volume status cannot be managed with diuretic therapy, we would initiate renal replacement therapy. He is currently NPO. will start d10w for nutritional support until tube feeding is started. 2. Volume overload. The patient has noted lower extremity edema, pulmonary vascular congestion. We will increase diuretic therapy, Lasix 40 mg IV q.12h. will dc d10w drip when TF is started. If there is no clinical response to diuretic therapy, we would consider renal replacement therapy. 3. Cardiac arrest secondary to ST elevated myocardial infarction. The patient is status post percutaneous coronary intervention. Continue medical management. Follow up with Cardiology. 4. Shock, etiology is cardiogenic, questionable sepsis. The patient is being weaned off pressor support. Continue antibiotic therapy, monitor closely on diuretic therapy. 5. Lactic acidosis, secondary to shock, improved. 6. Ventilator-dependent respiratory failure. Vent settings and ABG was reviewe d. Continue to monitor. 7. Dysphagia. Continue to monitor. 8. Cardiac arrest secondary to myocardial infarction. The patient is status post hypothermic protocol, status post percutaneous coronary intervention to the circumflex. Continue medical management. 9. Acute encephalopathy with likely anoxic injury. The patient has had minimal neurologic response. Follow up with neurology for recommendations. 10. Mineral bone disorder, monitor calcium and phosphorus levels. 11. Transaminitis secondary to shock. Continue to monitor. Continue LFTs. 12. Gastrointestinal and deep vein thrombosis prophylaxis. Result Diagram: 10/28/18 0530 10/27/18 0500 Results 24hrs Laboratory Tests Test 10/27/18 09:50 10/27/18 13:00 10/27/18 14:50 10/28/18 05:30 Blood Gas Blood arterial Blood arterial Blood Specimen arterial Source Arterial Blood 10/27/2018 10:49 10/27/2018 1:00: 10/27/2018 2:49 Date Drawn :26 AM 14 PM :01 PM Arterial Blood 7.348 L 7.379 7.223 *L pH (Temp corrected ) Arterial Blood 48.7 H 44.7 66.4 H pCO2 (Temp correct) Arterial Blood 64.7 L 68.5 L 81.5 pO2 (Temp corrected ) Arterial Blood 26.2 H 25.8 26.7 H HCO3 Arterial Blood 0.1 0.4 -2.0 Base Excess Arterial Blood 91.0 L 92.9 L 93.3 L Oxygen Saturati on Nicolas Test ACCEPTAB ACCEPTAB ACCEPTAB Arterial Blood Right Radial Right Radial Right Radial Gas Puncture Site Arterial 0.3 0.3 0.3 Blood Carboxyhe moglobin Arterial Blood 0.4 0.3 0.4 Methemoglobin Blood Gas A-a 309.5 H 455.0 H 120.0 H O2 Differential Oxyhemoglobin 90.4 L 92.3 L 92.6 L Percent Blood Gas 37.0 37.0 37.0 Temperature Blood Gas 18.0 20.0 Respiration Rate Blood Gas 19 220 Actual Respiration Rat e Blood Gas VENT - AC VENT - AC NASAL CANNULA Modality FiO2 60.0 80.0 39.0 Blood Gas Tidal 550.0 550.0 Volume Blood Gas Low 5.0 5.0 PEEP Setting Blood Gas TM TM TM Notified Whom Blood Gas 10/27/2018 11:10 10/27/2018 1:08: 10/27/2018 2:55 Notified Time :17 AM 55 PM :52 PM Blood Gas SHANE HA Critical Value Read Back White Blood 14.5 H Count Red Blood Count 3.17 L Hemoglobin 9.6 L Hematocrit 29.1 L Mean 91.8 Corpuscular Volume Mean 30.3 Corpuscular Hemoglobin Mean 33.0 Corpuscular Hemoglobin Conc ent Red Cell 14.2 Distribution Width Platelet Count 129 L Mean Platelet 10.2 Volume Immature 0.600 H Granulocytes % Neutrophils % 84.6 H Lymphocytes % 6.8 L Monocytes % 7.0 Eosinophils % 0.7 Basophils % 0.3 Nucleated Red 0.0 Blood Cells % Immature 0.080 H Granulocytes # Neutrophils # 12.3 H Lymphocytes # 1.0 Monocytes # 1.0 H Eosinophils # 0.1 Basophils # 0.0 Nucleated Red 0.0 Blood Cells # Exam/Review of Systems Exam Vitals Vital Signs Date Temp Pulse Resp B/P (MAP) Pulse Ox O2 O2 Flow FiO2 Time Delivery Rate 10/28/18 70 20 125/69 96 Mechanical 07:00 (87) Ventilator 10/28/18 60 05:07 10/28/18 98.5 04:00 Intake and Output 10/27/18 10/27/18 10/28/18 1515:00 23:00 07:00 IntakeIntake Total 597.75 ml 610 ml 370 ml OutputOutput Total 400 ml 303 ml 215 ml BalanceBalance 197.75 ml 307 ml 155 ml Results Results 24hrs Laboratory Tests Test 10/27/18 09:50 10/27/18 13:00 10/27/18 14:50 10/28/18 05:30 Blood Gas Blood arterial Blood arterial Blood Specimen arterial Source Arterial Blood 10/27/2018 10:49 10/27/2018 1:00: 10/27/2018 2:49 Date Drawn :26 AM 14 PM :01 PM Arterial Blood 7.348 L 7.379 7.223 *L pH (Temp corrected ) Arterial Blood 48.7 H 44.7 66.4 H pCO2 (Temp correct) Arterial Blood 64.7 L 68.5 L 81.5 pO2 (Temp corrected ) Arterial Blood 26.2 H 25.8 26.7 H HCO3 Arterial Blood 0.1 0.4 -2.0 Base Excess Arterial Blood 91.0 L 92.9 L 93.3 L Oxygen Saturati on Nicolas Test ACCEPTAB ACCEPTAB ACCEPTAB Arterial Blood Right Radial Right Radial Right Radial Gas Puncture Site Arterial 0.3 0.3 0.3 Blood Carboxyhe moglobin Arterial Blood 0.4 0.3 0.4 Methemoglobin Blood Gas A-a 309.5 H 455.0 H 120.0 H O2 Differential Oxyhemoglobin 90.4 L 92.3 L 92.6 L Percent Blood Gas 37.0 37.0 37.0 Temperature Blood Gas 18.0 20.0 Respiration Rate Blood Gas 19 220 Actual Respiration Rat e Blood Gas VENT - AC VENT - AC NASAL CANNULA Modality FiO2 60.0 80.0 39.0 Blood Gas Tidal 550.0 550.0 Volume Blood Gas Low 5.0 5.0 PEEP Setting Blood Gas TM TM TM Notified Whom Blood Gas 10/27/2018 11:10 10/27/2018 1:08: 10/27/2018 2:55 Notified Time :17 AM 55 PM :52 PM Blood Gas SHANE HA Critical Value Read Back White Blood 14.5 H Count Red Blood Count 3.17 L Hemoglobin 9.6 L Hematocrit 29.1 L Mean 91.8 Corpuscular Volume Mean 30.3 Corpuscular Hemoglobin Mean 33.0 Corpuscular Hemoglobin Conc ent Red Cell 14.2 Distribution Width Platelet Count 129 L Mean Platelet 10.2 Volume Immature 0.600 H Granulocytes % Neutrophils % 84.6 H Lymphocytes % 6.8 L Monocytes % 7.0 Eosinophils % 0.7 Basophils % 0.3 Nucleated Red 0.0 Blood Cells % Immature 0.080 H Granulocytes # Neutrophils # 12.3 H Lymphocytes # 1.0 Monocytes # 1.0 H Eosinophils # 0.1 Basophils # 0.0 Nucleated Red 0.0 Blood Cells # Medications Medication Current Medications Ticagrelor (Brilinta) 90 mg BID PO Last administered on 10/27/18at 21:37; Admin Dose 90 MG; Start 10/24/18 at 09:00 Atorvastatin Calcium (Lipitor) 40 mg DAILY@21 PO Last administered on 10/27/18at 21:32; Admin Dose 40 MG; Start 10/24/18 at 21:00 Aspirin (Aspirin) 81 mg DAILY PO Last administered on 10/27/18at 08:09; Admin Dose 81 MG; Start 10/24/18 at 09:00 Amiodarone HCl 900 mg/Dextrose 500 ml @ 0 mls/hr Q0M IV ; Start 10/24/18 at 00:08 Ondansetron HCl (Zofran Inj) 4 mg Q6H PRN IV NAUSEA AND/OR VOMITING; Start 10/24/18 at 00:30 Albuterol (Ventolin Hfa) 4 puff Q2H RESP THERAPY PRN INH SHORTNESS OF BREATH; Start 10/24/18 at 00:30 Ipratropium [place] (Atrovent Hfa) 4 puff Q2H RESP THERAPY PRN INH SHORTNESS OF BREATH; Start 10/24/18 at 00:30 Acetaminophen (Tylenol Liquid) 650 mg Q6H PRN PO PAIN LEVEL 1-3 OR FEVER; Start 10/24/18 at 00:30 Miscellaneous Information (* Miscellaneous Pharmacy Order) Treatment of Hypoglycemia: 1.BG 51... Per protocol XX ; Start 10/24/18 at 00:30 Miscellaneous Information (* Miscellaneous Pharmacy Order) Treatment of Hypoglycemia: 1.BG 51... Per protocol XX ; Start 10/24/18 at 00:30 Dextrose (D50w Syringe) 25 ml Q15M PRN IV .DECREASED GLUCOSE; Start 10/24/18 at 00:30 Dextrose (D50w Syringe) 50 ml Q15M PRN IV .DECREASED GLUCOSE; Start 10/24/18 at 00:30 Eye Lubricant (Akwa Oint) 1 applic Q6 BOTH EYES Last administered on 10/28/18at 05:36; Admin Dose 1 APPLIC; Start 10/24/18 at 02:00 Eye Lubricant (Artificial Tears Oph) 2 drop Q6H PRN BOTH EYES DRY EYES Last administered on 10/28/18at 05:36; Admin Dose 2 DROP; Start 10/24/18 at 02:00 Meperidine HCl (Demerol) 12.5 mg Q2 PRN IV SHIVERING; Start 10/24/18 at 03:30 Dopamine HCl/ Dextrose 250 ml @ 9 mls/hr TITRATE IV Last administered on 10/26/18at 20:57; Admin Dose 13.5 MLS/HR; Start 10/24/18 at 04:30 Potassium Chloride 50 ml @ 50 mls/hr K PROTOCOL PRN IVPB PENDING LAB VALUE Last administered on 10/24/18 20:36; Admin Dose 50 MLS/HR; Start 10/24/18 at 07:00 Influenza Virus Vaccine Quadrival (Fluzone) 0.5 ml ONCE ONCE IM* ; Start 10/28/18 at 10:00; Stop 10/28/18 at 10:01 Levetiracetam 100 ml @ 400 mls/hr Q12 IVPB Last administered on 10/27/18 21:33; Admin Dose 400 MLS/HR; Start 10/24/18 at 14:00 Lorazepam (Ativan) 1 mg Q2H PRN IV seizures; Start 10/24/18 at 14:00 Piperacillin Sod/ Tazobactam Sod 50 ml @ 100 mls/hr Q8 IVPB Last administered on 10/28/18 05:43; Admin Dose 100 MLS/HR; Start 10/25/18 at 09:30 Famotidine (Pepcid Iv) 20 mg DAILY IV Last administered on 10/27/18 08:09; Admin Dose 20 MG; Start 10/26/18 at 09:00 Sodium Chloride 1,000 ml @ 40 mls/hr Q24H IV Last administered on 10/27/18 14:18; Admin Dose 40 MLS/HR; Start 10/26/18 at 08:30 Heparin Sodium (Porcine) (Heparin (5000 Units/1ml)) 5,000 unit BID SC Last administered on 10/27/18 21:37; Admin Dose 5,000 UNIT; Start 10/26/18 at 21:00 Furosemide (Lasix) 40 mg BID DIURETICS IV Last administered on 10/28/18 06:01; Admin Dose 40 MG; Start 10/27/18 at 08:00 ASHLEIGH CUADRA DO Oct 28, 2018 07:22
--- NOTE | 2018-10-28 08:37 | CONS ---
Assessment/Plan Assessment/Plan Hospital Course 68 yo M with multiple comorbidities who is admitted to the [facility] ICU for management following vfib arrest. STEMI noted, now s/p L circ thrombectomy and stent.. Now s/p targeted temperature Tx He was noted to have generalized convulsions (no prior Hx of seizures noted)... for which neurology is consulted. New seizures suggest some degree of acute cerebral injury... CTH brain is unrevealing. EEG is without epileptiform activity. His neurologic examination is notable for absent brainstem reflexes and absent motor response. Brain EEG on 10/26 was technically limited. Subsequent apnea test was reportedly notable for spontaneous respirations.. P: Ok to continue Keppra as ordered for now Ativan IV PRN seizure > 5 min or for cluster Limit sedating medications where possible Continued medical management and supportive care per primary Ongoing goals of care conversations w/ family Will follow clinically Consultation Date/Type/Reason Admit Date/Time Oct 23, 2018 at 20:58 Type of Consult Neurology Reason for Consultation seizure; coma Requesting Provider: LISSY SMITH MD Date/Time of Note DATE: 10/28/18 TIME: 08:37 24 HR Interval Summary Free Text/Dictation Continues critical care. Pt reportedly took a few shallows breaths during the apnea test. Subjective hx not possible: pt non-verbal, pt critical, pt critical status Exam Vital Signs Vitals Vital Signs Date Temp Pulse Resp B/P (MAP) Pulse Ox O2 O2 Flow FiO2 Time Delivery Rate 10/28/18 70 20 125/69 96 Mechanical 07:00 (87) Ventilator 10/28/18 60 05:07 10/28/18 98.5 04:00 Intake and Output 10/27/18 10/27/18 10/28/18 1515:00 23:00 07:00 IntakeIntake Total 597.75 ml 610 ml 370 ml OutputOutput Total 400 ml 303 ml 215 ml BalanceBalance 197.75 ml 307 ml 155 ml Exam PE: Gen Appearance: No Apparent Distress HEENT: Intubated Cardiovascular: Regular rate Abdomen: Soft Extremities: Dry NE: The patient was comatose. Cranial nerve examination was limited by mental status. Pupils were equal and fixed. There was no afferent pupillary defect. Funduscopic examination was limited. Face was grossly symmetric, w/ absent corneal and cough reflexes. Tone was normal. Muscle bulk was normal. I did not see fasciculations. The patient did not withdraw to noxious stimulation x 4. Coordination and gait testing was limited by mental status. Arm and leg reflexes were symmetric . Fuller's sign was absent. Plantar responses were mute. ИРИНА LANCASTER NP Oct 28, 2018 08:37 JACKY LEWIS Oct 28, 2018 20:08
[2018-10-28] MEDS: LEVETIRACETAM 500 MG (PMX) 100 ML IVPB SCH ×2 (08:50→20:11)
[2018-10-28] MEDS: DEXTROSE 10% 1,000 ML IV SCH (08:50)
[2018-10-28] MEDS: TICAGRELOR 90 MG TABLET PO SCH ×2 (08:51→20:13)
--- NOTE | 2018-10-28 08:52 | CONS ---
Assessment/Plan Assessment/Plan Assessment/Plan (Daily) Ventilator setting; AC of 20, tidal volume 550, PEEP of 5, 60% FiO2. Assessment and recommendations; 1. Patient admitted with cardiac arrest with ensuing severe encephalopathy, status post hypothermia protocol without any neurological recovery. 2. Aspiration pneumonia with hypoxemia, currently on appropriate antimicrobial regimen. 3. CHF. 4. Patient on prophylactic antiseizure medication. 5. History of baseline chronic renal insufficiency with significant worsening of renal function. 6. Anemia and thrombocytopenia. Continue current supportive care. Obtain follow-up chest x-ray. Wean down FiO2 as tolerated. Obtain ABG. Prognosis appears very poor. A 35 minutes of critical care time was spent evaluating the patient. Consultation Date/Type/Reason Admit Date/Time Oct 23, 2018 at 20:58 Initial Consult Date 10/23/18 Type of Consult Pulmonary/critical care Requesting Provider: LISSY SMITH MD Date/Time of Note DATE: 10/28/18 TIME: 08:50 24 HR Interval Summary Free Text/Dictation Patient's condition remains critical. Remains completely unresponsive. Patient however has remained hemodynamically stable. General exam; elderly male, orally intubated, unresponsive, currently in no distress. Exam/Review of Systems Exam Vitals Vital Signs Date Temp Pulse Resp B/P (MAP) Pulse Ox O2 O2 Flow FiO2 Time Delivery Rate 10/28/18 70 20 125/69 96 Mechanical 07:00 (87) Ventilator 10/28/18 60 05:07 10/28/18 98.5 04:00 Intake and Output 10/27/18 10/27/18 10/28/18 1515:00 23:00 07:00 IntakeIntake Total 597.75 ml 610 ml 370 ml OutputOutput Total 400 ml 303 ml 215 ml BalanceBalance 197.75 ml 307 ml 155 ml Exam HEENT exam; supple neck, positive JVD. No lymphadenopathy. Midline trachea. No thyromegaly. Orally intubated. Pupils are midsize and fixed. Patient has fair dentition. No neck masses. Orogastric tube in place. Chest exam; diminished but clear breath sounds. S1-S2 audible, no murmurs. Regular rhythm. Abdomen exam; soft, no organomegaly. Bowel sounds are audible. Extremity exam; no peripheral edema. Pulses 1+. RIDES ATTENDANT exam; patient remains completely unresponsive. Results Result Diagram: 10/28/18 0530 10/28/18 0530 Results 24hrs Laboratory Tests Test 10/27/18 09:50 10/27/18 13:00 10/27/18 14:50 10/28/18 05:30 Blood Gas Blood arterial Blood arterial Blood Specimen arterial Source Arterial Blood 10/27/2018 10:49 10/27/2018 1:00: 10/27/2018 2:49 Date Drawn :26 AM 14 PM :01 PM Arterial Blood 7.348 L 7.379 7.223 *L pH (Temp corrected ) Arterial Blood 48.7 H 44.7 66.4 H pCO2 (Temp correct) Arterial Blood 64.7 L 68.5 L 81.5 pO2 (Temp corrected ) Arterial Blood 26.2 H 25.8 26.7 H HCO3 Arterial Blood 0.1 0.4 -2.0 Base Excess Arterial Blood 91.0 L 92.9 L 93.3 L Oxygen Saturati on Nicolas Test ACCEPTAB ACCEPTAB ACCEPTAB Arterial Blood Right Radial Right Radial Right Radial Gas Puncture Site Arterial 0.3 0.3 0.3 Blood Carboxyhe moglobin Arterial Blood 0.4 0.3 0.4 Methemoglobin Blood Gas A-a 309.5 H 455.0 H 120.0 H O2 Differential Oxyhemoglobin 90.4 L 92.3 L 92.6 L Percent Blood Gas 37.0 37.0 37.0 Temperature Blood Gas 18.0 20.0 Respiration Rate Blood Gas 19 220 Actual Respiration Rat e Blood Gas VENT - AC VENT - AC NASAL CANNULA Modality FiO2 60.0 80.0 39.0 Blood Gas Tidal 550.0 550.0 Volume Blood Gas Low 5.0 5.0 PEEP Setting Blood Gas TM TM TM Notified Whom Blood Gas 10/27/2018 11:10 10/27/2018 1:08: 10/27/2018 2:55 Notified Time :17 AM 55 PM :52 PM Blood Gas SHANE HA Critical Value Read Back White Blood 14.5 H Count Red Blood Count 3.17 L Hemoglobin 9.6 L Hematocrit 29.1 L Mean 91.8 Corpuscular Volume Mean 30.3 Corpuscular Hemoglobin Mean 33.0 Corpuscular Hemoglobin Conc ent Red Cell 14.2 Distribution Width Platelet Count 129 L Mean Platelet 10.2 Volume Immature 0.600 H Granulocytes % Neutrophils % 84.6 H Lymphocytes % 6.8 L Monocytes % 7.0 Eosinophils % 0.7 Basophils % 0.3 Nucleated Red 0.0 Blood Cells % Immature 0.080 H Granulocytes # Neutrophils # 12.3 H Lymphocytes # 1.0 Monocytes # 1.0 H Eosinophils # 0.1 Basophils # 0.0 Nucleated Red 0.0 Blood Cells # Sodium Level 143 Potassium Level 4.1 Chloride Level 104 Carbon Dioxide 26 Level Anion Gap 13 Blood Urea 82 H Nitrogen Creatinine 5.88 H Est Glomerular 10 L Filtrat Rate mL/min Glucose Level 84 Lactic Acid 1.5 Level Calcium Level 7.3 L Phosphorus 9.0 H Level Magnesium Level 2.4 Test 10/28/18 07:00 Blood Gas Blood arterial Specimen Source Arterial Blood 10/28/2018 8:30: Date Drawn 58 AM Arterial Blood 7.376 pH (Temp corrected ) Arterial Blood 42.5 pCO2 (Temp correct) Arterial Blood 78.0 L pO2 (Temp corrected ) Arterial Blood 24.4 HCO3 Arterial Blood -0.8 Base Excess Arterial Blood 94.6 L Oxygen Saturati on Nicolas Test ACCEPTAB Arterial Blood Right Radial Gas Puncture Site Arterial 0.3 Blood Carboxyhe moglobin Arterial Blood 0.2 Methemoglobin Blood Gas A-a 303.1 H O2 Differential Oxyhemoglobin 94.1 Percent Blood Gas 37.0 Temperature Blood Gas 20.0 Respiration Rate Blood Gas 20 Actual Respiration Rat e Blood Gas VENT - AC Modality FiO2 60.0 Blood Gas Tidal 550.0 Volume Blood Gas Low 5.0 PEEP Setting Blood Gas Shawn MARTIN Notified Whom Blood Gas 10/28/2018 8:39: Notified Time 39 AM Medications Medication Current Medications Ticagrelor (Brilinta) 90 mg BID PO Last administered on 10/27/18at 21:37; Admin Dose 90 MG; Start 10/24/18 at 09:00 Atorvastatin Calcium (Lipitor) 40 mg DAILY@21 PO Last administered on 10/27/18at 21:32; Admin Dose 40 MG; Start 10/24/18 at 21:00 Aspirin (Aspirin) 81 mg DAILY PO Last administered on 10/27/18 08:09; Admin Dose 81 MG; Start 10/24/18 at 09:00 Amiodarone HCl 900 mg/Dextrose 500 ml @ 0 mls/hr Q0M IV ; Start 10/24/18 at 00:08 Ondansetron HCl (Zofran Inj) 4 mg Q6H PRN IV NAUSEA AND/OR VOMITING; Start 10/24/18 at 00:30 Albuterol (Ventolin Hfa) 4 puff Q2H RESP THERAPY PRN INH SHORTNESS OF BREATH; Start 10/24/18 at 00:30 Ipratropium [place] (Atrovent Hfa) 4 puff Q2H RESP THERAPY PRN INH SHORTNESS OF BREATH; Start 10/24/18 at 00:30 Acetaminophen (Tylenol Liquid) 650 mg Q6H PRN PO PAIN LEVEL 1-3 OR FEVER; Start 10/24/18 at 00:30 Miscellaneous Information (* Miscellaneous Pharmacy Order) Treatment of Hypoglycemia: 1.BG 51... Per protocol XX ; Start 10/24/18 at 00:30 Miscellaneous Information (* Miscellaneous Pharmacy Order) Treatment of Hypoglycemia: 1.BG 51... Per protocol XX ; Start 10/24/18 at 00:30 Dextrose (D50w Syringe) 25 ml Q15M PRN IV .DECREASED GLUCOSE; Start 10/24/18 at 00:30 Dextrose (D50w Syringe) 50 ml Q15M PRN IV .DECREASED GLUCOSE; Start 10/24/18 at 00:30 Eye Lubricant (Akwa Oint) 1 applic Q6 BOTH EYES Last administered on 10/28/18at 05:36; Admin Dose 1 APPLIC; Start 10/24/18 at 02:00 Eye Lubricant (Artificial Tears Oph) 2 drop Q6H PRN BOTH EYES DRY EYES Last administered on 10/28/18at 05:36; Admin Dose 2 DROP; Start 10/24/18 at 02:00 Meperidine HCl (Demerol) 12.5 mg Q2 PRN IV SHIVERING; Start 10/24/18 at 03:30 Dopamine HCl/ Dextrose 250 ml @ 9 mls/hr TITRATE IV Last administered on 10/26/18at 20:57; Admin Dose 13.5 MLS/HR; Start 10/24/18 at 04:30 Potassium Chloride 50 ml @ 50 mls/hr K PROTOCOL PRN IVPB PENDING LAB VALUE Last administered on 10/24/18at 20:36; Admin Dose 50 MLS/HR; Start 10/24/18 at 07:00 Influenza Virus Vaccine Quadrival (Fluzone) 0.5 ml ONCE ONCE IM* ; Start 10/28/18 at 10:00; Stop 10/28/18 at 10:01 Levetiracetam 100 ml @ 400 mls/hr Q12 IVPB Last administered on 10/27/18at 21:33; Admin Dose 400 MLS/HR; Start 10/24/18 at 14:00 Lorazepam (Ativan) 1 mg Q2H PRN IV seizures; Start 10/24/18 at 14:00 Piperacillin Sod/ Tazobactam Sod 50 ml @ 100 mls/hr Q8 IVPB Last administered on 10/28/18at 05:43; Admin Dose 100 MLS/HR; Start 10/25/18 at 09:30 Famotidine (Pepcid Iv) 20 mg DAILY IV Last administered on 10/27/18at 08:09; Admin Dose 20 MG; Start 10/26/18 at 09:00 Heparin Sodium (Porcine) (Heparin (5000 Units/1ml)) 5,000 unit BID SC Last administered on 10/27/18at 21:37; Admin Dose 5,000 UNIT; Start 10/26/18 at 21:00 Furosemide (Lasix) 40 mg BID DIURETICS IV Last administered on 10/28/18at 06:01; Admin Dose 40 MG; Start 10/27/18 at 08:00 Dextrose 1,000 ml @ 50 mls/hr Q20H IV ; Start 10/28/18 at 07:30 FREDERICK BOUDREAUX Oct 28, 2018 08:52
[2018-10-28] MEDS: HEPARIN 5,000 UNIT/1 ML VIAL SC SCH ×2 (08:53→20:13)
[2018-10-28] MEDS: ASPIRIN 81 MG TAB PO SCH (08:58)
--- NOTE | 2018-10-28 09:31 | PN ---
Date/Time of Note Date/Time of Note DATE: 10/28/18 TIME: 09:25 Objective Vitals Vital Signs Date Temp Pulse Resp B/P (MAP) Pulse Ox O2 O2 Flow FiO2 Time Delivery Rate 10/28/18 70 20 125/69 96 Mechanical 07:00 (87) Ventilator 10/28/18 60 05:07 10/28/18 98.5 04:00 Intake and Output 10/27/18 10/27/18 10/28/18 1515:00 23:00 07:00 IntakeIntake Total 597.75 ml 610 ml 370 ml OutputOutput Total 400 ml 303 ml 215 ml BalanceBalance 197.75 ml 307 ml 155 ml Results Result Diagram: 10/28/1830 10/28/18529 Medications Medications Current Medications Ticagrelor (Brilinta) 90 mg BID PO Last administered on 10/27/18at 21:37; Admin Dose 90 MG; Start 10/24/18 at 09:00 Atorvastatin Calcium (Lipitor) 40 mg DAILY@21 PO Last administered on 10/27/18at 21:32; Admin Dose 40 MG; Start 10/24/18 at 21:00 Aspirin (Aspirin) 81 mg DAILY PO Last administered on 10/27/18at 08:09; Admin Dose 81 MG; Start 10/24/18 at 09:00 Amiodarone HCl 900 mg/Dextrose 500 ml @ 0 mls/hr Q0M IV ; Start 10/24/18 at 00:08 Ondansetron HCl (Zofran Inj) 4 mg Q6H PRN IV NAUSEA AND/OR VOMITING; Start 10/24/18 at 00:30 Albuterol (Ventolin Hfa) 4 puff Q2H RESP THERAPY PRN INH SHORTNESS OF BREATH; Start 10/24/18 at 00:30 Ipratropium [place] (Atrovent Hfa) 4 puff Q2H RESP THERAPY PRN INH SHORTNESS OF BREATH; Start 10/24/18 at 00:30 Acetaminophen (Tylenol Liquid) 650 mg Q6H PRN PO PAIN LEVEL 1-3 OR FEVER; Start 10/24/18 at 00:30 Miscellaneous Information (* Miscellaneous Pharmacy Order) Treatment of Hypoglycemia: 1.BG 51... Per protocol XX ; Start 10/24/18 at 00:30 Miscellaneous Information (* Miscellaneous Pharmacy Order) Treatment of Hypoglycemia: 1.BG 51... Per protocol XX ; Start 10/24/18 at 00:30 Dextrose (D50w Syringe) 25 ml Q15M PRN IV .DECREASED GLUCOSE; Start 10/24/18 at 00:30 Dextrose (D50w Syringe) 50 ml Q15M PRN IV .DECREASED GLUCOSE; Start 10/24/18 at 00:30 Eye Lubricant (Akwa Oint) 1 applic Q6 BOTH EYES Last administered on 10/28/18 05:36; Admin Dose 1 APPLIC; Start 10/24/18 at 02:00 Eye Lubricant (Artificial Tears Oph) 2 drop Q6H PRN BOTH EYES DRY EYES Last administered on 10/28/18 05:36; Admin Dose 2 DROP; Start 10/24/18 at 02:00 Meperidine HCl (Demerol) 12.5 mg Q2 PRN IV SHIVERING; Start 10/24/18 at 03:30 Dopamine HCl/ Dextrose 250 ml @ 9 mls/hr TITRATE IV Last administered on at 20:57; Admin Dose 13.5 MLS/HR; Start 10/24/18 at 04:30 Potassium Chloride 50 ml @ 50 mls/hr K PROTOCOL PRN IVPB PENDING LAB VALUE Last administered on 10/24/18at 20:36; Admin Dose 50 MLS/HR; Start 10/24/18 at 07:00 Influenza Virus Vaccine Quadrival (Fluzone) 0.5 ml ONCE ONCE IM* ; Start 10/28/18 at 10:00; Stop 10/28/18 at 10:01 Levetiracetam 100 ml @ 400 mls/hr Q12 IVPB Last administered on 10/27/18at 21:33; Admin Dose 400 MLS/HR; Start 10/24/18 at 14:00 Lorazepam (Ativan) 1 mg Q2H PRN IV seizures; Start 10/24/18 at 14:00 Piperacillin Sod/ Tazobactam Sod 50 ml @ 100 mls/hr Q8 IVPB Last administered on 10/28/18 05:43; Admin Dose 100 MLS/HR; Start 10/25/18 at 09:30 Famotidine (Pepcid Iv) 20 mg DAILY IV Last administered on 10/27/18at 08:09; Admin Dose 20 MG; Start 10/26/18 at 09:00 Heparin Sodium (Porcine) (Heparin (5000 Units/1ml)) 5,000 unit BID SC Last administered on 10/27/18at 21:37; Admin Dose 5,000 UNIT; Start 10/26/18 at 21:00 Furosemide (Lasix) 40 mg BID DIURETICS IV Last administered on 10/28/18at 06:01; Admin Dose 40 MG; Start 10/27/18 at 08:00 Dextrose 1,000 ml @ 50 mls/hr Q20H IV ; Start 10/28/18 at 07:30 VTE Prophylaxis Risk score (from Ns)>0 risk: 8 SCD applied (from [facility]): Yes Lines/Catheters IV Catheter Type: East in Place: No Assessment/Plan Hospital Course Subjective: Remains intubated and sedated, no significant neurological recovery per staff Objective : GENERAL: Intubated and comfortably sedated HEENT: Intubated, Vent settings noted, pupils are barely reactive, right pupil had questionable movement and left pupil minimal to none., but not dilated, LUNGS: diffusely diminished and coarse BS HEART: Regular rate, no obvious murmur ABDOMEN: Soft, with questionable diminished bowel sounds. GENITOURINARY: Normal male external genitalia, East to bedside drainage EXTREMITIES: Mild 1+ nonpitting edema bilaterally, also some hand edema bilaterally NEUROLOGIC: Does not respond to noxious stimuli SKIN: Otherwise, unremarkable. assessment and plan: 1. V-fib cardiac arrest: s/p ROSC. Secondary to STEMI -Patient is status post successful PTCA thrombectomy stenting of the distal left circumflex artery from 100% occlusion to no significant residual stenosis using a 2.75 x 24 mm Synergy drug-eluting stent. s/p intra-aortic balloon pump, s/p hypothermia protocol -Currently on Brilinta, aspirin, statin -Management per cardiology -Echocardiogram showed preserved ejection fraction at 65% with stage I diastolic dysfunction without significant valvular abnormalities -Sinus off amiodarone gtt 2. Hypoxic and hypercapnic respiratory failure, secondary to above: Status post intubation -Continue vent support -Pulmonary managing, appreciate input 3. STEMI: See #1 4. Hyperglycemia: A1c 5.3 -s/p insulin drip, resolved 5. Post cardiac arrest Seizures -Head CT without acute findings. -No further seizures, on Keppra for prophylaxis< EEG showed slowing of the background indicates diffuse cortical dysfunction of nonspecific etiology. -Will order MRI of the brain when more stable 6. Acute renal failure with Severe metabolic acidosis -s/p bicarb drip, no hx of renal failure per -creatinine trending up however -Mild bilateral hydronephrosis and possible medical renal disease on ultrasound. Also probable debris noted in the bladder on ultrasound -Urine culture negative x 2 days 7. SIRS with bandemia and systemic Shock (Cardiogenic) -pancultures -patient high risk for aspiration PNA, abx ? -continue pressor support, wean as tolerated 8. Constipation noted on CT -no management for now 9. Hypertriglyceridemia -continue statin 10. Multivessel coronary artery disease with 90% right coronary artery stenosis -s/p successful PCI 12. Severe lactic acidosis likely secondary to hypoperfusion -trend levels to normal 13. Acute transaminitis/shock liver -hepatitis serology, trend levels 14. Aute encephalopathy 2/ #1 with concern for brain Dispo: -Renal function is worsening, with reduced urinary output and evidence of pulmonary congestion on chest x-ray -Continue serial monitoring, patient is now on diuretic challenge, may require renal replacement therapy -Patient not showing any significant neurologic response at this time, however it may still be early in the course of his disease, patient also on antiepileptics. Continue close monitoring, continue ventilator support, prognosis looking grim at this time neurology working up for brain , -Continue to wean pressors as tolerated, continue empiric Zosyn for possible aspiration -Continue Brilinta, statin and aspirin for coronary artery disease -Patient remains on fentanyl as well as midazolam for sedation as well. -Continue ICU close monitoring on micromanagement. -Patient will need some form of nutrition, high residuals yesterday, will attempt tube feedings today, however if tube feedings are not successful will n eed to start TPN as patient does need some form of nutrition, patient also on D10 for calories currently. -We will also continue serial x-rays and serial labs and supportive care as indicated. -Over 40 minutes of medical care time was spent on this encounter GAYLE HUITRON Oct 28, 2018 09:31
[2018-10-28] MEDS: FAMOTIDINE 20 MG INJ IV SCH (09:41)
[2018-10-28] MEDS ORDERED: INFLUENZA VIRUS VACCINE 0.5 ML (DISPENSING) IM* ONE (10:00)
--- NOTE | 2018-10-28 13:24 | CONS ---
Consult Date/Type/Reason Admit Date/Time Oct 23, 2018 at 20:58 Initial Consult Date 10/23/18 Type of Consultation: CV Requesting Provider: LISSY SMITH MD Date/Time of Note DATE: 10/28/18 TIME: 13:22 Subjective Interventional cardiology follow-up progress note/critical care note Subjective: Discussed multiple staff and physicians. Telemetry was reviewed. Pt remains in NSR dw/ Patient remained intubated and on the vent currently off pressors in the ICU no bleeding Intra-aortic balloon pump has been removed on October 25, 2018 Objective: General: Obese gentleman status post intubation on the vent nonverbal HEENT: NC/AT. pupils are not reactive. no corneal reflex NECK: no stridor. CV: RRR. systolic murmur; no gallop or rubs. PULM: no wheezing +rhonchi. GI: SOFT, NT, ND, no rebound or guarding Extremity: trace B/L LE edema. no clubbing. neuro: No response to verbal stimuli Psych: calm rectal: deferred : normal male Right femoral no bleeding or hematoma bruit noted Left femoral arterial sheath removed and no hematoma EKG emergency room was personally showed normal sinus rhythm with ST elevation inferolaterally consistent with inferolateral ST elevation [place] with reciprocal changes anteriorly Head CT done in the emergency room shows: No mass effect or acute intracranial bleed. Mild intracranial vascular calc ification.. Chest x-ray done in the ER shows: 1. Endotracheal tube in place. 2. Atelectasis at the right lung base. 3. Mild cardiomegaly. 4. Exam limited by low lung volumes and multiple overlying external appearing wires . Chest x-ray done October 25, 2018 shows:Cardiomegaly. No significant change in mild central pulmonary vascular congestion. Multiple ABG that was reviewed personally Echocardiogram done October 24, 2018 was personally reviewed which shows Normal left ventricular systolic function. Normal left ventricular cavity size. Moderate concentric left ventricular hypertrophy. Ejection fraction is visually estimated at 65 %. Tissue Doppler/Mitral Doppler indices are consistent with impaired relaxation (Stage I diastolic dysfunction). Normal appearance and function of the mitral valve with trace physiologic regurgitation. Normal appearance of the aortic valve. No significant aortic stenosis or insufficiency. Normal appearance of the tricuspid valve. Unable to obtain RVSP due to minimal presence of tricuspid regurgitation. Normal IVC with respiratory collapse, however patient on ventilator. Normal pericardium with no significant pericardial effusion. Objective Vitals Vital Signs Date Temp Pulse Resp B/P (MAP) Pulse Ox O2 O2 Flow FiO2 Time Delivery Rate 10/28/18 98.4 68 20 131/72 98 Mechanical 12:00 (91) Ventilator 10/28/18 60 08:00 Intake and Output 10/27/18 10/27/18 10/28/18 1515:00 23:00 07:00 IntakeIntake Total 597.75 ml 610 ml 370 ml OutputOutput Total 400 ml 303 ml 245 ml BalanceBalance 197.75 ml 307 ml 125 ml Results/Medications Result Diagram: 10/28/18 0530 10/28/18 0530 Results 24 hrs Laboratory Tests Test 10/27/18 14:50 10/28/18 05:30 10/28/18 07:00 Blood Gas Specimen Blood arterial Blood arterial Source Arterial Blood Date 10/27/2018 2:49:01 PM 10/28/2018 8:30:58 AM Drawn Arterial Blood pH 7.223 *L 7.376 (Temp corrected) Arterial Blood pCO2 66.4 H 42.5 (Temp correct) Arterial Blood pO2 81.5 78.0 L (Temp corrected) Arterial Blood HCO3 26.7 H 24.4 Arterial Blood Base -2.0 -0.8 Excess Arterial Blood 93.3 L 94.6 L Oxygen Saturation Nicolas Test ACCEPTAB ACCEPTAB Arterial Blood Gas Right Radial Right Radial Puncture Site Arterial 0.3 0.3 Blood Carboxyhemoglob in Arterial Blood 0.4 0.2 Methemoglobin Blood Gas A-a O2 120.0 H 303.1 H Differential Oxyhemoglobin Percent 92.6 L 94.1 Blood Gas Temperature 37.0 37.0 Blood Gas Modality NASAL CANNULA VENT - AC FiO2 39.0 60.0 Blood Gas Critical SHANE HA Value Read Back Blood Gas Notified TM Shawn Fish Blood Gas Notified 10/27/2018 2:55:52 PM 10/28/2018 8:39:39 AM Time White Blood Count 14.5 H Red Blood Count 3.17 L Hemoglobin 9.6 L Hematocrit 29.1 L Mean Corpuscular 91.8 Volume Mean Corpuscular 30.3 Hemoglobin Mean Corpuscular 33.0 Hemoglobin Concent Red Cell Distribution 14.2 Width Platelet Count 129 L Mean Platelet Volume 10.2 Immature Granulocytes 0.600 H % Neutrophils % 84.6 H Segmented Neutrophils 72 % (Manual) Band Neutrophils % 13 H (Manual) Lymphocytes % 6.8 L Lymphocytes % 7 L (Manual) Reactive Lymphocytes 2 H % (Manual) Monocytes % 7.0 Monocytes % (Manual) 6 Eosinophils % 0.7 Basophils % 0.3 Nucleated Red Blood 0.0 Cells % Immature Granulocytes 0.080 H # Neutrophils # 12.3 H Neutrophils # 10.7 H (Manual) Band Neutrophils # 1.8 H Lymphocytes (Manual) 1.0 Lymphocytes # 1.0 Reactive Lymphocytes 0.2 H # Monocytes # 1.0 H Monocytes # (Manual) 0.8 Eosinophils # 0.1 Basophils # 0.0 Nucleated Red Blood 0.0 Cells # Platelet Estimate DECREASED Polychromasia 3+ Anisocytosis 2+ Microcytosis 2+ Sodium Level 143 Potassium Level 4.1 Chloride Level 104 Carbon Dioxide Level 26 Anion Gap 13 Blood Urea Nitrogen 82 H Creatinine 5.88 H Est Glomerular 10 L Filtrat Rate mL/min Glucose Level 84 Lactic Acid Level 1.5 Calcium Level 7.3 L Phosphorus Level 9.0 H Magnesium Level 2.4 Blood Gas Respiration 20.0 Rate Blood Gas Actual 20 Respiration Rate Blood Gas Tidal 550.0 Volume Blood Gas Low PEEP 5.0 Setting Home Meds Reported Medications Amlodipine Besylate* (Amlodipine Besylate*) 10 Mg Tablet, 10 MG PO DAILY, #30 TAB 10/23/18 Cyanocobalamin (Vitamin B-12) (Vitamin B-12) Unknown Strength Capsule, 1 CAP PO DAILY, CAP 10/23/18 Garlic (Garlic) 1 Each Tablet, 1 EACH PO DAILY, TAB 10/23/18 Multivitamins* (Theragran*) 1 Tab Tab, 1 TAB PO DAILY, TAB 10/23/18 Acyclovir* (Acyclovir*) 800 Mg Tablet, 800 MG PO DAILY, TAB 10/23/18 Aspirin* (Aspirin* EC) 81 Mg Tablet.dr, 81 MG PO DAILY, TAB 10/23/18 Medications Current Medications Ticagrelor (Brilinta) 90 mg BID PO Last administered on 10/28/18at 08:51; Admin Dose 90 MG; Start 10/24/18 at 09:00 Atorvastatin Calcium (Lipitor) 40 mg DAILY@21 PO Last administered on 10/27/18at 21:32; Admin Dose 40 MG; Start 10/24/18 at 21:00 Aspirin (Aspirin) 81 mg DAILY PO Last administered on 10/28/18at 08:58; Admin Dose 81 MG; Start 10/24/18 at 09:00 Amiodarone HCl 900 mg/Dextrose 500 ml @ 0 mls/hr Q0M IV ; Start 10/24/18 at 00:08 Ondansetron HCl (Zofran Inj) 4 mg Q6H PRN IV NAUSEA AND/OR VOMITING; Start 10/24/18 at 00:30 Albuterol (Ventolin Hfa) 4 puff Q2H RESP THERAPY PRN INH SHORTNESS OF BREATH; Start 10/24/18 at 00:30 Ipratropium [place] (Atrovent Hfa) 4 puff Q2H RESP THERAPY PRN INH SHORTNESS OF BREATH; Start 10/24/18 at 00:30 Acetaminophen (Tylenol Liquid) 650 mg Q6H PRN PO PAIN LEVEL 1-3 OR FEVER; Start 10/24/18 at 00:30 Miscellaneous Information (* Miscellaneous Pharmacy Order) Treatment of Hypoglycemia: 1.BG 51... Per protocol XX ; Start 10/24/18 at 00:30 Miscellaneous Information (* Miscellaneous Pharmacy Order) Treatment of Hypoglycemia: 1.BG 51... Per protocol XX ; Start 10/24/18 at 00:30 Dextrose (D50w Syringe) 25 ml Q15M PRN IV .DECREASED GLUCOSE; Start 10/24/18 at 00:30 Dextrose (D50w Syringe) 50 ml Q15M PRN IV .DECREASED GLUCOSE; Start 10/24/18 at 00:30 Eye Lubricant (Akwa Oint) 1 applic Q6 BOTH EYES Last administered on 10/28/18at 12:33; Admin Dose 1 APPLIC; Start 10/24/18 at 02:00 Eye Lubricant (Artificial Tears Oph) 2 drop Q6H PRN BOTH EYES DRY EYES Last administered on 10/28/18at 05:36; Admin Dose 2 DROP; Start 10/24/18 at 02:00 Meperidine HCl (Demerol) 12.5 mg Q2 PRN IV SHIVERING; Start 10/24/18 at 03:30 Dopamine HCl/ Dextrose 250 ml @ 9 mls/hr TITRATE IV Last administered on 10/26/18at 20:57; Admin Dose 13.5 MLS/HR; Start 10/24/18 at 04:30 Potassium Chloride 50 ml @ 50 mls/hr K PROTOCOL PRN IVPB PENDING LAB VALUE Last administered on 10/24/18at 20:36; Admin Dose 50 MLS/HR; Start 10/24/18 at 07:00 Levetiracetam 100 ml @ 400 mls/hr Q12 IVPB Last administered on 10/28/18at 08:50; Admin Dose 400 MLS/HR; Start 10/24/18 at 14:00 Lorazepam (Ativan) 1 mg Q2H PRN IV seizures; Start 10/24/18 at 14:00 Piperacillin Sod/ Tazobactam Sod 50 ml @ 100 mls/hr Q8 IVPB Last administered on 10/28/18at 05:43; Admin Dose 100 MLS/HR; Start 10/25/18 at 09:30 Famotidine (Pepcid Iv) 20 mg DAILY IV Last administered on 10/28/18at 09:41; Admin Dose 20 MG; Start 10/26/18 at 09:00 Heparin Sodium (Porcine) (Heparin (5000 Units/1ml)) 5,000 unit BID SC Last administered on 10/28/18at 08:53; Admin Dose 5,000 UNIT; Start 10/26/18 at 21:00 Furosemide (Lasix) 40 mg BID DIURETICS IV Last administered on 10/28/18at 06:01; Admin Dose 40 MG; Start 10/27/18 at 08:00 Dextrose 1,000 ml @ 50 mls/hr Q20H IV Last administered on 10/28/18at 08:50; Admin Dose 50 MLS/HR; Start 10/28/18 at 07:30 Assessment/Plan Hospital Course (Demo Recall) Ventricular fibrillation cardiac arrest V. 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 f/u neuro rec. Vent support will be continued. Hypothermia has been completed Magnesium potassium to be replaced as needed Diuretics will be deferred to renal recommendation Prognosis is guarded Thank you for his referral. We will continue to follow along with you DRU PONCE MD [facility] DRU PONCE MD Oct 28, 2018 13:24
--- NOTE | 2018-10-28 18:04 | RADRPT ---
Vent Rate: 81 bpm RR Interval: 0 msec [place] Interval: 184 msec QRS Duration: 94 msec QT Interval: 340 msec QTC Interval: 394 msec P-R-T [place]: 48 - -4 - 65 degrees Normal sinus rhythm Nonspecific ST and T wave abnormality Abnormal ECG Electronically Signed By: Michael Wray
--- NOTE | 2018-10-28 18:09 | RADRPT ---
Vent Rate: 87 bpm RR Interval: 0 msec [place] Interval: 194 msec QRS Duration: 96 msec QT Interval: 410 msec QTC Interval: 493 msec P-R-T [place]: 19 - -30 - 50 degrees Normal sinus rhythm Left axis deviation Low voltage QRS Inferior infarct , age undetermined Abnormal ECG Electronically Signed By: Michael Wray
--- NOTE | 2018-10-28 18:14 | RADRPT ---
Vent Rate: 68 bpm RR Interval: 0 msec [place] Interval: 204 msec QRS Duration: 78 msec QT Interval: 532 msec QTC Interval: 565 msec P-R-T [place]: 45 - -32 - 59 degrees Sinus rhythm with marked sinus arrhythmia Left axis deviation Nonspecific ST abnormality Prolonged QT Abnormal ECG Electronically Signed By: Michael Wray
--- NOTE | 2018-10-28 18:18 | RADRPT ---
Vent Rate: 69 bpm RR Interval: 0 msec [place] Interval: 204 msec QRS Duration: 94 msec QT Interval: 532 msec QTC Interval: 570 msec P-R-T [place]: 71 - -29 - 64 degrees Sinus rhythm with premature supraventricular complexes Nonspecific ST abnormality Prolonged QT Abnormal ECG Electronically Signed By: Michael Wray
--- NOTE | 2018-10-28 18:21 | RADRPT ---
Vent Rate: 77 bpm RR Interval: 0 msec [place] Interval: 216 msec QRS Duration: 100 msec QT Interval: 468 msec QTC Interval: 529 msec P-R-T [place]: 61 - -23 - 48 degrees Sinus rhythm with sinus arrhythmia with 1st degree AV block Nonspecific ST abnormality Prolonged QT Abnormal ECG Electronically Signed By: Michael Wray
[2018-10-28] MEDS: ATORVASTATIN 40 MG TAB PO SCH (20:11)
[2018-10-28] MEDS ORDERED: ALTEPLASE (CATHFLO) 2 MG INJ CATHETER ONE (20:30)
[2018-10-29] VITALS (38 sets, daily range): BP systolic 120–148; BP diastolic 62–78; PULSE 0–68; RESP 0–26
[2018-10-29] MEDS: OCULAR LUBRICANT 3.5 GM OPH OINT BOTH EYES SCH ×4 (00:10→17:58)
[2018-10-29] MEDS: DEXTROSE 10% 1,000 ML IV SCH (03:30)
[2018-10-29] MEDS: PIPER-TAZO 2.25 GM (PMX) 50 ML IVPB SCH ×2 (05:30→13:32)
[2018-10-29] MEDS: FUROSEMIDE 40 MG INJ IV SCH ×2 (05:30→18:00)
--- NOTE | 2018-10-29 07:26 | PN ---
Date/Time of Note Date/Time of Note DATE: 10/29/18 TIME: 07:23 Assessment/Plan VTE Prophylaxis Risk score (from Nsg)>0 risk: 11 SCD applied (from Nsg): Yes Pharmacological prophylaxis: other Lines/Catheters IV Catheter Type (from Nrsg): Saline Lock Urinary Cath still in place: Yes Reason Cath still needed: urinary retention Assessment/Plan Hospital Course renal follow up SUBJECTIVE: The patient remains on full ventilatory support. The patient has had minimal neurological response. BP is supported by pressors. UOP is stable with lasix. cxr and vent settings were reviewed. has an OGT and is on 10 ml/hr tube feeding ARF is worse D/W ICU nurse. desaturated last night and vent settings were changed accordingly. ABG and cardiac strips were reviewed No other events noted. No fever, new rash, tachypnea, hemoptysis, hematemesis or hematochezia. OBJECTIVE: HEENT: Head is normocephalic. NECK: Supple. HEART: Tachycardic. LUNGS: Show diminished breath sounds at the base. ABDOMEN: Soft, nontender to palpation without rebound or guarding. EXTREMITIES: Negative for clubbing, cyanosis. Trace edema. DERMATOLOGIC: No rashes. MUSCULOSKELETAL: No joint effusion. NEUROLOGIC: No change in exam. MEDICATIONS: Reviewed. time of halfway: 43 min of cc time ASSESSMENT AND PLAN: 1. Nonoliguric acute kidney injury previously normal baseline creatinine. Etiology of acute kidney injury is secondary to acute tubular necrosis due to ischemic hypoperfusion, and shock. The patient remains in injury phase of acute tubular necrosis as creatinine continues to increase. Renal function is declining. The patient's urinary output has been stable however he is grossly volume overloaded and has pulm edema (almost in ARDS). will start HD with UF after line is placed. surgery for line placement is consulted. 2. Volume overload. The patient has noted lower extremity edema, pulmonary vascular congestion. We will continue diuretic therapy until HD is started 3. Cardiac arrest secondary to ST elevated myocardial infarction. The patient is status post percutaneous coronary intervention. Continue medical management. Follow up with Cardiology. 4. Shock, etiology is cardiogenic, questionable sepsis. The patient is being weaned off pressor support. Continue antibiotic therapy, monitor closely on diuretic therapy. 5. Lactic acidosis, secondary to shock, improved. 6. Ventilator-dependent respiratory failure. Vent settings and ABG was reviewed. Continue to monitor. 7. Dysphagia. Continue to monitor. 8. Cardiac arrest secondary to myocardial infarction. The patient is status post hypothermic protocol, status post percutaneous coronary intervention to the circumflex. Continue medical management. 9. Acute encephalopathy with likely anoxic injury. The patient has had minimal neurologic response. Follow up with neurology for recommendations. 10. Mineral bone disorder, monitor calcium and phosphorus levels. 11. Transaminitis secondary to shock. Continue to monitor. Continue LFTs. 12. Gastrointestinal and deep vein thrombosis prophylaxis. Result Diagram: 10/29/18 0431 10/29/18 0431 Results 24hrs Laboratory Tests Test 10/28/18 22:29 10/29/18 04:31 10/29/18 06:01 Hemoglobin 9.2 L 9.6 L Hematocrit 27.6 L 29.3 L Absolute Reticulocyte Count 0.053 Percent Reticulocyte Count 1.8 H White Blood Count 13.1 H Red Blood Count 3.17 L Mean Corpuscular Volume 92.4 Mean Corpuscular Hemoglobin 30.3 Mean Corpuscular 32.8 Hemoglobin Concent Red Cell Distribution Width 14.1 Platelet Count 141 Mean Platelet Volume 10.1 Immature Granulocytes % 3.400 H Neutrophils % 79.0 H Lymphocytes % 6.6 L Monocytes % 9.1 Eosinophils % 1.4 Basophils % 0.5 Nucleated Red Blood Cells % 0.0 Immature Granulocytes # 0.440 H Neutrophils # 10.4 H Lymphocytes # 0.9 Monocytes # 1.2 H Eosinophils # 0.2 Basophils # 0.1 Nucleated Red Blood Cells # 0.0 Sodium Level 144 Potassium Level 3.7 Chloride Level 103 Carbon Dioxide Level 29 Anion Gap 12 Blood Urea Nitrogen 97 H Creatinine 7.75 H Est Glomerular Filtrat 7 L Rate mL/min Glucose Level 96 Calcium Level 8.6 Magnesium Level 2.7 H Total Bilirubin 0.4 Direct Bilirubin 0.00 Indirect Bilirubin 0.4 Aspartate Amino 71 H Transf (AST/SGOT) Alanine 70 H Aminotransferase (ALT/SGPT) Alkaline Phosphatase 259 #H Total Protein 5.9 L Albumin 2.9 L Globulin 3.00 Albumin/Globulin Ratio 0.96 Blood Gas Specimen Source Blood arterial Arterial Blood Date Drawn 10/29/2018 6:09:20 AM Arterial Blood pH 7.329 L (Temp corrected) Arterial Blood pCO2 47.7 H (Temp correct) Arterial Blood pO2 48.7 *L (Temp corrected) Arterial Blood HCO3 24.5 Arterial Blood Base Excess -1.8 Arterial Blood 79.2 L Oxygen Saturation Nicolas Test ACCEPTAB Arterial Blood Gas Right Radial Puncture Site Arterial 0 Blood Carboxyhemoglobin Arterial Blood Methemoglobin 0.2 Blood Gas A-a O2 616.6 H Differential Oxyhemoglobin Percent 79.0 L Blood Gas Temperature 37.0 Blood Gas Respiration Rate 20.0 Blood Gas Actual 21 Respiration Rate Blood Gas Modality VENT - AC FiO2 100.0 Blood Gas Tidal Volume 550.0 Blood Gas Mean Airway 14 Pressure Blood Gas Low PEEP Setting 5.0 Blood Gas Inspiratory 31.0 Pressure Blood Gas Critical Value Joe LOPEZNSusan Read Back Blood Gas Notified Whom ANATOLY HEWITT Blood Gas Notified Time 10/29/2018 6:21:17 AM Exam/Review of Systems Exam Vitals Vital Signs Date Temp Pulse Resp B/P (MAP) Pulse Ox O2 O2 Flow FiO2 Time Delivery Rate 10/29/18 68 26 126/65 80 Mechanical 06:00 (85) Ventilator 10/29/18 100 05:26 10/29/18 98.5 04:00 Intake and Output 10/28/18 10/28/18 10/29/18 1515:00 23:00 07:00 IntakeIntake Total 530 ml 430 ml 120 ml OutputOutput Total 315 ml 330 ml 240 ml BalanceBalance 215 ml 100 ml -120 ml Results Results 24hrs Laboratory Tests Test 10/28/18 22:29 10/29/18 04:31 10/29/18 06:01 Hemoglobin 9.2 L 9.6 L Hematocrit 27.6 L 29.3 L Absolute Reticulocyte Count 0.053 Percent Reticulocyte Count 1.8 H White Blood Count 13.1 H Red Blood Count 3.17 L Mean Corpuscular Volume 92.4 Mean Corpuscular Hemoglobin 30.3 Mean Corpuscular 32.8 Hemoglobin Concent Red Cell Distribution Width 14.1 Platelet Count 141 Mean Platelet Volume 10.1 Immature Granulocytes % 3.400 H Neutrophils % 79.0 H Lymphocytes % 6.6 L Monocytes % 9.1 Eosinophils % 1.4 Basophils % 0.5 Nucleated Red Blood Cells % 0.0 Immature Granulocytes # 0.440 H Neutrophils # 10.4 H Lymphocytes # 0.9 Monocytes # 1.2 H Eosinophils # 0.2 Basophils # 0.1 Nucleated Red Blood Cells # 0.0 Sodium Level 144 Potassium Level 3.7 Chloride Level 103 Carbon Dioxide Level 29 Anion Gap 12 Blood Urea Nitrogen 97 H Creatinine 7.75 H Est Glomerular Filtrat 7 L Rate mL/min Glucose Level 96 Calcium Level 8.6 Magnesium Level 2.7 H Total Bilirubin 0.4 Direct Bilirubin 0.00 Indirect Bilirubin 0.4 Aspartate Amino 71 H Transf (AST/SGOT) Alanine 70 H Aminotransferase (ALT/SGPT) Alkaline Phosphatase 259 #H Total Protein 5.9 L Albumin 2.9 L Globulin 3.00 Albumin/Globulin Ratio 0.96 Blood Gas Specimen Source Blood arterial Arterial Blood Date Drawn 10/29/2018 6:09:20 AM Arterial Blood pH 7.329 L (Temp corrected) Arterial Blood pCO2 47.7 H (Temp correct) Arterial Blood pO2 48.7 *L (Temp corrected) Arterial Blood HCO3 24.5 Arterial Blood Base Excess -1.8 Arterial Blood 79.2 L Oxygen Saturation Nicolas Test ACCEPTAB Arterial Blood Gas Right Radial Puncture Site Arterial 0 Blood Carboxyhemoglobin Arterial Blood Methemoglobin 0.2 Blood Gas A-a O2 616.6 H Differential Oxyhemoglobin Percent 79.0 L Blood Gas Temperature 37.0 Blood Gas Respiration Rate 20.0 Blood Gas Actual 21 Respiration Rate Blood Gas Modality VENT - AC FiO2 100.0 Blood Gas Tidal Volume 550.0 Blood Gas Mean Airway 14 Pressure Blood Gas Low PEEP Setting 5.0 Blood Gas Inspiratory 31.0 Pressure Blood Gas Critical Value [id number].[id number]. Read Back Blood Gas Notified Whom ANATOLY HEWITT Blood Gas Notified Time 10/29/2018 6:21:17 AM Medications Medication Current Medications Ticagrelor (Brilinta) 90 mg BID PO Last administered on 10/28/18at 20:13; Admin Dose 90 MG; Start 10/24/18 at 09:00 Atorvastatin Calcium (Lipitor) 40 mg DAILY@21 PO Last administered on 10/28/18at 20:11; Admin Dose 40 MG; Start 10/24/18 at 21:00 Aspirin (Aspirin) 81 mg DAILY PO Last administered on 10/28/18 08:58; Admin Dose 81 MG; Start 10/24/18 at 09:00 Amiodarone HCl 900 mg/Dextrose 500 ml @ 0 mls/hr Q0M IV ; Start 10/24/18 at 0 0:08 Ondansetron HCl (Zofran Inj) 4 mg Q6H PRN IV NAUSEA AND/OR VOMITING; Start 10/24/18 at 00:30 Albuterol (Ventolin Hfa) 4 puff Q2H RESP THERAPY PRN INH SHORTNESS OF BREATH; Start 10/24/18 at 00:30 Ipratropium [place] (Atrovent Hfa) 4 puff Q2H RESP THERAPY PRN INH SHORTNESS OF BREATH; Start 10/24/18 at 00:30 Acetaminophen (Tylenol Liquid) 650 mg Q6H PRN PO PAIN LEVEL 1-3 OR FEVER; Start 10/24/18 at 00:30 Miscellaneous Information (* Miscellaneous Pharmacy Order) Treatment of Hypoglycemia: 1.BG 51... Per protocol XX ; Start 10/24/18 at 00:30 Miscellaneous Information (* Miscellaneous Pharmacy Order) Treatment of Hypoglycemia: 1.BG 51... Per protocol XX ; Start 10/24/18 at 00:30 Dextrose (D50w Syringe) 25 ml Q15M PRN IV .DECREASED GLUCOSE; Start 10/24/18 at 00:30 Dextrose (D50w Syringe) 50 ml Q15M PRN IV .DECREASED GLUCOSE; Start 10/24/18 at 00:30 Eye Lubricant (Akwa Oint) 1 applic Q6 BOTH EYES Last administered on 10/29/18at 05:32; Admin Dose 1 APPLIC; Start 10/24/18 at 02:00 Eye Lubricant (Artificial Tears Oph) 2 drop Q6H PRN BOTH EYES DRY EYES Last administered on 10/28/18at 05:36; Admin Dose 2 DROP; Start 10/24/18 at 02:00 Meperidine HCl (Demerol) 12.5 mg Q2 PRN IV SHIVERING; Start 10/24/18 at 03:30 Dopamine HCl/ Dextrose 250 ml @ 9 mls/hr TITRATE IV Last administered on 10/26/18at 20:57; Admin Dose 13.5 MLS/HR; Start 10/24/18 at 04:30 Potassium Chloride 50 ml @ 50 mls/hr K PROTOCOL PRN IVPB PENDING LAB VALUE Last administered on 10/24/18at 20:36; Admin Dose 50 MLS/HR; Start 10/24/18 at 07:00 Levetiracetam 100 ml @ 400 mls/hr Q12 IVPB Last administered on 10/28/18 20:11; Admin Dose 400 MLS/HR; Start 10/24/18 at 14:00 Lorazepam (Ativan) 1 mg Q2H PRN IV seizures; Start 10/24/18 at 14:00 Piperacillin Sod/ Tazobactam Sod 50 ml @ 100 mls/hr Q8 IVPB Last administered on 10/29/18 05:30; Admin Dose 100 MLS/HR; Start 10/25/18 at 09:30 Famotidine (Pepcid Iv) 20 mg DAILY IV Last administered on 10/28/18 09:41; Admin Dose 20 MG; Start 10/26/18 at 09:00 Heparin Sodium (Porcine) (Heparin (5000 Units/1ml)) 5,000 unit BID SC Last administered on 10/28/18 20:13; Admin Dose 5,000 UNIT; Start 10/26/18 at 21:00 Furosemide (Lasix) 40 mg BID DIURETICS IV Last administered on 10/29/18 05:30; Admin Dose 40 MG; Start 10/27/18 at 08:00 Dextrose 1,000 ml @ 50 mls/hr Q20H IV Last administered on 10/28/18 08:50; Admin Dose 50 MLS/HR; Start 10/28/18 at 07:30 ASHLEIGH CUADRA DO Oct 29, 2018 07:26
[2018-10-29] MEDS: ASPIRIN 81 MG TAB PO SCH (08:32)
[2018-10-29] MEDS: HEPARIN 5,000 UNIT/1 ML VIAL SC SCH (08:35)
[2018-10-29] MEDS: TICAGRELOR 90 MG TABLET PO SCH (08:36)
[2018-10-29] MEDS: LEVETIRACETAM 500 MG (PMX) 100 ML IVPB SCH (08:37)
[2018-10-29] MEDS ORDERED: FAMOTIDINE 20 MG TAB NGT SCH (09:00)
--- NOTE | 2018-10-29 09:12 | CONS ---
Assessment/Plan Assessment/Plan Assessment/Plan (Daily) Chest x-ray showing bilateral pneumonia with CHF. Ventilator setting; AC of 20, tidal volume 550, PEEP of 10, 100% FiO2. ABG showing severe hypoxemia and mild hypercapnia. Assessment and recommendations; 1. Patient admitted with cardiac arrest status post hypothermia protocol with severe ensuing anoxic encephalopathy. 2. Worsening renal function with a history of baseline mild chronic renal in sufficiency. Patient now essentially anuric. 3. Anemia and thrombocytopenia. 4. Bilateral pneumonia with CHF. Continue current supportive care. Prognosis appears extremely poor. Patient will need to have hemodialysis performed if the family agrees. 35 minutes of critical care time was spent evaluating the patient. Consultation Date/Type/Reason Admit Date/Time Oct 23, 2018 at 20:58 Initial Consult Date 10/23/18 Type of Consult Pulmonary/critical care Requesting Provider: LISSY SMITH MD Date/Time of Note DATE: 10/29/18 TIME: 09:09 24 HR Interval Summary Free Text/Dictation Patient's condition remains extremely critical. Patient getting profoundly more hypoxemic and also developing worsening renal failure. Patient however has remained hemodynamically stable. General exam; elderly male, orally intubated, unresponsive, currently no distress. Exam/Review of Systems Exam Vitals Vital Signs Date Temp Pulse Resp B/P (MAP) Pulse Ox O2 O2 Flow FiO2 Time Delivery Rate 10/29/18 68 26 126/65 80 Mechanical 06:00 (85) Ventilator 10/29/18 100 05:26 10/29/18 98.5 04:00 Intake and Output 10/28/18 10/28/18 10/29/18 1515:00 23:00 07:00 IntakeIntake Total 530 ml 430 ml 120 ml OutputOutput Total 315 ml 330 ml 240 ml BalanceBalance 215 ml 100 ml -120 ml Exam H EENT exam; supple neck, positive JVD. No lymphadenopathy. Midline trachea. No thyromegaly. Patient has fair dentition. Orally intubated. No neck masses. Pupils are dilated and nonreactive to light. Chest exam; diminished breath sounds throughout. S1-S2 audible, no murmurs. Regular rhythm. Abdomen exam; mildly protuberant. Bowel sounds are sluggish. No organomegaly. Extremity exam; no peripheral edema. T[employer] E[employer]OMIST exam; patient remains profoundly unresponsive. Results Result Diagram: 10/29/18 0431 10/29/18 0431 Results 24hrs Laboratory Tests Test 10/28/18 22:29 10/29/18 04:31 10/29/18 06:01 Hemoglobin 9.2 L 9.6 L Hematocrit 27.6 L 29.3 L Absolute Reticulocyte Count 0.053 Percent Reticulocyte Count 1.8 H White Blood Count 13.1 H Red Blood Count 3.17 L Mean Corpuscular Volume 92.4 Mean Corpuscular Hemoglobin 30.3 Mean Corpuscular 32.8 Hemoglobin Concent Red Cell Distribution Width 14.1 Platelet Count 141 Mean Platelet Volume 10.1 Immature Granulocytes % 3.400 H Neutrophils % 79.0 H Lymphocytes % 6.6 L Monocytes % 9.1 Eosinophils % 1.4 Basophils % 0.5 Nucleated Red Blood Cells % 0.0 Immature Granulocytes # 0.440 H Neutrophils # 10.4 H Lymphocytes # 0.9 Monocytes # 1.2 H Eosinophils # 0.2 Basophils # 0.1 Nucleated Red Blood Cells # 0.0 Sodium Level 144 Potassium Level 3.7 Chloride Level 103 Carbon Dioxide Level 29 Anion Gap 12 Blood Urea Nitrogen 97 H Creatinine 7.75 H Est Glomerular Filtrat 7 L Rate mL/min Glucose Level 96 Calcium Level 8.6 Magnesium Level 2.7 H Total Bilirubin 0.4 Direct Bilirubin 0.00 Indirect Bilirubin 0.4 Aspartate Amino 71 H Transf (AST/SGOT) Alanine 70 H Aminotransferase (ALT/SGPT) Alkaline Phosphatase 259 #H Total Protein 5.9 L Albumin 2.9 L Globulin 3.00 Albumin/Globulin Ratio 0.96 Blood Gas Specimen Source Blood arterial Arterial Blood Date Drawn 10/29/2018 6:09:20 AM Arterial Blood pH 7.329 L (Temp corrected) Arterial Blood pCO2 47.7 H (Temp correct) Arterial Blood pO2 48.7 *L (Temp corrected) Arterial Blood HCO3 24.5 Arterial Blood Base Excess -1.8 Arterial Blood 79.2 L Oxygen Saturation Nicolas Test ACCEPTAB Arterial Blood Gas Right Radial Puncture Site Arterial 0 Blood Carboxyhemoglobin Arterial Blood Methemoglobin 0.2 Blood Gas A-a O2 616.6 H Differential Oxyhemoglobin Percent 79.0 L Blood Gas Temperature 37.0 Blood Gas Respiration Rate 20.0 Blood Gas Actual 21 Respiration Rate Blood Gas Modality VENT - AC FiO2 100.0 Blood Gas Tidal Volume 550.0 Blood Gas Mean Airway 14 Pressure Blood Gas Low PEEP Setting 5.0 Blood Gas Inspiratory 31.0 Pressure Blood Gas Critical Value Jarrett LOPEZ Read Back Blood Gas Notified Whom ANATOLY HEWITT Blood Gas Notified Time 10/29/2018 6:21:17 AM Medications Medication Current Medications Ticagrelor (Brilinta) 90 mg BID PO Last administered on 10/29/18 08:36; Admin Dose 90 MG; Start 10/24/18 at 09:00 Atorvastatin Calcium (Lipitor) 40 mg DAILY@21 PO Last administered on 10/28/18 20:11; Admin Dose 40 MG; Start 10/24/18 at 21:00 Aspirin (Aspirin) 81 mg DAILY PO Last administered on 10/29/18 08:32; Admin Dose 81 MG; Start 10/24/18 at 09:00 Amiodarone HCl 900 mg/Dextrose 500 ml @ 0 mls/hr Q0M IV ; Start 10/24/18 at 00:08 Ondansetron HCl (Zofran Inj) 4 mg Q6H PRN IV NAUSEA AND/OR VOMITING; Start 10/24/18 at 00:30 Albuterol (Ventolin Hfa) 4 puff Q2H RESP THERAPY PRN INH SHORTNESS OF BREATH; Start 10/24/18 at 00:30 Ipratropium [place] (Atrovent Hfa) 4 puff Q2H RESP THERAPY PRN INH SHORTNESS OF BREATH; Start 10/24/18 at 00:30 Acetaminophen (Tylenol Liquid) 650 mg Q6H PRN PO PAIN LEVEL 1-3 OR FEVER; Start 10/24/18 at 00:30 Eye Lubricant (Akwa Oint) 1 applic Q6 BOTH EYES Last administered on 10/29/18 05:32; Admin Dose 1 APPLIC; Start 10/24/18 at 02:00 Eye Lubricant (Artificial Tears Oph) 2 drop Q6H PRN BOTH EYES DRY EYES Last administered on 10/28/18 05:36; Admin Dose 2 DROP; Start 10/24/18 at 02:00 Meperidine HCl (Demerol) 12.5 mg Q2 PRN IV SHIVERING; Start 10/24/18 at 03:30 Dopamine HCl/ Dextrose 250 ml @ 9 mls/hr TITRATE IV Last administered on 10/26/18 20:57; Admin Dose 13.5 MLS/HR; Start 10/24/18 at 04:30 Levetiracetam 100 ml @ 400 mls/hr Q12 IVPB Last administered on 10/29/18at 08:37; Admin Dose 400 MLS/HR; Start 10/24/18 at 14:00 Lorazepam (Ativan) 1 mg Q2H PRN IV seizures; Start 10/24/18 at 14:00 Piperacillin Sod/ Tazobactam Sod 50 ml @ 100 mls/hr Q8 IVPB Last administered on 10/29/18at 05:30; Admin Dose 100 MLS/HR; Start 10/25/18 at 09:30 Heparin Sodium (Porcine) (Heparin (5000 Units/1ml)) 5,000 unit BID SC Last administered on 10/29/18at 08:35; Admin Dose 5,000 UNIT; Start 10/26/18 at 21:00 Furosemide (Lasix) 40 mg BID DIURETICS IV Last administered on 10/29/18 05:30; Admin Dose 40 MG; Start 10/27/18 at 08:00 Famotidine (Pepcid) 20 mg DAILY NGT Last administered on 10/29/18at 08:32; Admin Dose 20 MG; Start 10/29/18 at 09:00 FREDERICK BOUDREAUX Oct 29, 2018 09:12
--- NOTE | 2018-10-29 09:19 | PN ---
Date/Time of Note Date/Time of Note DATE: 10/29/18 TIME: 09:16 Objective Vitals Vital Signs Date Temp Pulse Resp B/P (MAP) Pulse Ox O2 O2 Flow FiO2 Time Delivery Rate 10/29/18 68 26 126/65 80 Mechanical 06:00 (85) Ventilator 10/29/18 100 05:26 10/29/18 98.5 04:00 Intake and Output 10/28/18 10/28/18 10/29/18 1515:00 23:00 07:00 IntakeIntake Total 530 ml 430 ml 120 ml OutputOutput Total 315 ml 330 ml 240 ml BalanceBalance 215 ml 100 ml -120 ml Results Result Diagram: 10/29/181 10/29/18 0431 Medications Medications Current Medications Ticagrelor (Brilinta) 90 mg BID PO Last administered on 10/29/18at 08:36; Admin Dose 90 MG; Start 10/24/18 at 09:00 Atorvastatin Calcium (Lipitor) 40 mg DAILY@21 PO Last administered on 10/28/18at 20:11; Admin Dose 40 MG; Start 10/24/18 at 21:00 Aspirin (Aspirin) 81 mg DAILY PO Last administered on 10/29/18at 08:32; Admin Dose 81 MG; Start 10/24/18 at 09:00 Amiodarone HCl 900 mg/Dextrose 500 ml @ 0 mls/hr Q0M IV ; Start 10/24/18 at 00:08 Ondansetron HCl (Zofran Inj) 4 mg Q6H PRN IV NAUSEA AND/OR VOMITING; Start 10/24/18 at 00:30 Albuterol (Ventolin Hfa) 4 puff Q2H RESP THERAPY PRN INH SHORTNESS OF BREATH; Start 10/24/18 at 00:30 Ipratropium [place] (Atrovent Hfa) 4 puff Q2H RESP THERAPY PRN INH SHORTNESS OF BREATH; Start 10/24/18 at 00:30 Acetaminophen (Tylenol Liquid) 650 mg Q6H PRN PO PAIN LEVEL 1-3 OR FEVER; Start 10/24/18 at 00:30 Eye Lubricant (Akwa Oint) 1 applic Q6 BOTH EYES Last administered on 10/29/18at 05:32; Admin Dose 1 APPLIC; Start 10/24/18 at 02:00 Eye Lubricant (Artificial Tears Oph) 2 drop Q6H PRN BOTH EYES DRY EYES Last administered on 10/28/18 05:36; Admin Dose 2 DROP; Start 10/24/18 at 02:00 Meperidine HCl (Demerol) 12.5 mg Q2 PRN IV SHIVERING; Start 10/24/18 at 03:30 Dopamine HCl/ Dextrose 250 ml @ 9 mls/hr TITRATE IV Last administered on 10/26/18 20:57; Admin Dose 13.5 MLS/HR; Start 10/24/18 at 04:30 Levetiracetam 100 ml @ 400 mls/hr Q12 IVPB Last administered on 10/29/18 08:37; Admin Dose 400 MLS/HR; Start 10/24/18 at 14:00 Lorazepam (Ativan) 1 mg Q2H PRN IV seizures; Start 10/24/18 at 14:00 Piperacillin Sod/ Tazobactam Sod 50 ml @ 100 mls/hr Q8 IVPB Last administered on 10/29/18 05:30; Admin Dose 100 MLS/HR; Start 10/25/18 at 09:30 Heparin Sodium (Porcine) (Heparin (5000 Units/1ml)) 5,000 unit BID SC Last administered on 10/29/18 08:35; Admin Dose 5,000 UNIT; Start 10/26/18 at 21:00 Furosemide (Lasix) 40 mg BID DIURETICS IV Last administered on 10/29/18 05:30; Admin Dose 40 MG; Start 10/27/18 at 08:00 Famotidine (Pepcid) 20 mg DAILY NGT Last administered on 10/29/18 08:32; Admin Dose 20 MG; Start 10/29/18 at 09:00 VTE Prophylaxis Risk score (from Nsg)>0 risk: 11 SCD applied (from Ns): Yes Lines/Catheters IV Catheter Type: East in Place: No Assessment/Plan Hospital Course Subjective: Remains intubated and sedated, no significant neurological recovery per staff Objective : GENERAL: Intubated and comfortably sedated HEENT: Intubated, Vent settings noted, pupils are barely reactive, right pupil minimal to no movement and left pupil minimal to none., but not dilated, LUNGS: diffusely diminished and coarse BS HEART: Regular rate, no obvious murmur ABDOMEN: Soft, with questionable diminished bowel sounds. GENITOURINARY: Normal male external genitalia, East to bedside drainage EXTREMITIES: Mild 1+ nonpitting edema bilaterally, also some hand edema bilaterally NEUROLOGIC: Does not respond to noxious stimuli SKIN: Otherwise, unremarkable. assessment and plan: 1. V-fib cardiac arrest: s/p ROSC. Secondary to STEMI -Patient is status post successful PTCA thrombectomy stenting of the distal left circumflex artery from 100% occlusion to no significant residual stenosis using a 2.75 x 24 mm Synergy drug-eluting stent. s/p intra-aortic balloon pump, s/p hypothermia protocol -Currently on Brilinta, aspirin, statin -Management per cardiology -Echocardiogram showed preserved ejection fraction at 65% with stage I diastolic dysfunction without significant valvular abnormalities -Sinus off amiodarone gtt 2. Hypoxic and hypercapnic respiratory failure, secondary to above: Status post intubation -Continue vent support -Pulmonary managing, appreciate input 3. STEMI: See #1 4. Hyperglycemia: A1c 5.3 -s/p insulin drip, resolved 5. Post cardiac arrest Seizures -Head CT without acute findings. -No further seizures, on Keppra for prophylaxis< EEG showed slowing of the background indicates diffuse cortical dysfunction of nonspecific etiology. -Will order MRI of the brain when more stable 6. Acute renal failure with Severe metabolic acidosis -s/p bicarb drip, no hx of renal failure per -creatinine trending up however -Mild bilateral hydronephrosis and possible medical renal disease on ultrasound. Also probable debris noted in the bladder on ultrasound -Urine culture negative x 2 days 7. SIRS with bandemia and systemic Shock (Cardiogenic) -pancultures -patient high risk for aspiration PNA, abx ? -continue pressor support, wean as tolerated 8. Constipation noted on CT -no management for now 9. Hypertriglyceridemia -continue statin 10. Multivessel coronary artery disease with 90% right coronary artery stenosis -s/p successful PCI 12. Severe lactic acidosis likely secondary to hypoperfusion -trend levels to normal 13. Acute transaminitis/shock liver -hepatitis serology, trend levels 14. Acute encephalopathy 2/2 #1 with concern for brain 15. Anemia -Stable at this time, it appears patient received a lot of fluids ,may be due to hemodilution, monitor. Dispo: -Renal function is worsening, with reduced urinary output and evidence of pulmonary congestion on chest x-ray -Continue serial monitoring, patient is now on diuretic challenge, may require renal replacement therapy, needs dialysis per renal, will need to speak with before initiating dialysis and further plans. -Patient not showing any significant neurologic response at this time, however it may still be early in the course of his disease, patient also on antiepileptics. Continue close monitoring, continue ventilator support, prognosis looking grim at this time neurology working up for brain , -Continue to wean pressors as tolerated, continue empiric Zosyn for possible aspiration -Continue Brilinta, statin and aspirin for coronary artery disease -Patient remains on fentanyl as well as midazolam for sedation as well. -Continue ICU close monitoring on micromanagement. -Patient will need some form of nutrition, cont tube feeds as tolerated. -We will also continue serial x-rays and serial labs and supportive care as indicated. -Over 40 minutes of medical care time was spent on this encounter GAYLE HUITRON Oct 29, 2018 09:19
--- NOTE | 2018-10-29 09:39 | CONS ---
Assessment/Plan Assessment/Plan Hospital Course 68 yo M with multiple comorbidities who is admitted to the [facility] ICU for management following vfib arrest. STEMI noted, now s/p L circ thrombectomy and stent.. Now s/p targeted temperature Tx He was noted to have generalized convulsions (no prior Hx of seizures noted)... for which neurology is consulted. New seizures suggest some degree of acute cerebral injury... CTH brain is unrevealing. EEG is without epileptiform activity. His neurologic examination is notable for absent brainstem reflexes and absent motor response. Brain EEG on 10/26 was technically limited. Subsequent apnea test was reportedly notable for spontaneous respirations.. P: Ok to continue Keppra as ordered for now Ativan IV PRN seizure > 5 min or for cluster Limit sedating medications where possible Continued medical management and supportive care per primary Ongoing goals of care conversations w/ family Will follow clinically Consultation Date/Type/Reason Admit Date/Time Oct 23, 2018 at 20:58 Type of Consult Neurology Requesting Provider: LISSY SMITH MD Date/Time of Note DATE: 10/29/18 TIME: 09:38 24 HR Interval Summary Free Text/Dictation Continues critical care. Subjective hx not possible: pt non-verbal, pt critical, pt critical status Exam Vital Signs Vitals Vital Signs Date Temp Pulse Resp B/P (MAP) Pulse Ox O2 O2 Flow FiO2 Time Delivery Rate 10/29/18 68 26 126/65 80 Mechanical 06:00 (85) Ventilator 10/29/18 100 05:26 10/29/18 98.5 04:00 Intake and Output 10/28/18 10/28/18 10/29/18 1515:00 23:00 07:00 IntakeIntake Total 530 ml 430 ml 120 ml OutputOutput Total 315 ml 330 ml 240 ml BalanceBalance 215 ml 100 ml -120 ml Exam PE: Gen Appearance: No Apparent Distress HEENT: Intubated Cardiovascular: Regular rate Abdomen: Soft Extremities: Dry NE: The patient was comatose. Cranial nerve examination was limited by mental status. Pupils were equal and fixed. There was no afferent pupillary defect. Funduscopic examination was limited. Face was grossly symmetric, w/ absent corneal and cough reflexes. Tone was normal. Muscle bulk was normal. I did not see fasciculations. The patient did not withdraw to noxious stimulation x 4. Coordination and gait testing was limited by mental status. Arm and leg reflexes were symmetric . Fuller's sign was absent. Plantar responses were mute. ИРИНА LANCASTER NP Oct 29, 2018 09:39
--- NOTE | 2018-10-29 13:07 | OPR ---
DATE OF OPERATION: PREOPERATIVE DIAGNOSIS: Renal failure. POSTOPERATIVE DIAGNOSIS: Renal failure. OPERATION PERFORMED: Left femoral hemodialysis catheter placement. SURGEON: Kayden Adhikari MD ANESTHESIA: Local. INFORMED CONSENT: Risks, benefits, complications, alternative therapies explained to the patient and the patient's family, including the by myself. Consent obtained. OPERATIVE TECHNIQUE: The patient was placed in supine position, prepped and draped in usual sterile fashion, 1% lidocaine was used throughout the operation for local anesthesia. Access was gained in t he left common femoral vein. Guidewire was advanced through without any difficulty. Subcutaneous ti ssues were dilated. A 20 cm dialysis catheter advanced over a guidewire, secured to skin using silk sutures. Both ports of the catheter were aspirated and injected using saline solution. The patient tolerated procedure well. Dictated By: KAYDEN ADHIKARI MD FM/ORTIZ Conf#: [id number] DID#: [id number] CC: GAYLE HUITRON MD;*EndCC*
--- NOTE | 2018-10-29 14:24 | CONS ---
Consult Date/Type/Reason Admit Date/Time Oct 23, 2018 at 20:58 Initial Consult Date 10/23/18 Type of Consultation: CV Requesting Provider: LISSY SMITH MD Date/Time of Note DATE: 10/29/18 TIME: 14:22 Subjective Interventional cardiology follow-up progress note/critical care note Subjective: Discussed multiple staff and physicians. Telemetry was reviewed. Pt remains in NSR Patient remained intubated and on the vent currently off pressors in the ICU no bleeding Intra-aortic balloon pump has been removed on October 25, 2018 pt with hypoxemia and on 100% vent. large mucous was removed by RT Objective: General: Obese gentleman status post intubation on the vent nonverbal HEENT: NC/AT. pupils are not reactive. no corneal reflex NECK: no stridor. CV: RRR. systolic murmur; no gallop or rubs. PULM: no wheezing +rhonchi. GI: SOFT, NT, ND, no rebound or guarding Extremity: trace B/L LE edema. no clubbing. neuro: No response to verbal stimuli Psych: calm rectal: deferred : normal male Right femoral no bleeding or hematoma bruit noted Left femoral arterial sheath removed and no hematoma EKG emergency room was personally showed normal sinus rhythm with ST elevation inferolaterally consistent with inferolateral ST elevation NJ with reciprocal changes anteriorly Head CT done in the emergency room shows: No mass effect or acute intracranial bleed. Mild intracranial vascular calcification.. Chest x-ray done in the ER shows: 1. Endotracheal tube in place. 2. Atelectasis at the right lung base. 3. Mild cardiomegaly. 4. Exam limited by low lung volumes and multiple overlying external appearing wires . Chest x-ray done October 25, 2018 shows:Cardiomegaly. No significant change in mild central pulmonary vascular congestion. Multiple ABG that was reviewed personally Echocardiogram done October 24, 2018 was personally reviewed which shows Normal left ventricular systolic function. Normal left ventricular cavity size. Moderate concentric left ventricular hypertrophy. Ejection fraction is visually estimated at 65 %. Tissue Doppler/Mitral Doppler indices are consistent with impaired relaxation (Stage I diastolic dysfunction). Normal appearance and function of the mitral valve with trace physiologic regurgitation. Normal appearance of the aortic valve. No significant aortic stenosis or insufficiency. Normal appearance of the tricuspid valve. Unable to obtain RVSP due to minimal presence of tricuspid regurgitation. Normal IVC with respiratory collapse, however patient on ventilator. Normal pericardium with no significant pericardial effusion. Objective Vitals Vital Signs Date Temp Pulse Resp B/P (MAP) Pulse Ox O2 O2 Flow FiO2 Time Delivery Rate 10/29/18 98.6 63 20 123/71 99 Mechanical 12:00 (88) Ventilator 10/29/18 100 08:00 Intake and Output 10/28/18 10/28/18 10/29/18 1515:00 23:00 07:00 IntakeIntake Total 530 ml 430 ml 120 ml OutputOutput Total 315 ml 330 ml 240 ml BalanceBalance 215 ml 100 ml -120 ml Results/Medications Result Diagram: 10/29/18 0431 10/29/18 0431 Results 24 hrs Laboratory Tests Test 10/28/18 22:29 10/29/18 04:31 10/29/18 06:01 10/29/18 11:00 Hemoglobin 9.2 L 9.6 L Hematocrit 27.6 L 29.3 L Absolute 0.053 Reticulocyte Count Percent 1.8 H Reticulocyte Count White Blood 13.1 H Count Red Blood Count 3.17 L Mean Corpuscular 92.4 Volume Mean Corpuscular 30.3 Hemoglobin Mean Corpuscular 32.8 Hemoglobin Anyi nt Red Cell 14.1 Distribution Width Platelet Count 141 Mean Platelet 10.1 Volume Immature 3.400 H Granulocytes % Neutrophils % 79.0 H Lymphocytes % 6.6 L Monocytes % 9.1 Eosinophils % 1.4 Basophils % 0.5 Nucleated Red 0.0 Blood Cells % Immature 0.440 H Granulocytes # Neutrophils # 10.4 H Lymphocytes # 0.9 Monocytes # 1.2 H Eosinophils # 0.2 Basophils # 0.1 Nucleated Red 0.0 Blood Cells # Sodium Level 144 Potassium Level 3.7 Chloride Level 103 Carbon Dioxide 29 Level Anion Gap 12 Blood Urea 97 H Nitrogen Creatinine 7.75 H Est Glomerular 7 L Filtrat Rate mL/min Glucose Level 96 Calcium Level 8.6 Magnesium Level 2.7 H Total Bilirubin 0.4 Direct Bilirubin 0.00 Indirect 0.4 Bilirubin Aspartate Amino 71 H Transf (AST/SGOT ) Alanine 70 H Aminotransferase (ALT/SGPT) Alkaline 259 #H Phosphatase Total Protein 5.9 L Albumin 2.9 L Globulin 3.00 Albumin/Globulin 0.96 Ratio Blood Gas Blood arterial Blood arterial Specimen Source Arterial Blood 10/29/2018 6:09: 10/29/2018 11:44 Date Drawn 20 AM :35 AM Arterial Blood 7.329 L 7.374 pH (Temp corrected) Arterial Blood 47.7 H 44.1 pCO2 (Temp correct) Arterial Blood 48.7 *L 113.5 H pO2 (Temp corrected) Arterial Blood 24.5 25.2 HCO3 Arterial Blood -1.8 -0.2 Base Excess Arterial Blood 79.2 L 97.4 Oxygen Saturatio n Nicolas Test ACCEPTAB ACCEPTAB Arterial Blood Right Radial Right Radial Gas Puncture Site Arterial 0 0.2 Blood Carboxyhem oglobin Arterial Blood 0.2 0.3 Methemoglobin Blood Gas A-a O2 616.6 H 555.4 H Differential Oxyhemoglobin 79.0 L 96.9 Percent Blood Gas 37.0 37.0 Temperature Blood Gas 20.0 20.0 Respiration Rate Blood Gas Actual 21 20 Respiration Rate Blood Gas VENT - AC VENT - AC Modality FiO2 100.0 100.0 Blood Gas Tidal 550.0 550.0 Volume Blood Gas Mean 14 Airway Pressure Blood Gas Low 5.0 10.0 PEEP Setting Blood Gas 31.0 Inspiratory Pressure Blood Gas TA,H.R.N. Critical Value Read Back Blood Gas [facility] Notified Whom Blood Gas 10/29/2018 6:21: 10/29/2018 11:48 Notified Time 17 AM :17 AM Home Meds Reported Medications Amlodipine Besylate* (Amlodipine Besylate*) 10 Mg Tablet, 10 MG PO DAILY, #30 TAB 10/23/18 Cyanocobalamin (Vitamin B-12) (Vitamin B-12) Unknown Strength Capsule, 1 CAP PO DAILY, CAP 10/23/18 Garlic (Garlic) 1 Each Tablet, 1 EACH PO DAILY, TAB 10/23/18 Multivitamins* (Theragran*) 1 Tab Tab, 1 TAB PO DAILY, TAB 10/23/18 Acyclovir* (Acyclovir*) 800 Mg Tablet, 800 MG PO DAILY, TAB 10/23/18 Aspirin* (Aspirin* EC) 81 Mg Tablet.dr, 81 MG PO DAILY, TAB 10/23/18 Medications Current Medications Ticagrelor (Brilinta) 90 mg BID PO Last administered on 10/29/18at 08:36; Admin Dose 90 MG; Start 10/24/18 at 09:00 Atorvastatin Calcium (Lipitor) 40 mg DAILY@21 PO Last administered on 10/28/18 20:11; Admin Dose 40 MG; Start 10/24/18 at 21:00 Aspirin (Aspirin) 81 mg DAILY PO Last administered on 10/29/18 08:32; Admin Dose 81 MG; Start 10/24/18 at 09:00 Amiodarone HCl 900 mg/Dextrose 500 ml @ 0 mls/hr Q0M IV ; Start 10/24/18 at 00:08 Ondansetron HCl (Zofran Inj) 4 mg Q6H PRN IV NAUSEA AND/OR VOMITING; Start 10/24/18 at 00:30 Albuterol (Ventolin Hfa) 4 puff Q2H RESP THERAPY PRN INH SHORTNESS OF BREATH; Start 10/24/18 at 00:30 Ipratropium Mobile (Atrovent Hfa) 4 puff Q2H RESP THERAPY PRN INH SHORTNESS OF BREATH; Start 10/24/18 at 00:30 Acetaminophen (Tylenol Liquid) 650 mg Q6H PRN PO PAIN LEVEL 1-3 OR FEVER; Start 10/24/18 at 00:30 Eye Lubricant (Akwa Oint) 1 applic Q6 BOTH EYES Last administered on 10/29/18 13:24; Admin Dose 1 APPLIC; Start 10/24/18 at 02:00 Eye Lubricant (Artificial Tears Oph) 2 drop Q6H PRN BOTH EYES DRY EYES Last administered on 10/28/18 05:36; Admin Dose 2 DROP; Start 10/24/18 at 02:00 Meperidine HCl (Demerol) 12.5 mg Q2 PRN IV SHIVERING; Start 10/24/18 at 03:30 Dopamine HCl/ Dextrose 250 ml @ 9 mls/hr TITRATE IV Last administered on 10/26/18 20:57; Admin Dose 13.5 MLS/HR; Start 10/24/18 at 04:30 Levetiracetam 100 ml @ 400 mls/hr Q12 IVPB Last administered on 10/29/18 08:37; Admin Dose 400 MLS/HR; Start 10/24/18 at 14:00 Lorazepam (Ativan) 1 mg Q2H PRN IV seizures; Start 10/24/18 at 14:00 Piperacillin Sod/ Tazobactam Sod 50 ml @ 100 mls/hr Q8 IVPB Last administered on 10/29/18at 13:32; Admin Dose 100 MLS/HR; Start 10/25/18 at 09:30 Heparin Sodium (Porcine) (Heparin (5000 Units/1ml)) 5,000 unit BID SC Last administered on 10/29/18 08:35; Admin Dose 5,000 UNIT; Start 10/26/18 at 21:00 Furosemide (Lasix) 40 mg BID DIURETICS IV Last administered on 10/29/18 05:30; Admin Dose 40 MG; Start 10/27/18 at 08:00 Famotidine (Pepcid) 20 mg DAILY NGT Last administered on 10/29/18 08:32; Admin Dose 20 MG; Start 10/29/18 at 09:00 Assessment/Plan Hospital Course (Demo Recall) Ventricular fibrillation cardiac arrest V. 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 f/u neuro rec. Vent support will be continued. Hypothermia has been completed Magnesium potassium to be replaced as needed Diuretics /HD will be deferred to renal recommendation Prognosis is guarded Thank you for his referral. We will continue to follow along with you DRU PONCE MD [facility] DRU PONCE MD Oct 29, 2018 14:24
[2018-10-29] MEDS ORDERED: ARTIFICIAL TEARS 15 ML OPH BOTH EYES PRN (18:30)
[2018-10-29] MEDS ORDERED: morphine 2 MG INJ IV PRN (18:30)
[2018-10-29] MEDS ORDERED: DIPHENHYDRAMINE 50 MG INJ IV PRN (18:30)
[2018-10-29] MEDS ORDERED: ACETAMINOPHEN 325 MG TAB NGT PRN (18:30)
[2018-10-29] MEDS ORDERED: LORAZEPAM 2 MG INJ IV PRN (18:30)
[2018-10-29] MEDS ORDERED: DIMETHICONE STICK TOP PRN (18:30)
[2018-10-29] MEDS ORDERED: ONDANSETRON 4 MG INJ IV PRN (18:30)
--- NOTE | 2018-10-30 10:35 | DES ---
Date/Time of Note Date/Time of Note DATE: 10/30/18 TIME: 10:34 Discharge/ Summary Admission/Discharge Info Admit Date/Time Oct 23, 2018 at 20:58 Final Diagnosis Cardiopulmonary arrest Hypoxia Bradycardia Acute renal failure ST elevation AL Preliminary Cause of Cardiopulmonary arrest Hypoxia Bradycardia Acute renal failure ST elevation AL Hospital Course Patient is a male who unfortunately presented to [facility] with V. fib cardiac arrest secondary to his ST elevation AL. Patient had an extended stay in the ICU with multiple issues including ST elevation AL, hypoxia, respiratory failure, post cardiac arrest seizures, acute renal failure with severe metabolic acidosis, acute encephalopathy. Patient had an extended stay due to the multiple issues as above and was seen by multiple consultants including nephrology, neurology, pulmonology. Patient's condition did not improve over many days it became more clear that patient's anoxic brain injury secondary to cardiac arrest would not be reversible. Patient subsequently developed renal failure in need of dialysis and at this time patient's decided to withdraw care and to pursue inpatient hospice.Patient was placed on hospice/comfort care and terminally extubated by 's wishes Patient was terminally extubated on October 29, 2018 and was pronounced at 2032. . diagnosis Cardiopulmonary arrest Hypoxia Bradycardia Acute renal failure ST elevation AL Acute hypoxic respiratory failure Hyperglycemia Seizures Hypertriglyceridemia Coronary artery disease Pending Labs/Cultures Laboratory Tests Test 10/29/18 11:00 Blood Gas Specimen Source Blood arterial Arterial Blood Date Drawn 10/29/2018 11:44:35 AM Arterial Blood pH (Temp corrected) 7.374 (7.350-7.450) Arterial Blood pCO2 (Temp correct) 44.1 mmhg (35-45) Arterial Blood pO2 (Temp corrected) 113.5 mmHG (80-100.0) Arterial Blood HCO3 25.2 mmol/L (22.0-26.0) Arterial Blood Base Excess -0.2 mmol/L (-3.0-3) Arterial Blood Oxygen Saturation 97.4 mmHG (95.0-98.0) Nicolas Test ACCEPTAB Arterial Blood Gas Puncture Site Right Radial Arterial Blood Carboxyhemoglobin 0.2 % (0.0-3.0) Arterial Blood Methemoglobin 0.3 % (0.0-1.5) Blood Gas A-a O2 Differential 555.4 mmHg (7.0-24.0) Oxyhemoglobin Percent 96.9 % (93.0-99.0) Blood Gas Temperature 37.0 C Blood Gas Respiration Rate 20.0 Blood Gas Actual Respiration Rate 20 Blood Gas Modality VENT - AC FiO2 100.0 % Blood Gas Tidal Volume 550.0 mL Blood Gas Low PEEP Setting 10.0 cmH2O Blood Gas Notified Whom MDA Blood Gas Notified Time 10/29/2018 11:48:17 AM GAYLE HUITRON Oct 30, 2018 10:35
== END 2018-10-29 20:33 | disposition expired | DRG 270 ==
LOC: E/R 19:45 → ICU 20:58
PROVIDERS: ADMIT Internal Medicine; ATTEND Internal Medicine
PROC: 02C03ZZ Extirpation of Matter from Coronary Artery, One Artery, Percutaneous Approach (ICD-10-PCS; 2018-10-23)
PROC: 5A1955Z Respiratory Ventilation, Greater than 96 Consecutive Hours (ICD-10-PCS; 2018-10-23)
PROC: 4A023N7 Measurement of Cardiac Sampling and Pressure, Left Heart, Percutaneous Approach (ICD-10-PCS; 2018-10-23)
PROC: B211YZZ Fluoroscopy of Multiple Coronary Arteries using Other Contrast (ICD-10-PCS; 2018-10-23)
PROC: 0BH18EZ Insertion of Endotracheal Airway into Trachea, Via Natural or Artificial Opening Endoscopic (ICD-10-PCS; 2018-10-23)
PROC: 06HY33Z Insertion of Infusion Device into Lower Vein, Percutaneous Approach (ICD-10-PCS; 2018-10-23)
PROC: 02703DZ Dilation of Coronary Artery, One Artery with Intraluminal Device, Percutaneous Approach (ICD-10-PCS; principal; 2018-10-23 21:00)
PROC: 5A02210 Assistance with Cardiac Output using Balloon Pump, Continuous (ICD-10-PCS; 2018-10-23 21:00)
PROC: 06HY33Z Insertion of Infusion Device into Lower Vein, Percutaneous Approach (ICD-10-PCS; 2018-10-29)
DX: I21.19 ST elevation (STEMI) myocardial infarction involving other coronary artery of inferior wall (principal); J96.02 Acute respiratory failure with hypercapnia; J96.01 Acute respiratory failure with hypoxia; K72.00 Acute and subacute hepatic failure without coma; N17.0 Acute kidney failure with tubular necrosis; J69.0 Pneumonitis due to inhalation of food and vomit; E87.2 Acidosis; G93.1 Anoxic brain damage, not elsewhere classified; G40.89 Other seizures; I49.01 Ventricular fibrillation; I25.10 Atherosclerotic heart disease of native coronary artery without angina pectoris; E78.1 Pure hyperglyceridemia; I46.2 Cardiac arrest due to underlying cardiac condition; E87.6 Hypokalemia; I10 Essential (primary) hypertension; E87.70 Fluid overload, unspecified; R73.9 Hyperglycemia, unspecified
CPT/HCPCS: 31500; 36415; 36600; 70450; 71045; 74018; 76775; 80048; 80053; 80061; 80076; 80307; 81001; 81003; 82043; 82140; 82150; 82550; 82553; 82728; 82803; 82962; 83010; 83036; 83540; 83605; 83615; 83690; 83735; 83880; 84100; 84155; 84300; 84443; 84484; 85014; 85018; 85025; 85045; 85384; 85610; 85730; 86850; 86900; 86901; 87040; 87070; 87086; 89220; 90686; 92941; 92950; 93005; 93306; 93458; 94002; 94003; 94770; 95819; 96374; 96375; C1725; C1726; C1752; C1757; C1874; C1887; C9113; J0171; J0282; J0610; J0692; J1265; J1327; J1644; J1720; J1815; J1940; J1953; J2060; J2175; J2250; J2270; J2543; J2997; J3010; J3360; J3370; J3475; J3480; J7030; J7040; J7042; J7060; J7070; L3675; Q9967